=== PATIENT | male | born 1985 ===

== ENCOUNTER 2016-07-16 03:41 | Emergency (ER) | payer OTHER ==
[2016-07-16 03:47] VITALS: RESP 18
[2016-07-16] MEDS ORDERED: ONDANSETRON 4 MG/2 ML VIAL IVP STA ×3 (04:05→08:53)
[2016-07-16] MEDS ORDERED: HYDROmorphone 1 MG/ML 1 ML SYRINGE IVP STA ×2 (04:05→05:18)
[2016-07-16] MEDS ORDERED: SODIUM CHLORIDE 0.9% 1,000 ML IV STA ×2 (04:05→05:18)
[2016-07-16] MEDS ORDERED: SODIUM CHLORIDE 0.9% 2,000 ML IV STA (04:05)
--- NOTE | 2016-07-16 04:08 | ED ---
Abdominal Pain HPI - General Source: patient, family, RN notes reviewed, old records reviewed Mode of arrival: wheelchair Limitations: no limitations - History of Present Illness MD Complaint: abdominal pain <Eladio Bro - Last Filed: 07/16/16 06:54> <Adria Jacobs - Last Filed: 07/16/16 08:43> - General Chief Complaint: Abdominal Pain Stated Complaint: NVD, HX: diabetic Time Seen by Provider: 07/16/16 03:49 - History of Present Illness Initial Comments: This is a 31-year-old male with a history of appendectomy in the past as well as abdominal surgery who states she had the onset last night of nausea vomiting and diarrhea. She states this started as diarrhea he states he has sharp and crampy abdominal pain this about 8/10 severity. No blood reported uterine bowel movements or and emesis. He's also states she's had pain radiating around to the back to the right side and his family is concerned about gallbladder disease. No other complaints at this time no cough or phlegm production. He is currently nauseated. (Eladio Bro) - Related Data Home Medications Medication Instructions Recorded Confirmed Insulin Regular, Human [Humulin R] 12 units SQ BID 03/29/16 07/16/16 Loratadine [Loratadine] 10 mg PO DAILY 03/29/16 07/16/16 Omeprazole [PriLOSEC] 20 mg PO BID 03/29/16 07/16/16 Simvastatin [Simvastatin] 20 mg PO HS 03/29/16 07/16/16 Dicyclomine HCl [Bentyl] 20 mg PO QID 04/21/16 07/16/16 Insulin Glargine [Lantus] 34 unit SQ DAILY 07/16/16 07/16/16 Pregabalin [Lyrica] 150 mg PO BID 07/16/16 07/16/16 Previous Rx's Medication Instructions Recorded Ondansetron Odt [Zofran Odt] 4 mg PO Q8HR PRN #15 tab 05/21/16 Allergies Allergy/AdvReac Type Severity Reaction Status Date / Time etodolac [From Lodine] Allergy Rash/Hives Verified 05/21/16 22:31 ketorolac [From Toradol] Allergy Rash/Hives Verified 05/21/16 22:31 Review of Systems ROS Other: All systems not noted in ROS Statement are negative. <Eladio Bro - Last Filed: 07/16/16 06:54> ROS Other: All systems not noted in ROS Statement are negative. <Adria Jacobs - Last Filed: 07/16/16 08:43> ROS Statement: Those systems with pertinent positive or pertinent negative responses have been documented in the HPI. Past Medical History Past Medical History: Diabetes Mellitus, GERD/Reflux Additional Past Medical History / Comment(s): diverticultitis History of Any Multi-Drug Resistant Organisms: None Reported Past Surgical History: Appendectomy, Bowel Resection, Tonsillectomy Additional Past Surgical History / Comment(s): Bowel, Knee Past Psychological History: No Psychological Hx Reported Smoking Status: Never smoker Past Alcohol Use History: None Reported Past Drug Use History: None Reported <Eladio Bro - Last Filed: 07/16/16 06:54> General Exam Limitations: no limitations General appearance: alert, in no apparent distress Head exam: Present: atraumatic, normocephalic, normal inspection Eye exam: Present: normal appearance, PERRL, EOMI. Absent: scleral icterus, conjunctival injection, periorbital swelling ENT exam: Present: mucous membranes dry Neck exam: Present: normal inspection. Absent: tenderness, meningismus, lymphadenopathy Respiratory exam: Present: normal lung sounds bilaterally. Absent: respiratory distress, wheezes, rales, rhonchi, stridor Cardiovascular Exam: Present: normal rhythm, tachycardia, normal heart sounds. Absent: systolic murmur, diastolic murmur, rubs, gallop, clicks GI/Abdominal exam: Present: soft, tenderness (Tender epigastric region no definite guarding or rebound), normal bowel sounds. Absent: distended, guarding , rebound, rigid Rectal exam: Present: deferred Extremities exam: Present: normal inspection, full ROM, normal capillary refill. Absent: tenderness, pedal edema, joint swelling, calf tenderness Back exam: Present: normal inspection Neurological exam: Present: alert, oriented X3, CN II-XII intact Psychiatric exam: Present: normal affect, normal mood Skin exam: Present: warm, dry, intact, normal color. Absent: rash <Eladio Bro - Last Filed: 07/16/16 06:54> General appearance: alert, in no apparent distress Head exam: Present: atraumatic, normocephalic, normal inspection Eye exam: Present: normal appearance, PERRL, EOMI. Absent: scleral icterus, conjunctival injection, periorbital swelling ENT exam: Present: normal exam, mucous membranes moist Neck exam: Present: normal inspection. Absent: tenderness, meningismus, lymphadenopathy Respiratory exam: Present: normal lung sounds bilaterally. Absent: respiratory distress, wheezes, rales, rhonchi, stridor Cardiovascular Exam: Present: regular rate, normal rhythm, normal heart sounds. Absent: systolic murmur, diastolic murmur, rubs, gallop, clicks GI/Abdominal exam: Present: soft, normal bowel sounds. Absent: distended, tenderness, guarding, rebound, rigid Extremities exam: Present: normal inspection, full ROM, normal capillary refill. Absent: tenderness, pedal edema, joint swelling, calf tenderness Back exam: Present: normal inspection Neurological exam: Present: alert, oriented X3, CN II-XII intact Psychiatric exam: Present: normal affect, normal mood Skin exam: Present: warm, dry, intact, normal color. Absent: rash <Adria Jacobs - Last Filed: 07/16/16 08:43> - General Exam Comments Initial Comments: This is a well-developed well-nourished awake alert oriented 1 male (Eladio Bro) Course <Eladio Bro - Last Filed: 07/16/16 06:54> <Adria Jacobs - Last Filed: 07/16/16 08:43> Vital Signs 07/16/16 07/16/16 07/16/16 03:44 04:31 05:04 Temperature 97.7 F Pulse Rate 109 H 95 94 Respiratory 18 18 18 Rate Blood Pressure 123/63 111/65 105/61 O2 Sat by Pulse 100 98 98 Oximetry 07/16/16 07:17 Temperature Pulse Rate 91 Respiratory 18 Rate Blood Pressure 115/70 O2 Sat by Pulse 100 Oximetry - Reevaluation(s) Reevaluation #1: 07/16/16 05:19 Patient states she is not getting much improvement in his pain (Eladio Bro) Reevaluation #2: 07/16/16 06:31 Patient still having significant abdominal pain he states he's on again about 2 points better lab work is back. Patient will get a CAT scan the abdomen and pelvis. (Eladio Bro) Reevaluation #3: 07/16/16 06:54 The patient is endorsed to Dr. Jacobs (Eladio Bro) Reevaluation #4: 07/16/16 08:42 Patient's pain at this time seems to be sufficiently improved (Adria Jacobs) Medical Decision Making - Lab Data Result diagrams: 07/16/16 04:05 07/16/16 04:05 <Eladio Bro - Last Filed: 07/16/16 06:54> - Lab Data Result diagrams: 07/16/16 04:05 07/16/16 04:05 - Radiology Data Radiology results: report reviewed (CT abdomen and pelvis is negative for acute disease), image reviewed <Adria Jacobs - Last Filed: 07/16/16 08:43> - Medical Decision Making 28 male here for evaluation of abdominal pain. Patient without pain nausea vomiting diarrhea, at this time CT is negative Dopp is improved and patient can be discharged home (Adria Jacobs) - Lab Data Lab Results 07/16/16 07/16/16 07/16/16 Range/Units 04:05 04:05 04:05 WBC 13.3 H (3.8-10.6) k/uL RBC 5.36 (4.30-5.90) m/uL Hgb 16.4 (13.0-17.5) gm/dL Hct 47.7 (39.0-53.0) % MCV 89.0 (80.0-100.0) fL MCH 30.6 (25.0-35.0) pg MCHC 34.4 (31.0-37.0) g/dL RDW 12.8 (11.5-15.5) % Plt Count 256 (150-450) k/uL Neutrophils % 90 % Lymphocytes % 4 % Monocytes % 2 % Eosinophils % 3 % Basophils % 0 % Neutrophils # 11.9 H (1.3-7.7) k/uL Lymphocytes # 0.6 L (1.0-4.8) k/uL Monocytes # 0.3 (0-1.0) k/uL Eosinophils # 0.4 (0-0.7) k/uL Basophils # 0.0 (0-0.2) k/uL Sodium 142 (137-145) mmol/L Potassium 4.8 (3.5-5.1) mmol/L Chloride 107 (98-107) mmol/L Carbon Dioxide 21 L (22-30) mmol/L Anion Gap 14 mmol/L BUN 19 (9-20) mg/dL Creatinine 0.60 L (0.66-1.25) mg/dL Est GFR (MDRD) Af Amer >60 (>60 ml/min/1.73 sqM) Est GFR (MDRD) Non-Af >60 (>60 ml/min/1.73 sqM) Glucose 230 H (74-99) mg/dL Plasma Lactic Acid Ja (0.7-2.0) mmol/L Calcium 9.4 (8.4-10.2) mg/dL Total Bilirubin 1.0 (0.2-1.3) mg/dL AST 20 (17-59) U/L ALT 37 (21-72) U/L Alkaline Phosphatase 106 (38-126) U/L Total Creatine Kinase 50 L (55-170) U/L CK-MB (CK-2) 0.7 (0.0-2.4) ng/mL CK-MB (CK-2) Rel Index 1.4 Troponin I <0.012 (0.000-0.034) ng/mL Total Protein 7.9 (6.3-8.2) g/dL Albumin 4.7 (3.5-5.0) g/dL Amylase <30 L (30-110) U/L Lipase 66 (23-300) U/L Urine Color Urine Appearance (Clear) Urine pH (5.0-8.0) Ur Specific Declo (1.001-1.035) Urine Protein (Negative) Urine Glucose (UA) (Negative) Urine Ketones (Negative) Urine Blood (Negative) Urine Nitrate (Negative) Urine Bilirubin (Negative) Urine Urobilinogen (<2.0) mg/dL Ur Leukocyte Esterase (Negative) 07/16/16 07/16/16 Range/Units 04:05 04:05 WBC (3.8-10.6) k/uL RBC (4.30-5.90) m/uL Hgb (13.0-17.5) gm/dL Hct (39.0-53.0) % MCV (80.0-100.0) fL MCH (25.0-35.0) pg MCHC (31.0-37.0) g/dL RDW (11.5-15.5) % Plt Count (150-450) k/uL Neutrophils % % Lymphocytes % % Monocytes % % Eosinophils % % Basophils % % Neutrophils # (1.3-7.7) k/uL Lymphocytes # (1.0-4.8) k/uL Monocytes # (0-1.0) k/uL Eosinophils # (0-0.7) k/uL Basophils # (0-0.2) k/uL Sodium (137-145) mmol/L Potassium (3.5-5.1) mmol/L Chloride (98-107) mmol/L Carbon Dioxide (22-30) mmol/L Anion Gap mmol/L BUN (9-20) mg/dL Creatinine (0.66-1.25) mg/dL Est GFR (MDRD) Af Amer (>60 ml/min/1.73 sqM) Est GFR (MDRD) Non-Af (>60 ml/min/1.73 sqM) Glucose (74-99) mg/dL Plasma Lactic Acid Ja 1.7 (0.7-2.0) mmol/L Calcium (8.4-10.2) mg/dL Total Bilirubin (0.2-1.3) mg/dL AST (17-59) U/L ALT (21-72) U/L Alkaline Phosphatase (38-126) U/L Total Creatine Kinase (55-170) U/L CK-MB (CK-2) (0.0-2.4) ng/mL CK-MB (CK-2) Rel Index Troponin I (0.000-0.034) ng/mL Total Protein (6.3-8.2) g/dL Albumin (3.5-5.0) g/dL Amylase (30-110) U/L Lipase (23-300) U/L Urine Color Yellow Urine Appearance Clear (Clear) Urine pH 5.0 (5.0-8.0) Ur Specific Declo 1.024 (1.001-1.035) Urine Protein Negative (Negative) Urine Glucose (UA) 4+ H (Negative) Urine Ketones Negative (Negative) Urine Blood Negative (Negative) Urine Nitrate Negative (Negative) Urine Bilirubin Negative (Negative) Urine Urobilinogen <2.0 (<2.0) mg/dL Ur Leukocyte Esterase Negative (Negative) Disposition <Eladio Bro - Last Filed: 07/16/16 06:54> <Adria Jacobs - Last Filed: 07/16/16 08:43> Clinical Impression: Abdominal pain, Nausea & vomiting, Diarrhea Disposition: HOME SELF-CARE Instructions: Abdominal Pain (ED) Referrals: Sami Cuellar MD [Primary Care Provider] - 1-2 days
[2016-07-16 04:34] LABS: Basophils % (A) 0 %; CH 31.5; CHCM 35.6; Eosinophils # (A) 0.4 k/uL (0-0.7); Eosinophils % (A) 3 %; HCT 47.7 % (39.0-53.0); HDW 2.76; HGB 16.4 gm/dL (13.0-17.5); Luc # (Auto) 0.09; Luc % (Auto) 1; Lymphocytes # (A) 0.6 k/uL (1.0-4.8); Lymphocytes % (A) 4 %; MCH 30.6 pg (25.0-35.0); MCHC 34.4 g/dL (31.0-37.0); Mean Platelet Volume 6.9; Monocytes # (A) 0.3 k/uL (0-1.0); Monocytes % (A) 2 %; Neutrophils # (A) 11.9 k/uL (1.3-7.7); Neutrophils % (A) 90 %; RBC 5.36 m/uL (4.30-5.90); RDW 12.8 % (11.5-15.5); WBC 13.3 k/uL (3.8-10.6); WBC (Perox) 13.49
--- NOTE | 2016-07-16 04:41 | XR ---
EXAMINATION TYPE: XR chest 2V DATE OF EXAM: 07/16/2016 4:29 AM COMPARISON: NONE HISTORY: Abdominal pain TECHNIQUE: Frontal and lateral views of the chest are obtained. FINDINGS: Heart and mediastinum are normal. Lungs are clear. Diaphragm is normal. Bony thorax is int act. IMPRESSION: Normal chest
--- NOTE | 2016-07-16 04:42 | XR ---
EXAMINATION TYPE: XR KUB DATE OF EXAM: 07/16/2016 4:29 AM COMPARISON: 05/21/2016 HISTORY: Abdominal pain TECHNIQUE: Single view FINDINGS: There is no sign of intestinal obstruction or pneumoperitoneum. Fecal pattern is normal. Th ere are surgical clips over the stomach. Bony structures are intact. There is no sign of a mass. IMPRESSION: Nonacute abdomen. No change.
[2016-07-16 04:45] LABS: ALT 37 U/L (21-72); AST 20 U/L (17-59); Alkaline Phosphatase 106 U/L (38-126); Amylase <30 U/L (30-110); Anion Gap 14 mmol/L; Blood Urea Nitrogen 19 mg/dL (9-20); Calcium 9.4 mg/dL (8.4-10.2); Carbon Dioxide 21 mmol/L (22-30); Chloride 107 mmol/L (98-107); Glucose 230 mg/dL (74-99); Non-African American GFR(MDRD) >60 (>60 ml/min/1.73 sqM); Potassium 4.8 mmol/L (3.5-5.1); Sodium 142 mmol/L (137-145); Total Protein 7.9 g/dL (6.3-8.2)
[2016-07-16 04:50] LABS: Appearance,Urine Clear (Clear); Bilirubin,Urine Negative (Negative); Glucose,Urine (UA) 4+ (Negative); Ketones,Urine Negative (Negative); Leukocyte Esterase,Urine Negative (Negative); Nitrite,Urine Negative (Negative); Protein,Urine Negative (Negative); Specific Gravity,Urine 1.024 (1.001-1.035); UA Billing (MACRO vs. MICRO) CHEM; Urobilinogen,Urine <2.0 mg/dL (<2.0)
[2016-07-16 05:11] LABS: Creatine Kinase 50 U/L (55-170)
[2016-07-16] MEDS ORDERED: FAMOTIDINE 20 MG/2 ML VIAL IV STA (05:18)
[2016-07-16] MEDS ORDERED: DICYCLOMINE 10 MG/ML 2 ML AMP IM STA (05:18)
[2016-07-16 05:24] LABS: Creatine Kinase MB 0.7 ng/mL (0.0-2.4); Troponin I <0.012 ng/mL (0.000-0.034)
[2016-07-16] MEDS ORDERED: IOHEXOL 350 MG/ML 25 ML BOTTLE (ORAL USE) PO PRN (06:30)
[2016-07-16] MEDS ORDERED: RX INFO: IV CONTRAST WAS GIVEN 1 EACH MISC MISCELLANE PRN (06:30)
--- NOTE | 2016-07-16 08:33 | CT ---
EXAMINATION TYPE: CT abdomen pelvis w con DATE OF EXAM: 07/16/2016 8:27 AM COMPARISON: 03/29/2016 HISTORY: Nausea, vomitting, diarrhea CT DLP: 1102 mGycm CONTRAST: CT scan of the abdomen and pelvis is performed with Oral Contrast and with IV Contrast, patient injec frantz with 100 ml mL of Omnipaque 300. FINDINGS: LUNG BASES-: No visible nodule. No infiltrate. LIVER/GB: No calcified gallstones. No space occupying hepatic lesion. Biliary tree is of normal ca liber. PANCREAS: No inflammation. No distinct mass. SPLEEN: No splenic enlargement. No lesion seen. ADRENALS: No nodule. No thickening. KIDNEYS/BLADDER: No hydronephrosis. No nephrolithiasis. No disctinct renal mass. Urinary bladder g rossly unremarkable. BOWEL: There is been prior appendectomy. Extensive surgical clips are noted within the epigastric reg ion. Normal bowel caliber. No inflammation. GENITAL ORGANS: No gross abnormality. LYMPH NODES: No greater than 1cm abdominal or pelvic lymph nodes are appreciated. AORTA: No significant abnormality. OSSEOUS STRUCTURES: No significant abnormality is seen. OTHER: No significant additional abnormality is seen. IMPRESSION: 1. No acute intra-abdominal or intrapelvic process identified at this time.
[2016-07-16 09:03] VITALS: BP 114/64; PULSE 99; TEMP 98.5
== END 2016-07-16 09:20 | disposition home or self-care (01) ==
LOC: EC 03:41
DX: R11.2 Nausea with vomiting, unspecified (principal); R19.7 Diarrhea, unspecified; E11.9 Type 2 diabetes mellitus without complications; K21.9 Gastro-esophageal reflux disease without esophagitis; Z88.8 Allergy status to other drugs, medicaments and biological substances; Z79.4 Long term (current) use of insulin; Z79.899 Other long term (current) drug therapy
CPT/HCPCS: 36415; 80053; 82150; 82550; 82553; 83605; 83690; 84484; 85025; 81003; 71020; 74000; 74177; 99284; 96372; 96374; 96375 ×2; 96376 ×3; 96361 ×5; J0500; J2405; J1170; Q9967

== ENCOUNTER 2016-10-17 18:31 | Emergency (ER) | payer BC, OTHER ==
[2016-10-17 18:47] VITALS: RESP 18
[2016-10-17] MEDS ORDERED: ONDANSETRON 4 MG ODT STARTER PACK 2 TAB BTL PO STA (18:59)
[2016-10-17] MEDS ORDERED: HYDROcodone/APAP 5-325MG 1 EACH TAB PO STA (18:59)
--- NOTE | 2016-10-17 19:04 | ED ---
General Adult HPI - General Chief complaint: Abdominal Pain Stated complaint: Dx W HERNIA 2 DAYS AGO, IN ALOT OF PAIN Time Seen by Provider: 10/17/16 18:49 Source: patient, family, RN notes reviewed Mode of arrival: wheelchair Limitations: no limitations - History of Present Illness Initial comments: Patient 31-year-old male who presents emergency room today with a chief complaint of right-sided hernia. States he started having pain 3 days ago. 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 Denies any injury to it. He states started noticing was laying down at night. He states he went to his family doctor was diagnosed with a hernia on the right side in the inguinal area. States he does have an appointment with a surgeon next week. Patient states been using Tylenol at home for pain with little relief. He states currently off work due to this hernia. He does admit that he's had some loose bowels. Denies any signs of blood. Does admit this been feeling nauseated. Denies any other complaints. Admits previous abdominal surgery of appendectomy. Patient denies any recent fever, chills, shortness of breath, chest pain, back pain, vomiting, numbness or tingling, dysuria or hematuria, constipation or diarrhea, headaches or visual changes, or any other complaints. - Related Data Home Medications Medication Instructions Recorded Confirmed Insulin Regular, Human [Humulin R] 12 units SQ BID 03/29/16 07/16/16 Loratadine [Loratadine] 10 mg PO DAILY 03/29/16 07/16/16 Omeprazole [PriLOSEC] 20 mg PO BID 03/29/16 07/16/16 Simvastatin [Simvastatin] 20 mg PO HS 03/29/16 07/16/16 Dicyclomine HCl [Bentyl] 20 mg PO QID 04/21/16 07/16/16 Insulin Glargine [Lantus] 34 unit SQ DAILY 07/16/16 07/16/16 Pregabalin [Lyrica] 150 mg PO BID 07/16/16 07/16/16 Previous Rx's Medication Instructions Recorded Ondansetron Odt [Zofran Odt] 4 mg PO Q8HR PRN #15 tab 05/21/16 Hydrocodone/Acetaminophen [Cascilla 1 each PO Q6HR PRN #20 tab 10/17/16 5-325] Allergies Allergy/AdvReac Type Severity Reaction Status Date / Time etodolac [From Lodine] Allergy Rash/Hives Verified 10/17/16 18:47 ketorolac [From Toradol] Allergy Rash/Hives Verified 10/17/16 18:47 Review of Systems ROS Statement: Those systems with pertinent positive or pertinent negative responses have been documented in the HPI. ROS Other: All systems not noted in ROS Statement are negative. Past Medical History Past Medical History: Diabetes Mellitus, GERD/Reflux Additional Past Medical History / Comment(s): diverticultitis History of Any Multi-Drug Resistant Organisms: None Reported Past Surgical History: Appendectomy, Bowel Resection, Orthopedic Surgery, Tonsillectomy Additional Past Surgical History / Comment(s): Bowel, Knee Past Psychological History: No Psychological Hx Reported Smoking Status: Never smoker Past Alcohol Use History: None Reported Past Drug Use History: None Reported General Exam - General Exam Comments Initial Comments: General: The patient is awake and alert, in no distress, and does not appear acutely ill. Eye: Pupils are equal, round and reactive to light, extra-ocular movements are intact. No nystagmus. There is normal conjunctiva bilaterally. No signs of icterus. Ears, nose, mouth and throat: There are moist mucous membranes and no oral lesions. Neck: The neck is supple, there is no tenderness or JVD. Cardiovascular: There is a regular rate and rhythm. No murmur, rub or gallop is appreciated. Respiratory: Lungs are clear to auscultation, respirations are non-labored, breath sounds are equal. No wheezes, stridor, rales, or rhonchi. Gastrointestinal: Soft, non-distended, non-tender abdomen without masses or organomegaly noted. There is no rebound or guarding present. No CVA tenderness. Bowel sounds are unremarkable. Musculoskeletal: Normal ROM, no tenderness. Strength 5/5. Sensation intact. Pulses equal bilaterally 2+. Neurological: A&O x 3. CN II-XII intact, There are no obvious motor or sensory deficits. Coordination appears grossly intact. Speech is normal. Skin: Skin is warm and dry and no rashes or lesions are noted. Psychiatric: Cooperative, appropriate mood & affect, normal judgment. : Patient does have right-sided inguinal hernia that is reducible. He is tender over this area reproduces his pain. Limitations: no limitations Course Vital Signs 10/17/16 18:44 Temperature 98.1 F Pulse Rate 123 H Respiratory 18 Rate Blood Pressure 126/81 O2 Sat by Pulse 100 Oximetry Medical Decision Making - Medical Decision Making Patient advised to hold pressure to the area with certain movements or if he coughs or sneezes. Patient advised to lay down in supine position bring these up to take pressure off the abdomen with pain is increased at home. Advised that if pain is different or remains constant and he has no relief that he should return to emergency room for evaluation. He is advised follow-up with the surgeon with his scheduled appointment. He is advised to use pain medication. States cannot use ibuprofen 2 to a history of hiatal hernia. Patient will be given a short prescription of Cascilla for pain. Advised return for any other concerns. Disposition Clinical Impression: Right inguinal hernia Disposition: HOME SELF-CARE Condition: Good Instructions: Inguinal Hernia (ED) Additional Instructions: Please follow-up with surgeon over the next 2 days. Please use medication as prescribed and return here to the emergency room pain increases worsen or for any other concerns as discussed. Prescriptions: Hydrocodone/Acetaminophen [Cascilla 5-325] 1 each PO Q6HR PRN #20 tab PRN Reason: Pain Referrals: Sami Cuellar MD [Primary Care Provider] - 1-2 days Rohith Briceno MD [STAFF PHYSICIAN] - 1-2 days Time of Disposition: 19:03
[2016-10-17 19:06] VITALS: BP 120/78; PULSE 112
[2016-10-17 19:11] VITALS: TEMP 98.6
== END 2016-10-17 19:11 | disposition home or self-care (01) ==
LOC: EC 18:31
DX: K40.90 Unilateral inguinal hernia, without obstruction or gangrene, not specified as recurrent (principal); E11.9 Type 2 diabetes mellitus without complications; K21.9 Gastro-esophageal reflux disease without esophagitis; Z79.4 Long term (current) use of insulin; Z79.899 Other long term (current) drug therapy; Z88.6 Allergy status to analgesic agent; Z88.8 Allergy status to other drugs, medicaments and biological substances
CPT/HCPCS: 99283; S0119

== ENCOUNTER → 2016-10-25 | Outpatient (CLI) | payer BC ==
[2016-10-25 18:37] LABS: Blood Urea Nitrogen 13 mg/dL (9-20); Non-African American GFR(MDRD) >60 (>60 ml/min/1.73 sqM)
--- NOTE | 2016-10-25 20:39 | CT ---
EXAMINATION TYPE: CT abdomen pelvis w con DATE OF EXAM: 10/25/2016 7:41 PM COMPARISON: 07/16/2016 HISTORY: Right groin pain x [address] DLP: 508.80 mGycm Automated exposure control for dose reduction was used. TECHNIQUE: Helical acquisition of images was performed from the lung bases through the pelvis. CONTRAST: Performed with Oral Contrast and with IV Contrast, patient injected with 100 mL of Omnipaque 300. FINDINGS: Lung bases are clear. There is no pleural effusion. Heart size is normal. There are surgical clips at the gastroesophageal junction. Liver spleen pancreas appear normal. Gallbladder is contracted. Bile ducts are not dilated. There is no adrenal mass. Kidneys show satisfactory contrast opacification. There is no hydronephrosis. I see no intestinal wall thickening. There are no dilated loops. Bladder distends smoothly. There is no sig n of a pelvic mass. There is no evidence of a hernia. I see no bony destructive process. There is no sign of appendicitis. There are apparent surgical clips in the right lower quadrant at the cecum. There is posterior disc herniation at L4-5 and probably moderate spinal stenosis.. IMPRESSION: NO SIGN OF ACUTE ABDOMEN AND PELVIS. NO CHANGE COMPARED TO OLD EXAM. L4-5 MODERATE SPINAL STENOSIS. P REVIOUS SURGERY.
== END | disposition home or self-care (01) ==
LOC: RADCTMAIN 17:49
PROVIDERS: ATTEND Surgery
DX: R10.31 Right lower quadrant pain (principal)
CPT/HCPCS: 82565; 84520; 74177; 36415; Q9967

== ENCOUNTER 2016-11-16 19:07 | Emergency (ER) | payer BC ==
[2016-11-16 19:14] VITALS: TEMP 97.7
[2016-11-16] MEDS ORDERED: RX INFO: IV CONTRAST WAS GIVEN 1 EACH MISC MISCELLANE PRN (19:29)
[2016-11-16] MEDS ORDERED: SODIUM CHLORIDE 0.9% 1,000 ML IV STA ×2 (19:29→22:03)
[2016-11-16] MEDS ORDERED: ONDANSETRON 4 MG/2 ML VIAL IVP STA ×2 (19:29→23:06)
[2016-11-16] MEDS ORDERED: HYDROmorphone 1 MG/ML 1 ML SYRINGE IVP STA (19:29)
--- NOTE | 2016-11-16 19:33 | ED ---
Abdominal Pain HPI - General Chief Complaint: Abdominal Pain Stated Complaint: chills/vomiting Time Seen by Provider: 11/16/16 19:23 Source: patient, RN notes reviewed Mode of arrival: ambulatory Limitations: no limitations - History of Present Illness Initial Comments: 31-year-old male presents to the emergency department with a chief complaint of abdominal pain. Patient history of diverticulitis. He states he started abdominal pain and he has the nausea vomiting. Patient states he is concerned. Patient states he has had bowel resection for an abscess or diverticulitis as well as an appendectomy. Patient states that he is just feels very bad compared to his jaw pain so he was concerned. Patient denies any changes with 5 bladder habits. Patient states he has had the chills. Patient denies any recent fever, chills, shortness of breath, chest pain, back pain, numbness or tingling, dysuria or hematuria, constipation or diarrhea, headaches or visual changes, or any other current symptoms. - Related Data Home Medications Medication Instructions Recorded Confirmed Loratadine [Loratadine] 10 mg PO DAILY 03/29/16 11/16/16 Omeprazole [PriLOSEC] 20 mg PO BID 03/29/16 11/16/16 Simvastatin [Simvastatin] 20 mg PO HS 03/29/16 11/16/16 Dicyclomine HCl [Bentyl] 20 mg PO QID 04/21/16 11/16/16 Insulin Glargine [Lantus] 34 unit SQ QAM 07/16/16 11/16/16 Pregabalin [Lyrica] 150 mg PO BID 07/16/16 11/16/16 INSULIN LISPRO (humaLOG) [humaLOG 3 - 6 units SQ TID-W/MEALS PRN 11/15/16 (formulary)] PARoxetine HCL [Paxil] 10 mg PO QAM 11/15/16 11/16/16 Hydrocodone/Acetaminophen [[place] 1 tab PO Q6HR PRN 11/16/16 11/16/16 5-325] Allergies Allergy/AdvReac Type Severity Reaction Status Date / Time etodolac [From Lodine] Allergy Rash/Hives Verified 11/16/16 20:28 ketorolac [From Toradol] Allergy Rash/Hives Verified 11/16/16 20:28 lodine Allergy Rash/Hives Uncoded 11/16/16 19:15 Review of Systems ROS Statement: Those systems with pertinent positive or pertinent negative responses have been documented in the HPI. ROS Other: All systems not noted in ROS Statement are negative. Past Medical History Past Medical History: Diabetes Mellitus, GERD/Reflux Additional Past Medical History / Comment(s): having abdominal pain radiating to back,diverticultitis History of Any Multi-Drug Resistant Organisms: None Reported Past Surgical History: Appendectomy, Bowel Resection, Orthopedic Surgery, Tonsillectomy Additional Past Surgical History / Comment(s): Knee,hiatal hernia Past Anesthesia/Blood Transfusion Reactions: No Reported Reaction Additional Past Anesthesia/Blood Transfusion Reaction / Comment(s): no hx blood transfusion Past Psychological History: No Psychological Hx Reported Smoking Status: Never smoker Past Alcohol Use History: None Reported Past Drug Use History: None Reported - Past Family History Mother Family Medical History: No Reported History Father Family Medical History: Diabetes Mellitus Additional Family Medical History / Comment(s): heart problems General Exam - General Exam Comments Initial Comments: General: The patient is awake and alert, in no distress, and does not appear acutely ill. Eye: Pupils are equal, round and reactive to light, extra-ocular movements are intact; there is normal conjunctiva bilaterally. No signs of icterus. Ears, nose, mouth and throat: There are moist mucous membranes. Neck: The neck is supple, there is no tenderness. Cardiovascular: There is a regular rate and rhythm. No murmur, rub or gallop is appreciated. Respiratory: Lungs are clear to auscultation, respirations are non-labored, breath sounds are equal. No wheezes, stridor, rales, or rhonchi. Gastrointestinal: Soft, non-distended, non-tender abdomen without masses or organomegaly noted. There is no rebound or guarding present. No CVA tenderness. Bowel sounds are unremarkable. Back: There is no tenderness to palpation in the midline. There is no obvious deformity. No rashes noted. Musculoskeletal: Normal ROM, no tenderness, There is no pedal edema. There is no calf tenderness or swelling. Sensation intact. Pulses equal bilaterally 2+. Neurological: CN II-XII intact, There are no obvious motor or sensory deficits. Coordination appears grossly intact. Speech is normal. Skin: Skin is warm and dry and no rashes or lesions are noted. Psychiatric: Cooperative, appropriate mood & affect, normal judgment. Limitations: no limitations Course Vital Signs 11/16/16 19:12 Temperature 97.7 F Pulse Rate 109 H Respiratory 20 Rate Blood Pressure 116/80 O2 Sat by Pulse 98 Oximetry - Reevaluation(s) Reevaluation #1: 11/16/16 22:42 At this time patient appears to have an elevated lactic acid due to dehydration. This time we will hydrate the patient. Medical Decision Making - Medical Decision Making 31-year-old male presents emergency room chief complaint nausea vomiting and abdominal pain. At this time CAT scan and ultrasound are reviewed that do not show any acute findings. This is been a chronic problem for the patient is scheduled for colonoscopy to look for further causes of his symptoms. At this time lactic was elevated however this suspicious suspicion due to dehydration he was given 2 L of fluids. We did discuss close follow-up with his surgeon we did discuss return parameters and all his questions. He stated he understood and he is in agreement with plan. He will be discharged. - Lab Data Result diagrams: 11/16/16 20:03 11/16/16 20:03 Lab Results 11/16/16 11/16/16 11/16/16 Range/Units 20:03 20:03 20:03 WBC 7.4 (3.8-10.6) k/uL RBC 5.38 (4.30-5.90) m/uL Hgb 17.1 (13.0-17.5) gm/dL Hct 47.1 (39.0-53.0) % MCV 87.4 (80.0-100.0) fL MCH 31.8 (25.0-35.0) pg MCHC 36.3 (31.0-37.0) g/dL RDW 12.1 (11.5-15.5) % Plt Count 215 (150-450) k/uL Neutrophils % 81 % Lymphocytes % 12 % Monocytes % 3 % Eosinophils % 2 % Basophils % 1 % Neutrophils # 6.0 (1.3-7.7) k/uL Lymphocytes # 0.9 L (1.0-4.8) k/uL Monocytes # 0.2 (0-1.0) k/uL Eosinophils # 0.1 (0-0.7) k/uL Basophils # 0.0 (0-0.2) k/uL Hyperchromasia Slight Sodium 137 (137-145) mmol/L Potassium 4.1 (3.5-5.1) mmol/L Chloride 99 (98-107) mmol/L Carbon Dioxide 26 (22-30) mmol/L Anion Gap 12 mmol/L BUN 13 (9-20) mg/dL Creatinine 0.55 L (0.66-1.25) mg/dL Est GFR (MDRD) Af Amer >60 (>60 ml/min/1.73 sqM) Est GFR (MDRD) Non-Af >60 (>60 ml/min/1.73 sqM) Glucose 230 H (74-99) mg/dL Plasma Lactic Acid Ja 2.2 H* (0.7-2.0) mmol/L Calcium 9.9 (8.4-10.2) mg/dL Total Bilirubin 1.5 H (0.2-1.3) mg/dL AST 15 L (17-59) U/L ALT 23 (21-72) U/L Alkaline Phosphatase 114 (38-126) U/L Total Protein 8.2 (6.3-8.2) g/dL Albumin 5.1 H (3.5-5.0) g/dL Amylase 33 (30-110) U/L Lipase 29 (23-300) U/L Urine Color Urine Appearance (Clear) Urine pH (5.0-8.0) Urine Protein (Negative) Urine Glucose (UA) (Negative) Urine Ketones (Negative) Urine Blood (Negative) Urine Nitrite (Negative) Urine Bilirubin (Negative) Urine Urobilinogen (<2.0) mg/dL Ur Leukocyte Esterase (Negative) 11/16/16 Range/Units 21:56 WBC (3.8-10.6) k/uL RBC (4.30-5.90) m/uL Hgb (13.0-17.5) gm/dL Hct (39.0-53.0) % MCV (80.0-100.0) fL MCH (25.0-35.0) pg MCHC (31.0-37.0) g/dL RDW (11.5-15.5) % Plt Count (150-450) k/uL Neutrophils % % Lymphocytes % % Monocytes % % Eosinophils % % Basophils % % Neutrophils # (1.3-7.7) k/uL Lymphocytes # (1.0-4.8) k/uL Monocytes # (0-1.0) k/uL Eosinophils # (0-0.7) k/uL Basophils # (0-0.2) k/uL Hyperchromasia Sodium (137-145) mmol/L Potassium (3.5-5.1) mmol/L Chloride (98-107) mmol/L Carbon Dioxide (22-30) mmol/L Anion Gap mmol/L BUN (9-20) mg/dL Creatinine (0.66-1.25) mg/dL Est GFR (MDRD) Af Amer (>60 ml/min/1.73 sqM) Est GFR (MDRD) Non-Af (>60 ml/min/1.73 sqM) Glucose (74-99) mg/dL Plasma Lactic Acid Ja (0.7-2.0) mmol/L Calcium (8.4-10.2) mg/dL Total Bilirubin (0.2-1.3) mg/dL AST (17-59) U/L ALT (21-72) U/L Alkaline Phosphatase (38-126) U/L Total Protein (6.3-8.2) g/dL Albumin (3.5-5.0) g/dL Amylase (30-110) U/L Lipase (23-300) U/L Urine Color Yellow Urine Appearance Clear (Clear) Urine pH 6.5 (5.0-8.0) Urine Protein Trace H (Negative) Urine Glucose (UA) 4+ H (Negative) Urine Ketones 1+ H (Negative) Urine Blood Negative (Negative) Urine Nitrite Negative (Negative) Urine Bilirubin Negative (Negative) Urine Urobilinogen <2.0 (<2.0) mg/dL Ur Leukocyte Esterase Negative (Negative) - Radiology Data Radiology results: report reviewed, image reviewed Disposition Clinical Impression: Nausea & vomiting, Dehydration, Abdominal pain Disposition: HOME SELF-CARE Condition: Stable Instructions: Abdominal Pain (ED) Additional Instructions: Please use medication as discussed. Please follow up with family doctor if symptoms have not improved over the next two days. Please return to the emergency room if your symptoms increase or worsen or for any other concerns. Referrals: Sami Cuellar MD [Primary Care Provider] - 1-2 days Time of Disposition: 23:05
[2016-11-16 20:21] LABS: Basophils % (A) 1 %; CHCM 37.8; Eosinophils # (A) 0.1 k/uL (0-0.7); Eosinophils % (A) 2 %; HCT 47.1 % (39.0-53.0); HDW 2.73; HGB 17.1 gm/dL (13.0-17.5); Hyperchromasia Slight; Luc # (Auto) 0.09; Luc % (Auto) 1; Lymphocytes # (A) 0.9 k/uL (1.0-4.8); Lymphocytes % (A) 12 %; MCH 31.8 pg (25.0-35.0); MCHC 36.3 g/dL (31.0-37.0); MCV 87.4 fL (80.0-100.0); Monocytes # (A) 0.2 k/uL (0-1.0); Monocytes % (A) 3 %; Neutrophils % (A) 81 %; RBC 5.38 m/uL (4.30-5.90); RDW 12.1 % (11.5-15.5); WBC 7.4 k/uL (3.8-10.6); WBC (Perox) 6.98
[2016-11-16 20:37] LABS: ALT 23 U/L (21-72); AST 15 U/L (17-59); Alkaline Phosphatase 114 U/L (38-126); Amylase 33 U/L (30-110); Anion Gap 12 mmol/L; Blood Urea Nitrogen 13 mg/dL (9-20); Calcium 9.9 mg/dL (8.4-10.2); Carbon Dioxide 26 mmol/L (22-30); Chloride 99 mmol/L (98-107); Glucose 230 mg/dL (74-99); Non-African American GFR(MDRD) >60 (>60 ml/min/1.73 sqM); Potassium 4.1 mmol/L (3.5-5.1); Sodium 137 mmol/L (137-145); Total Bilirubin 1.5 mg/dL (0.2-1.3); Total Protein 8.2 g/dL (6.3-8.2)
--- NOTE | 2016-11-16 21:12 | CT ---
EXAMINATION TYPE: CT abdomen pelvis w con DATE OF EXAM: 11/16/2016 COMPARISON: 10/25/2016 INDICATION: Mid abdominal pain, nausea, vomiting and bloating. DLP: 419.00 mGycm, Automated exposure control for dose reduction was used. CONTRAST: 100 mL of Omnipaque 300. Study performed without Oral Contrast TECHNIQUE: Axial images were obtained from above the diaphragm to the pubic rami in the axial plane a t 5 mm thick sections. Reconstructed images are reviewed on the computer in the coronal plane. FINDINGS: Postsurgical clips are within the epigastric region. Limited CT sections are obtained the lung bases. The lung bases are clear. CT ABDOMEN: Liver: Normal Spleen: Normal Pancreas: Normal Adrenal glands: The adrenal glands are normal. Gallbladder: Normal Kidneys: No masses are evident. No hydronephrosis is present. No cysts are present. Delayed images were obtained through the kidneys, which remain unremarkable. Aorta: Normal Inferior vena cava: Normal. CT PELVIS: Loops of bowel within the abdomen and pelvis are normal. Lack oral contrast limits evaluation of bowel loops. Appendix: Not visualized Urinary bladder: Normal. Genitourinary structures: Some mild prostate hypertrophy may be present Osseous structures: No suspicious lytic or sclerotic lesions. Stenosis at L4-5 is stable IMPRESSIONS: 1. No acute changes. Findings appear stable from 10/25/2016
[2016-11-16] MEDS ORDERED: METOCLOPRAMIDE 5 MG/ML 2 ML VIAL IVP STA (21:41)
[2016-11-16 22:16] LABS: Appearance,Urine Clear (Clear); Bilirubin,Urine Negative (Negative); Glucose,Urine (UA) 4+ (Negative); Ketones,Urine 1+ (Negative); Leukocyte Esterase,Urine Negative (Negative); Nitrite,Urine Negative (Negative); PH, Urine 6.5 (5.0-8.0); Protein,Urine Trace (Negative); UA Billing (MACRO vs. MICRO) CHEM; Urobilinogen,Urine <2.0 mg/dL (<2.0)
--- NOTE | 2016-11-16 22:53 | US ---
EXAM: US Abdomen Limited, Right Upper Quadrant CLINICAL HISTORY: Reason: Pain TECHNIQUE: Real-time ultrasound of the right upper quadrant with image documentation. COMPARISON: CT 11/16/16. FINDINGS: Liver: Heterogeneous and echogenic with hypoechoic area near the gallbladder fossa, likely focal fatty sparing. Gallbladder: No gallstones. Positive sonographic Walters's sign. Common bile duct: Portions visualized remarkable. Pancreas: Not well visualized. Right kidney: No stones. No hydronephrosis. EXAM MEASUREMENTS: Liver Length: 17.1 cm Gallbladder Wall: 0.2 cm CBD: 0.5 cm Right Kidney: 12.0 x 4.3 x 5.5 cm IMPRESSION: 1. No gallstones or gallbladder wall thickening. Common bile duct is upper normal. Positive sonographic Walters's sign. 2. Fatty liver.
[2016-11-16] MEDS ORDERED: ONDANSETRON 4 MG ODT STARTER PACK 2 TAB BTL PO STA (23:06)
[2016-11-16 23:28] VITALS: BP 121/75; PULSE 98; RESP 18
[2016-11-17 00:22] LABS: Specific Gravity,Urine >1.050 (1.001-1.035)
== END 2016-11-16 23:27 | disposition home or self-care (01) ==
LOC: EC 19:07
DX: E86.0 Dehydration (principal); R11.2 Nausea with vomiting, unspecified; R10.9 Unspecified abdominal pain; R68.83 Chills (without fever); E11.9 Type 2 diabetes mellitus without complications; K21.9 Gastro-esophageal reflux disease without esophagitis; Z79.4 Long term (current) use of insulin; Z79.899 Other long term (current) drug therapy; Z88.6 Allergy status to analgesic agent; Z91.09 Other allergy status, other than to drugs and biological substances; Z90.49 Acquired absence of other specified parts of digestive tract; Z90.3 Acquired absence of stomach [part of]
CPT/HCPCS: 36415; 80053; 82150; 83605; 83690; 85025; 81003; 87040; 87086; 76705; 74177; 99284; 96374; 96375 ×2; 96376; 96361; J2765; J2405; J1170; Q9967; S0119

== ENCOUNTER → 2016-11-19 | Day surgery (SDC) | payer BC ==
[2016-11-15 14:40] VITALS: BMI 24.1
[~2016-11-19] MED LIST: INSULIN LISPRO (humaLOG) 300 UNIT/3 ML VIAL SQ ONE; LACTATED RINGERS 1,000 ML IV SCH; LIDOCAINE 1% 20 ML VIAL (10MG/ML) FOR IV START INTRADERMA PRN; LIDOCAINE 1% INJ 10MG/ML (20 ML MDV) ONE; PROPOFOL 10 MG/ML 20 ML VIAL IV ONE
[2016-11-19 08:50] LABS: Glucose,Whole Blood 339 mg/dL (75-99)
[2016-11-19 08:55] VITALS: RESP 16; TEMP 98
--- NOTE | 2016-11-19 09:00 | P.GSHP ---
History of Present Illness H&P Date: 11/19/16 Chief Complaint: Nausea, vomiting, diarrhea, GI bleed This a 31-year-old male who presents today for EGD colonoscopy. He's had issues with nausea, vomiting, diarrhea and GI bleed. Patient's had a previous history of diverticulitis with sigmoid colectomy. - Constitutional Constitutional: Reports as per HPI Past Medical History Past Medical History: Diabetes Mellitus, GERD/Reflux Additional Past Medical History / Comment(s): having abdominal pain radiating to back,diverticultitis History of Any Multi-Drug Resistant Organisms: None Reported Past Surgical History: Appendectomy, Bowel Resection, Orthopedic Surgery, Tonsillectomy Additional Past Surgical History / Comment(s): Knee,hiatal hernia Past Anesthesia/Blood Transfusion Reactions: No Reported Reaction Additional Past Anesthesia/Blood Transfusion Reaction / Comment(s): no hx blood transfusion Past Psychological History: No Psychological Hx Reported Smoking Status: Never smoker Past Alcohol Use History: None Reported Past Drug Use History: None Reported - Past Family History Mother Family Medical History: No Reported History Father Family Medical History: Diabetes Mellitus Additional Family Medical History / Comment(s): heart problems Medications and Allergies Home Medications Medication Instructions Recorded Confirmed Type Loratadine [Loratadine] 10 mg PO DAILY 03/29/16 11/19/16 History Omeprazole [PriLOSEC] 20 mg PO BID 03/29/16 11/16/16 History Simvastatin [Simvastatin] 20 mg PO HS 03/29/16 11/19/16 History Dicyclomine HCl [Bentyl] 20 mg PO QID 04/21/16 11/19/16 History Insulin Glargine [Lantus] 34 unit SQ QAM 07/16/16 11/19/16 History Pregabalin [Lyrica] 150 mg PO BID 07/16/16 11/19/16 History INSULIN LISPRO (humaLOG) [humaLOG 3 - 6 units SQ TID-W/MEALS PRN 11/15/16 History (formulary)] PARoxetine HCL [Paxil] 10 mg PO QAM 11/15/16 11/16/16 History Hydrocodone/Acetaminophen [[place] 1 tab PO Q6HR PRN 11/16/16 11/19/16 History 5-325] Allergies Allergy/AdvReac Type Severity Reaction Status Date / Time etodolac [From Lodine] Allergy Rash/Hives Verified 11/16/16 20:28 ketorolac [From Toradol] Allergy Rash/Hives Verified 11/16/16 20:28 lodine Allergy Rash/Hives Uncoded 11/16/16 19:15 Surgical - Exam Vital Signs Temp Pulse Resp BP Pulse Ox 98.0 F 116 H 16 133/92 97 11/19/16 08:53 11/19/16 08:53 11/19/16 08:53 11/19/16 08:53 11/19/16 08:53 - General well developed, no distress - Eyes PERRL - ENT normal pinna - Neck no masses - Respiratory normal expansion - Cardiovascular Rhythm: regular - Abdomen Abdomen: soft, non tender Results - Labs Abnormal Lab Results - Last 24 Hours (Table) 11/19/16 Range/Units 08:49 POC Glucose (mg/dL) 339 H (75-99) mg/dL Assessment and Plan Plan: GI bleed, nausea, vomiting diarrhea. We'll perform EGD and colonoscopy.
--- NOTE | 2016-11-19 09:22 | P.OP ---
Date of Procedure: 11/19/16 Preoperative Diagnosis: Nausea Vomiting Diarrhea GI bleed Postoperative Diagnosis: Antral gastritis Hepatic flexure polyp Diverticulosis Rectal biopsy pathology pending Procedure(s) Performed: EGD Colonoscopy Implants: Anesthesia: MAC Surgeon: Rohith Briceno Pathology: other (Antrum, hepatic flexure polyp, rectal biopsy) Condition: stable Disposition: PACU Indications for Procedure: Operative Findings: Description of Procedure: Patient's placed on the endoscopy table lateral position. He received IV sedation. The gastroscope some placed oropharynx passed into the esophagus into the stomach. Scope was then placed through the pylorus. The first and second portion of the duodenum appeared normal. Scope was then brought back the antrum and this was mildly inflamed. A biopsies performed. Scope was unretroflexed and remainder of the stomach appeared normal. There is no evidence of a hiatal hernia. The GE junction was at 40 cm the distal esophagus appeared normal. The proximal esophagus appeared normal. Scope was withdrawn for patient. Next digital rectal exam was performed which revealed no ebonized. The prostate was symmetric without nodules. The flexible colonoscope was then placed patient anus passed rotator entire colon. The ileocecal valve was visualized. The cecum and ascending colon was normal. At the hepatic flexure there was a blue tattoo on the mucosa and there is also a small polyp seen this removed the forcep. In the transverse and descending colon there was significant diverticular changes. The scope was then brought back into the rectum and a random biopsies performed. There is no evidence of any obvious inflammation. The scope was withdrawn from patient.
[2016-11-19 09:31] LABS: Glucose,Whole Blood 325 mg/dL (75-99)
[2016-11-19 09:53] VITALS: BP 105/72; PULSE 84
--- NOTE | 2016-11-19 12:10 | NM ---
EXAMINATION TYPE: NM hepatobiliary w EF DATE OF EXAM: 11/19/2016 COMPARISON: CT abdomen and pelvis and ultrasound from 3 days ago. HISTORY: Abdominal pain and nausea. TECHNIQUE: After the intravenous administration of 5.5 mCi Tc 99m Mebrofenin hepatobiliary scintigrap hy is performed. Immediate images post injection. FINDINGS: There is satisfactory initial accumulation of tracer by the liver. The gallbladder is visualized wit hin 20 minutes. The small bowel activity is noted within 20 minutes. At one hour 8 ounces of oral e nsure plus is given to mimic CCK and gallbladder ejection fraction is calculated at 81 %, not diminis hed from the normal range. Therefore there is no scintigraphic evidence of cystic or common bile dany t obstruction to suggest acute cholecystitis. IMPRESSION: Ejection fraction is 81%, some consider this abnormal or a hyperkinetic response.
== END ==
LOC: ORWHC2ENDO 08:25
PROVIDERS: ATTEND Surgery
DX: K29.50 Unspecified chronic gastritis without bleeding (principal); K57.30 Diverticulosis of large intestine without perforation or abscess without bleeding; K63.5 Polyp of colon; R11.2 Nausea with vomiting, unspecified; R10.9 Unspecified abdominal pain; Z87.19 Personal history of other diseases of the digestive system; Z90.49 Acquired absence of other specified parts of digestive tract; K21.9 Gastro-esophageal reflux disease without esophagitis; E11.9 Type 2 diabetes mellitus without complications; F39 Unspecified mood [affective] disorder; Z79.4 Long term (current) use of insulin; Z79.899 Other long term (current) drug therapy; Z88.8 Allergy status to other drugs, medicaments and biological substances; Z91.09 Other allergy status, other than to drugs and biological substances
CPT/HCPCS: 88305; 88342; 78226; 45380; 43239; A9537; J2001; J2704

== ENCOUNTER 2016-12-14 10:30 | Day surgery (SDC) | payer BC ==
[2016-12-11 14:12] VITALS: BMI 24.6
[~2016-12-14 10:30] MED LIST changes: +DEXAMETHASONE SOD PHOSPHATE 10 MG/ML 1 ML VIAL IV ONE; +HEPARIN SODIUM,PORCINE 5,000 UNIT/ML 1 ML VIAL SQ ONE; +HYDROmorphone 1 MG/ML 1 ML SYRINGE IVP PRN; -INSULIN LISPRO (humaLOG) 300 UNIT/3 ML VIAL SQ ONE; -LACTATED RINGERS 1,000 ML IV SCH; -LIDOCAINE 1% 20 ML VIAL (10MG/ML) FOR IV START INTRADERMA PRN; -LIDOCAINE 1% INJ 10MG/ML (20 ML MDV) ONE; +MIDAZOLAM 2 MG/2 ML VIAL IV PRN; +ONDANSETRON 4 MG/2 ML VIAL IVP ONE; -PROPOFOL 10 MG/ML 20 ML VIAL IV ONE; +SCOPOLAMINE 1.5MG/72HR PATCH TRANSDERM ONE; +ceFAZolin 2 GM in SODIUM CHLORIDE 0.9% 100 ML IVPB ONE
[2016-12-14] MEDS ORDERED: LIDOCAINE 1% 20 ML VIAL (10MG/ML) FOR IV START INTRADERMA ONE (11:55)
--- NOTE | 2016-12-14 12:01 | P.GSHP ---
History of Present Illness H&P Date: 12/14/16 Chief Complaint: Right upper quadrant pain 's is a 31-year-old male referred him Dr. Cuellar. Patient presents today for laparoscopic cholestatic. He's had complaints of right quadrant pain. His recent HIDA scan showed abnormal ejection fraction. Past Medical History Past Medical History: Diabetes Mellitus, GERD/Reflux, Hypertension Additional Past Medical History / Comment(s): having abdominal pain radiating to back, HX OF diverticultitis History of Any Multi-Drug Resistant Organisms: None Reported Past Surgical History: Appendectomy, Bowel Resection, Orthopedic Surgery, Tonsillectomy Additional Past Surgical History / Comment(s): ARTHROSCOPY Knee,hiatal hernia Past Anesthesia/Blood Transfusion Reactions: Postoperative Nausea & Vomiting ( PONV) Additional Past Anesthesia/Blood Transfusion Reaction / Comment(s): no hx blood transfusion Smoking Status: Never smoker - Past Family History Mother Family Medical History: No Reported History Father Family Medical History: Diabetes Mellitus Additional Family Medical History / Comment(s): heart problems Medications and Allergies Home Medications Medication Instructions Recorded Confirmed Type Loratadine [Loratadine] 10 mg PO DAILY 03/29/16 12/14/16 History Omeprazole [PriLOSEC] 20 mg PO BID 03/29/16 12/14/16 History Simvastatin [Simvastatin] 20 mg PO HS 03/29/16 12/14/16 History Dicyclomine HCl [Bentyl] 20 mg PO QID 04/21/16 12/14/16 History Insulin Glargine [Lantus] 34 unit SQ HS 07/16/16 12/14/16 History Pregabalin [Lyrica] 150 mg PO BID 07/16/16 12/14/16 History INSULIN LISPRO (humaLOG) [humaLOG 3 - 6 units SQ TID-W/MEALS PRN 11/15/16 History (formulary)] PARoxetine HCL [Paxil] 10 mg PO QAM 11/15/16 12/14/16 History Hydrocodone/Acetaminophen [[place] 1 tab PO Q6HR PRN 11/16/16 12/14/16 History 5-325] Lisinopril [Zestril] 10 mg PO HS 12/14/16 12/14/16 History Allergies Allergy/AdvReac Type Severity Reaction Status Date / Time etodolac [From Lodine] Allergy Rash/Hives Verified 12/11/16 14:07 ketorolac [From Toradol] Allergy Rash/Hives Verified 12/11/16 14:07 Surgical - Exam Vital Signs Temp Pulse Resp BP Pulse Ox 98.7 F 97 18 105/72 100 12/14/16 11:37 12/14/16 11:37 12/14/16 11:37 12/14/16 11:37 12/14/16 11:37 - General well developed, no distress - Eyes PERRL - ENT normal pinna - Neck no masses - Respiratory normal expansion - Cardiovascular Rhythm: regular - Abdomen Abdomen: soft, non tender Assessment and Plan Plan: Chronic cholecystitis. We'll perform laparoscopic cholecystectomy.
[2016-12-14 12:02] LABS: Glucose,Whole Blood 145 mg/dL (75-99)
[2016-12-14] MEDS: LACTATED RINGERS 1,000 ML IV SCH ×2 (12:02→16:04)
[2016-12-14] MEDS ORDERED: MIDAZOLAM 2 MG/2 ML VIAL ONE (12:06)
[2016-12-14] MEDS ORDERED: LIDOCAINE 1% INJ 10MG/ML (20 ML MDV) ONE (12:06)
[2016-12-14] MEDS ORDERED: PHENYLEPHRINE-0.9% NACL SYG 1 MG/10 ML SYRINGE ONE (12:06)
[2016-12-14] MEDS ORDERED: PROPOFOL 10 MG/ML 20 ML VIAL IV ONE (12:06)
[2016-12-14] MEDS ORDERED: NEOSTIGMINE 1 MG/ML 10 ML VIAL ONE (12:06)
[2016-12-14] MEDS ORDERED: SUCCINYLCHOLINE CHLORIDE 100 MG/5 ML SYR IV ONE (12:06)
[2016-12-14] MEDS ORDERED: ROCURONIUM BROMIDE 10 MG/ML 10 ML VIAL IV ONE (12:06)
[2016-12-14] MEDS ORDERED: fentaNYL (PF) 50 MCG/ML 2 ML AMP ONE (12:06)
[2016-12-14] MEDS ORDERED: GLYCOPYRROLATE 0.2 MG/ML 2 ML VIAL ONE (12:06)
[2016-12-14] MEDS ORDERED: LACTATED RINGERS 1,000 ML IV ONE (12:15)
[2016-12-14] MEDS ORDERED: BUPIVACAIN-EPI 0.5%-1:200,000 30 ML VIAL SQ ONE ×2 (12:25→12:45)
--- NOTE | 2016-12-14 13:10 | P.OP ---
Date of Procedure: 12/14/16 Preoperative Diagnosis: Cholecystitis Postoperative Diagnosis: Cholecystitis Procedure(s) Performed: Laparoscopic cholecystectomy Implants: Anesthesia: DENISE Surgeon: Rohith Briceno Estimated Blood Loss (ml): 5 Pathology: other (Gallbladder) Condition: stable Disposition: PACU Indications for Procedure: Operative Findings: Description of Procedure: The patient was placed on the operative table in supine position. She received general anesthesia. His abdomen was prepped and draped usual sterile fashion. Patient had extensive laparotomy incisions. Using a 5 mm blade less trocar under direct visualization. The peritoneal Cavity is entered in the left upper quadrant and then the abdomen was insufflated. The laparoscope size back. Cavity. There were adhesions in the left upper quadrant. Right lateral abdominal wall was visualized. And then a 5 mm trocar was placed in the right lateral position and then a 5 ohmmeter trocar is placed in the epigastric position and another 5 mm trochars placed the right mid abdomen position and then a 5 mm trocar is placed in the supraumbilical position. The patient's placed in the head up right side up position. The fundus and infundibulum of the gallbladder were grasped and traction was placed the lateral and cephalad position this opened the triangle of Karen. The cystic duct was then bluntly dissected. A 2-0 Ethibond sutures placed throughout the cystic duct and then it was ligated using a tie knot device. The Harmonic scissors used to divide the cystic duct. The cystic artery was divided using Harmonic scissors. And then the gallbladder was removed from liver bed using the Harmonic scissors. The gallbladder was extracted through the 5 mm epigastric trocar. The liver bed was inspected for hemostasis. There is no bleeding seen. The trochars withdrawn. The skin was closed interrupted 3-0 Monocryl suture. Dermabond was applied. She was sent to recovery in stable condition.
[2016-12-14] MEDS ORDERED: MEPERIDINE 50 MG/ML SYRINGE IVP ONE ×2 (13:15→13:31)
[2016-12-14 13:19] VITALS: RESP 16; TEMP 97.2
[2016-12-14 13:27] LABS: Glucose,Whole Blood 151 mg/dL (75-99)
[2016-12-14] MEDS ORDERED: ONDANSETRON 4 MG/2 ML VIAL IVP ONE (13:52)
[2016-12-14] MEDS ORDERED: PROMETHAZINE INJ 25 MG/ML 1 ML VIAL IVPB ONE (14:09)
[2016-12-14] MEDS ORDERED: SCOPOLAMINE 1.5MG/72HR PATCH TRANSDERM ONE (14:11)
[2016-12-14] MEDS ORDERED: HYDROmorphone 1 MG/ML 1 ML SYRINGE IVP ONE (14:21)
[2016-12-14] MEDS ORDERED: HYDROcodone/APAP 7.5-325MG 1 EACH TAB PO ONE (15:05)
[2016-12-14 15:28] LABS: Glucose,Whole Blood 165 mg/dL (75-99)
[2016-12-14 16:38] VITALS: BP 108/70; PULSE 101
== END 2016-12-14 17:15 | disposition home or self-care (01) ==
LOC: OR 10:30
PROVIDERS: ATTEND Surgery
DX: K81.1 Chronic cholecystitis (principal); K66.0 Peritoneal adhesions (postprocedural) (postinfection); E11.9 Type 2 diabetes mellitus without complications; K21.9 Gastro-esophageal reflux disease without esophagitis; I10 Essential (primary) hypertension; E78.5 Hyperlipidemia, unspecified; Z79.4 Long term (current) use of insulin; Z79.899 Other long term (current) drug therapy; Z88.6 Allergy status to analgesic agent
CPT/HCPCS: 88304; 47562; J2250; J1644; J1100; J2550; J2710; J2175; J0690; J2405; J2001; J3010; J1170; J2370; J0330; J2704

== ENCOUNTER 2017-01-24 08:28 | Emergency (ER) | payer BC ==
[2017-01-24] MEDS ORDERED: SODIUM CHLORIDE 0.9% 2,000 ML IV STA (08:54)
[2017-01-24 09:09] LABS: Basophils % (A) 1 %; CHCM 36.5; Eosinophils # (A) 0.1 k/uL (0-0.7); Eosinophils % (A) 2 %; HCT 43.6 % (39.0-53.0); HDW 2.64; HGB 15.7 gm/dL (13.0-17.5); Luc # (Auto) 0.08; Luc % (Auto) 1; Lymphocytes # (A) 0.8 k/uL (1.0-4.8); Lymphocytes % (A) 13 %; MCH 31.7 pg (25.0-35.0); MCHC 36.1 g/dL (31.0-37.0); Monocytes # (A) 0.3 k/uL (0-1.0); Monocytes % (A) 5 %; Neutrophils # (A) 4.4 k/uL (1.3-7.7); Neutrophils % (A) 78 %; RBC 4.95 m/uL (4.30-5.90); RDW 12.2 % (11.5-15.5); WBC 5.6 k/uL (3.8-10.6); WBC (Perox) 5.58
--- NOTE | 2017-01-24 09:11 | ED ---
General Adult HPI - General Chief complaint: Nausea/Vomiting/Diarrhea Stated complaint: Diabetic Issues Time Seen by Provider: 01/24/17 08:50 Source: patient, RN notes reviewed Mode of arrival: EMS Limitations: no limitations - History of Present Illness Initial comments: Patient is a 31-year-old male significant past medical history for diabetes, status post cholecystectomy times one month, who presents emergency room today by EMS, with a chief complaint of abdominal pain with nausea and vomiting. Patient does admit that he was sore yesterday in the abdomen is no left lower side. He states had increased pain today while was at work felt nauseated and had an episode of vomiting. Patient does admit that he's had some diarrhea as well. He denies any other complaints or symptoms at this time. Patient denies any recent fever, chills, shortness of breath, chest pain, back pain, numbness or tingling, dysuria or hematuria, constipation, headaches or visual changes, or any other complaints. - Related Data Home Medications Medication Instructions Recorded Confirmed Loratadine [Loratadine] 10 mg PO DAILY 03/29/16 01/24/17 Omeprazole [PriLOSEC] 20 mg PO BID 03/29/16 01/24/17 Simvastatin [Simvastatin] 20 mg PO HS 03/29/16 01/24/17 Dicyclomine HCl [Bentyl] 20 mg PO QID 04/21/16 01/24/17 Insulin Glargine [Lantus] 34 unit SQ HS 07/16/16 01/24/17 INSULIN LISPRO (humaLOG) [humaLOG 3 - 6 units SQ TID-W/MEALS 11/15/16 01/24/17 (formulary)] PARoxetine HCL [Paxil] 10 mg PO QAM 11/15/16 01/24/17 Hydrocodone/Acetaminophen [[place] 1 tab PO Q6HR PRN 11/16/16 01/24/17 5-325] Gabapentin [Neurontin] 300 mg PO TID 01/24/17 01/24/17 Lisinopril [Zestril] 2.5 mg PO HS 01/24/17 01/24/17 Previous Rx's Medication Instructions Recorded Ondansetron Odt [Zofran ODT] 4 mg PO Q8HR PRN #20 tab 01/24/17 Allergies Allergy/AdvReac Type Severity Reaction Status Date / Time etodolac [From Lodine] Allergy Rash/Hives Verified 01/24/17 09:03 ketorolac [From Toradol] Allergy Rash/Hives Verified 01/24/17 09:03 Review of Systems ROS Statement: Those systems with pertinent positive or pertinent negative responses have been documented in the HPI. ROS Other: All systems not noted in ROS Statement are negative. Past Medical History Past Medical History: Diabetes Mellitus, GERD/Reflux, Hypertension Additional Past Medical History / Comment(s): having abdominal pain radiating to back, HX OF diverticultitis History of Any Multi-Drug Resistant Organisms: None Reported Past Surgical History: Appendectomy, Bowel Resection, Cholecystectomy, Orthopedic Surgery, Tonsillectomy Additional Past Surgical History / Comment(s): ARTHROSCOPY Knee,hiatal hernia Past Anesthesia/Blood Transfusion Reactions: Postoperative Nausea & Vomiting ( PONV) Additional Past Anesthesia/Blood Transfusion Reaction / Comment(s): no hx blood transfusion Past Psychological History: No Psychological Hx Reported Smoking Status: Never smoker - Past Family History Mother Family Medical History: No Reported History Father Family Medical History: Diabetes Mellitus Additional Family Medical History / Comment(s): heart problems General Exam - General Exam Comments Initial Comments: General: The patient is awake and alert, in no distress, and does not appear acutely ill. Eye: Pupils are equal, round and reactive to light, extra-ocular movements are intact. No nystagmus. There is normal conjunctiva bilaterally. No signs of icterus. Ears, nose, mouth and throat: There are moist mucous membranes and no oral lesions. Neck: The neck is supple, there is no tenderness or JVD. Cardiovascular: Tachycardic. No murmur, rub or gallop is appreciated. Respiratory: Lungs are clear to auscultation, respirations are non-labored, breath sounds are equal. No wheezes, stridor, rales, or rhonchi. Gastrointestinal: Normal appearance and appear normal bowel sounds. Surgical incisions healing well. Patient does have mild tenderness left lower quadrant. No rebound tenderness. No guarding. No CVA tenderness. Musculoskeletal: Normal ROM, no tenderness. Strength 5/5. Sensation intact. Pulses equal bilaterally 2+. Neurological: A&O x 3. CN II-XII intact, There are no obvious motor or sensory deficits. Coordination appears grossly intact. Speech is normal. Skin: Skin is warm and dry and no rashes or lesions are noted. Psychiatric: Cooperative, appropriate mood & affect, normal judgment. Limitations: no limitations Course Vital Signs 01/24/17 01/24/17 01/24/17 08:30 09:43 10:38 Temperature 98.0 F 96.2 F L Pulse Rate 125 H 78 109 H Respiratory 18 20 18 Rate Blood Pressure 116/73 126/67 104/61 O2 Sat by Pulse 93 L 95 97 Oximetry 01/24/17 01/24/17 12:01 12:44 Temperature Pulse Rate 96 94 Respiratory 18 18 Rate Blood Pressure 120/77 104/65 O2 Sat by Pulse 98 97 Oximetry Medical Decision Making - Medical Decision Making Patient's CT of the abdomen and pelvis and does show slightly distended bladder with local mass effect on current study. Patient was able to void rate of [address] shows possible mild colitis the sigmoid and rectal colonic junction. Patient's labs been reviewed are unremarkable. Blood sugar improved. Patient will be discharged home at this time. Advised follow-up the family doctor tomorrow. Advised follow-up with general surgeon. Advised return if any symptoms increase worsen or for any other concerns. - Lab Data Result diagrams: 01/24/17 08:40 01/24/17 08:40 Lab Results 01/24/17 01/24/17 01/24/17 Range/Units 08:40 08:40 09:28 WBC 5.6 (3.8-10.6) k/uL RBC 4.95 (4.30-5.90) m/uL Hgb 15.7 (13.0-17.5) gm/dL Hct 43.6 (39.0-53.0) % MCV 88.0 (80.0-100.0) fL MCH 31.7 (25.0-35.0) pg MCHC 36.1 (31.0-37.0) g/dL RDW 12.2 (11.5-15.5) % Plt Count 195 (150-450) k/uL Neutrophils % 78 % Lymphocytes % 13 % Monocytes % 5 % Eosinophils % 2 % Basophils % 1 % Neutrophils # 4.4 (1.3-7.7) k/uL Lymphocytes # 0.8 L (1.0-4.8) k/uL Monocytes # 0.3 (0-1.0) k/uL Eosinophils # 0.1 (0-0.7) k/uL Basophils # 0.0 (0-0.2) k/uL Sodium 136 L (137-145) mmol/L Potassium 4.1 (3.5-5.1) mmol/L Chloride 100 (98-107) mmol/L Carbon Dioxide 22 (22-30) mmol/L Anion Gap 14 mmol/L BUN 13 (9-20) mg/dL Creatinine 0.70 (0.66-1.25) mg/dL Est GFR (MDRD) Af Amer >60 (>60 ml/min/1.73 sqM) Est GFR (MDRD) Non-Af >60 (>60 ml/min/1.73 sqM) Glucose 333 H (74-99) mg/dL POC Glucose (mg/dL) 289 H (75-99) mg/dL POC Glu Certified Professional Midwife ID Nicolas Palacio Calcium 9.2 (8.4-10.2) mg/dL Total Bilirubin 1.9 H (0.2-1.3) mg/dL AST 23 (17-59) U/L ALT 44 (21-72) U/L Alkaline Phosphatase 124 (38-126) U/L Total Protein 7.2 (6.3-8.2) g/dL Albumin 4.6 (3.5-5.0) g/dL Amylase <30 L (30-110) U/L Lipase 38 (23-300) U/L Urine Color Urine Appearance (Clear) Urine pH (5.0-8.0) Ur Specific [place] (1.001-1.035) Urine Protein (Negative) Urine Glucose (UA) (Negative) Urine Ketones (Negative) Urine Blood (Negative) Urine Nitrite (Negative) Urine Bilirubin (Negative) Urine Urobilinogen (<2.0) mg/dL Ur Leukocyte Esterase (Negative) Acetone, Qual Negative (Negative) 01/24/17 01/24/17 01/24/17 Range/Units 10:43 11:09 11:55 WBC (3.8-10.6) k/uL RBC (4.30-5.90) m/uL Hgb (13.0-17.5) gm/dL Hct (39.0-53.0) % MCV (80.0-100.0) fL MCH (25.0-35.0) pg MCHC (31.0-37.0) g/dL RDW (11.5-15.5) % Plt Count (150-450) k/uL Neutrophils % % Lymphocytes % % Monocytes % % Eosinophils % % Basophils % % Neutrophils # (1.3-7.7) k/uL Lymphocytes # (1.0-4.8) k/uL Monocytes # (0-1.0) k/uL Eosinophils # (0-0.7) k/uL Basophils # (0-0.2) k/uL Sodium (137-145) mmol/L Potassium (3.5-5.1) mmol/L Chloride (98-107) mmol/L Carbon Dioxide (22-30) mmol/L Anion Gap mmol/L BUN (9-20) mg/dL Creatinine (0.66-1.25) mg/dL Est GFR (MDRD) Af Amer (>60 ml/min/1.73 sqM) Est GFR (MDRD) Non-Af (>60 ml/min/1.73 sqM) Glucose (74-99) mg/dL POC Glucose (mg/dL) 291 H 225 H (75-99) mg/dL POC Glu Certified Professional Midwife ID Nicolas Palacio Russellglendy Eladio Calcium (8.4-10.2) mg/dL Total Bilirubin (0.2-1.3) mg/dL AST (17-59) U/L ALT (21-72) U/L Alkaline Phosphatase (38-126) U/L Total Protein (6.3-8.2) g/dL Albumin (3.5-5.0) g/dL Amylase (30-110) U/L Lipase (23-300) U/L Urine Color Yellow Urine Appearance Clear (Clear) Urine pH 6.0 (5.0-8.0) Ur Specific [place] 1.035 (1.001-1.035) Urine Protein Negative (Negative) Urine Glucose (UA) 4+ H (Negative) Urine Ketones 1+ H (Negative) Urine Blood Negative (Negative) Urine Nitrite Negative (Negative) Urine Bilirubin Negative (Negative) Urine Urobilinogen <2.0 (<2.0) mg/dL Ur Leukocyte Esterase Negative (Negative) Acetone, Qual (Negative) 01/24/17 Range/Units 13:11 WBC (3.8-10.6) k/uL RBC (4.30-5.90) m/uL Hgb (13.0-17.5) gm/dL Hct (39.0-53.0) % MCV (80.0-100.0) fL MCH (25.0-35.0) pg MCHC (31.0-37.0) g/dL RDW (11.5-15.5) % Plt Count (150-450) k/uL Neutrophils % % Lymphocytes % % Monocytes % % Eosinophils % % Basophils % % Neutrophils # (1.3-7.7) k/uL Lymphocytes # (1.0-4.8) k/uL Monocytes # (0-1.0) k/uL Eosinophils # (0-0.7) k/uL Basophils # (0-0.2) k/uL Sodium (137-145) mmol/L Potassium (3.5-5.1) mmol/L Chloride (98-107) mmol/L Carbon Dioxide (22-30) mmol/L Anion Gap mmol/L BUN (9-20) mg/dL Creatinine (0.66-1.25) mg/dL Est GFR (MDRD) Af Amer (>60 ml/min/1.73 sqM) Est GFR (MDRD) Non-Af (>60 ml/min/1.73 sqM) Glucose (74-99) mg/dL POC Glucose (mg/dL) 160 H (75-99) mg/dL POC Glu Certified Professional Midwife ID Daryl Kidd Calcium (8.4-10.2) mg/dL Total Bilirubin (0.2-1.3) mg/dL AST (17-59) U/L ALT (21-72) U/L Alkaline Phosphatase (38-126) U/L Total Protein (6.3-8.2) g/dL Albumin (3.5-5.0) g/dL Amylase (30-110) U/L Lipase (23-300) U/L Urine Color Urine Appearance (Clear) Urine pH (5.0-8.0) Ur Specific [place] (1.001-1.035) Urine Protein (Negative) Urine Glucose (UA) (Negative) Urine Ketones (Negative) Urine Blood (Negative) Urine Nitrite (Negative) Urine Bilirubin (Negative) Urine Urobilinogen (<2.0) mg/dL Ur Leukocyte Esterase (Negative) Acetone, Qual (Negative) Disposition Clinical Impression: Abdominal pain, Hyperglycemia Disposition: HOME SELF-CARE Condition: Good Instructions: Abdominal Pain (ED) Additional Instructions: Please follow-up with your surgeon as discussed. Please follow-up family doctor tomorrow. Please return to emergency room if symptoms increase or worsen or for any other concerns. Prescriptions: Ondansetron Odt [Zofran ODT] 4 mg PO Q8HR PRN #20 tab PRN Reason: Nausea Referrals: Sami Cuellar MD [Primary Care Provider] - 1-2 days Time of Disposition: 14:41
[2017-01-24 09:17] LABS: ALT 44 U/L (21-72); AST 23 U/L (17-59); Alkaline Phosphatase 124 U/L (38-126); Amylase <30 U/L (30-110); Anion Gap 14 mmol/L; Blood Urea Nitrogen 13 mg/dL (9-20); Calcium 9.2 mg/dL (8.4-10.2); Carbon Dioxide 22 mmol/L (22-30); Chloride 100 mmol/L (98-107); Glucose 333 mg/dL (74-99); Non-African American GFR(MDRD) >60 (>60 ml/min/1.73 sqM); Potassium 4.1 mmol/L (3.5-5.1); Sodium 136 mmol/L (137-145); Total Bilirubin 1.9 mg/dL (0.2-1.3); Total Protein 7.2 g/dL (6.3-8.2)
[2017-01-24 09:30] LABS: Glucose,Whole Blood 289 mg/dL (75-99)
[2017-01-24 10:46] LABS: Glucose,Whole Blood 291 mg/dL (75-99)
[2017-01-24] MEDS ORDERED: INSULIN LISPRO (humaLOG) 300 UNIT/3 ML VIAL SQ ONE (10:51)
[2017-01-24 11:39] LABS: Appearance,Urine Clear (Clear); Bilirubin,Urine Negative (Negative); Glucose,Urine (UA) 4+ (Negative); Ketones,Urine 1+ (Negative); Leukocyte Esterase,Urine Negative (Negative); Nitrite,Urine Negative (Negative); Protein,Urine Negative (Negative); Specific Gravity,Urine 1.035 (1.001-1.035); UA Billing (MACRO vs. MICRO) CHEM; Urobilinogen,Urine <2.0 mg/dL (<2.0)
[2017-01-24 12:10] LABS: Glucose,Whole Blood 225 mg/dL (75-99)
[2017-01-24] MEDS ORDERED: RX INFO: IV CONTRAST WAS GIVEN 1 EACH MISC MISCELLANE PRN (12:31)
[2017-01-24] MEDS ORDERED: HYDROmorphone 1 MG/ML 1 ML SYRINGE IVP STA (12:52)
[2017-01-24 13:13] LABS: Glucose,Whole Blood 160 mg/dL (75-99)
--- NOTE | 2017-01-24 13:25 | CT ---
EXAMINATION TYPE: CT abdomen pelvis w con DATE OF EXAM: 01/24/2017 COMPARISON: CT abdomen and pelvis November 16, 2016 HISTORY: cramping pain after recent cholecystectomy CT DLP: 1249 mGycm, Automated Exposure Control for Dose Reduction was Utilized. CONTRAST: CT scan of the abdomen and pelvis is performed with oral and with IV Contrast, patient injected with 100 mL of Omnipaque 300. FINDINGS: LUNG BASES: Minimal linear atelectasis posteriorly in the left lung base is present. LIVER/GB: Liver is diffusely low dense consistent with fatty infiltration. There is new 4 mm oval den sity at level of gallbladder fossa could reflect cholecystectomy clips though are smaller than typica l, cannot exclude calcified cystic duct calculi which is felt less likely since no calcified gallston es were present on prior CT study. Clinical correlation advised with surgical note. No extrahepatic b iliary dilatation is noted. PANCREAS: No significant abnormality is seen. SPLEEN: Multiple surgical clips at level of splenic hilum are redemonstrated. ADRENALS: No significant abnormality is seen. KIDNEYS: There is distended bladder extending into the upper pelvis with local mass effect. BOWEL: Evaluation bowel is suboptimal secondary to lack of enteric contrast. Surgical changes at diap hragmatic hiatus are redemonstrated likely from Shakir fundoplication surgery. There is no suspicious small or large bowel dilatation. Surgical clips from appendectomy at base of cecum are seen. There a re occasional colonic diverticula scattered throughout the colon. There is no CT evidence for acute d iverticulitis. Mild wall thickening at sigmoid rectal junction on coronal image 73 is noted, a coliti s at this level cannot be excluded. PROSTATE/SEMINAL VESICLES: No gross abnormality seen. LYMPH NODES: No greater than 1cm abdominal or pelvic lymph nodes are appreciated. OSSEOUS STRUCTURES: Transitional-type vertebra at lumbosacral junction is redemonstrated. OTHER: No significant additional abnormality is seen. IMPRESSION: 1. Slightly distended bladder with local mass effect on current study. 2. Possible mild colitis sigmoid rectal colonic junction, clinical correlation advised. 3. Attention to gallbladder fossa as noted above.
[2017-01-24 15:00] VITALS: BP 112/73; PULSE 97; RESP 17; TEMP 97.4
== END 2017-01-24 15:05 | disposition home or self-care (01) ==
LOC: EC 08:28
DX: R10.32 Left lower quadrant pain (principal); E11.65 Type 2 diabetes mellitus with hyperglycemia; K21.9 Gastro-esophageal reflux disease without esophagitis; I10 Essential (primary) hypertension; Z79.4 Long term (current) use of insulin; Z79.899 Other long term (current) drug therapy; Z88.6 Allergy status to analgesic agent; Z88.8 Allergy status to other drugs, medicaments and biological substances
CPT/HCPCS: 99284; 96374; 96361 ×3; 51798; 36415; 93005; 80053; 82150; 82009; 83690; 85025; 81003; 74177; J1170; Q9967

== ENCOUNTER 2017-04-02 11:25 | Emergency (ER) | payer BC ==
[2017-04-02] MEDS ORDERED: HYDROcodone/APAP 5-325MG 1 EACH TAB PO STA (11:45)
[2017-04-02 12:03] LABS: Appearance,Urine Clear (Clear); Bilirubin,Urine Negative (Negative); Glucose,Urine (UA) 4+ (Negative); Ketones,Urine Negative (Negative); Leukocyte Esterase,Urine Negative (Negative); Nitrite,Urine Negative (Negative); PH, Urine 5.5 (5.0-8.0); Protein,Urine Trace (Negative); Specific Gravity,Urine 1.039 (1.001-1.035); UA Billing (MACRO vs. MICRO) CHEM; Urobilinogen,Urine <2.0 mg/dL (<2.0)
--- NOTE | 2017-04-02 12:29 | US ---
EXAMINATION TYPE: US scrotum with doppler. Grayscale and color Doppler Duplex imaging performed of rick kim scrotum. DATE OF EXAM: 04/02/2017 COMPARISON: NONE CLINICAL HISTORY: Pain. right suprapubic/inguinal canal palpable, red skin changes noted EXAM MEASUREMENTS: TESTICLES: Right Testicle: 3.9 x 2.8 x 2.1 cm Left Testicle: 3.9 x 3.0 x 2.2 cm EPIDIDYMIS HEAD: Right Epididymis: 1.4 cm Left Epididymis: 0.8 cm Doppler performed to assess for testicular vascularity; good bilateral color flow and waveforms are s een. There is no evidence of testicular torsion. Presence of hydroceles: mild on the left Presence of varicoceles: no 1.1cm complex superficial lesion seen with vascularity, small abscess with central fluid pocket az suring 2.3 mm IMPRESSION: Thick-walled superficial abscess extending from the skin surface into the subcutaneous tissues with a focal fluid pocket measuring only 2.3 mm and the surrounding phlegmonous changes measuring 1.1 cm. O therwise unremarkable scrotal ultrasound.
[2017-04-02 12:40] LABS: Glucose,Whole Blood 180 mg/dL (75-99)
--- NOTE | 2017-04-02 12:51 | ED ---
Male Urogenital HPI - General Chief complaint: Urogenital Stated complaint: Pelvic Pain Time Seen by Provider: 04/02/17 11:33 Source: patient, RN notes reviewed Mode of arrival: wheelchair Limitations: no limitations - History of Present Illness Initial comments: 32-year-old male presents emergency Department chief complaint of suprapubic and scrotal pain. Patient states it started a few days ago he did notice a small lump to the area. Patient states he has not noticed any swelling to his scrotum denies any dysuria or hematuria. Patient had no fever no chills denies any nausea vomiting diarrhea constipation. - Related Data Home Medications Medication Instructions Recorded Confirmed Loratadine [Loratadine] 10 mg PO DAILY 03/29/16 04/02/17 Omeprazole [PriLOSEC] 20 mg PO QID 03/29/16 04/02/17 Simvastatin [Simvastatin] 20 mg PO HS 03/29/16 04/02/17 Insulin Glargine [Lantus] 34 unit SQ HS 07/16/16 04/02/17 INSULIN LISPRO (humaLOG) [humaLOG 3 - 6 units SQ TID-W/MEALS 11/15/16 04/02/17 (formulary)] Gabapentin [Neurontin] 300 mg PO TID 01/24/17 04/02/17 Lisinopril [Zestril] 2.5 mg PO HS 01/24/17 04/02/17 Cyclobenzaprine [Flexeril] 10 mg PO BID PRN 04/02/17 04/02/17 Dicyclomine [Bentyl] 10 mg PO QID 04/02/17 04/02/17 Diphenox-Atrop 2.5-0.025 mg 1 tab PO QID 04/02/17 04/02/17 [Lomotil] Previous Rx's Medication Instructions Recorded Hydrocodone/Acetaminophen [[place] 1 tab PO Q6HR PRN #15 tab 04/02/17 5-325] Sulfamethox-Tmp 800-160Mg [Bactrim 1 each PO Q12HR #20 tab 04/02/17 Ds] Allergies Allergy/AdvReac Type Severity Reaction Status Date / Time etodolac [From Lodine] Allergy Rash/Hives Verified 04/02/17 11:47 ketorolac [From Toradol] Allergy Rash/Hives Verified 04/02/17 11:47 Review of Systems ROS Statement: Those systems with pertinent positive or pertinent negative responses have been documented in the HPI. ROS Other: All systems not noted in ROS Statement are negative. Past Medical History Past Medical History: Diabetes Mellitus, GERD/Reflux, Hypertension Additional Past Medical History / Comment(s): having abdominal pain radiating to back, HX OF diverticultitis History of Any Multi-Drug Resistant Organisms: None Reported Past Surgical History: Appendectomy, Bowel Resection, Cholecystectomy, Orthopedic Surgery, Tonsillectomy Additional Past Surgical History / Comment(s): ARTHROSCOPY Knee,hiatal hernia Past Anesthesia/Blood Transfusion Reactions: Postoperative Nausea & Vomiting ( PONV) Additional Past Anesthesia/Blood Transfusion Reaction / Comment(s): no hx blood transfusion Past Psychological History: No Psychological Hx Reported Smoking Status: Never smoker - Past Family History Mother Family Medical History: No Reported History Father Family Medical History: Diabetes Mellitus Additional Family Medical History / Comment(s): heart problems General Exam Limitations: no limitations General appearance: alert, in no apparent distress Head exam: Present: atraumatic, normocephalic, normal inspection Respiratory exam: Present: normal lung sounds bilaterally. Absent: respiratory distress, wheezes, rales, rhonchi, stridor Cardiovascular Exam: Present: regular rate, normal rhythm, normal heart sounds. Absent: systolic murmur, diastolic murmur, rubs, gallop, clicks GI/Abdominal exam: Present: soft, normal bowel sounds. Absent: distended, tenderness, guarding, rebound, rigid exam: Absent: normal inspection (Suprapubic region there is a small 0.5 cm abscess), testicular tenderness, urethral discharge, scrotal swelling, vertical testicular lie Course Vital Signs 04/02/17 04/02/17 11:30 12:41 Temperature 98.0 F Pulse Rate 112 H 103 H Respiratory 20 20 Rate Blood Pressure 111/71 112/64 O2 Sat by Pulse 100 97 Oximetry Procedures - Incision & Drainage Consent Obtained: verbal consent Indication: Suprapubic abscess Site: abdomen Size (cm): 0 (0.5cm) Anesthetic Used: lidocaine 1%, without epi Amount (mLs): 5 I&D Cleaning Method: Betadine Scalpel Used: #11 Irrigation Performed?: Yes I&D Drainage Obtained: Pus, Blood Culture Obtained?: Yes Patient Tolerated Procedure: well, no complications Medical Decision Making - Medical Decision Making 32-year-old male present emergency department for scrotal pain, suprapubic abscess. Patient's abscess was opened there is a small amount of pus. Culture was obtained. Patient will be discharged on Bactrim and [place] for the pain warm compresses were discussed and parameters were discussed - Lab Data Lab Results 04/02/17 04/02/17 Range/Units 11:53 12:36 POC Glucose (mg/dL) 180 H (75-99) mg/dL POC Glu Carbonizer ID Anna Pierre Urine Color Yellow Urine Appearance Clear (Clear) Urine pH 5.5 (5.0-8.0) Ur Specific [place] 1.039 H (1.001-1.035) Urine Protein Trace H (Negative) Urine Glucose (UA) 4+ H (Negative) Urine Ketones Negative (Negative) Urine Blood Negative (Negative) Urine Nitrite Negative (Negative) Urine Bilirubin Negative (Negative) Urine Urobilinogen <2.0 (<2.0) mg/dL Ur Leukocyte Esterase Negative (Negative) Disposition Clinical Impression: Abscess Disposition: HOME SELF-CARE Condition: Stable Instructions: Abscess Incision and Drainage (ED) Additional Instructions: Please return to the Emergency Department if symptoms worsen or any other concerns. Prescriptions: Hydrocodone/Acetaminophen [[place] 5-325] 1 tab PO Q6HR PRN #15 tab PRN Reason: Pain Sulfamethox-Tmp 800-160Mg [Bactrim Ds] 1 each PO Q12HR #20 tab Referrals: Sami Cuellar MD [Primary Care Provider] - 1-2 days Time of Disposition: 12:50
[2017-04-02 13:28] VITALS: BP 116/67; PULSE 98; RESP 19; TEMP 97.8
== END 2017-04-02 13:30 | disposition home or self-care (01) ==
LOC: EC 11:25
DX: L02.211 Cutaneous abscess of abdominal wall (principal); E11.9 Type 2 diabetes mellitus without complications; K21.9 Gastro-esophageal reflux disease without esophagitis; I10 Essential (primary) hypertension; Z90.49 Acquired absence of other specified parts of digestive tract; Z79.4 Long term (current) use of insulin; Z79.899 Other long term (current) drug therapy
CPT/HCPCS: 10060; 36415; 76870; 81003; 87086; 93975; 99284

== ENCOUNTER → 2017-07-30 | Outpatient (CLI) | payer BC ==
--- NOTE | 2017-07-30 22:43 | MR ---
EXAMINATION TYPE: MR shoulder RT wo con DATE OF EXAM: 07/30/2017 COMPARISON: NONE HISTORY: 32-year-old male with pain in right shoulder TECHNIQUE: Multiplanar, multisequence imaging of the right shoulder is performed without contrast. FINDINGS: There is some intermediate signal involving the intracapsular portion of the long head biceps tendon suggesting tendinosis. The subscapularis tendon is intact. AC joint is intact. There is heterogeneous signal of the supraspinatus tendon with very shallow bursal sided tearing of t he anterior to mid fibers measuring 7 mm AP by 8 mm long. The infraspinatus tendon is intact. Mild thickening/effusion involving the subacromial/subdeltoid bursa. No atrophy of the rotator cuff musculature. Evaluation of the glenohumeral joint shows preserved articular cartilage without significant joint ef fusion. No discrete labral tear given nonarthrographic technique and no para labral cyst. No Hill-Sachs deformity or os acromiale. No suspicious bone marrow replacement. IMPRESSION: 1. Supraspinatus tendinosis with very shallow bursal sided tearing of the anterior to mid fibers barbara uring 7 x 8 mm. No high-grade partial or full-thickness rotator cuff tear. 2. Mild subacromial/subdeltoid bursitis. 3. Mild intracapsular long head biceps tendinosis.
== END | disposition home or self-care (01) ==
LOC: RADMRIMAIN 06:55
PROVIDERS: ATTEND Family Medicine
DX: M75.101 Unspecified rotator cuff tear or rupture of right shoulder, not specified as traumatic (principal); M75.51 Bursitis of right shoulder; M75.21 Bicipital tendinitis, right shoulder

== ENCOUNTER 2017-08-07 13:34 | Emergency (ER) | payer BC ==
[2017-08-07 13:45] VITALS: PULSE 90
[2017-08-07 13:53] LABS: Glucose,Whole Blood 342 mg/dL (75-99)
[2017-08-07] MEDS ORDERED: HYDROmorphone 0.5 MG/0.5 ML SYRINGE IVP STA ×2 (14:15→16:14)
[2017-08-07] MEDS ORDERED: ONDANSETRON 4 MG/2 ML VIAL IVP STA (14:15)
[2017-08-07] MEDS ORDERED: SODIUM CHLORIDE 0.9% 1,000 ML IV STA (14:15)
[2017-08-07] MEDS ORDERED: RX INFO: IV CONTRAST WAS GIVEN 1 EACH MISC MISCELLANE PRN (14:15)
--- NOTE | 2017-08-07 14:23 | ED ---
Abdominal Pain HPI - General Chief Complaint: Abdominal Pain Stated Complaint: ABDOMINAL PAIN Time Seen by Provider: 08/07/17 13:46 Source: patient, EMS, RN notes reviewed, old records reviewed Mode of arrival: EMS Limitations: no limitations - History of Present Illness Initial Comments: This patient is a 32-year-old male with a chief complaint of right-sided abdominal pain radiating towards his right groin as well as just diffuse dental abdominal pain for the past evening into today. He reports he went to work today and the pain got so severe that he came to emergency department for further evaluation. Patient reports he's been having some diarrhea as well as nausea and vomiting. He reports he occasionally noticed some blood in his stools. Patient has had multiple abdominal surgeries and history of diverticulitis. He's had his appendix and gallbladder removed as well as a bowel resection due to an abscess from diverticulitis. He reports that he's had no fever or chills as of this time. Patient states that he has had previous prostate infections well but denies any changes in urination. - Related Data Home Medications Medication Instructions Recorded Confirmed Loratadine [Loratadine] 10 mg PO DAILY 03/29/16 08/07/17 Omeprazole [PriLOSEC] 20 mg PO DAILY 03/29/16 08/07/17 Simvastatin [Simvastatin] 20 mg PO HS 03/29/16 08/07/17 Insulin Glargine [Lantus] 42 unit SQ HS 07/16/16 08/07/17 INSULIN LISPRO (humaLOG) [humaLOG] See Protocol SQ AC-TID 11/15/16 08/07/17 Lisinopril [Zestril] 2.5 mg PO HS 01/24/17 08/07/17 Cyclobenzaprine [Flexeril] 10 mg PO BID PRN 04/02/17 08/07/17 Diphenox-Atrop 2.5-0.025 mg 1 tab PO QID PRN 04/02/17 08/07/17 [Lomotil] Hydrocodone/Acetaminophen [[place] 1 tab PO BID PRN 07/22/17 08/07/17 7.5-325] Gabapentin [Neurontin] 400 mg PO TID 08/07/17 08/07/17 Levofloxacin [Levaquin] 500 mg PO DAILY 08/07/17 08/07/17 Previous Rx's Medication Instructions Recorded Dicyclomine [Bentyl] 10 mg PO TID #20 capsule 07/22/17 Ondansetron Odt [Zofran ODT] 4 mg PO Q8HR PRN #20 tab 07/22/17 Ciprofloxacin HCl [Cipro] 500 mg PO Q12HR 7 Days tab 08/07/17 Ondansetron Odt [Zofran Odt] 4 mg PO Q8HR PRN #12 tab 08/07/17 metroNIDAZOLE [Flagyl] 500 mg PO TID #21 tab 08/07/17 Allergies Allergy/AdvReac Type Severity Reaction Status Date / Time etodolac [From Lodine] Allergy Rash/Hives Verified 08/07/17 14:25 ketorolac [From Toradol] Allergy Rash/Hives Verified 08/07/17 14:25 Review of Systems ROS Statement: Those systems with pertinent positive or pertinent negative responses have been documented in the HPI. ROS Other: All systems not noted in ROS Statement are negative. Past Medical History Past Medical History: Diabetes Mellitus, GERD/Reflux, Hypertension Additional Past Medical History / Comment(s): having abdominal pain radiating to back, HX OF diverticultitis History of Any Multi-Drug Resistant Organisms: None Reported Past Surgical History: Appendectomy, Bowel Resection, Cholecystectomy, Orthopedic Surgery, Tonsillectomy Additional Past Surgical History / Comment(s): ARTHROSCOPY Knee,hiatal hernia Past Anesthesia/Blood Transfusion Reactions: Postoperative Nausea & Vomiting ( PONV) Additional Past Anesthesia/Blood Transfusion Reaction / Comment(s): no hx blood transfusion Past Psychological History: No Psychological Hx Reported Smoking Status: Never smoker Past Alcohol Use History: None Reported Past Drug Use History: None Reported - Past Family History Mother Family Medical History: No Reported History Father Family Medical History: Diabetes Mellitus Additional Family Medical History / Comment(s): heart problems General Exam - General Exam Comments Initial Comments: This patient is 32 male. He appears to be in moderate discomfort. Limitations: no limitations General appearance: alert, in no apparent distress Head exam: Present: atraumatic, normocephalic, normal inspection Eye exam: Present: normal appearance, PERRL, EOMI. Absent: scleral icterus, conjunctival injection, periorbital swelling ENT exam: Present: normal exam, mucous membranes moist Neck exam: Present: normal inspection. Absent: tenderness, meningismus, lymphadenopathy Respiratory exam: Present: normal lung sounds bilaterally. Absent: respiratory distress, wheezes, rales, rhonchi, stridor Cardiovascular Exam: Present: regular rate, normal rhythm, normal heart sounds. Absent: systolic murmur, diastolic murmur, rubs, gallop, clicks GI/Abdominal exam: Present: soft, tenderness (Right lower quadrant tenderness.) , normal bowel sounds. Absent: distended, guarding, rebound, rigid Extremities exam: Present: normal inspection, full ROM, normal capillary refill. Absent: tenderness, pedal edema, joint swelling, calf tenderness Back exam: Present: normal inspection Neurological exam: Present: alert, oriented X3, CN II-XII intact Psychiatric exam: Present: normal affect, normal mood Skin exam: Present: warm, dry, intact, normal color. Absent: rash Course Vital Signs 08/07/17 08/07/17 08/07/17 13:37 13:45 17:37 Temperature 98.1 F 97.9 F Pulse Rate 105 H 90 90 Respiratory 18 20 16 Rate Blood Pressure 136/91 114/77 O2 Sat by Pulse 99 100 98 Oximetry Medical Decision Making - Medical Decision Making This patient is 32-year-old male with history of diffuse abdominal pain mainly in the right lower quadrant presenting with diarrhea. He's had multiple episodes of diarrhea and also occasional bloody diarrhea. At this time patient was receiving IV fluids and pain medicine. Patient's laboratory was reviewed to show significantly low potassium of 2.6 and a low calcium of 5.3. He has no hypoglycemia symptoms no tetany. No numbness tingling around the mouth. We did repeat patient's BMP. It shows corrected potassium and calcium. Do believe the patient's initial sample was contaminated from saline. I did give patient oral potassium replacement and calcium replacement. White count was within normal limits. Occult is negative. At this time patient CT scans shows evidence of enteritis and colitis. She reports starting on Levaquin for diverticulitis by his primary care provider this time. He started this on Saturday. He is only had one day of antibiotics. I discussed that he needs to continue this. I will also add Flagyl to the patient's regimen. Discharged with nausea medicine. Discussed close follow-up with primary care provider. Discussed if they've any worsening signs or symptoms or fevers and is to return. Patient agrees to treatment plan will comply. Return parameters were discussed. - Lab Data Result diagrams: 08/07/17 13:50 08/07/17 16:30 Lab Results 08/07/17 08/07/17 08/07/17 Range/Units 13:38 13:50 13:50 WBC 5.7 (3.8-10.6) k/uL RBC 5.20 (4.30-5.90) m/uL Hgb 16.0 (13.0-17.5) gm/dL Hct 46.3 (39.0-53.0) % MCV 89.0 (80.0-100.0) fL MCH 30.8 (25.0-35.0) pg MCHC 34.6 (31.0-37.0) g/dL RDW 12.2 (11.5-15.5) % Plt Count 208 (150-450) k/uL Neutrophils % 70 % Lymphocytes % 22 % Monocytes % 4 % Eosinophils % 2 % Basophils % 1 % Neutrophils # 4.0 (1.3-7.7) k/uL Lymphocytes # 1.2 (1.0-4.8) k/uL Monocytes # 0.2 (0-1.0) k/uL Eosinophils # 0.1 (0-0.7) k/uL Basophils # 0.0 (0-0.2) k/uL PT (9.0-12.0) sec INR (<1.2) APTT (22.0-30.0) sec Sodium 139 (137-145) mmol/L Potassium 2.6 L* (3.5-5.1) mmol/L Chloride 114 H (98-107) mmol/L Carbon Dioxide 19 L (22-30) mmol/L Anion Gap 6 mmol/L BUN 7 L (9-20) mg/dL Creatinine 0.40 L (0.66-1.25) mg/dL Est GFR (MDRD) Af Amer >60 (>60 ml/min/1.73 sqM) Est GFR (MDRD) Non-Af >60 (>60 ml/min/1.73 sqM) Glucose 200 H (74-99) mg/dL POC Glucose (mg/dL) 342 H (75-99) mg/dL POC Glu Car Customizer ID [email or web address], Patsy Calcium 5.3 L* (8.4-10.2) mg/dL Magnesium (1.6-2.3) mg/dL Total Bilirubin 0.5 (0.2-1.3) mg/dL AST 13 L (17-59) U/L ALT 22 (21-72) U/L Alkaline Phosphatase 67 (38-126) U/L Total Protein 4.2 L (6.3-8.2) g/dL Albumin 2.2 L (3.5-5.0) g/dL Amylase <30 L (30-110) U/L Lipase 34 (23-300) U/L Urine Color Urine Appearance (Clear) Urine pH (5.0-8.0) Ur Specific [place] (1.001-1.035) Urine Protein (Negative) Urine Glucose (UA) (Negative) Urine Ketones (Negative) Urine Blood (Negative) Urine Nitrite (Negative) Urine Bilirubin (Negative) Urine Urobilinogen (<2.0) mg/dL Ur Leukocyte Esterase (Negative) Stool Occult Blood (Negative) 08/07/17 08/07/17 08/07/17 Range/Units 13:50 13:50 16:12 WBC (3.8-10.6) k/uL RBC (4.30-5.90) m/uL Hgb (13.0-17.5) gm/dL Hct (39.0-53.0) % MCV (80.0-100.0) fL MCH (25.0-35.0) pg MCHC (31.0-37.0) g/dL RDW (11.5-15.5) % Plt Count (150-450) k/uL Neutrophils % % Lymphocytes % % Monocytes % % Eosinophils % % Basophils % % Neutrophils # (1.3-7.7) k/uL Lymphocytes # (1.0-4.8) k/uL Monocytes # (0-1.0) k/uL Eosinophils # (0-0.7) k/uL Basophils # (0-0.2) k/uL PT 10.2 (9.0-12.0) sec INR 1.0 (<1.2) APTT 22.1 (22.0-30.0) sec Sodium (137-145) mmol/L Potassium (3.5-5.1) mmol/L Chloride (98-107) mmol/L Carbon Dioxide (22-30) mmol/L Anion Gap mmol/L BUN (9-20) mg/dL Creatinine (0.66-1.25) mg/dL Est GFR (MDRD) Af Amer (>60 ml/min/1.73 sqM) Est GFR (MDRD) Non-Af (>60 ml/min/1.73 sqM) Glucose (74-99) mg/dL POC Glucose (mg/dL) (75-99) mg/dL POC Glu Car Customizer ID Calcium (8.4-10.2) mg/dL Magnesium (1.6-2.3) mg/dL Total Bilirubin (0.2-1.3) mg/dL AST (17-59) U/L ALT (21-72) U/L Alkaline Phosphatase (38-126) U/L Total Protein (6.3-8.2) g/dL Albumin (3.5-5.0) g/dL Amylase (30-110) U/L Lipase (23-300) U/L Urine Color Light Yellow Urine Appearance Clear (Clear) Urine pH 6.5 (5.0-8.0) Ur Specific [place] 1.038 H (1.001-1.035) Urine Protein Negative (Negative) Urine Glucose (UA) 4+ H (Negative) Urine Ketones Negative (Negative) Urine Blood Negative (Negative) Urine Nitrite Negative (Negative) Urine Bilirubin Negative (Negative) Urine Urobilinogen <2.0 (<2.0) mg/dL Ur Leukocyte Esterase Negative (Negative) Stool Occult Blood Negative (Negative) 08/07/17 08/07/17 Range/Units 16:30 17:32 WBC (3.8-10.6) k/uL RBC (4.30-5.90) m/uL Hgb (13.0-17.5) gm/dL Hct (39.0-53.0) % MCV (80.0-100.0) fL MCH (25.0-35.0) pg MCHC (31.0-37.0) g/dL RDW (11.5-15.5) % Plt Count (150-450) k/uL Neutrophils % % Lymphocytes % % Monocytes % % Eosinophils % % Basophils % % Neutrophils # (1.3-7.7) k/uL Lymphocytes # (1.0-4.8) k/uL Monocytes # (0-1.0) k/uL Eosinophils # (0-0.7) k/uL Basophils # (0-0.2) k/uL PT (9.0-12.0) sec INR (<1.2) APTT (22.0-30.0) sec Sodium 136 L (137-145) mmol/L Potassium 4.7 (3.5-5.1) mmol/L Chloride 99 (98-107) mmol/L Carbon Dioxide 28 (22-30) mmol/L Anion Gap 9 mmol/L BUN 10 (9-20) mg/dL Creatinine 0.62 L (0.66-1.25) mg/dL Est GFR (MDRD) Af Amer >60 (>60 ml/min/1.73 sqM) Est GFR (MDRD) Non-Af >60 (>60 ml/min/1.73 sqM) Glucose 215 H (74-99) mg/dL POC Glucose (mg/dL) 194 H (75-99) mg/dL POC Glu Car Customizer ID Patsy Self Calcium 8.2 L (8.4-10.2) mg/dL Magnesium 1.8 (1.6-2.3) mg/dL Total Bilirubin (0.2-1.3) mg/dL AST (17-59) U/L ALT (21-72) U/L Alkaline Phosphatase (38-126) U/L Total Protein (6.3-8.2) g/dL Albumin (3.5-5.0) g/dL Amylase (30-110) U/L Lipase (23-300) U/L Urine Color Urine Appearance (Clear) Urine pH (5.0-8.0) Ur Specific [place] (1.001-1.035) Urine Protein (Negative) Urine Glucose (UA) (Negative) Urine Ketones (Negative) Urine Blood (Negative) Urine Nitrite (Negative) Urine Bilirubin (Negative) Urine Urobilinogen (<2.0) mg/dL Ur Leukocyte Esterase (Negative) Stool Occult Blood (Negative) 08/07/17 17:35 EKG is normal sinus rhythm, normal EKG noted. Ventricular rate 92 bpm ME interval 146 no seconds. QRS duration 86 no seconds. QT QTc is 360/445 ms no evidence of ST elevation or T-wave inversion. No evidence of atrial or ventricular arrhythmias. - Radiology Data Radiology results: report reviewed Cold[place] for enteritis and colitis. Hepatic steatosis. postop changes, cholecystectomy and appendectomy noted. Disposition Clinical Impression: Colitis, Nausea & vomiting, Dehydration Disposition: HOME SELF-CARE Condition: Good Instructions: Colitis (ED) Additional Instructions: Patient advised to follow-up with primary care provider. Return to emergency department if any alarming signs or symptoms occur. Take the antibiotic and nausea medicine as directed. Prescriptions: Ciprofloxacin HCl [Cipro] 500 mg PO Q12HR 7 Days tab metroNIDAZOLE [Flagyl] 500 mg PO TID #21 tab Ondansetron Odt [Zofran Odt] 4 mg PO Q8HR PRN #12 tab PRN Reason: Nausea Referrals: Sami Cuellar MD [Primary Care Provider] - 1-2 days Time of Disposition: 17:12
[2017-08-07 14:34] LABS: Appearance,Urine Clear (Clear); Bilirubin,Urine Negative (Negative); Blood,Urine Negative (Negative); Color,Urine Light Yellow; Glucose,Urine (UA) 4+ (Negative); Ketones,Urine Negative (Negative); Leukocyte Esterase,Urine Negative (Negative); Nitrite,Urine Negative (Negative); PH, Urine 6.5 (5.0-8.0); Protein,Urine Negative (Negative); Specific Gravity,Urine 1.038 (1.001-1.035); Urobilinogen,Urine <2.0 mg/dL (<2.0)
[2017-08-07 14:37] LABS: Basophils % (A) 1 %; Eosinophils # (A) 0.1 k/uL (0-0.7); Eosinophils % (A) 2 %; HCT 46.3 % (39.0-53.0); Lymphocytes # (A) 1.2 k/uL (1.0-4.8); Lymphocytes % (A) 22 %; MCH 30.8 pg (25.0-35.0); MCHC 34.6 g/dL (31.0-37.0); Mean Platelet Volume 6.9; Monocytes # (A) 0.2 k/uL (0-1.0); Monocytes % (A) 4 %; Neutrophils % (A) 70 %; Platelet Count 208 k/uL (150-450); RDW 12.2 % (11.5-15.5); WBC 5.7 k/uL (3.8-10.6)
[2017-08-07 14:42] LABS: Partial Thromboplastin Time 22.1 sec (22.0-30.0); Prothrombin Time 10.2 sec (9.0-12.0)
[2017-08-07 15:00] LABS: ALT 22 U/L (21-72); AST 13 U/L (17-59); Albumin 2.2 g/dL (3.5-5.0); Alkaline Phosphatase 67 U/L (38-126); Amylase <30 U/L (30-110); Anion Gap 6 mmol/L; Blood Urea Nitrogen 7 mg/dL (9-20); Carbon Dioxide 19 mmol/L (22-30); Chloride 114 mmol/L (98-107); Glucose 200 mg/dL (74-99); Lipase 34 U/L (23-300); Sodium 139 mmol/L (137-145); Total Bilirubin 0.5 mg/dL (0.2-1.3); Total Protein 4.2 g/dL (6.3-8.2)
[2017-08-07 15:09] LABS: Calcium 5.3 mg/dL (8.4-10.2); Potassium 2.6 mmol/L (3.5-5.1)
[2017-08-07] MEDS ORDERED: POTASSIUM CHLORIDE ER 20 MEQ TAB.ER PO STA (15:37)
--- NOTE | 2017-08-07 15:54 | CT ---
EXAMINATION TYPE: CT abdomen pelvis w con DATE OF EXAM: 08/07/2017 COMPARISON: Prior CT abdomen pelvis 01/24/2017 HISTORY: LOWER PELVIC PAIN AND VOMITING CT DLP: 923 mGycm Automated exposure control for dose reduction was used. TECHNIQUE: Helical acquisition of images from the lung bases through the pelvis have been completed. CONTRAST: Performed without Oral Contrast and with IV Contrast, patient injected with 100 mL of Omnipaque 300. FINDINGS: Postop changes are again noted at the gastroesophageal junction. There may be recurrent hia shin hernia present. Thickening is noted at this level possibly due to postop state. LUNG BASES: No significant abnormality is appreciated. AORTA: No significant abnormality is appreciated. LIVER/GB: Liver shows low attenuation. The liver shows no mass, gallbladder is absent. PANCREAS: No significant abnormality is seen. SPLEEN: Surgical clips are present in the splenic hilum, no evident splenic mass ADRENALS: No significant abnormality is seen. KIDNEYS: No significant abnormality is seen. REPRODUCTIVE ORGANS: No significant abnormality is seen BOWEL: Small bowel shows a luminal fluid, there are areas of wall thickening. Surgical clip in the r ight lower quadrant, the appendix is not seen. Rectosigmoid region shows some possible colonic wall t hickening. FREE AIR: No Free Air visible. ASCITES: None visible. PELVIC ADENOPATHY: None visualized. RETROPERITONEAL ADENOPATHY: No Retroperitoneal Adenopathy visible. URINARY BLADDER: No significant abnormality is seen. OSSEOUS STRUCTURES: No significant abnormality is seen. IMPRESSION: CORRELATE FOR ENTERITIS AND COLITIS. HEPATIC STEATOSIS. POSTOP CHANGES AND ADDITIONAL FINDINGS ABOVE.
[2017-08-07] MEDS ORDERED: SODIUM CHLORIDE 0.9% 1,000 ML IV SCH (16:15)
[2017-08-07] MEDS ORDERED: CALCIUM GLUCONATE 1,000 MG in SODIUM CHLORIDE 0.9% 100 ML IVPB ONE (16:28)
[2017-08-07 16:50] LABS: Anion Gap 9 mmol/L; Blood Urea Nitrogen 10 mg/dL (9-20); Calcium 8.2 mg/dL (8.4-10.2); Carbon Dioxide 28 mmol/L (22-30); Chloride 99 mmol/L (98-107); Glucose 215 mg/dL (74-99); Magnesium 1.8 mg/dL (1.6-2.3); Potassium 4.7 mmol/L (3.5-5.1); Sodium 136 mmol/L (137-145)
[2017-08-07] MEDS ORDERED: CALCIUM CARBONATE 500 MG CHEWABLE PO STA (17:21)
[2017-08-07 17:38] VITALS: BP 114/77; RESP 16; TEMP 97.9
[2017-08-07 18:05] LABS: Glucose,Whole Blood 194 mg/dL (75-99)
[2017-08-08 03:51] LABS: Hemoglobin A1C 10.6 % (4.0-6.0)
== END 2017-08-07 17:47 | disposition home or self-care (01) ==
LOC: EC 13:34
DX: K52.9 Noninfective gastroenteritis and colitis, unspecified (principal); E86.0 Dehydration; E87.6 Hypokalemia; E83.51 Hypocalcemia; E11.9 Type 2 diabetes mellitus without complications; K21.9 Gastro-esophageal reflux disease without esophagitis; I10 Essential (primary) hypertension; Z90.49 Acquired absence of other specified parts of digestive tract; Z79.4 Long term (current) use of insulin; Z79.899 Other long term (current) drug therapy; Z88.6 Allergy status to analgesic agent
CPT/HCPCS: 99285 ×2; 96374 ×2; 96375 ×2; 96376 ×2; 96361 ×3; 36415; 93005; 80053; 80048; 82150; 83690; 83735; 85025; 85610; 85730; 82272; 81003; 83036; 74177; J2405; Q9967; J1170

== ENCOUNTER 2017-08-30 11:34 | Emergency (ER) | payer BC ==
[2017-08-30] MEDS ORDERED: SODIUM CHLORIDE 0.9% 1,000 ML IV STA (11:59)
[2017-08-30] MEDS ORDERED: ONDANSETRON 4 MG/2 ML VIAL IVP STA (11:59)
[2017-08-30] MEDS ORDERED: RX INFO: IV CONTRAST WAS GIVEN 1 EACH MISC MISCELLANE PRN (12:11)
--- NOTE | 2017-08-30 12:11 | ED ---
General Adult HPI - General Chief complaint: Abdominal Pain Stated complaint: back and abdominal pain Time Seen by Provider: 08/30/17 11:50 Source: patient, RN notes reviewed Mode of arrival: wheelchair Limitations: no limitations - History of Present Illness Initial comments: Patient 32-year-old male significant past medical history for diverticulitis, bowel resection, presenting to the emergency room today with a chief complaint of left-sided abdominal pain that began this morning. States he woke up and was going to get ready and noticed that he was having some discomfort in the left side. States he went to work noticed that he was having some increased pain and discomfort. He also admits that he's felt some pain radiate into the left leg. He does admit a history of some chronic back problems and a herniated disc. Patient admits that he also noticed some pressure with urination. Patient denies any other complaints or symptoms currently. Patient admits to nausea vomiting admits to seeing blood in the stool small amount. Patient denies any recent fever, chills, shortness of breath, chest pain, numbness or tingling, dysuria or hematuria, constipation, headaches or visual changes, or any other complaints. - Related Data Home Medications Medication Instructions Recorded Confirmed Loratadine [Loratadine] 10 mg PO DAILY 03/29/16 08/30/17 Omeprazole [PriLOSEC] 20 mg PO DAILY 03/29/16 08/30/17 Simvastatin [Simvastatin] 20 mg PO HS 03/29/16 08/30/17 Insulin Glargine [Lantus] 42 unit SQ HS 07/16/16 08/30/17 INSULIN LISPRO (humaLOG) [humaLOG] See Protocol SQ AC-TID 11/15/16 08/30/17 Lisinopril [Zestril] 2.5 mg PO HS 01/24/17 08/30/17 Cyclobenzaprine [Flexeril] 10 mg PO BID PRN 04/02/17 08/30/17 Diphenox-Atrop 2.5-0.025 mg 1 tab PO QID PRN 04/02/17 08/30/17 [Lomotil] Hydrocodone/Acetaminophen [[place] 1 tab PO BID PRN 07/22/17 08/30/17 7.5-325] Gabapentin [Neurontin] 400 mg PO TID 08/07/17 08/30/17 Previous Rx's Medication Instructions Recorded Dicyclomine [Bentyl] 10 mg PO TID #20 capsule 07/22/17 Ondansetron Odt [Zofran Odt] 4 mg PO Q8HR PRN #12 tab 08/07/17 Ondansetron Odt [Zofran ODT] 4 mg PO Q8HR PRN #20 tab 08/30/17 Allergies Allergy/AdvReac Type Severity Reaction Status Date / Time etodolac [From Lodine] Allergy Rash/Hives Verified 08/30/17 11:46 ketorolac [From Toradol] Allergy Rash/Hives Verified 08/30/17 11:46 Review of Systems ROS Statement: Those systems with pertinent positive or pertinent negative responses have been documented in the HPI. ROS Other: All systems not noted in ROS Statement are negative. Past Medical History Past Medical History: Diabetes Mellitus, GERD/Reflux, Hypertension Additional Past Medical History / Comment(s): having abdominal pain radiating to back, HX OF diverticultitis History of Any Multi-Drug Resistant Organisms: None Reported Past Surgical History: Appendectomy, Bowel Resection, Cholecystectomy, Orthopedic Surgery, Tonsillectomy Additional Past Surgical History / Comment(s): ARTHROSCOPY Knee,hiatal hernia Past Anesthesia/Blood Transfusion Reactions: Postoperative Nausea & Vomiting ( PONV) Additional Past Anesthesia/Blood Transfusion Reaction / Comment(s): no hx blood transfusion Past Psychological History: No Psychological Hx Reported Smoking Status: Never smoker Past Alcohol Use History: None Reported Past Drug Use History: None Reported - Past Family History Mother Family Medical History: No Reported History Father Family Medical History: Diabetes Mellitus Additional Family Medical History / Comment(s): heart problems General Exam - General Exam Comments Initial Comments: General: The patient is awake and alert, in no distress, and does not appear acutely ill. Eye: Pupils are equal, round and reactive to light, extra-ocular movements are intact. No nystagmus. There is normal conjunctiva bilaterally. No signs of icterus. Ears, nose, mouth and throat: There are moist mucous membranes and no oral lesions. Neck: The neck is supple, there is no tenderness or JVD. Cardiovascular: There is a regular rate and rhythm. No murmur, rub or gallop is appreciated. Respiratory: Lungs are clear to auscultation, respirations are non-labored, breath sounds are equal. No wheezes, stridor, rales, or rhonchi. Gastrointestinal: SURGICAL incision to the right side of the abdomen in midline. Patient's abdomen soft on palpation. Does have tenderness to left lower quadrant. No rebound tenderness. No guarding. No CVA tenderness. Musculoskeletal: Normal ROM, no tenderness. Strength 5/5. Sensation intact. Pulses equal bilaterally 2+. Neurological: A&O x 3. CN II-XII intact, There are no obvious motor or sensory deficits. Coordination appears grossly intact. Speech is normal. Skin: Skin is warm and dry and no rashes or lesions are noted. Psychiatric: Cooperative, appropriate mood & affect, normal judgment. : Circumcised male no sign of trauma. No swelling. Negative Prehn sign. No tenderness on palpation to the testicles. Limitations: no limitations Course Vital Signs 08/30/17 08/30/17 11:38 13:47 Temperature 98.1 F Pulse Rate 94 76 Respiratory 20 18 Rate Blood Pressure 104/72 114/73 O2 Sat by Pulse 98 98 Oximetry Medical Decision Making - Medical Decision Making Case discussed in detail with attending physician Dr. Bro. Patient's labs been reviewed elevated blood glucose. Patient is diabetic. Patient currently sleeping at this time feeling better here in the emergency room. His CT is negative for any acute abnormality. Results were discussed with the patient. Is advised close follow-up family doctor in the next 1-2 days. Advised return here to the emergency room symptoms increase or worsen. - Lab Data Result diagrams: 08/30/17 12:35 08/30/17 12:35 Lab Results 08/30/17 08/30/17 08/30/17 Range/Units 12:35 12:35 12:35 WBC 4.1 (3.8-10.6) k/uL RBC 4.92 (4.30-5.90) m/uL Hgb 15.4 (13.0-17.5) gm/dL Hct 41.9 (39.0-53.0) % MCV 85.1 (80.0-100.0) fL MCH 31.3 (25.0-35.0) pg MCHC 36.7 (31.0-37.0) g/dL RDW 12.0 (11.5-15.5) % Plt Count 216 (150-450) k/uL Neutrophils % 67 % Lymphocytes % 24 % Monocytes % 5 % Eosinophils % 2 % Basophils % 1 % Neutrophils # 2.8 (1.3-7.7) k/uL Lymphocytes # 1.0 (1.0-4.8) k/uL Monocytes # 0.2 (0-1.0) k/uL Eosinophils # 0.1 (0-0.7) k/uL Basophils # 0.0 (0-0.2) k/uL Hyperchromasia Slight PT (9.0-12.0) sec INR (<1.2) APTT (22.0-30.0) sec Sodium 139 (137-145) mmol/L Potassium 4.1 (3.5-5.1) mmol/L Chloride 102 (98-107) mmol/L Carbon Dioxide 26 (22-30) mmol/L Anion Gap 11 mmol/L BUN 16 (9-20) mg/dL Creatinine 0.52 L (0.66-1.25) mg/dL Est GFR (CKD-EPI)AfAm >90 (>60 ml/min/1.73 sqM) Est GFR (CKD-EPI)NonAf >90 (>60 ml/min/1.73 sqM) Glucose 227 H (74-99) mg/dL Plasma Lactic Acid Ja 1.0 (0.7-2.0) mmol/L Calcium 9.3 (8.4-10.2) mg/dL Total Bilirubin 1.4 H (0.2-1.3) mg/dL AST 15 L (17-59) U/L ALT 34 (21-72) U/L Alkaline Phosphatase 101 (38-126) U/L Total Protein 7.2 (6.3-8.2) g/dL Albumin 4.4 (3.5-5.0) g/dL Amylase 32 (30-110) U/L Lipase 36 (23-300) U/L Urine Color Urine Appearance (Clear) Urine pH (5.0-8.0) Ur Specific [place] (1.001-1.035) Urine Protein (Negative) Urine Glucose (UA) (Negative) Urine Ketones (Negative) Urine Blood (Negative) Urine Nitrite (Negative) Urine Bilirubin (Negative) Urine Urobilinogen (<2.0) mg/dL Ur Leukocyte Esterase (Negative) 08/30/17 08/30/17 Range/Units 12:35 12:35 WBC (3.8-10.6) k/uL RBC (4.30-5.90) m/uL Hgb (13.0-17.5) gm/dL Hct (39.0-53.0) % MCV (80.0-100.0) fL MCH (25.0-35.0) pg MCHC (31.0-37.0) g/dL RDW (11.5-15.5) % Plt Count (150-450) k/uL Neutrophils % % Lymphocytes % % Monocytes % % Eosinophils % % Basophils % % Neutrophils # (1.3-7.7) k/uL Lymphocytes # (1.0-4.8) k/uL Monocytes # (0-1.0) k/uL Eosinophils # (0-0.7) k/uL Basophils # (0-0.2) k/uL Hyperchromasia PT 10.1 (9.0-12.0) sec INR 1.0 (<1.2) APTT 23.1 (22.0-30.0) sec Sodium (137-145) mmol/L Potassium (3.5-5.1) mmol/L Chloride (98-107) mmol/L Carbon Dioxide (22-30) mmol/L Anion Gap mmol/L BUN (9-20) mg/dL Creatinine (0.66-1.25) mg/dL Est GFR (CKD-EPI)AfAm (>60 ml/min/1.73 sqM) Est GFR (CKD-EPI)NonAf (>60 ml/min/1.73 sqM) Glucose (74-99) mg/dL Plasma Lactic Acid Ja (0.7-2.0) mmol/L Calcium (8.4-10.2) mg/dL Total Bilirubin (0.2-1.3) mg/dL AST (17-59) U/L ALT (21-72) U/L Alkaline Phosphatase (38-126) U/L Total Protein (6.3-8.2) g/dL Albumin (3.5-5.0) g/dL Amylase (30-110) U/L Lipase (23-300) U/L Urine Color Yellow Urine Appearance Clear (Clear) Urine pH 5.5 (5.0-8.0) Ur Specific [place] 1.041 H (1.001-1.035) Urine Protein Negative (Negative) Urine Glucose (UA) 4+ H (Negative) Urine Ketones 1+ H (Negative) Urine Blood Negative (Negative) Urine Nitrite Negative (Negative) Urine Bilirubin Negative (Negative) Urine Urobilinogen <2.0 (<2.0) mg/dL Ur Leukocyte Esterase Negative (Negative) Disposition Clinical Impression: Acute diarrhea Disposition: HOME SELF-CARE Condition: Good Instructions: Acute Diarrhea (ED) Additional Instructions: Please use medication as discussed. Please follow-up with family doctor in the next 2 days of symptoms have not improved. Please return to emergency room if the symptoms increase or worsen or for any other concerns. Prescriptions: Ondansetron Odt [Zofran ODT] 4 mg PO Q8HR PRN #20 tab PRN Reason: Nausea Referrals: Sami Cuellar MD [Primary Care Provider] - 1-2 days Time of Disposition: 14:13
[2017-08-30] MEDS ORDERED: MORPHINE SULFATE 4 MG/ML SYRINGE IV STA (12:12)
[2017-08-30 12:48] LABS: Appearance,Urine Clear (Clear); Bilirubin,Urine Negative (Negative); Blood,Urine Negative (Negative); Color,Urine Yellow; Glucose,Urine (UA) 4+ (Negative); Ketones,Urine 1+ (Negative); Leukocyte Esterase,Urine Negative (Negative); Nitrite,Urine Negative (Negative); PH, Urine 5.5 (5.0-8.0); Protein,Urine Negative (Negative); Specific Gravity,Urine 1.041 (1.001-1.035); Urobilinogen,Urine <2.0 mg/dL (<2.0)
[2017-08-30 12:50] LABS: Basophils % (A) 1 %; Eosinophils # (A) 0.1 k/uL (0-0.7); Eosinophils % (A) 2 %; HCT 41.9 % (39.0-53.0); HGB 15.4 gm/dL (13.0-17.5); Hyperchromasia Slight; Lymphocytes % (A) 24 %; MCH 31.3 pg (25.0-35.0); MCHC 36.7 g/dL (31.0-37.0); MCV 85.1 fL (80.0-100.0); Mean Platelet Volume 7.1; Monocytes # (A) 0.2 k/uL (0-1.0); Monocytes % (A) 5 %; Neutrophils # (A) 2.8 k/uL (1.3-7.7); Neutrophils % (A) 67 %; Platelet Count 216 k/uL (150-450); RBC 4.92 m/uL (4.30-5.90); WBC 4.1 k/uL (3.8-10.6)
[2017-08-30 12:56] LABS: Partial Thromboplastin Time 23.1 sec (22.0-30.0); Prothrombin Time 10.1 sec (9.0-12.0)
[2017-08-30 13:02] LABS: ALT 34 U/L (21-72); AST 15 U/L (17-59); Albumin 4.4 g/dL (3.5-5.0); Alkaline Phosphatase 101 U/L (38-126); Amylase 32 U/L (30-110); Anion Gap 11 mmol/L; Blood Urea Nitrogen 16 mg/dL (9-20); Calcium 9.3 mg/dL (8.4-10.2); Carbon Dioxide 26 mmol/L (22-30); Chloride 102 mmol/L (98-107); Glucose 227 mg/dL (74-99); Lipase 36 U/L (23-300); Potassium 4.1 mmol/L (3.5-5.1); Sodium 139 mmol/L (137-145); Total Bilirubin 1.4 mg/dL (0.2-1.3); Total Protein 7.2 g/dL (6.3-8.2)
--- NOTE | 2017-08-30 13:44 | CT ---
EXAMINATION TYPE: CT abdomen pelvis w con DATE OF EXAM: 08/30/2017 COMPARISON: 08/07/2017 and 03/29/2016. HISTORY: Left sided abdominal pain CT DLP: 845 mGycm Automated exposure control for dose reduction was used. TECHNIQUE: Helical acquisition of images was performed from the lung bases through the pelvis. CONTRAST: Performed without Oral Contrast and with IV Contrast, patient injected with 100 mL of Omnipaque 300. FINDINGS: LUNG BASES: No significant abnormality is appreciated. LIVER/GB: There is a focal area of hypoattenuation within the liver in segment IVb near the fissure f or the falciform ligament, retrospectively seen on the exam of 08/07/2017 in the exam of 03/29/2016, t herefore given its stability in location this most commonly represents benign focal fatty infiltratio n. PANCREAS: No significant abnormality is seen. SPLEEN: No significant abnormality is seen. Spleen is nonenlarged. ADRENALS: No focal nodule or thickening. KIDNEYS: Kidneys enhance symmetrically without hydronephrosis. FREE AIR: No free air is visualized. RETROPERITONEAL ADENOPATHY: No greater than 1 cm short axis lymph nodes within the abdomen or pelvis . REPRODUCTIVE ORGANS: No significant abnormality is seen URINARY BLADDER: No significant abnormality is seen. OSSEOUS STRUCTURES: Osseous structures are intact BOWEL: Postsurgical changes are seen at the gastroesophageal junction with numerous clips extending into the region of the splenic hilum. Surgical clip is also seen in the region of the appendix and th e appendix is not visualized, likely surgically absent. No evidence of large bowel or small bowel dil atation. Copious amount of gas is seen within numerous of the nondilated small bowel IMPRESSION: COPIOUS AMOUNTS OF GAS WITHIN NUMEROUS NONDILATED LOOPS OF SMALL BOWEL CATHETER WITHIN THE LEFT ABDOM EN THAT COULD. NO EVIDENCE OF BOWEL OBSTRUCTION OR SMALL BOWEL ISCHEMIA.
[2017-08-30 13:47] VITALS: RESP 18
--- NOTE | 2017-08-30 13:59 | XR ---
EXAMINATION TYPE: XR KUB DATE OF EXAM: 08/30/2017 1:50 PM CLINICAL HISTORY: Left-sided abdominal pain with history of appendectomy, bowel resection, and kyaw cystectomy TECHNIQUE: Single supine KUB image of the abdomen is obtained. COMPARISON: None. FINDINGS: Scattered gas is seen in non-distended small bowel loops. Numerous surgical clips are seen throughout the abdomen from the prior appendectomy, bowel resection, and cholecystectomy. Gas and fe phyllis material is seen in non-distended colon. There is no visceromegaly, pneumoperitoneum, or abnormal calcification appreciated. The lung bases are clear and the osseous structures are intact. IMPRESSION: Nonobstructive bowel gas pattern.
[2017-08-30 14:25] VITALS: BP 138/87; PULSE 87; TEMP 97.4
== END 2017-08-30 14:25 | disposition home or self-care (01) ==
LOC: EC 11:34
DX: R19.7 Diarrhea, unspecified (principal); R10.9 Unspecified abdominal pain; R11.2 Nausea with vomiting, unspecified; M54.9 Dorsalgia, unspecified; K92.1 Melena; M79.605 Pain in left leg; E11.65 Type 2 diabetes mellitus with hyperglycemia; I10 Essential (primary) hypertension; K21.9 Gastro-esophageal reflux disease without esophagitis; Z79.4 Long term (current) use of insulin; Z79.899 Other long term (current) drug therapy; Z88.6 Allergy status to analgesic agent; Z90.49 Acquired absence of other specified parts of digestive tract; Z83.3 Family history of diabetes mellitus
CPT/HCPCS: 36415; 80053; 82150; 83605; 83690; 85025; 85610; 85730; 81003; 74018; 74177; 99284; 96374; 96375; 96361; J2270; J2405; Q9967

== ENCOUNTER 2017-08-31 18:07 | Emergency (ER) | payer BC ==
[2017-08-31] MEDS ORDERED: DICYCLOMINE 10 MG/ML 2 ML AMP IM STA (18:32)
[2017-08-31] MEDS ORDERED: SODIUM CHLORIDE 0.9% 1,000 ML IV STA (18:32)
[2017-08-31] MEDS ORDERED: ONDANSETRON 4 MG/2 ML VIAL IVP STA (18:32)
--- NOTE | 2017-08-31 18:36 | ED ---
General Adult HPI - General Chief complaint: Abdominal Pain Stated complaint: NVD Time Seen by Provider: 08/31/17 18:21 Source: patient, RN notes reviewed Mode of arrival: ambulatory Limitations: no limitations - History of Present Illness Initial comments: 32-year-old male presents to the emergency department with a chief complaint of left-sided abdominal pain nausea vomiting and diarrhea. Patient was seen here yesterday for complaints. He was told if it did not get better to return. He states he's continued to have nausea vomiting and diarrhea he does make a history of diverticulitis in the past. He denies any fever or chills. He states that he just continues to have the vomiting so he thought that he should be seen. Patient states he is not currently having any other symptoms with this. Patient denies any new or different foods or any movement AT home. Patient denies any recent fever, chills, shortness of breath, chest pain, back pain, numbness or tingling, dysuria or hematuria, constipation, headaches or visual changes, or any other current symptoms. - Related Data Home Medications Medication Instructions Recorded Confirmed Loratadine [Loratadine] 10 mg PO DAILY 03/29/16 08/31/17 Omeprazole [PriLOSEC] 20 mg PO DAILY 03/29/16 08/31/17 Simvastatin [Simvastatin] 20 mg PO HS 03/29/16 08/31/17 Insulin Glargine [Lantus] 42 unit SQ HS 07/16/16 08/31/17 INSULIN LISPRO (humaLOG) [humaLOG] See Protocol SQ AC-TID 11/15/16 08/31/17 Lisinopril [Zestril] 2.5 mg PO HS 01/24/17 08/31/17 Cyclobenzaprine [Flexeril] 10 mg PO BID PRN 04/02/17 08/31/17 Diphenox-Atrop 2.5-0.025 mg 1 tab PO QID PRN 04/02/17 08/31/17 [Lomotil] Hydrocodone/Acetaminophen [Sanders 1 tab PO BID PRN 07/22/17 08/31/17 7.5-325] Gabapentin [Neurontin] 400 mg PO TID 08/07/17 08/31/17 Previous Rx's Medication Instructions Recorded Dicyclomine [Bentyl] 10 mg PO TID #20 capsule 07/22/17 Ondansetron Odt [Zofran ODT] 4 mg PO Q8HR PRN #20 tab 08/30/17 Dicyclomine [Bentyl] 10 mg PO TID #20 capsule 08/31/17 Ondansetron Odt [Zofran ODT] 4 mg PO Q8HR PRN #20 tab 08/31/17 Allergies Allergy/AdvReac Type Severity Reaction Status Date / Time etodolac [From Lodine] Allergy Rash/Hives Verified 08/31/17 18:27 ketorolac [From Toradol] Allergy Rash/Hives Verified 08/31/17 18:27 Review of Systems ROS Statement: Those systems with pertinent positive or pertinent negative responses have been documented in the HPI. ROS Other: All systems not noted in ROS Statement are negative. Past Medical History Past Medical History: Diabetes Mellitus, GERD/Reflux, Hypertension Additional Past Medical History / Comment(s): having abdominal pain radiating to back, HX OF diverticultitis History of Any Multi-Drug Resistant Organisms: None Reported Past Surgical History: Appendectomy, Bowel Resection, Cholecystectomy, Orthopedic Surgery, Tonsillectomy Additional Past Surgical History / Comment(s): ARTHROSCOPY Knee,hiatal hernia Past Anesthesia/Blood Transfusion Reactions: Postoperative Nausea & Vomiting ( PONV) Additional Past Anesthesia/Blood Transfusion Reaction / Comment(s): no hx blood transfusion Past Psychological History: No Psychological Hx Reported Smoking Status: Never smoker Past Alcohol Use History: None Reported Past Drug Use History: None Reported - Past Family History Mother Family Medical History: No Reported History Father Family Medical History: Diabetes Mellitus Additional Family Medical History / Comment(s): heart problems General Exam - General Exam Comments Initial Comments: General: The patient is awake and alert, in no distress, and does not appear acutely ill. Eye: Pupils are equal, round and reactive to light, extra-ocular movements are intact; there is normal conjunctiva bilaterally. No signs of icterus. Ears, nose, mouth and throat: There are moist mucous membranes. Neck: The neck is supple, there is no tenderness. Cardiovascular: There is a regular rate and rhythm. No murmur, rub or gallop is appreciated. Respiratory: Lungs are clear to auscultation, respirations are non-labored, breath sounds are equal. No wheezes, stridor, rales, or rhonchi. Gastrointestinal: Soft, non-distended, non-tender abdomen without masses or organomegaly noted. There is no rebound or guarding present. No CVA tenderness. Bowel sounds are unremarkable. Back: There is no tenderness to palpation in the midline. There is no obvious deformity. No rashes noted. Musculoskeletal: Normal ROM, no tenderness, There is no pedal edema. There is no calf tenderness or swelling. Sensation intact. Pulses equal bilaterally 2+. Neurological: CN II-XII intact, There are no obvious motor or sensory deficits. Coordination appears grossly intact. Speech is normal. Skin: Skin is warm and dry and no rashes or lesions are noted. Psychiatric: Cooperative, appropriate mood & affect, normal judgment. Limitations: no limitations Course Vital Signs 08/31/17 18:12 Temperature 98.9 F Pulse Rate 101 H Respiratory 18 Rate Blood Pressure 128/84 O2 Sat by Pulse 100 Oximetry Medical Decision Making - Medical Decision Making 32-year-old male presents to the emergency department with a chief complaint of nausea vomiting and diarrhea. Patient's previous visit yesterday was reviewed. This time lab work is been reviewed. Patient's previous CAT scan was reviewed. He has had no more nausea vomiting here. At this time we did discuss we'll start him on Zofran and Bentyl for home. We [facility] we discussed follow-up we discussed return parameters all questions. Patient stated he understood and he is agreement this plan. He does feel comfortable discharge. Patient will be discharged home. - Lab Data Result diagrams: 08/31/17 19:00 08/31/17 19:00 Lab Results 08/31/17 08/31/17 08/31/17 Range/Units 19:00 19:00 19:00 WBC 6.5 (3.8-10.6) k/uL RBC 5.13 (4.30-5.90) m/uL Hgb 15.6 (13.0-17.5) gm/dL Hct 44.5 (39.0-53.0) % MCV 86.7 (80.0-100.0) fL MCH 30.4 (25.0-35.0) pg MCHC 35.0 (31.0-37.0) g/dL RDW 12.1 (11.5-15.5) % Plt Count 211 (150-450) k/uL Neutrophils % 77 % Lymphocytes % 17 % Monocytes % 3 % Eosinophils % 1 % Basophils % 0 % Neutrophils # 5.0 (1.3-7.7) k/uL Lymphocytes # 1.1 (1.0-4.8) k/uL Monocytes # 0.2 (0-1.0) k/uL Eosinophils # 0.1 (0-0.7) k/uL Basophils # 0.0 (0-0.2) k/uL Sodium (137-145) mmol/L Potassium (3.5-5.1) mmol/L Chloride (98-107) mmol/L Carbon Dioxide (22-30) mmol/L Anion Gap mmol/L BUN (9-20) mg/dL Creatinine (0.66-1.25) mg/dL Est GFR (CKD-EPI)AfAm (>60 ml/min/1.73 sqM) Est GFR (CKD-EPI)NonAf (>60 ml/min/1.73 sqM) Glucose (74-99) mg/dL Calcium (8.4-10.2) mg/dL Total Bilirubin (0.2-1.3) mg/dL AST (17-59) U/L ALT (21-72) U/L Alkaline Phosphatase (38-126) U/L Total Protein (6.3-8.2) g/dL Albumin (3.5-5.0) g/dL Amylase 32 (30-110) U/L Lipase 52 (23-300) U/L Urine Color Light Yellow Urine Appearance Clear (Clear) Urine pH 7.0 (5.0-8.0) Ur Specific [place] 1.035 (1.001-1.035) Urine Protein Negative (Negative) Urine Glucose (UA) 4+ H (Negative) Urine Ketones 1+ H (Negative) Urine Blood Negative (Negative) Urine Nitrite Negative (Negative) Urine Bilirubin Negative (Negative) Urine Urobilinogen <2.0 (<2.0) mg/dL Ur Leukocyte Esterase Negative (Negative) Acetone, Qual Negative (Negative) 08/31/17 Range/Units 19:00 WBC (3.8-10.6) k/uL RBC (4.30-5.90) m/uL Hgb (13.0-17.5) gm/dL Hct (39.0-53.0) % MCV (80.0-100.0) fL MCH (25.0-35.0) pg MCHC (31.0-37.0) g/dL RDW (11.5-15.5) % Plt Count (150-450) k/uL Neutrophils % % Lymphocytes % % Monocytes % % Eosinophils % % Basophils % % Neutrophils # (1.3-7.7) k/uL Lymphocytes # (1.0-4.8) k/uL Monocytes # (0-1.0) k/uL Eosinophils # (0-0.7) k/uL Basophils # (0-0.2) k/uL Sodium 139 (137-145) mmol/L Potassium 4.3 (3.5-5.1) mmol/L Chloride 102 (98-107) mmol/L Carbon Dioxide 26 (22-30) mmol/L Anion Gap 11 mmol/L BUN 15 (9-20) mg/dL Creatinine 0.65 L (0.66-1.25) mg/dL Est GFR (CKD-EPI)AfAm >90 (>60 ml/min/1.73 sqM) Est GFR (CKD-EPI)NonAf >90 (>60 ml/min/1.73 sqM) Glucose 265 H (74-99) mg/dL Calcium 9.7 (8.4-10.2) mg/dL Total Bilirubin 0.9 (0.2-1.3) mg/dL AST 14 L (17-59) U/L ALT 29 (21-72) U/L Alkaline Phosphatase 112 (38-126) U/L Total Protein 7.2 (6.3-8.2) g/dL Albumin 4.4 (3.5-5.0) g/dL Amylase (30-110) U/L Lipase (23-300) U/L Urine Color Urine Appearance (Clear) Urine pH (5.0-8.0) Ur Specific [place] (1.001-1.035) Urine Protein (Negative) Urine Glucose (UA) (Negative) Urine Ketones (Negative) Urine Blood (Negative) Urine Nitrite (Negative) Urine Bilirubin (Negative) Urine Urobilinogen (<2.0) mg/dL Ur Leukocyte Esterase (Negative) Acetone, Qual (Negative) Disposition Clinical Impression: Nausea & vomiting, Diarrhea Disposition: HOME SELF-CARE Condition: Stable Instructions: Acute Nausea and Vomiting (ED) Additional Instructions: Please use medication as discussed. Please follow up with family doctor if symptoms have not improved over the next two days. Please return to the emergency room if your symptoms increase or worsen or for any other concerns. Prescriptions: Dicyclomine [Bentyl] 10 mg PO TID #20 capsule Ondansetron Odt [Zofran ODT] 4 mg PO Q8HR PRN #20 tab PRN Reason: Nausea Referrals: Sami Cuellar MD [Primary Care Provider] - 1-2 days Time of Disposition: 20:01
[2017-08-31 19:19] LABS: Basophils % (A) 0 %; Eosinophils # (A) 0.1 k/uL (0-0.7); Eosinophils % (A) 1 %; HCT 44.5 % (39.0-53.0); HGB 15.6 gm/dL (13.0-17.5); Lymphocytes # (A) 1.1 k/uL (1.0-4.8); Lymphocytes % (A) 17 %; MCH 30.4 pg (25.0-35.0); MCV 86.7 fL (80.0-100.0); Mean Platelet Volume 7.3; Monocytes # (A) 0.2 k/uL (0-1.0); Monocytes % (A) 3 %; Neutrophils % (A) 77 %; Platelet Count 211 k/uL (150-450); RBC 5.13 m/uL (4.30-5.90); RDW 12.1 % (11.5-15.5); WBC 6.5 k/uL (3.8-10.6)
[2017-08-31 19:25] LABS: Appearance,Urine Clear (Clear); Bilirubin,Urine Negative (Negative); Blood,Urine Negative (Negative); Color,Urine Light Yellow; Glucose,Urine (UA) 4+ (Negative); Ketones,Urine 1+ (Negative); Leukocyte Esterase,Urine Negative (Negative); Nitrite,Urine Negative (Negative); Protein,Urine Negative (Negative); Specific Gravity,Urine 1.035 (1.001-1.035); Urobilinogen,Urine <2.0 mg/dL (<2.0)
[2017-08-31 19:28] LABS: Amylase 32 U/L (30-110); Lipase 52 U/L (23-300)
[2017-08-31 19:47] LABS: ALT 29 U/L (21-72); AST 14 U/L (17-59); Albumin 4.4 g/dL (3.5-5.0); Alkaline Phosphatase 112 U/L (38-126); Anion Gap 11 mmol/L; Blood Urea Nitrogen 15 mg/dL (9-20); Calcium 9.7 mg/dL (8.4-10.2); Carbon Dioxide 26 mmol/L (22-30); Chloride 102 mmol/L (98-107); Glucose 265 mg/dL (74-99); Potassium 4.3 mmol/L (3.5-5.1); Sodium 139 mmol/L (137-145); Total Bilirubin 0.9 mg/dL (0.2-1.3); Total Protein 7.2 g/dL (6.3-8.2)
[2017-08-31 20:11] VITALS: BP 122/73; PULSE 79; RESP 20; TEMP 98.4
[2017-09-01 16:56] LABS: C. trachomatis,PCR Negative (Neg,Equiv); Chlamydia trachomatis Source Urine; N. gonorrhoeae,PCR Negative (Neg,Equiv); Neisseria Source Urine
== END 2017-08-31 20:11 | disposition home or self-care (01) ==
LOC: EC 18:07
DX: R11.2 Nausea with vomiting, unspecified (principal); R19.7 Diarrhea, unspecified; R10.9 Unspecified abdominal pain; E11.9 Type 2 diabetes mellitus without complications; K21.9 Gastro-esophageal reflux disease without esophagitis; I10 Essential (primary) hypertension; Z88.6 Allergy status to analgesic agent; Z79.4 Long term (current) use of insulin; Z79.899 Other long term (current) drug therapy; Z90.49 Acquired absence of other specified parts of digestive tract; Z87.19 Personal history of other diseases of the digestive system; Z98.890 Other specified postprocedural states; Z53.8 Procedure and treatment not carried out for other reasons
CPT/HCPCS: 96361 ×2; 96374 ×2; 99284 ×2; 36415; 80053; 82150; 82009; 83690; 85025; 81003; 87491; 87591; J2405

== ENCOUNTER → 2018-05-31 | Outpatient (CLI) | payer OTHER ==
--- NOTE | 2018-05-31 22:21 | MR ---
EXAMINATION TYPE: MR lumbar spine wo con DATE OF EXAM: 05/31/2018 COMPARISON: CT abdomen and pelvis August 30, 2017 HISTORY: Lumbar ago per order. Back pain since August 2017 causing pain into left lower extremity per patient. TECHNIQUE: Multiplanar, multisequence imaging of the lumbar spine is performed without IV contrast. FINDINGS: Corresponding CT shows transitional-type L6 vertebra. Sagittal images of the lumbar spine s how vertebral body heights and alignment to appear satisfactory. There is disc desiccation with mild disc space narrowing L5 L6 level. There is posterior disc herniation and annular tear at this level. The intervertebral discs otherwise demonstrate normal heights and hydration. The conus medullaris is normal in position and signal ending superior L1 level. The bone marrow signal intensity is within normal limits. Extensive spurring is seen. Axial images began at L1-L2 level axial image 28 which is felt within normal limits. Axial images at L2-L3, L3-L4, and L4-L5 levels all felt within normal limits. Axial images at the L5-L6 level shows central disc protrusion effacing anterior thecal sac on axial i mage 8 with posterior annular tear. Bilateral neural foramina show mild left and moderate right-sided inferior neural foraminal narrowing with some encroachment on the right L5 nerve felt present sagitt al image 11. Axial images at the L6- S1 level show mild facet degenerative changes bilaterally otherwise are felt within normal limits. IMPRESSION: Transitional-type L6 vertebra with disc herniation L5 -L6 level effacing the anterior the phyllis sac and causing right greater than left neural foraminal narrowing, encroachment on the exiting r ight L5 nerve is felt present.
== END ==
LOC: RADMRIMAIN 07:26
PROVIDERS: ATTEND Psychiatry & Neurology Neurology
DX: M99.73 Connective tissue and disc stenosis of intervertebral foramina of lumbar region (principal); M51.26 Other intervertebral disc displacement, lumbar region
CPT/HCPCS: 72148

== ENCOUNTER 2018-07-11 13:13 | Emergency (ER) | payer OTHER ==
[2018-07-11 13:35] VITALS: TEMP 98.4
[2018-07-11] MEDS ORDERED: MORPHINE SULFATE 4 MG/ML SYRINGE IV STA (13:56)
[2018-07-11] MEDS ORDERED: SODIUM CHLORIDE 0.9% 2,000 ML IV STA (13:56)
[2018-07-11 13:57] LABS: Glucose,Whole Blood 284 mg/dL (75-99)
[2018-07-11] MEDS ORDERED: ONDANSETRON 4 MG/2 ML VIAL IVP STA ×2 (14:15→17:19)
[2018-07-11] MEDS ORDERED: diphenhydrAMINE 50 MG/ML 1 ML VIAL IVP STA (14:32)
[2018-07-11] MEDS ORDERED: METOCLOPRAMIDE 5 MG/ML 2 ML VIAL IVP STA (14:32)
[2018-07-11 14:41] LABS: Basophils # (A) 0.1 k/uL (0-0.2); Basophils % (A) 1 %; Eosinophils # (A) 0.1 k/uL (0-0.7); Eosinophils % (A) 2 %; HCT 52.2 % (39.0-53.0); HGB 17.6 gm/dL (13.0-17.5); Lymphocytes # (A) 0.9 k/uL (1.0-4.8); Lymphocytes % (A) 14 %; MCH 30.4 pg (25.0-35.0); MCHC 33.8 g/dL (31.0-37.0); MCV 90.1 fL (80.0-100.0); Mean Platelet Volume 7.5; Monocytes # (A) 0.2 k/uL (0-1.0); Monocytes % (A) 4 %; Neutrophils % (A) 78 %; Platelet Count 255 k/uL (150-450); RBC 5.79 m/uL (4.30-5.90); RDW 12.9 % (11.5-15.5); WBC 6.4 k/uL (3.8-10.6)
[2018-07-11 14:52] LABS: ALT 46 U/L (21-72); AST 30 U/L (17-59); Albumin 5.2 g/dL (3.5-5.0); Alkaline Phosphatase 131 U/L (38-126); Amylase 34 U/L (30-110); Anion Gap 17 mmol/L; Blood Urea Nitrogen 10 mg/dL (9-20); Carbon Dioxide 19 mmol/L (22-30); Chloride 102 mmol/L (98-107); Glucose 310 mg/dL (74-99); Lipase 77 U/L (23-300); Potassium 4.5 mmol/L (3.5-5.1); Sodium 138 mmol/L (137-145); Total Bilirubin 1.2 mg/dL (0.2-1.3); Total Protein 8.7 g/dL (6.3-8.2)
--- NOTE | 2018-07-11 16:20 | CT ---
EXAMINATION TYPE: CT abdomen pelvis w con DATE OF EXAM: 07/11/2018 COMPARISON: 08/30/2017 INDICATION: Abdominal pain and vomiting DLP: 780.8 mGycm, Automated exposure control for dose reduction was used. CONTRAST: 100 mL of Isovue 300. Study performed without Oral Contrast TECHNIQUE: Axial images were obtained from above the diaphragm to the pubic rami in the axial plane a t 5 mm thick sections. Reconstructed images are reviewed on the computer in the coronal plane. FINDINGS: Limited CT sections are obtained the lung bases. The lung bases are clear. There is a small hiatal hernia. Surgical clips are in the epigastric. CT ABDOMEN: Liver: There is moderate fatty infiltration to the liver. No discrete masses or cysts are evident. Spleen: Normal Pancreas: Normal Adrenal glands: The adrenal glands are normal. Gallbladder: Surgically absent Kidneys: No masses are evident. No hydronephrosis is present. No cysts are present. Delayed images were obtained through the kidneys, which remain unremarkable. Aorta: Normal Inferior vena cava: Normal. CT PELVIS: Loops of bowel within the abdomen and pelvis are normal. Study is performed without oral contrast limiting bowel evaluation. Appendix: Not identified. Surgical clip is present. Correlate with the patient's surgical history. Urinary bladder: Distended. Genitourinary structures: Prostate is somewhat prominent. Osseous structures: No suspicious lytic or sclerotic lesions. IMPRESSIONS: 1. Moderate fatty infiltration liver. 2. Hiatal hernia.
[2018-07-11 16:33] LABS: Appearance,Urine Clear (Clear); Bacteria,Urine Rare /hpf; Bilirubin,Urine Negative (Negative); Blood,Urine Negative (Negative); Color,Urine Yellow; Glucose,Urine (UA) 4+ (Negative); Leukocyte Esterase,Urine Negative (Negative); Mucus,Urine Rare /hpf; Nitrite,Urine Negative (Negative); Protein,Urine 1+ (Negative); RBC,Urine 1 /hpf (0-5); Specific Gravity,Urine 1.038 (1.001-1.035); Squamous Epithelial Cell,Urine <1 /hpf (0-4); Urobilinogen,Urine <2.0 mg/dL (<2.0); WBC,Urine 1 /hpf (0-5)
[2018-07-11 16:37] LABS: Ketones,Urine 2+ (Negative)
[2018-07-11 16:48] LABS: Glucose,Whole Blood 187 mg/dL (75-99)
--- NOTE | 2018-07-11 17:15 | ED ---
General Adult HPI - General Chief complaint: Nausea/Vomiting/Diarrhea Stated complaint: vomiting Source: patient, RN notes reviewed Mode of arrival: wheelchair Limitations: no limitations - History of Present Illness Initial comments: 33-year-old male with a past medical history NIDDM, GERD, hypertension presents to the emergency department for nausea vomiting and diarrhea 3 days. Patient states his blood glucose has been high as well. Patient states she was unable to take his [place] today for pain. Patient is also experiencing abdominal pain around the umbilicus. Patient has no other complaints at this time including shortness of breath, chest pain, abdominal pain, nausea or vomiting, headache, or visual changes. - Related Data Home Medications Medication Instructions Recorded Confirmed Loratadine 10 mg PO DAILY 03/29/16 07/11/18 Omeprazole [PriLOSEC] 20 mg PO DAILY 03/29/16 07/11/18 Simvastatin 20 mg PO HS 03/29/16 07/11/18 Insulin Glargine [Lantus] 42 unit SQ HS 07/16/16 07/11/18 Lisinopril [Zestril] 2.5 mg PO HS 01/24/17 07/11/18 Cyclobenzaprine [Flexeril] 10 mg PO BID PRN 04/02/17 07/11/18 Aspirin EC [Ecotrin Low Dose] 81 mg PO DAILY 07/11/18 07/11/18 Gabapentin 600 mg PO TID 07/11/18 07/11/18 HYDROcodone/APAP 10-325MG [[place] 1 tab PO TID PRN 07/11/18 07/11/18 10-325] Insulin Aspart [NovoLOG 6 unit SQ AC-TID 07/11/18 07/11/18 (formulary)] metFORMIN HCL 1,000 mg PO BID 07/11/18 07/11/18 Previous Rx's Medication Instructions Recorded Ondansetron Odt [Zofran ODT] 4 mg PO Q8HR PRN #20 tab 08/31/17 Allergies Allergy/AdvReac Type Severity Reaction Status Date / Time etodolac [From Lodine] Allergy Rash/Hives Verified 07/11/18 14:17 ketorolac [From Toradol] Allergy Rash/Hives Verified 07/11/18 14:17 Review of Systems ROS Statement: Those systems with pertinent positive or pertinent negative responses have been documented in the HPI. ROS Other: All systems not noted in ROS Statement are negative. Past Medical History Past Medical History: Diabetes Mellitus, GERD/Reflux, Hypertension Additional Past Medical History / Comment(s): having abdominal pain radiating to back, HX OF diverticultitis History of Any Multi-Drug Resistant Organisms: None Reported Past Surgical History: Appendectomy, Bowel Resection, Cholecystectomy, Orthopedic Surgery, Tonsillectomy Additional Past Surgical History / Comment(s): ARTHROSCOPY Knee,hiatal hernia Past Anesthesia/Blood Transfusion Reactions: Postoperative Nausea & Vomiting ( PONV) Additional Past Anesthesia/Blood Transfusion Reaction / Comment(s): no hx blood transfusion Past Psychological History: No Psychological Hx Reported Smoking Status: Never smoker Past Alcohol Use History: None Reported Past Drug Use History: None Reported - Past Family History Mother Family Medical History: No Reported History Father Family Medical History: Diabetes Mellitus Additional Family Medical History / Comment(s): heart problems General Exam Limitations: no limitations General appearance: alert, in no apparent distress Head exam: Present: atraumatic, normocephalic, normal inspection Eye exam: Present: normal appearance, PERRL, EOMI. Absent: scleral icterus, conjunctival injection, periorbital swelling ENT exam: Present: normal exam, mucous membranes moist Neck exam: Present: normal inspection, full ROM. Absent: tenderness, meningismus, lymphadenopathy Respiratory exam: Present: normal lung sounds bilaterally. Absent: respiratory distress, wheezes, rales, rhonchi, stridor Cardiovascular Exam: Present: regular rate, normal rhythm, normal heart sounds. Absent: systolic murmur, diastolic murmur, rubs, gallop, clicks GI/Abdominal exam: Present: soft, tenderness (Generalized abdominal tenderness versus near the umbilicus, no guarding or rebound), normal bowel sounds. Absent : distended, guarding, rebound, rigid Neurological exam: Present: alert, oriented X3, CN II-XII intact Psychiatric exam: Present: normal affect, normal mood Course Vital Signs 07/11/18 07/11/18 07/11/18 13:33 14:12 14:20 Temperature 98.4 F Pulse Rate 142 H 117 H 115 H Respiratory 18 13 13 Rate Blood Pressure 136/90 O2 Sat by Pulse 100 100 100 Oximetry 07/11/18 14:30 Temperature Pulse Rate 105 H Respiratory 14 Rate Blood Pressure O2 Sat by Pulse 99 Oximetry Medical Decision Making - Medical Decision Making 33-year-old male presents to the emergency department for nausea vomiting and diarrhea 3 days. Patient also has umbilical abdominal pain. Patient does have history of IDDM and states that his blood glucose has been high. On exam patient has generalized abdominal tenderness worse near the umbilicus. Heart rate initially tachycardic at 142, patient given 2 L bolus did decreased heart rate to 105. CBC unremarkable. CMP does show a glucose of 310. This did decrease to 187 after fluids given. Ketones present in the urine as well with anion gap of 17. Likely dehydration. Acetone negative. CT abdomen and pelvis shows moderate fatty infiltration of the liver and a small hiatal hernia. At this time patient feels comfortable going home and is feeling better after pain management and antiemetics. However did discuss in depth with patient to return if he is unable to tolerate by mouth intake at home which she agrees to do. - Lab Data Result diagrams: 07/11/18 13:50 07/11/18 13:50 Lab Results 07/11/18 07/11/18 07/11/18 Range/Units 13:50 13:50 13:53 WBC 6.4 (3.8-10.6) k/uL RBC 5.79 (4.30-5.90) m/uL Hgb 17.6 H (13.0-17.5) gm/dL Hct 52.2 (39.0-53.0) % MCV 90.1 (80.0-100.0) fL MCH 30.4 (25.0-35.0) pg MCHC 33.8 (31.0-37.0) g/dL RDW 12.9 (11.5-15.5) % Plt Count 255 (150-450) k/uL Neutrophils % 78 % Lymphocytes % 14 % Monocytes % 4 % Eosinophils % 2 % Basophils % 1 % Neutrophils # 5.0 (1.3-7.7) k/uL Lymphocytes # 0.9 L (1.0-4.8) k/uL Monocytes # 0.2 (0-1.0) k/uL Eosinophils # 0.1 (0-0.7) k/uL Basophils # 0.1 (0-0.2) k/uL Sodium 138 (137-145) mmol/L Potassium 4.5 (3.5-5.1) mmol/L Chloride 102 (98-107) mmol/L Carbon Dioxide 19 L (22-30) mmol/L Anion Gap 17 mmol/L BUN 10 (9-20) mg/dL Creatinine 0.71 (0.66-1.25) mg/dL Est GFR (CKD-EPI)AfAm >90 (>60 ml/min/1.73 sqM) Est GFR (CKD-EPI)NonAf >90 (>60 ml/min/1.73 sqM) Glucose 310 H (74-99) mg/dL POC Glucose (mg/dL) 284 H (75-99) mg/dL POC Glu Obstetrical Nurse ID Isidro Mcadams Calcium 10.0 (8.4-10.2) mg/dL Total Bilirubin 1.2 (0.2-1.3) mg/dL AST 30 (17-59) U/L ALT 46 (21-72) U/L Alkaline Phosphatase 131 H (38-126) U/L Total Protein 8.7 H (6.3-8.2) g/dL Albumin 5.2 H (3.5-5.0) g/dL Amylase 34 (30-110) U/L Lipase 77 (23-300) U/L Urine Color Urine Appearance (Clear) Urine pH (5.0-8.0) Ur Specific Colon (1.001-1.035) Urine Protein (Negative) Urine Glucose (UA) (Negative) Urine Ketones (Negative) Urine Blood (Negative) Urine Nitrite (Negative) Urine Bilirubin (Negative) Urine Urobilinogen (<2.0) mg/dL Ur Leukocyte Esterase (Negative) Urine RBC (0-5) /hpf Urine WBC (0-5) /hpf Ur Squamous Epith Cells (0-4) /hpf Urine Bacteria (None) /hpf Urine Mucus (None) /hpf Acetone, Qual Negative (Negative) 07/11/18 07/11/18 Range/Units 16:00 16:44 WBC (3.8-10.6) k/uL RBC (4.30-5.90) m/uL Hgb (13.0-17.5) gm/dL Hct (39.0-53.0) % MCV (80.0-100.0) fL MCH (25.0-35.0) pg MCHC (31.0-37.0) g/dL RDW (11.5-15.5) % Plt Count (150-450) k/uL Neutrophils % % Lymphocytes % % Monocytes % % Eosinophils % % Basophils % % Neutrophils # (1.3-7.7) k/uL Lymphocytes # (1.0-4.8) k/uL Monocytes # (0-1.0) k/uL Eosinophils # (0-0.7) k/uL Basophils # (0-0.2) k/uL Sodium (137-145) mmol/L Potassium (3.5-5.1) mmol/L Chloride (98-107) mmol/L Carbon Dioxide (22-30) mmol/L Anion Gap mmol/L BUN (9-20) mg/dL Creatinine (0.66-1.25) mg/dL Est GFR (CKD-EPI)AfAm (>60 ml/min/1.73 sqM) Est GFR (CKD-EPI)NonAf (>60 ml/min/1.73 sqM) Glucose (74-99) mg/dL POC Glucose (mg/dL) 187 H (75-99) mg/dL POC Glu Obstetrical Nurse ID Laney Palacio Calcium (8.4-10.2) mg/dL Total Bilirubin (0.2-1.3) mg/dL AST (17-59) U/L ALT (21-72) U/L Alkaline Phosphatase (38-126) U/L Total Protein (6.3-8.2) g/dL Albumin (3.5-5.0) g/dL Amylase (30-110) U/L Lipase (23-300) U/L Urine Color Yellow Urine Appearance Clear (Clear) Urine pH 7.0 (5.0-8.0) Ur Specific Colon 1.038 H (1.001-1.035) Urine Protein 1+ H (Negative) Urine Glucose (UA) 4+ H (Negative) Urine Ketones 2+ H (Negative) Urine Blood Negative (Negative) Urine Nitrite Negative (Negative) Urine Bilirubin Negative (Negative) Urine Urobilinogen <2.0 (<2.0) mg/dL Ur Leukocyte Esterase Negative (Negative) Urine RBC 1 (0-5) /hpf Urine WBC 1 (0-5) /hpf Ur Squamous Epith Cells <1 (0-4) /hpf Urine Bacteria Rare H (None) /hpf Urine Mucus Rare H (None) /hpf Acetone, Qual (Negative) Disposition Clinical Impression: Nausea vomiting and diarrhea, Hyperglycemia Disposition: HOME SELF-CARE Condition: Good Instructions (If sedation given, give patient instructions): Acute Nausea and Vomiting (ED), Acute Diarrhea (ED) Additional Instructions: Please drink plenty of fluids. Please monitor glucose and follow up with primary care in 1-2 days. Return if you have any worsening symptoms. Is patient prescribed a controlled substance at d/c from ED?: No Referrals: Sami Cuellar MD [Primary Care Provider] - 1-2 days Time of Disposition: 17:14
[2018-07-11] MEDS ORDERED: HYDROmorphone 0.5 MG/0.5 ML SYRINGE IVP STA (17:19)
[2018-07-11 17:28] VITALS: PULSE 100; RESP 18
[2018-07-11 17:51] VITALS: BP 123/98
== END 2018-07-11 17:49 | disposition home or self-care (01) ==
LOC: EC 13:13
DX: R11.2 Nausea with vomiting, unspecified (principal); R19.7 Diarrhea, unspecified; E11.65 Type 2 diabetes mellitus with hyperglycemia; K21.9 Gastro-esophageal reflux disease without esophagitis; I10 Essential (primary) hypertension; Z87.19 Personal history of other diseases of the digestive system; Z79.4 Long term (current) use of insulin; Z79.82 Long term (current) use of aspirin; Z79.899 Other long term (current) drug therapy; Z88.6 Allergy status to analgesic agent; Z88.4 Allergy status to anesthetic agent; Z90.49 Acquired absence of other specified parts of digestive tract
CPT/HCPCS: 36415; 93005; 80053; 82150; 82009; 83690; 85025; 81001; 74177; 99284; 96374; 96375 ×4; 96376; 96361 ×2; J2270; J1200; J2765; J2405; J1170; Q9967

== ENCOUNTER → 2018-07-14 | Outpatient (CLI) | payer OTHER ==
--- NOTE | 2018-07-14 10:55 | US ---
EXAMINATION TYPE: US venous doppler duplex LE LT DATE OF EXAM: 07/14/2018 10:45 AM COMPARISON: NONE CLINICAL HISTORY: M79.662 PAIN IN LT LOWER LIMB. No swelling or redness, no hx of DVT, on aspirin. P atient states foot gets cold. SIDE PERFORMED: Left TECHNIQUE: The lower extremity deep venous system is examined utilizing real time linear array sonog nitza with graded compression, doppler sonography and color-flow sonography. VESSELS IMAGED: External Iliac Vein (EIV) Common Femoral Vein Deep Femoral Vein Greater Saphenous Vein * Femoral Vein Popliteal Vein Small Saphenous Vein * Proximal Calf Veins (* superficial vessels) Left Leg: Negative for DVT IMPRESSION: No evidence for DVT in
== END | disposition home or self-care (01) ==
LOC: RADUSWWP 10:19
PROVIDERS: ATTEND Family Medicine
DX: M79.662 Pain in left lower leg (principal)

== ENCOUNTER → 2018-07-22 | Outpatient (CLI) | payer OTHER ==
[2018-07-22 17:18] LABS: Basophils # (A) 0.1 k/uL (0-0.2); Basophils % (A) 1 %; Eosinophils # (A) 0.2 k/uL (0-0.7); Eosinophils % (A) 4 %; HCT 50.5 % (39.0-53.0); HGB 16.3 gm/dL (13.0-17.5); Lymphocytes # (A) 1.2 k/uL (1.0-4.8); Lymphocytes % (A) 23 %; MCH 29.8 pg (25.0-35.0); MCHC 32.3 g/dL (31.0-37.0); MCV 92.3 fL (80.0-100.0); Mean Platelet Volume 7.6; Monocytes # (A) 0.3 k/uL (0-1.0); Monocytes % (A) 5 %; Neutrophils # (A) 3.4 k/uL (1.3-7.7); Neutrophils % (A) 65 %; Platelet Count 231 k/uL (150-450); RBC 5.47 m/uL (4.30-5.90); RDW 12.8 % (11.5-15.5); WBC 5.2 k/uL (3.8-10.6)
[2018-07-23 01:04] LABS: Albumin 4.9 g/dL (3.80-4.90); Albumin/Globulin Ratio 2.04 (1.60-3.17); Anion Gap 19.1 mmol/L (4.00-12.00); Calcium 9.5 mg/dL (8.7-10.3); Carbon Dioxide 19.9 mmol/L (21.6-31.8); Globulin 2.4 g/dL (1.6-3.3); Potassium 4.2 mmol/L (3.5-5.5); Total Bilirubin 0.5 mg/dL (0.3-1.2); Total Protein 7.3 g/dL (6.2-8.2)
== END ==
LOC: LABWHC1 15:45
PROVIDERS: ATTEND Psychiatry & Neurology Psychiatry
DX: F32.9 Major depressive disorder, single episode, unspecified (principal)
CPT/HCPCS: 36415; 80053; 80164; 85025

== ENCOUNTER 2018-10-08 22:39 | Emergency (ER) | payer OTHER ==
[2018-10-08 22:51] VITALS: TEMP 98.6
--- NOTE | 2018-10-09 01:16 | CT ---
EXAM: CT Head Without Intravenous Contrast CLINICAL HISTORY: ITS.REASON CT Reason: Pain TECHNIQUE: Axial computed tomography images of the head/brain without intravenous contrast. CTDI is 45.2 mGy and DLP is 1008 mGy-cm. This CT exam was performed using one or more of the following dose reduction techniques: automated exposure control, adjustment of the mA and/or kV according to patient size, and/or use of iterative reconstruction technique. COMPARISON: None FINDINGS: Brain: No acute infarct or hemorrhage. No extra-axial fluid collection. No mass effect or midline shift. Ventricles and sulci: Normal. No ventriculomegaly or intraventricular hemorrhage. Skull: Normal. No bony lesion or fracture. Subcutaneous tissues: Normal. Sinuses: Normal. No air-fluid levels or mucosal thickening. Mastoid air cells: Normal. Orbits: Grossly unremarkable. IMPRESSION: No acute intracranial abnormality. EXAM: CT Cervical Spine Without Intravenous Contrast CLINICAL HISTORY: ITS.REASON CT Reason: Pain TECHNIQUE: Axial computed tomography images of the cervical spine without intravenous contrast. CTDI is 16.1 mGy and DLP is 508.4 mGy-cm. This CT exam was performed using one or more of the following dose reduction techniques: automated exposure control, adjustment of the mA and/or kV according to patient size, and/or use of iterative reconstruction technique. COMPARISON: None FINDINGS: Bones: Straightening of the normal cervical lordosis. Ossification of the nuchal ligament is likely related to remote trauma. No acute fracture or bony lesion. Disc spaces: No subluxation. No spinal canal stenosis or neuroforaminal stenosis. Soft tissues: Normal. Other: Small scattered lymph nodes are likely reactive. Dependent atelectasis in the visualized upper lungs. IMPRESSION: No acute traumatic abnormality.
[2018-10-09 01:59] VITALS: BP 123/77; PULSE 100; RESP 22
--- NOTE | 2018-10-09 02:03 | XR ---
EXAM: XR Lumbar Spine, 2 or 3 Views CLINICAL HISTORY: ITS.REASON XR Reason: Pain TECHNIQUE: Frontal and lateral views of the lumbar spine. COMPARISON: CT abdomen/pelvis on 07/11/2018 FINDINGS: Bones/joints: No acute fracture or subluxation. Soft tissues: Normal. Other: Surgical clips in the left upper quadrant and right lower quadrant. IMPRESSION: No acute abnormality identified.
--- NOTE | 2018-10-09 02:34 | ED ---
General Adult HPI - General Chief complaint: Fall Stated complaint: Fell in shower Time Seen by Provider: 10/09/18 00:07 Source: patient, RN notes reviewed, old records reviewed Mode of arrival: ambulatory Limitations: no limitations - History of Present Illness Initial comments: 33-year-old male patient past medical history of CVA presents to ED with fall in shower. Patient ports that he was sitting on the shower chair, however and so, slipped downward on his gluteal region. Patient does report that he hit the back of his head on the shower chair. Patient reports he landed on his lumbar region, has some pain in his lumbar region. Patient denies any loss of bowel or bladder control. Patient denies any saddle anesthesia. Patient denies any new onset lower extremity weakness. Patient denies any headache or changes in vision. Patient denies any other complaints. Systemic: Pt denies fatigue, myalgia, fever/chills, rash. Pt denies weakness, night sweats, weight loss. Neuro: Pt denies headache, visual disturbances, syncope or pre-syncope. HEENT: Pt denies ocular discharge or irritation, otalgia, rhinorrhea, pharyngitis or notable lymphadenopathy. Cardiopulmonary: Pt denies chest pain, SOB, heart palpitations, dyspnea on exertion. Abdominal/GI: Pt denies abdominal pain, n/v/d. : Pt denies dysuria, burning w/ urination, frequency/urgency. Denies new onset urinary or bowel incontinence. MSK: Pt denies myalgia, loss of strength or function in extremities. Neuro: Pt denies new onset weakness, paresthesias. - Related Data Home Medications Medication Instructions Recorded Confirmed Loratadine 10 mg PO DAILY 03/29/16 07/11/18 Omeprazole [PriLOSEC] 20 mg PO DAILY 03/29/16 07/11/18 Simvastatin 20 mg PO HS 03/29/16 07/11/18 Insulin Glargine [Lantus] 42 unit SQ 07/16/16 07/11/18 Lisinopril [Zestril] 2.5 mg PO HS 01/24/17 07/11/18 Cyclobenzaprine [Flexeril] 10 mg PO BID PRN 04/02/17 07/11/18 Aspirin EC [Ecotrin Low Dose] 81 mg PO DAILY 07/11/18 07/11/18 Gabapentin 600 mg PO TID 07/11/18 07/11/18 HYDROcodone/APAP 10-325MG [[place] 1 tab PO TID PRN 07/11/18 07/11/18 10-325] INSULIN ASPART (NovoLOG) [NovoLOG 6 unit SQ AC-TID 07/11/18 07/11/18 (formulary)] metFORMIN HCL 1,000 mg PO BID 07/11/18 07/11/18 Divalproex Sodium [Depakote] 500 mg PO 10/08/18 LORazepam [Ativan] 0.5 mg PO HS 10/08/18 10/08/18 traZODone HCL [Desyrel] 100 mg PO 10/08/18 Previous Rx's Medication Instructions Recorded Ondansetron Odt [Zofran ODT] 4 mg PO Q8HR PRN #20 tab 08/31/17 Allergies Allergy/AdvReac Type Severity Reaction Status Date / Time etodolac [From Lodine] Allergy Rash/Hives Verified 07/11/18 14:17 ketorolac [From Toradol] Allergy Rash/Hives Verified 07/11/18 14:17 Review of Systems ROS Statement: Those systems with pertinent positive or pertinent negative responses have been documented in the HPI. ROS Other: All systems not noted in ROS Statement are negative. Past Medical History Past Medical History: CVA/TIA, Diabetes Mellitus, GERD/Reflux, Hypertension Additional Past Medical History / Comment(s): having abdominal pain radiating to back, HX OF diverticultitis History of Any Multi-Drug Resistant Organisms: None Reported Past Surgical History: Appendectomy, Bowel Resection, Cholecystectomy, Orthopedic Surgery, Tonsillectomy Additional Past Surgical History / Comment(s): ARTHROSCOPY Knee,hiatal hernia Past Anesthesia/Blood Transfusion Reactions: Postoperative Nausea & Vomiting (PONV) Additional Past Anesthesia/Blood Transfusion Reaction / Comment(s): no hx blood transfusion Past Psychological History: No Psychological Hx Reported Smoking Status: Never smoker Past Alcohol Use History: None Reported Past Drug Use History: None Reported - Past Family History Mother Family Medical History: No Reported History Father Family Medical History: Diabetes Mellitus Additional Family Medical History / Comment(s): heart problems General Exam - General Exam Comments Initial Comments: Constitutional: NAD, AOX3, Pt has pleasant affect. HEENT: NC/AT, trachea midline, neck supple, no lymphadenopathy. Posterior pharynx non erythematous, without exudates. External ears appear normal, without discharge. Mucous membranes moist. Eyes PERRLA, EOM intact. There is no scleral icterus. No pallor noted. Cardiopulmonary: RRR, no murmurs, rubs or gallops, no JVD noted. Lungs CTAB in anterior and posterior mcneill. No peripheral edema. Abdominal exam: Abdomen soft and non-distended. Abdomen non-tender to palpation in all 4 quadrants. Bowel sounds active in LLQ. No hepatosplenomegaly. No ecchymosis Neuro: CN II-XII intact. No nuchal rigidity. MSK: Mild amount of cervical spinal tenderness. No thoracic of lumbar tenderness. No posterior calf tenderness bilaterally, homans sign negative bilaterally. Posterior tibialis and radial pulse +2 bilaterally. Sensation intact in upper and lower extremities. Full active ROM in upper and lower extremities, 5/5 stregnth. Limitations: no limitations Course Vital Signs 10/08/18 10/09/18 22:47 01:30 Temperature 98.6 F Pulse Rate 125 H 100 Respiratory 20 22 Rate Blood Pressure 121/78 123/77 O2 Sat by Pulse 98 98 Oximetry Medical Decision Making - Medical Decision Making 33-year-old male patient past medical history of CVA presents to ED with fall in shower. Patient ports that he was sitting on the shower chair, however and so, slipped downward on his gluteal region. Patient does report that he hit the back of his head on the shower chair. Patient reports he landed on his lumbar region, has some pain in his lumbar region. Patient denies any loss of bowel or bladder control. Patient denies any saddle anesthesia. Patient denies any new onset lower extremity weakness. Patient denies any headache or changes in vision. Patient denies any other complaints. Pt VSS, afebrile. Physical exam displayed normal neurologic exam, No thoracic of lumbar tenderness. No posterior calf tenderness bilaterally, homans sign negative bilaterally. Posterior tibialis and radial pulse +2 bilaterally. Sensation intact in upper and lower extremities. Full active ROM in upper and lower extremities, 5/5 stregnth. Plain film of the lumbar spine, noncontrast CT of brain and cervical spine done [facility]. Patient discharge, follow up with primary care provider in 1- 2 days. Patient returned to ER if condition worsens in any way. Case discussed with Dr. Turner. Disposition Clinical Impression: Fall Disposition: HOME SELF-CARE Condition: Stable Instructions (If sedation given, give patient instructions): Fall Prevention (ED) Additional Instructions: Patient to adhere to previously discussed treatment plan and will take medication(s) as directed. Patient to follow up with PCP in 1-2 days. Patient to return to ED if symptoms do not improve. Is patient prescribed a controlled substance at d/c from ED?: No Referrals: Sami Cuellar MD [Primary Care Provider] - 1-2 days
== END 2018-10-09 02:48 | disposition home or self-care (01) ==
LOC: EC 22:39
DX: M54.5 Low back pain (principal); E11.9 Type 2 diabetes mellitus without complications; K21.9 Gastro-esophageal reflux disease without esophagitis; I10 Essential (primary) hypertension; Z88.6 Allergy status to analgesic agent; Z79.4 Long term (current) use of insulin; Z79.82 Long term (current) use of aspirin; Z79.899 Other long term (current) drug therapy; Z86.73 Personal history of transient ischemic attack (TIA), and cerebral infarction without residual deficits; W18.2XXA Fall in (into) shower or empty bathtub, initial encounter; Y93.E1 Activity, personal bathing and showering; Y92.009 Unspecified place in unspecified non-institutional (private) residence as the place of occurrence of the external cause
CPT/HCPCS: 70450; 72100; 72125; 99284

== ENCOUNTER → 2018-10-15 | Outpatient (CLI) | payer OTHER ==
--- NOTE | 2018-10-21 14:46 | P.HOLTER ---
24-hour Holter monitor shows sinus mechanism heart racing from 81-141 beats a minute average 140 beats a minute no significant bradycardia or pauses occasional premature beats impression normal 24-hour Holter monitor recording
== END ==
LOC: RADECHMAIN 12:20
PROVIDERS: ATTEND Family Medicine
DX: R00.0 Tachycardia, unspecified (principal)
CPT/HCPCS: 93225; 93226

== ENCOUNTER → 2018-11-19 | Outpatient (CLI) | payer OTHER ==
--- NOTE | 2018-11-19 15:49 | CT ---
EXAMINATION TYPE: CT lumbar spine wo con DATE OF EXAM: 11/19/2018 3:40 PM COMPARISON: Lumbar spine x-ray October 09, 2018. MRI lumbar spine May 31, 2018 HISTORY: Spinal stenosis, lumbar region. Pt says he's having surgery, not sure of location, he believ es L4-L5. CT DLP: 811.30 mGycm Automated exposure control for dose reduction was used. Unenhanced CT of the lumbar spine was performed. Bone and soft tissue window settings are submitted as well as coronal and sagittal reconstructions. Transitional-type L6 vertebra is redemonstrated. Lumbar spine redemonstrated satisfactory alignment w ithout evidence of acute fracture or dislocation. Mild disc space narrowing L5 L6 level is stable. Ve rtebral body heights and disc space heights otherwise are maintained. Small posterior disc herniation L5-L6 level on axial image 71 effacing anterior thecal sac is redemon strated corresponding to MRI axial image 8. Mild facet arthropathy L6-S1 level is stable. Remainder a xial levels are felt within normal limits. Visualized liver is low dense consistent with fatty infilt ration. Surgical clips left splenic hilum are redemonstrated. Surgical suture or clips from appendect dilcia near cecum is present. IMPRESSION: As above.
== END | disposition home or self-care (01) ==
LOC: RADCTMAIN 15:20
PROVIDERS: ATTEND Neurological Surgery
DX: M99.73 Connective tissue and disc stenosis of intervertebral foramina of lumbar region (principal); M51.26 Other intervertebral disc displacement, lumbar region; M46.97 Unspecified inflammatory spondylopathy, lumbosacral region
CPT/HCPCS: 72131

== ENCOUNTER → 2019-01-26 | Outpatient (CLI) | payer OTHER ==
--- NOTE | 2019-01-26 11:42 | XR ---
EXAMINATION TYPE: XR lumbar spine 2 or 3V DATE OF EXAM: 01/26/2019 CLINICAL HISTORY: Lumbar pain. TECHNIQUE: Frontal, lateral, and oblique images of the lumbar spine are obtained. COMPARISON: CT lumbar spine dated 11/19/2018 FINDINGS: Interval postsurgical changes of posterior fusion at L4 and L5 with disc spacer at L4-5. Vertebral dalton dy heights and alignment are maintained. Remaining disc spaces are preserved. A few surgical clips ar e seen overlying the right lower quadrant of the abdomen. Pedicles are intact. Sacroiliac joints are intact. IMPRESSION: Postoperative posterior fusion at L4 and L5. No acute fracture or subluxation.
== END | disposition home or self-care (01) ==
LOC: RADXRMAIN 11:08
PROVIDERS: ATTEND Family Medicine
DX: Z98.1 Arthrodesis status (principal)
CPT/HCPCS: 72100

== ENCOUNTER 2019-02-22 15:48 | Inpatient (IN) | payer OTHER ==
[2019-02-22 16:11] LABS: Glucose,Whole Blood 168 mg/dL (75-99)
[2019-02-22] MEDS ORDERED: ONDANSETRON 4 MG/2 ML VIAL IVP STA ×2 (16:14→18:49)
[2019-02-22] MEDS ORDERED: PANTOPRAZOLE 40 MG/10 ML VIAL IVP STA (16:14)
[2019-02-22] MEDS ORDERED: HYDROmorphone 1 MG/ML 1 ML SYRINGE IVP STA ×3 (16:14→18:49)
[2019-02-22] MEDS ORDERED: SODIUM CHLORIDE 0.9% 1,000 ML IV STA (16:14)
[2019-02-22] MEDS ORDERED: SODIUM CHLORIDE 0.9% 2,000 ML IV STA (16:14)
--- NOTE | 2019-02-22 16:19 | ED ---
Nausea/Vomiting/Diarrhea HPI - General Chief complaint: Nausea/Vomiting/Diarrhea Stated complaint: SHAKING, ABDOMINAL PAIN Time Seen by Provider: 02/22/19 15:55 Source: patient, RN notes reviewed, old records reviewed Mode of arrival: wheelchair Limitations: no limitations - History of Present Illness Initial comments: Patient is a 33-year-old male who presents emergency department today with his mother. He complains of nausea and vomiting and severe chills and shaking onset 3 hours ago. He said multiple abdominal surgeries including appendectomy, cholecystectomy, bowel resection from bowel obstructions. Patient is a diabetic. He states that his blood sugar was 170. Patient reports that he did have a small bowel movement today and denies any changes in urination. He's had multiple episodes of vomiting bilious fluid. Patient reports that his previous surgeons Dr. Hurley. Denies any associated chest pain or shortness of breath. She reports that the abdominal pain starts in the mid to lower abdomen. - Related Data Home Medications Medication Instructions Recorded Confirmed Loratadine 10 mg PO DAILY 03/29/16 02/22/19 Omeprazole [PriLOSEC] 20 mg PO DAILY 03/29/16 02/22/19 Simvastatin 20 mg PO HS 03/29/16 02/22/19 Lisinopril [Zestril] 2.5 mg PO DAILY 01/24/17 02/22/19 Gabapentin 600 mg PO TID 07/11/18 02/22/19 HYDROcodone/APAP 10-325MG [[place] 1 tab PO TID PRN 07/11/18 02/22/19 10-325] Divalproex Sodium [Depakote] 1,000 mg PO DAILY 10/08/18 02/22/19 LORazepam [Ativan] 0.5 mg PO HS 10/08/18 02/22/19 traZODone HCL [Desyrel] 100 mg PO BID 10/08/18 02/22/19 Aspirin 81 mg PO DAILY 02/22/19 02/22/19 Atorvastatin [Lipitor] 10 mg PO DAILY 02/22/19 02/22/19 Canagliflozin [Invokana] 300 mg PO DAILY 02/22/19 02/22/19 Insulin Glargine,Hum.rec.anlog 35 unit SQ 02/22/19 02/22/19 [Basaglnitin [place] U-100] Insulin Lispro [Admelog Solostar] See Protocol SQ AC-TID 02/22/19 02/22/19 Ondansetron Odt [Zofran ODT] 8 mg PO Q8HR PRN 02/22/19 02/22/19 Pioglitazone [Actos] 15 mg PO DAILY 02/22/19 02/22/19 Venlafaxine HCl [Effexor XR] 225 mg PO HS 02/22/19 02/22/19 tiZANidine [Zanaflex] 4 mg PO Q8H 02/22/19 02/22/19 Allergies Allergy/AdvReac Type Severity Reaction Status Date / Time etodolac [From Lodine] Allergy Rash/Hives Verified 02/22/19 19:22 ketorolac [From Toradol] Allergy Rash/Hives Verified 02/22/19 19:22 Review of Systems ROS Statement: Those systems with pertinent positive or pertinent negative responses have been documented in the HPI. ROS Other: All systems not noted in ROS Statement are negative. Past Medical History Past Medical History: CVA/TIA, Diabetes Mellitus, GERD/Reflux, Hypertension Additional Past Medical History / Comment(s): having abdominal pain radiating to back, HX OF diverticultitis History of Any Multi-Drug Resistant Organisms: None Reported Past Surgical History: Appendectomy, Bowel Resection, Cholecystectomy, Orthopedic Surgery, Tonsillectomy Additional Past Surgical History / Comment(s): ARTHROSCOPY Knee,hiatal hernia Past Anesthesia/Blood Transfusion Reactions: Postoperative Nausea & Vomiting (PONV) Additional Past Anesthesia/Blood Transfusion Reaction / Comment(s): no hx blood transfusion Past Psychological History: No Psychological Hx Reported Smoking Status: Never smoker Past Alcohol Use History: None Reported Past Drug Use History: None Reported - Past Family History Mother Family Medical History: No Reported History Father Family Medical History: Diabetes Mellitus Additional Family Medical History / Comment(s): heart problems General Exam - General Exam Comments Initial Comments: 33-year-old male. Alert and oriented. is shaking. Patient is actively vomiting. Appears in moderate discomfort. Limitations: no limitations General appearance: alert, in no apparent distress Head exam: Present: atraumatic, normocephalic, normal inspection Eye exam: Present: normal appearance, PERRL, EOMI. Absent: scleral icterus, conjunctival injection, periorbital swelling ENT exam: Present: normal exam, mucous membranes moist Neck exam: Present: normal inspection. Absent: tenderness, meningismus, lymphadenopathy Respiratory exam: Present: normal lung sounds bilaterally. Absent: respiratory distress, wheezes, rales, rhonchi, stridor Cardiovascular Exam: Present: regular rate, normal rhythm, normal heart sounds. Absent: systolic murmur, diastolic murmur, rubs, gallop, clicks GI/Abdominal exam: Present: soft, tenderness (Diffuse abdominal tenderness.), diminished bowel sounds. Absent: distended, guarding, rebound, rigid, normal bowel sounds Extremities exam: Present: normal inspection, full ROM, normal capillary refill. Absent: tenderness, pedal edema, joint swelling, calf tenderness Back exam: Present: normal inspection Neurological exam: Present: alert, oriented X3, CN II-XII intact Psychiatric exam: Present: normal affect, normal mood Skin exam: Present: warm, dry, intact, normal color. Absent: rash Course Vital Signs 02/22/19 02/22/19 02/22/19 15:51 16:30 17:00 Temperature 97.8 F Pulse Rate 112 H 86 80 Respiratory 18 18 16 Rate Blood Pressure 150/102 128/88 132/77 O2 Sat by Pulse 97 100 100 Oximetry 02/22/19 02/22/19 02/22/19 17:30 18:00 18:30 Temperature Pulse Rate 85 86 Respiratory 16 16 81 H Rate Blood Pressure 153/102 136/77 114/65 O2 Sat by Pulse 100 100 100 Oximetry 02/22/19 19:00 Temperature Pulse Rate Respiratory 90 H Rate Blood Pressure 132/81 O2 Sat by Pulse 94 L Oximetry Medical Decision Making - Medical Decision Making This is a 33-year-old male process returns from today with diffuse abdominal pain nausea and vomiting. Symptoms started a few hours ago. Upon arrival Patient seemed to be tremulous, and quite discomfort. Patient received fluids and laboratory obtained. Elevated lactic acid of 9.6. He is a type I diabetic. His acetone is negative. He is given a small dose of insulin and started on D5. Patient was given 3 L of fluids after his elevated lactic acid of 9.6. Recheck was 2.9. CT abdomen and pelvis was negative for any acute process. Discussed possibility of viral gastroenteritis. Patient was given multiple d oses of pain medicine to relieve his symptoms. I discussed that we will admit the Patient for IV hydration and reevaluation. Patient is agreeable. Discussed case with Dr. Candelaria. - Lab Data Result diagrams: 02/22/19 16:10 02/22/19 16:10 Lab Results 02/22/19 02/22/19 02/22/19 Range/Units 16:10 16:10 16:10 WBC 8.0 (3.8-10.6) k/uL RBC 5.27 (4.30-5.90) m/uL Hgb 16.0 (13.0-17.5) gm/dL Hct 47.2 (39.0-53.0) % MCV 89.7 (80.0-100.0) fL MCH 30.3 (25.0-35.0) pg MCHC 33.8 (31.0-37.0) g/dL RDW 12.7 (11.5-15.5) % Plt Count 304 (150-450) k/uL Neutrophils % 75 % Lymphocytes % 18 % Monocytes % 4 % Eosinophils % 2 % Basophils % 1 % Neutrophils # 6.0 (1.3-7.7) k/uL Lymphocytes # 1.4 (1.0-4.8) k/uL Monocytes # 0.3 (0-1.0) k/uL Eosinophils # 0.1 (0-0.7) k/uL Basophils # 0.0 (0-0.2) k/uL PT (9.0-12.0) sec INR (<1.2) APTT (22.0-30.0) sec Sodium 141 (137-145) mmol/L Potassium 4.6 (3.5-5.1) mmol/L Chloride 100 (98-107) mmol/L Carbon Dioxide 19 L (22-30) mmol/L Anion Gap 22 mmol/L BUN 15 (9-20) mg/dL Creatinine 0.86 (0.66-1.25) mg/dL Est GFR (CKD-EPI)AfAm >90 (>60 ml/min/1.73 sqM) Est GFR (CKD-EPI)NonAf >90 (>60 ml/min/1.73 sqM) Glucose 176 H (74-99) mg/dL POC Glucose (mg/dL) 168 H (75-99) mg/dL POC Glu Electronic Health Records Specialist ID Raya, Radha Lactic Ac Sepsis Rflx Plasma Lactic Acid Ja (0.7-2.0) mmol/L Calcium 9.8 (8.4-10.2) mg/dL Total Bilirubin 0.8 (0.2-1.3) mg/dL AST 26 (17-59) U/L ALT 26 (21-72) U/L Alkaline Phosphatase 128 H (38-126) U/L Total Protein 9.1 H (6.3-8.2) g/dL Albumin 5.2 H (3.5-5.0) g/dL Amylase 33 (30-110) U/L Lipase 35 (23-300) U/L Urine Color Urine Appearance (Clear) Urine pH (5.0-8.0) Ur Specific [place] (1.001-1.035) Urine Protein (Negative) Urine Glucose (UA) (Negative) Urine Ketones (Negative) Urine Blood (Negative) Urine Nitrite (Negative) Urine Bilirubin (Negative) Urine Urobilinogen (<2.0) mg/dL Ur Leukocyte Esterase (Negative) Acetone, Qual (Negative) 02/22/19 02/22/19 02/22/19 Range/Units 16:10 16:10 16:10 WBC (3.8-10.6) k/uL RBC (4.30-5.90) m/uL Hgb (13.0-17.5) gm/dL Hct (39.0-53.0) % MCV (80.0-100.0) fL MCH (25.0-35.0) pg MCHC (31.0-37.0) g/dL RDW (11.5-15.5) % Plt Count (150-450) k/uL Neutrophils % % Lymphocytes % % Monocytes % % Eosinophils % % Basophils % % Neutrophils # (1.3-7.7) k/uL Lymphocytes # (1.0-4.8) k/uL Monocytes # (0-1.0) k/uL Eosinophils # (0-0.7) k/uL Basophils # (0-0.2) k/uL PT 10.0 (9.0-12.0) sec INR 0.9 (<1.2) APTT 21.0 L (22.0-30.0) sec Sodium (137-145) mmol/L Potassium (3.5-5.1) mmol/L Chloride (98-107) mmol/L Carbon Dioxide (22-30) mmol/L Anion Gap mmol/L BUN (9-20) mg/dL Creatinine (0.66-1.25) mg/dL Est GFR (CKD-EPI)AfAm (>60 ml/min/1.73 sqM) Est GFR (CKD-EPI)NonAf (>60 ml/min/1.73 sqM) Glucose (74-99) mg/dL POC Glucose (mg/dL) (75-99) mg/dL POC Glu Electronic Health Records Specialist ID Lactic Ac Sepsis Rflx Plasma Lactic Acid Ja 9.1 H* (0.7-2.0) mmol/L Calcium (8.4-10.2) mg/dL Total Bilirubin (0.2-1.3) mg/dL AST (17-59) U/L ALT (21-72) U/L Alkaline Phosphatase (38-126) U/L Total Protein (6.3-8.2) g/dL Albumin (3.5-5.0) g/dL Amylase (30-110) U/L Lipase (23-300) U/L Urine Color Urine Appearance (Clear) Urine pH (5.0-8.0) Ur Specific [place] (1.001-1.035) Urine Protein (Negative) Urine Glucose (UA) (Negative) Urine Ketones (Negative) Urine Blood (Negative) Urine Nitrite (Negative) Urine Bilirubin (Negative) Urine Urobilinogen (<2.0) mg/dL Ur Leukocyte Esterase (Negative) Acetone, Qual Negative (Negative) 02/22/19 02/22/19 02/22/19 Range/Units 16:55 17:46 18:56 WBC (3.8-10.6) k/uL RBC (4.30-5.90) m/uL Hgb (13.0-17.5) gm/dL Hct (39.0-53.0) % MCV (80.0-100.0) fL MCH (25.0-35.0) pg MCHC (31.0-37.0) g/dL RDW (11.5-15.5) % Plt Count (150-450) k/uL Neutrophils % % Lymphocytes % % Monocytes % % Eosinophils % % Basophils % % Neutrophils # (1.3-7.7) k/uL Lymphocytes # (1.0-4.8) k/uL Monocytes # (0-1.0) k/uL Eosinophils # (0-0.7) k/uL Basophils # (0-0.2) k/uL PT (9.0-12.0) sec INR (<1.2) APTT (22.0-30.0) sec Sodium (137-145) mmol/L Potassium (3.5-5.1) mmol/L Chloride (98-107) mmol/L Carbon Dioxide (22-30) mmol/L Anion Gap mmol/L BUN (9-20) mg/dL Creatinine (0.66-1.25) mg/dL Est GFR (CKD-EPI)AfAm (>60 ml/min/1.73 sqM) Est GFR (CKD-EPI)NonAf (>60 ml/min/1.73 sqM) Glucose (74-99) mg/dL POC Glucose (mg/dL) (75-99) mg/dL POC Glu Electronic Health Records Specialist ID Lactic Ac Sepsis Rflx Y Plasma Lactic Acid Ja 2.9 H* (0.7-2.0) mmol/L Calcium (8.4-10.2) mg/dL Total Bilirubin (0.2-1.3) mg/dL AST (17-59) U/L ALT (21-72) U/L Alkaline Phosphatase (38-126) U/L Total Protein (6.3-8.2) g/dL Albumin (3.5-5.0) g/dL Amylase (30-110) U/L Lipase (23-300) U/L Urine Color Light Yellow Urine Appearance Clear (Clear) Urine pH 7.0 (5.0-8.0) Ur Specific [place] 1.050 H (1.001-1.035) Urine Protein Negative (Negative) Urine Glucose (UA) 4+ H (Negative) Urine Ketones 2+ H (Negative) Urine Blood Negative (Negative) Urine Nitrite Negative (Negative) Urine Bilirubin Negative (Negative) Urine Urobilinogen <2.0 (<2.0) mg/dL Ur Leukocyte Esterase Negative (Negative) Acetone, Qual (Negative) - Radiology Data Radiology results: report reviewed CT shows fatty infiltration of the liver no sign of acute abdomen or pelvis. Postsurgical changes in the lower lumbar spine. No adverse changes compared old exam. Disposition Clinical Impression: Intractable nausea and vomiting, Abdominal pain, Lactic acidosis Disposition: ADMITTED IP TO THIS HOSP Condition: Stable Is patient prescribed a controlled substance at d/c from ED?: No Referrals: Sami Cuellar MD [Primary Care Provider] - 1-2 days Time of Disposition: 20:09
[2019-02-22 16:32] LABS: Basophils % (A) 1 %; Eosinophils # (A) 0.1 k/uL (0-0.7); Eosinophils % (A) 2 %; HCT 47.2 % (39.0-53.0); Lymphocytes # (A) 1.4 k/uL (1.0-4.8); Lymphocytes % (A) 18 %; MCH 30.3 pg (25.0-35.0); MCHC 33.8 g/dL (31.0-37.0); MCV 89.7 fL (80.0-100.0); Monocytes # (A) 0.3 k/uL (0-1.0); Monocytes % (A) 4 %; Neutrophils % (A) 75 %; Platelet Count 304 k/uL (150-450); RBC 5.27 m/uL (4.30-5.90); RDW 12.7 % (11.5-15.5)
[2019-02-22] MEDS: SODIUM CHLORIDE 0.9% 1,000 ML IV SCH (16:42)
[2019-02-22 16:48] LABS: ALT 26 U/L (21-72); AST 26 U/L (17-59); African American GFR (CKD) >90 (>60 ml/min/1.73 sqM); Albumin 5.2 g/dL (3.5-5.0); Alkaline Phosphatase 128 U/L (38-126); Amylase 33 U/L (30-110); Anion Gap 22 mmol/L; Blood Urea Nitrogen 15 mg/dL (9-20); Calcium 9.8 mg/dL (8.4-10.2); Carbon Dioxide 19 mmol/L (22-30); Chloride 100 mmol/L (98-107); Glucose 176 mg/dL (74-99); Non-African American GFR(CKD) >90 (>60 ml/min/1.73 sqM); Potassium 4.6 mmol/L (3.5-5.1); Sodium 141 mmol/L (137-145); Total Bilirubin 0.8 mg/dL (0.2-1.3); Total Protein 9.1 g/dL (6.3-8.2)
[2019-02-22] MEDS ORDERED: METOCLOPRAMIDE 5 MG/ML 2 ML VIAL IVP STA (16:56)
[2019-02-22 16:59] LABS: INR 0.9 (<1.2)
--- NOTE | 2019-02-22 17:28 | CT ---
EXAMINATION TYPE: CT abdomen pelvis w con DATE OF EXAM: 02/22/2019 COMPARISON: 07/11/2018 HISTORY: Abdominal pain and vomiting. CT DLP: 1327.3 mGycm Automated exposure control for dose reduction was used. TECHNIQUE: Helical acquisition of images was performed from the lung bases through the pelvis. CONTRAST: Performed without Oral Contrast and with IV Contrast, patient injected with 100ml mL of Isovue 300. FINDINGS: Lung bases are clear. There is no pleural effusion. There are surgical clips from gastric bariatric s urgery. There is small hiatal hernia. There is fatty infiltration of the liver. Liver shows no focal defect. Bile ducts are not dilated. There are clips from cholecystectomy. Spleen is intact. There is no evidence of pancreatic mass. There is no adrenal mass. Kidneys show satisfactory contrast opacification. There is no hydronephrosi s. Bladder distends smoothly. Ureters are not dilated. There is no inguinal hernia. There is no free fluid in the pelvis. There is no mesenteric edema. There is no ascites or free air. There is mild sub cutaneous edema over the lower lumbar spine. There is posterior fusion surgery at L4-5. I see no bony destructive process. Bony pelvis is intact. There is no evidence of a bowel obstruction. There is no intestinal wall thickening. There is clip probably from appendectomy. IMPRESSION: FATTY INFILTRATION OF THE LIVER. NO SIGN OF ACUTE ABDOMEN AND PELVIS. POSTSURGICAL CHANGES IN THE LOW ER LUMBAR SPINE. NO ADVERSE CHANGE COMPARED TO OLD EXAM.
[2019-02-22 17:55] LABS: Appearance,Urine Clear (Clear); Bilirubin,Urine Negative (Negative); Blood,Urine Negative (Negative); Color,Urine Light Yellow; Glucose,Urine (UA) 4+ (Negative); Leukocyte Esterase,Urine Negative (Negative); Nitrite,Urine Negative (Negative); Protein,Urine Negative (Negative); Urobilinogen,Urine <2.0 mg/dL (<2.0)
[2019-02-22 17:57] LABS: Ketones,Urine 2+ (Negative)
[2019-02-22] MEDS ORDERED: DEXTROSE 5%-0.45% NACL 1,000 ML IV ONE (18:49)
[2019-02-22] MEDS ORDERED: INSULIN REGULAR 100 UNIT/ML VIAL IV ONE (18:50)
[2019-02-22] MEDS ORDERED: ACETAMINOPHEN TAB 325 MG TAB PO PRN (20:10)
[2019-02-22] MEDS ORDERED: NALOXONE 0.4 MG/ML 1 ML VIAL IV PRN (20:10)
[2019-02-22] MEDS ORDERED: TEMAZEPAM 15 MG CAP PO PRN (20:56)
[2019-02-22] MEDS ORDERED: HYDROmorphone 0.5 MG/0.5 ML SYRINGE IVP PRN (20:56)
[2019-02-22] MEDS ORDERED: traZODone HCL 100 MG TAB PO SCH (21:00)
[2019-02-22] MEDS: ONDANSETRON 4 MG/2 ML VIAL IVP PRN (22:25)
[2019-02-22] MEDS: HYDROmorphone 1 MG/ML 1 ML SYRINGE IVP PRN (22:25)
[2019-02-22 22:38] LABS: Glucose,Whole Blood 133 mg/dL (75-99)
[2019-02-22 23:57] LABS: ALT 24 U/L (21-72); AST 19 U/L (17-59); African American GFR (CKD) >90 (>60 ml/min/1.73 sqM); Alkaline Phosphatase 89 U/L (38-126); Anion Gap 12 mmol/L; Blood Urea Nitrogen 13 mg/dL (9-20); Calcium 8.2 mg/dL (8.4-10.2); Carbon Dioxide 23 mmol/L (22-30); Chloride 103 mmol/L (98-107); Glucose 137 mg/dL (74-99); Non-African American GFR(CKD) >90 (>60 ml/min/1.73 sqM); Potassium 4.7 mmol/L (3.5-5.1); Sodium 138 mmol/L (137-145); Total Bilirubin 0.7 mg/dL (0.2-1.3)
[2019-02-23] MEDS: HYDROmorphone 1 MG/ML 1 ML SYRINGE IVP PRN ×7 (01:12→22:04)
[2019-02-23] MEDS: INSULIN DETEMIR (LEVEMIR) 100 UNIT/ML SYR SQ SCH ×2 (01:17→22:05)
[2019-02-23] MEDS: ATORVASTATIN 10 MG TAB PO SCH ×2 (01:17→20:51)
[2019-02-23] MEDS: HEPARIN SODIUM,PORCINE 5,000 UNIT/ML 1 ML VIAL SQ SCH ×3 (01:17→20:53)
[2019-02-23] MEDS: GABAPENTIN 300 MG CAP PO SCH ×4 (01:18→20:50)
[2019-02-23] MEDS: LORazepam 0.5 MG TAB PO SCH ×2 (01:18→20:52)
[2019-02-23] MEDS: tiZANidine 4 MG TAB PO SCH ×4 (01:18→20:50)
[2019-02-23] MEDS: VENLAFAXINE HCL ER 75 MG CAP PO SCH ×2 (01:18→20:52)
[2019-02-23] MEDS: PANTOPRAZOLE 40 MG/10 ML VIAL IVP SCH ×3 (01:19→20:53)
[2019-02-23] MEDS: METOCLOPRAMIDE 5 MG/ML 2 ML VIAL IVP PRN ×2 (03:09→09:17)
[2019-02-23] MEDS: ONDANSETRON 4 MG/2 ML VIAL IVP PRN (06:29)
[2019-02-23 07:20] LABS: Glucose,Whole Blood 101 mg/dL (75-99)
[2019-02-23] MEDS ORDERED: ATORVASTATIN 10 MG TAB PO SCH (09:00)
[2019-02-23] MEDS ORDERED: PANTOPRAZOLE 40 MG/10 ML VIAL IV SCH (09:00)
--- NOTE | 2019-02-23 10:26 | P.GSCN ---
History of Present Illness Consult date: 02/23/19 Reason for Consult: intractable nausea vomiting Requesting physician: Sami Cuellar History of present illness: CHIEF COMPLAINT: nausea and vomiting HISTORY OF PRESENT ILLNESS: 33 year old male who presented to the ER with a chief complaint of nausea and vomiting. Patient reports he started to feel unwell on Saturday. He began vomiting on Saturday and was unable to keep any fl uids down. He reports significant epigastric pain this morning. Currently rating 8/10. He reports continued nausea. No emesis this morning. He denies lower abdominal pain. He reports dysphagia and feels like "things are getting stuck in my throat". Patient underwent EGD in November 2016 revealing antral gastritis. colonoscopy also performed at that time revealing diverticulosis. He denies NSAID use. He takes [place] for chronic pain and sees a pain specialist. He does take aspirin 81mg daily. He denies hematemesis, hematochezia, or melena. PAST MEDICAL HISTORY: See list. PAST SURGICAL HISTORY: History of appendectomy History of cholecystectomy History of bowel resection secondary to diverticulitis performed at [facility] SOCIAL HISTORY: No illicit drug use. REVIEW OF SYSTEMS: CONSTITUTIONAL: reports feeling feverish. HEENT: Denies blurred vision, vision changes, or eye pain. Denies hemoptysis CARDIOVASCULAR: Denies chest pain or pressure. RESPIRATORY: No shortness of breath. GASTROINTESTINAL: Refer to HPI for pertinent findings HEMATOLOGIC: Denies bleeding disorders. GENITOURINARY: Denies any blood in urine. SKIN: Denies pruitis. Denies rash. PHYSICAL EXAM: VITAL SIGNS: Reviewed. GENERAL: Well-developed in no acute distress. HEENT: No sclera icterus. Extraocular movements grossly intact. Moist buccal mucosa. Head is atraumatic, normocephalic. ABDOMEN: Soft. Nondistended. Old midline surgical scar. Tenderness with palpation of epigastric region. NEUROLOGIC: Alert and oriented. Cranial nerves II through XII grossly intact. LABORATORY DATA: laboratory data upon admission reveals white count 8.0. Hemoglobin 16.0. Lactic acid 9.1. Improved to 2.9 with IV fluid hydration IMAGING: CT abdomen and pelvis: Fatty infiltration of liver. No signs of acute abdomen and pelvis. Postsurgical changes in the lower lumbar spine. No evidence of bowel obstruction. No intestinal wall thickening. No ascites or free air. No inguinal hernia. No free fluid in the pelvis. ASSESSMENT: 1. Nausea and vomiting 2. Epigastric pain with dysphagia 3. History of appendectomy 4. History of cholecystectomy 5. History of bowel resection secondary to diverticulitis performed for [place] PLAN: 1. NPO. Continue IV fluids 2. Continue antiemetics 3. Continue Protonix IV twice a day 4. Patient to undergo EGD today with Dr. Briceno Nurse practitioner note has been reviewed by physician. Signing provider agrees with the documented findings, assessment, and plan of care. Past Medical History Past Medical History: CVA/TIA, Diabetes Mellitus, GERD/Reflux, Hypertension Additional Past Medical History / Comment(s): having abdominal pain radiating to back, HX OF diverticultitis History of Any Multi-Drug Resistant Organisms: None Reported Past Surgical History: Appendectomy, Back Surgery, Bowel Resection, Cholecystectomy, Orthopedic Surgery, Tonsillectomy Additional Past Surgical History / Comment(s): ARTHROSCOPY Knee,hiatal hernia Past Anesthesia/Blood Transfusion Reactions: Postoperative Nausea & Vomiting (PONV) Additional Past Anesthesia/Blood Transfusion Reaction / Comm: no hx blood transfusion Past Psychological History: Depression Smoking Status: Never smoker Past Alcohol Use History: None Reported Past Drug Use History: None Reported - Past Family History Mother Family Medical History: No Reported History Father Family Medical History: Diabetes Mellitus Additional Family Medical History / Comment(s): heart problems Medications and Allergies Home Medications Medication Instructions Recorded Confirmed Type Loratadine 10 mg PO DAILY 03/29/16 02/22/19 History Omeprazole [PriLOSEC] 20 mg PO DAILY 03/29/16 02/22/19 History Lisinopril [Zestril] 2.5 mg PO DAILY 01/24/17 02/22/19 History Gabapentin 600 mg PO TID 07/11/18 02/22/19 History HYDROcodone/APAP 10-325MG [[place] 1 tab PO TID PRN 07/11/18 02/22/19 History 10-325] Divalproex Sodium [Depakote] 1,000 mg PO DAILY 10/08/18 02/22/19 History LORazepam [Ativan] 0.5 mg PO HS 10/08/18 02/22/19 History traZODone HCL [Desyrel] 100 mg PO HS 10/08/18 02/22/19 History Aspirin 81 mg PO DAILY 02/22/19 02/22/19 History Atorvastatin [Lipitor] 10 mg PO DAILY 02/22/19 02/22/19 History Canagliflozin [Invokana] 300 mg PO DAILY 02/22/19 02/22/19 History Insulin Glargine,Hum.rec.anlog 35 unit SQ HS 02/22/19 02/22/19 History [Basaglar Kwikpen U-100] Insulin Lispro [Admelog Solostar] See Protocol SQ AC-TID 02/22/19 02/22/19 History Ondansetron Odt [Zofran ODT] 8 mg PO Q8HR PRN 02/22/19 02/22/19 History Pioglitazone [Actos] 15 mg PO DAILY 02/22/19 02/22/19 History Venlafaxine HCl [Effexor XR] 225 mg PO DAILY 02/22/19 02/22/19 History tiZANidine [Zanaflex] 4 mg PO Q8H PRN 02/22/19 02/22/19 History Allergies Allergy/AdvReac Type Severity Reaction Status Date / Time etodolac [From Lodine] Allergy Rash/Hives Verified 02/22/19 19:22 ketorolac [From Toradol] Allergy Rash/Hives Verified 02/22/19 19:22 Surgical - Exam Vital Signs Temp Pulse Resp BP Pulse Ox 97.8 F 112 H 18 150/102 97 02/22/19 15:51 02/22/19 15:51 02/22/19 15:51 02/22/19 15:51 02/22/19 15:51 Results - Labs 02/22/19 16:10 02/22/19 23:04 Abnormal Lab Results - Last 24 Hours (Table) 02/22/19 02/22/19 02/22/19 Range/Units 16:10 16:10 16:10 APTT (22.0-30.0) sec Carbon Dioxide 19 L (22-30) mmol/L Glucose 176 H (74-99) mg/dL POC Glucose (mg/dL) 168 H (75-99) mg/dL Plasma Lactic Acid Ja 9.1 H* (0.7-2.0) mmol/L Calcium (8.4-10.2) mg/dL Alkaline Phosphatase 128 H (38-126) U/L Total Protein 9.1 H (6.3-8.2) g/dL Albumin 5.2 H (3.5-5.0) g/dL Ur Specific [place] (1.001-1.035) Urine Glucose (UA) (Negative) Urine Ketones (Negative) 02/22/19 02/22/19 02/22/19 Range/Units 16:10 17:46 18:56 APTT 21.0 L (22.0-30.0) sec Carbon Dioxide (22-30) mmol/L Glucose (74-99) mg/dL POC Glucose (mg/dL) (75-99) mg/dL Plasma Lactic Acid Ja 2.9 H* (0.7-2.0) mmol/L Calcium (8.4-10.2) mg/dL Alkaline Phosphatase (38-126) U/L Total Protein (6.3-8.2) g/dL Albumin (3.5-5.0) g/dL Ur Specific [place] 1.050 H (1.001-1.035) Urine Glucose (UA) 4+ H (Negative) Urine Ketones 2+ H (Negative) 02/22/19 02/22/19 02/23/19 Range/Units 22:26 23:04 07:17 APTT (22.0-30.0) sec Carbon Dioxide (22-30) mmol/L Glucose 137 H (74-99) mg/dL POC Glucose (mg/dL) 133 H 101 H (75-99) mg/dL Plasma Lactic Acid Ja (0.7-2.0) mmol/L Calcium 8.2 L (8.4-10.2) mg/dL Alkaline Phosphatase (38-126) U/L Total Protein (6.3-8.2) g/dL Albumin (3.5-5.0) g/dL Ur Specific [place] (1.001-1.035) Urine Glucose (UA) (Negative) Urine Ketones (Negative) Diabetes panel 02/22/19 02/22/19 Range/Units 16:10 23:04 Sodium 141 138 (137-145) mmol/L Potassium 4.6 4.7 (3.5-5.1) mmol/L Chloride 100 103 (98-107) mmol/L Carbon Dioxide 19 L 23 (22-30) mmol/L BUN 15 13 (9-20) mg/dL Creatinine 0.86 0.70 (0.66-1.25) mg/dL Glucose 176 H 137 H (74-99) mg/dL Calcium 9.8 8.2 L (8.4-10.2) mg/dL AST 26 19 (17-59) U/L ALT 26 24 (21-72) U/L Alkaline Phosphatase 128 H 89 (38-126) U/L Total Protein 9.1 H 7.0 (6.3-8.2) g/dL Albumin 5.2 H 4.0 (3.5-5.0) g/dL Calcium panel 02/22/19 02/22/19 Range/Units 16:10 23:04 Calcium 9.8 8.2 L (8.4-10.2) mg/dL Albumin 5.2 H 4.0 (3.5-5.0) g/dL Pituitary panel 02/22/19 02/22/19 Range/Units 16:10 23:04 Sodium 141 138 (137-145) mmol/L Potassium 4.6 4.7 (3.5-5.1) mmol/L Chloride 100 103 (98-107) mmol/L Carbon Dioxide 19 L 23 (22-30) mmol/L BUN 15 13 (9-20) mg/dL Creatinine 0.86 0.70 (0.66-1.25) mg/dL Glucose 176 H 137 H (74-99) mg/dL Calcium 9.8 8.2 L (8.4-10.2) mg/dL Adrenal panel 02/22/19 02/22/19 Range/Units 16:10 23:04 Sodium 141 138 (137-145) mmol/L Potassium 4.6 4.7 (3.5-5.1) mmol/L Chloride 100 103 (98-107) mmol/L Carbon Dioxide 19 L 23 (22-30) mmol/L BUN 15 13 (9-20) mg/dL Creatinine 0.86 0.70 (0.66-1.25) mg/dL Glucose 176 H 137 H (74-99) mg/dL Calcium 9.8 8.2 L (8.4-10.2) mg/dL Total Bilirubin 0.8 0.7 (0.2-1.3) mg/dL AST 26 19 (17-59) U/L ALT 26 24 (21-72) U/L Alkaline Phosphatase 128 H 89 (38-126) U/L Total Protein 9.1 H 7.0 (6.3-8.2) g/dL Albumin 5.2 H 4.0 (3.5-5.0) g/dL
[2019-02-23 10:45] LABS: Basophils % (A) 0 %; Eosinophils # (A) 0.1 k/uL (0-0.7); Eosinophils % (A) 1 %; HCT 39.9 % (39.0-53.0); HGB 13.4 gm/dL (13.0-17.5); Lymphocytes # (A) 1.2 k/uL (1.0-4.8); Lymphocytes % (A) 16 %; MCH 30.3 pg (25.0-35.0); MCHC 33.6 g/dL (31.0-37.0); MCV 90.3 fL (80.0-100.0); Mean Platelet Volume 7.5; Monocytes # (A) 0.4 k/uL (0-1.0); Monocytes % (A) 5 %; Neutrophils # (A) 5.8 k/uL (1.3-7.7); Neutrophils % (A) 77 %; Platelet Count 250 k/uL (150-450); RBC 4.42 m/uL (4.30-5.90); RDW 14.8 % (11.5-15.5); WBC 7.5 k/uL (3.8-10.6)
[2019-02-23] MEDS: Canagliflozin [Invokana] PO SCH (10:48)
[2019-02-23] MEDS: DIVALPROEX 500 MG TABLET.DR PO SCH (10:48)
[2019-02-23] MEDS: LISINOPRIL 2.5 MG TAB PO SCH (10:48)
[2019-02-23] MEDS: LORATADINE 10 MG TAB PO SCH (10:48)
[2019-02-23] MEDS: PIOGLITAZONE 15 MG TAB PO SCH (10:48)
[2019-02-23] MEDS ORDERED: IV FLUID CONTINUATION 300 ML IV ONE ×2 (12:00)
[2019-02-23] MEDS ORDERED: PROPOFOL 10 MG/ML 20 ML VIAL IV ONE (12:02)
--- NOTE | 2019-02-23 12:15 | P.OP ---
Date of Procedure: 02/23/19 Preoperative Diagnosis: Nausea Postoperative Diagnosis: Antral gastritis Procedure(s) Performed: EGD Anesthesia: MAC Surgeon: Rohith Briceno Pathology: other (Antrum) Condition: stable Disposition: PACU Description of Procedure: The patient's placed on the endoscopy table in the lateral position. He rec eived IV sedation. The gastroscope placed oropharynx passed in the esophagus into the stomach. Scope then placed through the pylorus. The first and second portion of duodenum appeared normal. Scope was then brought back the antrum this is mildly inflamed. A biopsies performed. Scope was unretroflexed and remainder the stomach appeared normal. The GE junction was at 40 cm. The patient a previous fundoplication wrap. It was unclear whether the wrap had been displaced. There was no significant hiatal hernia. The distal esophagus appeared normal. The proximal esophagus appeared normal. Scope was withdrawn for patient.
[2019-02-23 12:43] LABS: Glucose,Whole Blood 100 mg/dL (75-99)
[2019-02-23] MEDS: ONDANSETRON ODT 4 MG TAB PO PRN (15:38)
[2019-02-23 17:19] LABS: Glucose,Whole Blood 156 mg/dL (75-99)
[2019-02-23 20:17] LABS: Glucose,Whole Blood 129 mg/dL (75-99)
[2019-02-23] MEDS: traZODone HCL 100 MG TAB PO SCH (20:52)
--- NOTE | 2019-02-23 22:27 | P.HPIM ---
History of Present Illness H&P Date: 02/23/19 Chief Complaint: Intractable nausea and vomiting. This is a history and physical on a 33-year-old male with known histor and left-sided neuropathy. The patient has stated significant problems feeling in the left upper and lower extremity proper causes dysfunctional gait. He is undergoing medical disability proceedings at this time. His main complaint however is the fact that somewhat intractable nausea and vomiting for 3-4 days. Question: Of diabetic gastropathy. He is now been stabilizing from electrolyte standpoint He is concerned about possibly having uppern consulted. Review of Systems Constitutional: Denies chills, Denies fever Eyes: denies blurred vision, denies pain Ears, nose, mouth and throat: Denies headache, Denies sore throat Cardiovascular: Denies chest pain, Denies shortness of breath Gastrointestinal: Reports abdominal pain, Reports nausea, Reports vomiting Genitourinary: Reports as per HPI Musculoskeletal: Denies myalgias Past Medical History Past Medical History: CVA/TIA, Diabetes Mellitus, GERD/Reflux, Hypertension Additional Past Medical History / Comment(s): having abdominal pain radiating to back, HX OF diverticultitis History of Any Multi-Drug Resistant Organisms: None Reported Past Surgical History: Appendectomy, Back Surgery, Bowel Resection, Cholecystectomy, Orthopedic Surgery, Tonsillectomy Additional Past Surgical History / Comment(s): ARTHROSCOPY Knee,hiatal hernia Past Anesthesia/Blood Transfusion Reactions: Postoperative Nausea & Vomiting (PONV) Additional Past Anesthesia/Blood Transfusion Reaction / Comment(s): no hx blood transfusion Past Psychological History: Depression Smoking Status: Never smoker Past Alcohol Use History: None Reported Past Drug Use History: None Reported - Past Family History Mother Family Medical History: No Reported History Father Family Medical History: Diabetes Mellitus Additional Family Medical History / Comment(s): heart problems Medications and Allergies Home Medications Medication Instructions Recorded Confirmed Type Loratadine 10 mg PO DAILY 03/29/16 02/22/19 History Omeprazole [PriLOSEC] 20 mg PO DAILY 03/29/16 02/22/19 History Lisinopril [Zestril] 2.5 mg PO DAILY 01/24/17 02/22/19 History Gabapentin 600 mg PO TID 07/11/18 02/22/19 History HYDROcodone/APAP 10-325MG [[place] 1 tab PO TID PRN 07/11/18 02/22/19 History 10-325] Divalproex Sodium [Depakote] 1,000 mg PO DAILY 10/08/18 02/22/19 History LORazepam [Ativan] 0.5 mg PO HS 10/08/18 02/22/19 History traZODone HCL [Desyrel] 100 mg PO HS 10/08/18 02/22/19 History Aspirin 81 mg PO DAILY 02/22/19 02/22/19 History Atorvastatin [Lipitor] 10 mg PO DAILY 02/22/19 02/22/19 History Canagliflozin [Invokana] 300 mg PO DAILY 02/22/19 02/22/19 History Insulin Glargine,Hum.rec.anlog 35 unit SQ HS 02/22/19 02/22/19 History [Basaglar Kwikpen U-100] Insulin Lispro [Admelog Solostar] See Protocol SQ AC-TID 02/22/19 02/22/19 History Ondansetron Odt [Zofran ODT] 8 mg PO Q8HR PRN 02/22/19 02/22/19 History Pioglitazone [Actos] 15 mg PO DAILY 02/22/19 02/22/19 History Venlafaxine HCl [Effexor XR] 225 mg PO DAILY 02/22/19 02/22/19 History tiZANidine [Zanaflex] 4 mg PO Q8H PRN 02/22/19 02/22/19 History Allergies Allergy/AdvReac Type Severity Reaction Status Date / Time etodolac [From Lodine] Allergy Rash/Hives Verified 02/22/19 19:22 ketorolac [From Toradol] Allergy Rash/Hives Verified 02/22/19 19:22 Physical Exam Vitals: Vital Signs Temp Pulse Resp BP Pulse Ox 02/23/19 20:45 98.4 F 99 20 100/61 100 02/23/19 13:52 97.7 F 97 16 125/86 94 L 02/23/19 09:14 98.3 F 100 18 123/73 97 02/23/19 04:50 98.3 F 107 H 18 123/73 97 02/22/19 22:30 98.3 F 84 20 151/95 100 Intake and Output 02/23/19 02/23/19 02/23/19 06:59 14:59 22:59 Intake Total 0 200 100 Balance 0 200 100 Intake: IV 200 Oral 0 100 Other: # Voids 1 2 1 - Constitutional General appearance: average body habitus - EENT Eyes: EOMI - Neck Neck: no lymphadenopathy Thyroid: bilateral: normal size - Respiratory Respiratory: bilateral: CTA - Cardiovascular Rhythm: regular Heart sounds: normal: S1, S2 Abnormal Heart Sounds: no S3 Gallop - Gastrointestinal General gastrointestinal: soft, tenderness - Integumentary Integumentary: no cellulitis, no pale - Neurologic Neurologic: CNII-XII intact - Psychiatric Psychiatric: A&O x's 3, appropriate affect Results CBC & Chem 7: 02/23/19 07:58 02/22/19 23:04 Labs: Abnormal Lab Results - Last 24 Hours (Table) 02/22/19 02/22/19 02/23/19 Range/Units 22:26 23:04 07:17 Glucose 137 H (74-99) mg/dL POC Glucose (mg/dL) 133 H 101 H (75-99) mg/dL Calcium 8.2 L (8.4-10.2) mg/dL 02/23/19 02/23/19 02/23/19 Range/Units 12:41 17:14 20:14 Glucose (74-99) mg/dL POC Glucose (mg/dL) 100 H 156 H 129 H (75-99) mg/dL Calcium (8.4-10.2) mg/dL Thrombosis Risk Factor Assmnt - Choose All That Apply Any of the Below Risk Factors Present?: Yes Each Factor Represents 1 point: History of prior major surgery (<1month) Other Risk Factors: No Other congenital or acquired thrombophilia - If yes, enter type in comment: No Thrombosis Risk Factor Assessment Total Risk Factor Score: 1 Thrombosis Risk Factor Assessment Level: Low Risk Assessment and Plan (1) IDDM (insulin dependent diabetes mellitus) Current Visit: Yes Status: Acute Code(s): E11.9 - TYPE 2 DIABETES MELLITUS WITHOUT COMPLICATIONS; Z79.4 - SKILLED NURSING (CURRENT) USE OF INSULIN SNOMED Code(s): 47413624 (2) Intractable nausea and vomiting Current Visit: Yes Status: Acute Code(s): R11.2 - NAUSEA WITH VOMITING, UNSPECIFIED SNOMED Code(s): 910108925 Plan: Question element of diabetic gastropathy. Reconcile home medications as necessary. We'll go ahead and consult surgery. Element and history of pseudoseizures supposedly in the past. Check CBC and CMP in a.m. Sliding scale for blood sugar control. The patient is otherwise full code.
[2019-02-24] MEDS: ONDANSETRON ODT 4 MG TAB PO PRN (00:24)
[2019-02-24] MEDS: tiZANidine 4 MG TAB PO SCH ×3 (06:17→21:45)
[2019-02-24] MEDS: HYDROmorphone 1 MG/ML 1 ML SYRINGE IVP PRN ×2 (06:17→11:01)
[2019-02-24 07:13] LABS: Glucose,Whole Blood 74 mg/dL (75-99)
[2019-02-24] MEDS: GABAPENTIN 300 MG CAP PO SCH ×3 (07:57→21:31)
[2019-02-24] MEDS: LORATADINE 10 MG TAB PO SCH (07:57)
[2019-02-24] MEDS: LISINOPRIL 2.5 MG TAB PO SCH (07:57)
[2019-02-24] MEDS: PANTOPRAZOLE 40 MG/10 ML VIAL IVP SCH (07:58)
[2019-02-24] MEDS: DIVALPROEX 500 MG TABLET.DR PO SCH (07:58)
[2019-02-24] MEDS: HEPARIN SODIUM,PORCINE 5,000 UNIT/ML 1 ML VIAL SQ SCH ×2 (07:58→21:43)
[2019-02-24] MEDS: Canagliflozin [Invokana] PO SCH (08:00)
[2019-02-24] MEDS: PIOGLITAZONE 15 MG TAB PO SCH (08:01)
[2019-02-24 08:31] LABS: Basophils % (A) 0 %; Eosinophils # (A) 0.1 k/uL (0-0.7); Eosinophils % (A) 3 %; HCT 39.8 % (39.0-53.0); HGB 13.5 gm/dL (13.0-17.5); Lymphocytes % (A) 19 %; MCH 30.1 pg (25.0-35.0); MCHC 33.9 g/dL (31.0-37.0); MCV 88.9 fL (80.0-100.0); Mean Platelet Volume 6.7; Monocytes # (A) 0.5 k/uL (0-1.0); Monocytes % (A) 8 %; Neutrophils # (A) 3.7 k/uL (1.3-7.7); Neutrophils % (A) 68 %; Platelet Count 227 k/uL (150-450); RBC 4.48 m/uL (4.30-5.90); RDW 12.6 % (11.5-15.5); WBC 5.4 k/uL (3.8-10.6)
[2019-02-24] MEDS: METOCLOPRAMIDE 5 MG/ML 2 ML VIAL IVP PRN (11:00)
--- NOTE | 2019-02-24 12:07 | P.PN ---
Subjective Progress Note Date: 02/24/19 CHIEF COMPLAINT: nausea and vomiting HISTORY OF PRESENT ILLNESS: Patient examined at the bedside. S/P EGD revealing antral gastritis. He reports nausea this morning which is chronic for him. He is prescribed Zofran on an outpatient basis. He is tolerating liquid diet. He reports loose bowel movements this morning. PHYSICAL EXAM: VITAL SIGNS: Reviewed. GENERAL: Well-developed in no acute distress. HEENT: No sclera icterus. Extraocular movements grossly intact. Moist buccal mucosa. Head is atraumatic, normocephalic. ABDOMEN: Soft. Nondistended. Old midline surgical scar. Nontender. NEUROLOGIC: Alert and oriented. Cranial nerves II through XII grossly intact. ASSESSMENT: 1. Nausea and vomiting 2. Epigastric pain with dysphagia 3. History of appendectomy 4. History of cholecystectomy 5. History of bowel resection secondary to diverticulitis performed for [facility] PLAN: 1. Advance diet 2. Continue antiemetics 3. Discharge per medicine Nurse practitioner note has been reviewed by physician. Signing provider agrees with the documented findings, assessment, and plan of care. Objective - Vital Signs Vital signs: Vital Signs Temp 98.1 F 02/24/19 04:40 Pulse 102 H 02/24/19 04:40 Resp 18 02/24/19 08:00 BP 121/74 02/24/19 04:40 Pulse Ox 94 L 02/24/19 04:40 Intake & Output 02/23/19 02/24/19 02/24/19 18:59 06:59 18:59 Intake Total 200 200 Balance 200 200 Intake: IV 200 Oral 200 Other: # Voids 2 1 - Labs CBC & Chem 7: 02/24/19 07:54 02/22/19 23:04 Labs: Abnormal Lab Results - Last 24 Hours (Table) 02/23/19 02/23/19 02/23/19 Range/Units 12:41 17:14 20:14 POC Glucose (mg/dL) 100 H 156 H 129 H (75-99) mg/dL 02/24/19 Range/Units 07:11 POC Glucose (mg/dL) 74 L (75-99) mg/dL
[2019-02-24 12:39] LABS: Glucose,Whole Blood 110 mg/dL (75-99)
[2019-02-24] MEDS: HYDROcodone/APAP 10-325MG 1 EACH TAB PO PRN (15:54)
[2019-02-24 17:04] LABS: Glucose,Whole Blood 227 mg/dL (75-99)
[2019-02-24] MEDS: INSULIN ASPART (NovoLOG) 100 UNIT/ML VIAL SQ SCH ×2 (17:55→21:31)
[2019-02-24 20:57] LABS: Glucose,Whole Blood 200 mg/dL (75-99)
[2019-02-24] MEDS: INSULIN DETEMIR (LEVEMIR) 100 UNIT/ML SYR SQ SCH (21:32)
[2019-02-24] MEDS: traZODone HCL 100 MG TAB PO SCH (21:42)
[2019-02-24] MEDS: ATORVASTATIN 10 MG TAB PO SCH (21:42)
[2019-02-24] MEDS: PANTOPRAZOLE 40 MG TABLET PO SCH (21:43)
[2019-02-24] MEDS: LORazepam 0.5 MG TAB PO SCH (21:43)
[2019-02-24] MEDS: VENLAFAXINE HCL ER 75 MG CAP PO SCH (21:45)
--- NOTE | 2019-02-24 23:51 | P.PN ---
Subjective Progress Note Date: 02/24/19 Principal diagnosis: Improving nausea vomiting The patient is status post and feeling much better. Diarrhea is otherwise noted We will advance diet as tolerated. Appreciate surgical consud did not show signi Objective - Vital Signs Vital signs: Vital Signs Temp 97.8 F 02/24/19 20:32 Pulse 74 02/24/19 20:32 Resp 16 02/24/19 20:32 BP 103/66 02/24/19 20:32 Pulse Ox 96 02/24/19 20:32 Intake & Output 02/24/19 02/24/19 02/25/19 06:59 18:59 06:59 Intake Total 200 Balance 200 Intake: Oral 200 Other: # Voids 1 3 # Bowel Movements 6 - Constitutional General appearance: Present: average body habitus - EENT Eyes: Absent: abnormal pupil - Neck Neck: Absent: lymphadenopathy - Respiratory Respiratory: bilateral: CTA - Cardiovascular Rhythm: regular Heart sounds: normal: S1, S2 - Gastrointestinal General gastrointestinal: Present: soft. Absent: tenderness - Psychiatric Psychiatric: Present: A&O x's 3. Absent: appropriate affect - Labs CBC & Chem 7: 02/24/19 07:54 02/22/19 23:04 Labs: Abnormal Lab Results - Last 24 Hours (Table) 02/24/19 02/24/19 02/24/19 Range/Units 07:11 12:35 17:01 POC Glucose (mg/dL) 74 L 110 H 227 H (75-99) mg/dL 02/24/19 Range/Units 20:34 POC Glucose (mg/dL) 200 H (75-99) mg/dL Assessment and Plan (1) IDDM (insulin dependent diabetes mellitus) Current Visit: Yes Status: Acute Code(s): E11.9 - TYPE 2 DIABETES MELLITUS WITHOUT COMPLICATIONS; Z79.4 - HALFWAY (CURRENT) USE OF INSULIN SNOMED Code(s): 13549255 (2) Intractable nausea and vomiting Current Visit: Yes Status: Acute Code(s): R11.2 - NAUSEA WITH VOMITING, UNSPECIFIED SNOMED Code(s): 579289277 Plan: Gastritis is improving. Continue hydration elements. I would continue to anticipate discharge in next 24 hours if the current trajectory of recovery continues. Time with Patient: Greater than 30
[2019-02-25] MEDS: HYDROcodone/APAP 10-325MG 1 EACH TAB PO PRN ×2 (03:13→11:16)
[2019-02-25 07:17] LABS: Glucose,Whole Blood 156 mg/dL (75-99)
[2019-02-25 08:07] LABS: Basophils # (A) 0.1 k/uL (0-0.2); Basophils % (A) 1 %; Eosinophils # (A) 0.2 k/uL (0-0.7); Eosinophils % (A) 6 %; HCT 39.1 % (39.0-53.0); HGB 13.1 gm/dL (13.0-17.5); Lymphocytes # (A) 1.2 k/uL (1.0-4.8); Lymphocytes % (A) 30 %; MCH 30.3 pg (25.0-35.0); MCHC 33.4 g/dL (31.0-37.0); MCV 90.6 fL (80.0-100.0); Mean Platelet Volume 7.3; Monocytes # (A) 0.3 k/uL (0-1.0); Monocytes % (A) 8 %; Neutrophils # (A) 2.1 k/uL (1.3-7.7); Neutrophils % (A) 53 %; Platelet Count 217 k/uL (150-450); RBC 4.32 m/uL (4.30-5.90); RDW 12.7 % (11.5-15.5)
[2019-02-25] MEDS: HEPARIN SODIUM,PORCINE 5,000 UNIT/ML 1 ML VIAL SQ SCH (08:10)
[2019-02-25] MEDS: PANTOPRAZOLE 40 MG TABLET PO SCH (08:10)
[2019-02-25] MEDS: DIVALPROEX 500 MG TABLET.DR PO SCH (08:10)
[2019-02-25] MEDS: LORATADINE 10 MG TAB PO SCH (08:11)
[2019-02-25] MEDS: PIOGLITAZONE 15 MG TAB PO SCH (08:11)
[2019-02-25] MEDS: LISINOPRIL 2.5 MG TAB PO SCH (08:11)
[2019-02-25] MEDS: INSULIN ASPART (NovoLOG) 100 UNIT/ML VIAL SQ SCH ×2 (08:11→13:15)
[2019-02-25] MEDS: GABAPENTIN 300 MG CAP PO SCH (08:11)
[2019-02-25] MEDS: tiZANidine 4 MG TAB PO SCH ×2 (08:11→13:14)
[2019-02-25] MEDS: Canagliflozin [Invokana] PO SCH (08:12)
--- NOTE | 2019-02-25 08:48 | P.DS ---
Providers Date of admission: 02/22/19 18:39 Attending physician: Sami Cuellar Consults: 02/23/19 08:19 Consult Physician Routine Consulting Provider: Rohith Briceno Consult Reason/Comments: intractable nausea/vomiting/abdominal pain Do you want consulting provider notified?: Yes Primary care physician: Sami Cuellar - Discharge Diagnosis(es) (1) IDDM (insulin dependent diabetes mellitus) Current Visit: Yes Status: Acute (2) Intractable nausea and vomiting Current Visit: Yes Status: Acute Hospital Course: This discharge summary 33-year-old male with history of diabetes with history of cervical radiculopathy status post cervical repair. The patient came in with intractable nausea and vomiting and was found to have significant gastritis after upper GI. The patient was stabilized IV fluid and was tolerating diet. There is element of diarrhea and we will discharge once C. difficile is noted. He'll follow-up with me in 3-5 days. Patient Condition at Discharge: Stable Plan - Discharge Summary Discharge Rx Participant: No New Discharge Prescriptions: Continue Loratadine 10 mg PO DAILY Omeprazole [PriLOSEC] 20 mg PO DAILY Lisinopril [Zestril] 2.5 mg PO DAILY HYDROcodone/APAP 10-325MG [[place] 10-325] 1 tab PO TID PRN PRN Reason: Pain Gabapentin 600 mg PO TID LORazepam [Ativan] 0.5 mg PO HS traZODone HCL [Desyrel] 100 mg PO HS Divalproex Sodium [Depakote] 1,000 mg PO DAILY tiZANidine [Zanaflex] 4 mg PO Q8H PRN PRN Reason: tremors Canagliflozin [Invokana] 300 mg PO DAILY Atorvastatin [Lipitor] 10 mg PO DAILY Pioglitazone [Actos] 15 mg PO DAILY Insulin Glargine,Hum.rec.anlog [Basaglar Kwikpen U-100] 35 unit SQ HS Venlafaxine HCl [Effexor XR] 225 mg PO DAILY Aspirin 81 mg PO DAILY Insulin Lispro [Admelog Solostar] See Protocol SQ AC-TID Ondansetron Odt [Zofran ODT] 8 mg PO Q8HR PRN PRN Reason: Nausea Discharge Medication List Loratadine 10 mg PO DAILY 03/29/16 [History] Omeprazole [PriLOSEC] 20 mg PO DAILY 03/29/16 [History] Lisinopril [Zestril] 2.5 mg PO DAILY 01/24/17 [History] Gabapentin 600 mg PO TID 07/11/18 [History] HYDROcodone/APAP 10-325MG [[place] 10-325] 1 tab PO TID PRN 07/11/18 [History] Divalproex Sodium [Depakote] 1,000 mg PO DAILY 10/08/18 [History] LORazepam [Ativan] 0.5 mg PO HS 10/08/18 [History] traZODone HCL [Desyrel] 100 mg PO HS 10/08/18 [History] Aspirin 81 mg PO DAILY 02/22/19 [History] Atorvastatin [Lipitor] 10 mg PO DAILY 02/22/19 [History] Canagliflozin [Invokana] 300 mg PO DAILY 02/22/19 [History] Insulin Glargine,Hum.rec.anlog [Basaglar Kwikpen U-100] 35 unit SQ HS 02/22/19 [History] Insulin Lispro [Admelog Solostar] See Protocol SQ AC-TID 02/22/19 [History] Ondansetron Odt [Zofran ODT] 8 mg PO Q8HR PRN 02/22/19 [History] Pioglitazone [Actos] 15 mg PO DAILY 02/22/19 [History] Venlafaxine HCl [Effexor XR] 225 mg PO DAILY 02/22/19 [History] tiZANidine [Zanaflex] 4 mg PO Q8H PRN 02/22/19 [History] Follow up Appointment(s)/Referral(s): Sami Cuellar MD [Primary Care Provider] - 1-2 days Rohith Briceno MD [STAFF PHYSICIAN] - 1 Week
[2019-02-25] MEDS: ONDANSETRON 4 MG/2 ML VIAL IVP PRN (09:00)
--- NOTE | 2019-02-25 10:27 | P.PN ---
Subjective Progress Note Date: 02/25/19 CHIEF COMPLAINT: nausea and vomiting HISTORY OF PRESENT ILLNESS: Patient examined at the bedside. S/P EGD revealing antral gastritis. He reports nausea this morning which is chronic for him. He is prescribed Zofran on an outpatient basis. He is tolerating diet. Denies bowel movements this morning. PHYSICAL EXAM: VITAL SIGNS: Reviewed. GENERAL: Well-developed in no acute distress. HEENT: No sclera icterus. Extraocular movements grossly intact. Moist buccal mucosa. Head is atraumatic, normocephalic. ABDOMEN: Soft. Nondistended. Old midline surgical scar. Nontender. NEUROLOGIC: Alert and oriented. Cranial nerves II through XII grossly intact. ASSESSMENT: 1. Nausea and vomiting 2. Epigastric pain with dysphagia 3. History of appendectomy 4. History of cholecystectomy 5. History of bowel resection secondary to diverticulitis performed at [facility] PLAN: Continue current diet. Stable for discharge from surgical standpoint. We will sign off. Please reconsult if needed. Nurse practitioner note has been reviewed by physician. Signing provider agrees with the documented findings, assessment, and plan of care. Objective - Vital Signs Vital signs: Vital Signs Temp 97.2 F L 02/25/19 05:46 Pulse 72 02/25/19 05:46 Resp 17 02/25/19 08:00 BP 95/62 02/25/19 05:46 Pulse Ox 92 L 02/25/19 05:46 Intake & Output 02/24/19 02/25/19 02/25/19 18:59 06:59 18:59 Output Total 1400 Balance -1400 Weight 92 kg Output: Urine 1400 Other: Voiding Method Toilet # Voids 3 1 # Bowel Movements 6 - Labs CBC & Chem 7: 02/25/19 07:49 02/22/19 23:04 Labs: Abnormal Lab Results - Last 24 Hours (Table) 02/24/19 02/24/19 02/24/19 Range/Units 12:35 17:01 20:34 POC Glucose (mg/dL) 110 H 227 H 200 H (75-99) mg/dL 02/25/19 Range/Units 07:15 POC Glucose (mg/dL) 156 H (75-99) mg/dL
[2019-02-25 12:07] LABS: Glucose,Whole Blood 176 mg/dL (75-99)
[2019-02-25 14:27] VITALS: BP 125/82; PULSE 76; RESP 16; TEMP 97.6
[2019-02-25 18:33] LABS: Hemoglobin A1C 7.7 % (4.0-6.0)
== END 2019-02-25 15:10 | disposition home or self-care (01) | DRG 392 ==
LOC: EC 15:48 → 4MS4W 18:39 → OBSVTOIN 02-25 08:51
PROVIDERS: ADMIT Family Medicine; ATTEND Family Medicine
PROC: 0DB78ZX Excision of Stomach, Pylorus, Via Natural or Artificial Opening Endoscopic, Diagnostic (ICD-10-PCS; principal; 2019-02-23 10:55)
DX: K29.70 Gastritis, unspecified, without bleeding (principal); E87.2 Acidosis; K21.9 Gastro-esophageal reflux disease without esophagitis; I10 Essential (primary) hypertension; G89.29 Other chronic pain; G62.9 Polyneuropathy, unspecified; F32.9 Major depressive disorder, single episode, unspecified; E10.9 Type 1 diabetes mellitus without complications; Z79.4 Long term (current) use of insulin; Z79.82 Long term (current) use of aspirin; Z79.899 Other long term (current) drug therapy; Z83.3 Family history of diabetes mellitus; Z86.73 Personal history of transient ischemic attack (TIA), and cerebral infarction without residual deficits; Z90.49 Acquired absence of other specified parts of digestive tract; Z88.8 Allergy status to other drugs, medicaments and biological substances
CPT/HCPCS: 36415; 43239; 74177; 80053; 81003; 82009; 82150; 83036; 83605; 83690; 85025; 85610; 85730; 88305; 96361; 96374; 96375; 96376; 99285

== ENCOUNTER 2019-03-15 18:45 | Observation (INO) | payer OTHER ==
[2019-03-15] MEDS ORDERED: MORPHINE SULFATE 4 MG/ML SYRINGE IVP STA (19:54)
[2019-03-15] MEDS ORDERED: SODIUM CHLORIDE 0.9% 500 ML 500 ML IV STA (19:54)
[2019-03-15] MEDS ORDERED: SODIUM CHLORIDE 0.9% 1,000 ML IV STA ×2 (19:54)
[2019-03-15] MEDS ORDERED: diphenhydrAMINE 50 MG/ML 1 ML VIAL IVP STA (19:54)
[2019-03-15] MEDS ORDERED: DIAZEPAM 5 MG/ML 2 ML INJ IVP STA (19:54)
[2019-03-15] MEDS ORDERED: ONDANSETRON 4 MG/2 ML VIAL IVP STA (19:54)
[2019-03-15] MEDS ORDERED: PANTOPRAZOLE 40 MG/10 ML VIAL IVP STA (19:54)
--- NOTE | 2019-03-15 19:58 | ED ---
Nausea/Vomiting/Diarrhea HPI - General Chief complaint: Nausea/Vomiting/Diarrhea Stated complaint: Vomiting Time Seen by Provider: 03/15/19 19:25 Source: patient, RN notes reviewed, old records reviewed Mode of arrival: wheelchair Limitations: no limitations - History of Present Illness Initial comments: This is a 34-year-old male the ER. Patient does say for evaluation intractable nausea vomiting. 3 days of intractable nausea vomiting with pain abdominal pain shakes chills. Patient states he does not get fever significant medical history including multiple abdominal surgeries with Dr. Call, gallbladder, appendix. Called resection. Patient has history of high blood pressure diabetes, patient is history of diverticulitis MD complaint: nausea, vomiting, abdominal pain -: days(s) Description of Vomiting: food contents, watery Associated Abdominal Pain: Yes Radiation: none Severity: mild Severity scale (1-10): 3 Improves with: none Worsens with: none Associated Symptoms: myalgias, loss of appetite, nausea/vomiting, weakness - Related Data Home Medications Medication Instructions Recorded Confirmed Loratadine 10 mg PO DAILY 03/29/16 03/15/19 Omeprazole [PriLOSEC] 20 mg PO DAILY 03/29/16 03/15/19 Lisinopril [Zestril] 2.5 mg PO DAILY 01/24/17 03/15/19 Gabapentin 600 mg PO TID 07/11/18 03/15/19 HYDROcodone/APAP 10-325MG [[place] 1 tab PO TID PRN 07/11/18 03/15/19 10-325] Divalproex Sodium [Depakote] 1,000 mg PO DAILY 10/08/18 03/15/19 LORazepam [Ativan] 0.5 mg PO HS 10/08/18 03/15/19 traZODone HCL [Desyrel] 100 mg PO HS 10/08/18 03/15/19 Aspirin 81 mg PO DAILY 02/22/19 03/15/19 Atorvastatin [Lipitor] 10 mg PO DAILY 02/22/19 03/15/19 Insulin Glargine,Hum.rec.anlog 35 unit SQ HS 02/22/19 03/15/19 [Basaglar Kwikpen U-100] Ondansetron Odt [Zofran ODT] 8 mg PO Q8HR PRN 02/22/19 03/15/19 Pioglitazone [Actos] 15 mg PO DAILY 02/22/19 03/15/19 Venlafaxine HCl [Effexor XR] 375 mg PO HS 02/22/19 03/15/19 tiZANidine [Zanaflex] 4 mg PO Q8H PRN 02/22/19 03/15/19 INSULIN LISPRO (humaLOG) [humaLOG] See Protocol SQ AC-TID 03/15/19 03/15/19 Allergies Allergy/AdvReac Type Severity Reaction Status Date / Time etodolac [From Lodine] Allergy Rash/Hives Verified 03/15/19 19:25 ketorolac [From Toradol] Allergy Rash/Hives Verified 03/15/19 19:25 Mushroom Allergy Unknown Verified 03/15/19 19:25 Review of Systems ROS Statement: Those systems with pertinent positive or pertinent negative responses have been documented in the HPI. ROS Other: All systems not noted in ROS Statement are negative. Past Medical History Past Medical History: CVA/TIA, Diabetes Mellitus, GERD/Reflux, Hypertension Additional Past Medical History / Comment(s): having abdominal pain radiating to back, HX OF diverticultitis History of Any Multi-Drug Resistant Organisms: None Reported Past Surgical History: Appendectomy, Back Surgery, Bowel Resection, Cholecystectomy, Orthopedic Surgery, Tonsillectomy Additional Past Surgical History / Comment(s): ARTHROSCOPY Knee,hiatal hernia Past Anesthesia/Blood Transfusion Reactions: Postoperative Nausea & Vomiting (PONV) Additional Past Anesthesia/Blood Transfusion Reaction / Comment(s): no hx blood transfusion Past Psychological History: Depression Smoking Status: Never smoker Past Alcohol Use History: None Reported Past Drug Use History: None Reported - Past Family History Mother Family Medical History: No Reported History Father Family Medical History: Diabetes Mellitus Additional Family Medical History / Comment(s): heart problems General Exam Limitations: no limitations General appearance: anxious, in distress Head exam: Present: atraumatic, normocephalic, normal inspection Eye exam: Present: normal appearance, EOMI. Absent: scleral icterus, conjunct ival injection, periorbital swelling ENT exam: Present: normal exam, mucous membranes dry Neck exam: Present: normal inspection. Absent: tenderness, meningismus, lymphadenopathy Respiratory exam: Present: normal lung sounds bilaterally. Absent: respiratory distress, wheezes, rales, rhonchi, stridor Cardiovascular Exam: Present: normal rhythm, tachycardia, normal heart sounds. Absent: systolic murmur, diastolic murmur, rubs, gallop, clicks GI/Abdominal exam: Present: soft, normal bowel sounds. Absent: distended, tenderness, guarding, rebound, rigid Extremities exam: Present: normal inspection, full ROM, normal capillary refill. Absent: tenderness, pedal edema, joint swelling, calf tenderness Back exam: Present: normal inspection Neurological exam: Present: alert, oriented X3, CN II-XII intact Psychiatric exam: Present: normal affect, normal mood Skin exam: Present: warm, dry, intact, normal color. Absent: rash Course Vital Signs 03/15/19 03/15/19 03/15/19 19:02 20:21 21:26 Temperature 98.7 F Pulse Rate 111 H 95 91 Respiratory 18 18 18 Rate Blood Pressure 130/81 142/98 128/91 O2 Sat by Pulse 100 98 96 Oximetry - Reevaluation(s) Reevaluation #1: 03/15/19 23:38 Medical records reviewed - Consultations Consultation #1: Spoke with Dr. Hyde regarding admission he is agreeable, patient states that he no longer follows with Dr. Cuellar in that he is following up with Dr. bond on an outpatient basis Medical Decision Making - Medical Decision Making 34 male the ER for evaluation of intractable nausea vomiting. Patient be admitted for hydration and surgical consultation - Lab Data Result diagrams: 03/15/19 19:55 03/15/19 19:55 Lab Results 03/15/19 03/15/19 03/15/19 Range/Units 19:55 19:55 19:55 WBC 6.7 (3.8-10.6) k/uL RBC 5.15 (4.30-5.90) m/uL Hgb 15.6 (13.0-17.5) gm/dL Hct 44.6 (39.0-53.0) % MCV 86.6 (80.0-100.0) fL MCH 30.3 (25.0-35.0) pg MCHC 34.9 (31.0-37.0) g/dL RDW 12.6 (11.5-15.5) % Plt Count 284 (150-450) k/uL Neutrophils % 69 % Lymphocytes % 20 % Monocytes % 6 % Eosinophils % 2 % Basophils % 1 % Neutrophils # 4.7 (1.3-7.7) k/uL Lymphocytes # 1.3 (1.0-4.8) k/uL Monocytes # 0.4 (0-1.0) k/uL Eosinophils # 0.2 (0-0.7) k/uL Basophils # 0.1 (0-0.2) k/uL Sodium 141 (137-145) mmol/L Potassium 4.5 (3.5-5.1) mmol/L Chloride 102 (98-107) mmol/L Carbon Dioxide 22 (22-30) mmol/L Anion Gap 17 mmol/L BUN 19 (9-20) mg/dL Creatinine 0.91 (0.66-1.25) mg/dL Est GFR (CKD-EPI)AfAm >90 (>60 ml/min/1.73 sqM) Est GFR (CKD-EPI)NonAf >90 (>60 ml/min/1.73 sqM) Glucose 215 H (74-99) mg/dL Lactic Ac Sepsis Rflx Plasma Lactic Acid Ja 2.8 H* (0.7-2.0) mmol/L Calcium 10.1 (8.4-10.2) mg/dL Phosphorus 4.2 (2.5-4.5) mg/dL Magnesium 2.0 (1.6-2.3) mg/dL Total Bilirubin 0.7 (0.2-1.3) mg/dL AST 26 (17-59) U/L ALT 55 (21-72) U/L Alkaline Phosphatase 126 (38-126) U/L Troponin I (0.000-0.034) ng/mL Total Protein 8.9 H (6.3-8.2) g/dL Albumin 5.1 H (3.5-5.0) g/dL Lipase 94 (23-300) U/L Urine Color Urine Appearance (Clear) Urine pH (5.0-8.0) Ur Specific Apollo (1.001-1.035) Urine Protein (Negative) Urine Glucose (UA) (Negative) Urine Ketones (Negative) Urine Blood (Negative) Urine Nitrite (Negative) Urine Bilirubin (Negative) Urine Urobilinogen (<2.0) mg/dL Ur Leukocyte Esterase (Negative) 03/15/19 03/15/19 03/15/19 Range/Units 19:55 19:55 20:32 WBC (3.8-10.6) k/uL RBC (4.30-5.90) m/uL Hgb (13.0-17.5) gm/dL Hct (39.0-53.0) % MCV (80.0-100.0) fL MCH (25.0-35.0) pg MCHC (31.0-37.0) g/dL RDW (11.5-15.5) % Plt Count (150-450) k/uL Neutrophils % % Lymphocytes % % Monocytes % % Eosinophils % % Basophils % % Neutrophils # (1.3-7.7) k/uL Lymphocytes # (1.0-4.8) k/uL Monocytes # (0-1.0) k/uL Eosinophils # (0-0.7) k/uL Basophils # (0-0.2) k/uL Sodium (137-145) mmol/L Potassium (3.5-5.1) mmol/L Chloride (98-107) mmol/L Carbon Dioxide (22-30) mmol/L Anion Gap mmol/L BUN (9-20) mg/dL Creatinine (0.66-1.25) mg/dL Est GFR (CKD-EPI)AfAm (>60 ml/min/1.73 sqM) Est GFR (CKD-EPI)NonAf (>60 ml/min/1.73 sqM) Glucose (74-99) mg/dL Lactic Ac Sepsis Rflx Y Plasma Lactic Acid Ja (0.7-2.0) mmol/L Calcium (8.4-10.2) mg/dL Phosphorus (2.5-4.5) mg/dL Magnesium (1.6-2.3) mg/dL Total Bilirubin (0.2-1.3) mg/dL AST (17-59) U/L ALT (21-72) U/L Alkaline Phosphatase (38-126) U/L Troponin I <0.012 (0.000-0.034) ng/mL Total Protein (6.3-8.2) g/dL Albumin (3.5-5.0) g/dL Lipase (23-300) U/L Urine Color Yellow Urine Appearance Clear (Clear) Urine pH 5.5 (5.0-8.0) Ur Specific Apollo 1.040 H (1.001-1.035) Urine Protein Trace H (Negative) Urine Glucose (UA) 4+ H (Negative) Urine Ketones Negative (Negative) Urine Blood Negative (Negative) Urine Nitrite Negative (Negative) Urine Bilirubin Negative (Negative) Urine Urobilinogen <2.0 (<2.0) mg/dL Ur Leukocyte Esterase Negative (Negative) - EKG Data -: EKG Interpreted by Me (EKG shows sinus rhythm rate of 97, MT 136, QRS 80, QTC 431) - Radiology Data Radiology results: report reviewed (X-ray abdominal series chest negative for acute disease), image reviewed Disposition Clinical Impression: Dehydration, Abdominal pain, Lactic acidosis, Intractable nausea and vomiting Disposition: ADMITTED IP TO THIS [facility] Condition: Fair Is patient prescribed a controlled substance at d/c from ED?: No Referrals: Tremaine Casey Jr, [Primary Care Provider] - 1-2 days
[2019-03-15 20:22] LABS: Appearance,Urine Clear (Clear); Basophils # (A) 0.1 k/uL (0-0.2); Basophils % (A) 1 %; Bilirubin,Urine Negative (Negative); Blood,Urine Negative (Negative); Color,Urine Yellow; Eosinophils # (A) 0.2 k/uL (0-0.7); Eosinophils % (A) 2 %; Glucose,Urine (UA) 4+ (Negative); HCT 44.6 % (39.0-53.0); HGB 15.6 gm/dL (13.0-17.5); Ketones,Urine Negative (Negative); Leukocyte Esterase,Urine Negative (Negative); Lymphocytes # (A) 1.3 k/uL (1.0-4.8); Lymphocytes % (A) 20 %; MCH 30.3 pg (25.0-35.0); MCHC 34.9 g/dL (31.0-37.0); MCV 86.6 fL (80.0-100.0); Monocytes # (A) 0.4 k/uL (0-1.0); Monocytes % (A) 6 %; Neutrophils # (A) 4.7 k/uL (1.3-7.7); Neutrophils % (A) 69 %; Nitrite,Urine Negative (Negative); PH, Urine 5.5 (5.0-8.0); Platelet Count 284 k/uL (150-450); Protein,Urine Trace (Negative); RBC 5.15 m/uL (4.30-5.90); RDW 12.6 % (11.5-15.5); Urobilinogen,Urine <2.0 mg/dL (<2.0); WBC 6.7 k/uL (3.8-10.6)
[2019-03-15 20:28] LABS: ALT 55 U/L (21-72); AST 26 U/L (17-59); African American GFR (CKD) >90 (>60 ml/min/1.73 sqM); Albumin 5.1 g/dL (3.5-5.0); Alkaline Phosphatase 126 U/L (38-126); Anion Gap 17 mmol/L; Blood Urea Nitrogen 19 mg/dL (9-20); Calcium 10.1 mg/dL (8.4-10.2); Carbon Dioxide 22 mmol/L (22-30); Chloride 102 mmol/L (98-107); Glucose 215 mg/dL (74-99); Phosphorus 4.2 mg/dL (2.5-4.5); Potassium 4.5 mmol/L (3.5-5.1); Sodium 141 mmol/L (137-145); Total Bilirubin 0.7 mg/dL (0.2-1.3); Total Protein 8.9 g/dL (6.3-8.2)
--- NOTE | 2019-03-15 20:54 | XR ---
EXAMINATION TYPE: XR abdomen acute w cxr DATE OF EXAM: 03/15/2019 COMPARISON: 08/30/2017 HISTORY: Pain TECHNIQUE: Chest x-ray with supine and upright abdomen FINDINGS: There is no heart failure nor confluent pneumonic infiltrate. Costophrenic angles are clear. There is lumbar spine posterior fusion surgery. There are clips in the left upper quadrant. There is no sign of intestinal obstruction or pneumoperitoneum. Fecal pattern is fairly normal. There is no sign of a mass. IMPRESSION: No active cardiopulmonary disease. Nonacute abdomen. No adverse change compared to old exam.
[2019-03-15] MEDS ORDERED: SODIUM CHLORIDE 0.9% 1,000 ML IV ONE (23:36)
[2019-03-15] MEDS: ONDANSETRON 4 MG/2 ML VIAL IVP PRN (23:54)
[2019-03-15] MEDS: MORPHINE SULFATE 4 MG/ML SYRINGE IVP PRN (23:58)
[2019-03-16] MEDS: DIAZEPAM 5 MG/ML 2 ML INJ IVP PRN ×2 (01:33→06:58)
[2019-03-16] MEDS: MORPHINE SULFATE 4 MG/ML SYRINGE IVP PRN (04:07)
[2019-03-16 06:57] LABS: Glucose,Whole Blood 124 mg/dL (75-99)
[2019-03-16 07:36] VITALS: RESP 16
[2019-03-16] MEDS ORDERED: tiZANidine 4 MG TAB PO PRN (08:49)
[2019-03-16] MEDS ORDERED: PIOGLITAZONE 15 MG TAB PO SCH (09:00)
[2019-03-16] MEDS ORDERED: PANTOPRAZOLE 40 MG/10 ML VIAL IVP SCH (09:00)
[2019-03-16] MEDS: HYDROcodone/APAP 10-325MG 1 EACH TAB PO PRN ×2 (09:05→16:48)
[2019-03-16] MEDS: DIVALPROEX 500 MG TABLET.DR PO SCH (09:06)
[2019-03-16] MEDS: ONDANSETRON 4 MG/2 ML VIAL IVP PRN (10:18)
--- NOTE | 2019-03-16 11:12 | P.GSCN ---
History of Present Illness Consult date: 03/16/19 Reason for Consult: known Requesting physician: Adria Jacobs History of present illness: CHIEF COMPLAINT: nausea and vomiting HISTORY OF PRESENT ILLNESS: 34 year old male known to surgical services from recent hospital admission. Patient was recently hospitalized for nausea, vomiting, epigastric pain. He underwent EGD on 02-23-[address] performed at that time was negative. Patient presents back to the hospital with similar symptoms. He reports 2-3 day history of nausea and vomiting. Able to tolerate small amounts of liquids at home. This morning he denies vomiting. Reports mild nausea, which is chronic for him. He reports unknown etiology of chronic nausea. He has been prescribed Zofran outpatient by his PCP, Dr. Cuellar. Patient reports he stopped seeing Dr. Cuellar after his last hospitalization because they have some "trust issues" and has switched his PCP to Dr. Casey. Patient denies any alcohol use or illicit drug use. PAST MEDICAL HISTORY: See list. PAST SURGICAL HISTORY: See list. SOCIAL HISTORY: No illicit drug use. REVIEW OF SYSTEMS: CONSTITUTIONAL: Denies fever or chills. HEENT: Denies blurred vision, vision changes, or eye pain. Denies hemoptysis CARDIOVASCULAR: Denies chest pain or pressure. RESPIRATORY: No shortness of breath. GASTROINTESTINAL: Refer to HPI for pertinent findings HEMATOLOGIC: Denies bleeding disorders. GENITOURINARY: Denies any blood in urine. SKIN: Denies pruitis. Denies rash. PHYSICAL EXAM: VITAL SIGNS: Reviewed. GENERAL: Well-developed in no acute distress. HEENT: No sclera icterus. Extraocular movements grossly intact. Moist buccal mucosa. Head is atraumatic, normocephalic. ABDOMEN: Soft. Nondistended. Mild tenderness near epigastric region. Positive bowel sounds. No peritoneal signs. NEUROLOGIC: Alert and oriented. Cranial nerves II through XII grossly intact. LABORATORY DATA: CBC within normal limits. Lactic acid 2.8 on admission. Repeat 2.0. IMAGING: KUB XR: negative for acute process ASSESSMENT: 1. Nausea and vomiting x 2-3 days 2. Recent hospitalization for nausea/vomiting 3. Recent EGD revealing mild gastritis 4. Chronic nausea per patient, etiology unclear PLAN: Etiology of patients symptoms is not completely known. It is possibly secondary to gastroenteritis, likely viral. Possible gastroparesis. However, the patient does not require surgical intervention and can be managed medically. Patients symptoms have improved at the time of examination. Will begin clear liquid diet. If patient tolerates, may advance diet. He may be discharged home from a surgical standpoint if he is feeling well this afternoon and tolerating diet Nurse practitioner note has been reviewed by physician. Signing provider agrees with the documented findings, assessment, and plan of care. Past Medical History Past Medical History: CVA/TIA, Diabetes Mellitus, GERD/Reflux, Hypertension Additional Past Medical History / Comment(s): having abdominal pain radiating to back, HX OF diverticultitis History of Any Multi-Drug Resistant Organisms: None Reported Past Surgical History: Appendectomy, Back Surgery, Bowel Resection, Cholecystectomy, Orthopedic Surgery, Tonsillectomy Additional Past Surgical History / Comment(s): ARTHROSCOPY Knee,hiatal hernia Past Anesthesia/Blood Transfusion Reactions: Postoperative Nausea & Vomiting (PONV) Additional Past Anesthesia/Blood Transfusion Reaction / Comm: no hx blood transfusion Past Psychological History: Depression Smoking Status: Never smoker Past Alcohol Use History: None Reported Past Drug Use History: None Reported - Past Family History Mother Family Medical History: No Reported History Father Family Medical History: Diabetes Mellitus Additional Family Medical History / Comment(s): heart problems Medications and Allergies Home Medications Medication Instructions Recorded Confirmed Type Loratadine 10 mg PO DAILY 03/29/16 03/15/19 History Omeprazole [PriLOSEC] 20 mg PO DAILY 03/29/16 03/15/19 History Lisinopril [Zestril] 2.5 mg PO DAILY 01/24/17 03/15/19 History Gabapentin 600 mg PO TID 07/11/18 03/15/19 History HYDROcodone/APAP 10-325MG [[place] 1 tab PO TID PRN 07/11/18 03/15/19 History 10-325] Divalproex Sodium [Depakote] 1,000 mg PO DAILY 10/08/18 03/15/19 History LORazepam [Ativan] 0.5 mg PO HS 10/08/18 03/15/19 History traZODone HCL [Desyrel] 100 mg PO HS 10/08/18 03/15/19 History Aspirin 81 mg PO DAILY 02/22/19 03/15/19 History Atorvastatin [Lipitor] 10 mg PO DAILY 02/22/19 03/15/19 History Insulin Glargine,Hum.rec.anlog 35 unit SQ HS 02/22/19 03/15/19 History [Colleenaglnitin Benitezpen U-100] Ondansetron Odt [Zofran ODT] 8 mg PO Q8HR PRN 02/22/19 03/15/19 History Pioglitazone [Actos] 15 mg PO DAILY 02/22/19 03/15/19 History Venlafaxine HCl [Effexor XR] 375 mg PO HS 02/22/19 03/15/19 History tiZANidine [Zanaflex] 4 mg PO Q8H PRN 02/22/19 03/15/19 History INSULIN LISPRO (humaLOG) [humaLOG] See Protocol SQ AC-TID 03/15/19 03/15/19 History Allergies Allergy/AdvReac Type Severity Reaction Status Date / Time etodolac [From Lodine] Allergy Rash/Hives Verified 03/15/19 19:25 ketorolac [From Toradol] Allergy Rash/Hives Verified 03/15/19 19:25 Mushroom Allergy Unknown Verified 03/15/19 19:25 Surgical - Exam Vital Signs Temp Pulse Resp BP Pulse Ox 98.7 F 111 H 18 130/81 100 03/15/19 19:02 03/15/19 19:02 03/15/19 19:02 03/15/19 19:02 03/15/19 19:02 Results - Labs 03/15/19 19:55 03/15/19 19:55 Abnormal Lab Results - Last 24 Hours (Table) 03/15/19 03/15/19 03/15/19 Range/Units 19:55 19:55 19:55 Glucose 215 H (74-99) mg/dL POC Glucose (mg/dL) (75-99) mg/dL Plasma Lactic Acid Ja 2.8 H* (0.7-2.0) mmol/L Total Protein 8.9 H (6.3-8.2) g/dL Albumin 5.1 H (3.5-5.0) g/dL Ur Specific [place] 1.040 H (1.001-1.035) Urine Protein Trace H (Negative) Urine Glucose (UA) 4+ H (Negative) 03/16/19 Range/Units 06:46 Glucose (74-99) mg/dL POC Glucose (mg/dL) 124 H (75-99) mg/dL Plasma Lactic Acid Ja (0.7-2.0) mmol/L Total Protein (6.3-8.2) g/dL Albumin (3.5-5.0) g/dL Ur Specific [place] (1.001-1.035) Urine Protein (Negative) Urine Glucose (UA) (Negative) Diabetes panel 03/15/19 Range/Units 19:55 Sodium 141 (137-145) mmol/L Potassium 4.5 (3.5-5.1) mmol/L Chloride 102 (98-107) mmol/L Carbon Dioxide 22 (22-30) mmol/L BUN 19 (9-20) mg/dL Creatinine 0.91 (0.66-1.25) mg/dL Glucose 215 H (74-99) mg/dL Calcium 10.1 (8.4-10.2) mg/dL AST 26 (17-59) U/L ALT 55 (21-72) U/L Alkaline Phosphatase 126 (38-126) U/L Total Protein 8.9 H (6.3-8.2) g/dL Albumin 5.1 H (3.5-5.0) g/dL Calcium panel 03/15/19 Range/Units 19:55 Calcium 10.1 (8.4-10.2) mg/dL Phosphorus 4.2 (2.5-4.5) mg/dL Albumin 5.1 H (3.5-5.0) g/dL Pituitary panel 03/15/19 Range/Units 19:55 Sodium 141 (137-145) mmol/L Potassium 4.5 (3.5-5.1) mmol/L Chloride 102 (98-107) mmol/L Carbon Dioxide 22 (22-30) mmol/L BUN 19 (9-20) mg/dL Creatinine 0.91 (0.66-1.25) mg/dL Glucose 215 H (74-99) mg/dL Calcium 10.1 (8.4-10.2) mg/dL Adrenal panel 03/15/19 Range/Units 19:55 Sodium 141 (137-145) mmol/L Potassium 4.5 (3.5-5.1) mmol/L Chloride 102 (98-107) mmol/L Carbon Dioxide 22 (22-30) mmol/L BUN 19 (9-20) mg/dL Creatinine 0.91 (0.66-1.25) mg/dL Glucose 215 H (74-99) mg/dL Calcium 10.1 (8.4-10.2) mg/dL Total Bilirubin 0.7 (0.2-1.3) mg/dL AST 26 (17-59) U/L ALT 55 (21-72) U/L Alkaline Phosphatase 126 (38-126) U/L Total Protein 8.9 H (6.3-8.2) g/dL Albumin 5.1 H (3.5-5.0) g/dL
[2019-03-16 11:59] LABS: Glucose,Whole Blood 148 mg/dL (75-99)
[2019-03-16] MEDS ORDERED: RX INFO: IV CONTRAST WAS GIVEN 1 EACH MISC MISCELLANE PRN (12:40)
--- NOTE | 2019-03-16 13:11 | P.HPIM ---
History of Present Illness H&P Date: 03/16/19 The patient is a 34 yo M with a PMH of type 1 diabetes mellitus, HTN, CVA w/ L sided residual weakness (2018), gastroparesis, seizure disorder w/ ?pseudoseizures, presented to the ED due to intractable nausea and vomiting ongoing for the past 3-4 days. Of note, the patient had a recent hospitalizat ion on 02/23/2019 for similar complaints, at which time he underwent an upper endoscopy which revealed gastritis. The patient now notes that for the past few days, he has had what feels like to him is a migraine, with a throbbing headache, with associated photophobia and phonophobia, with the nausea and vomiting. He also endorsed shaking chills during that time period along with some blurred vision from the L eye. He denied fever, cough, diarrhea, chest pain, or SOB. He states that during his previous hospitalization, he had all of the above symptoms except for the shaking chills, which is new for him. He underwent an extensive evaluation in the ED w/ EKG showing normal sinus rhythm at 97 bpm, and UA which was unremarkable. Laboratory evaluation revealed a lactate of 2.8 which improved to 2.0, WBC count 6.7, hemoglobin 15.6, platelets 284, sodium 141, potassium 4.5, BUN 19, and creatinine 0.91. He was initially admitted under Dr Casey, who informed the administration that he has not seen the patient yet in the clinic, and thereby asked for him to be re-assigned. Review of Systems Pertinent positives and negatives as discussed in HPI, a complete review of systems was performed and all other systems are negative. Past Medical History Past Medical History: CVA/TIA, Diabetes Mellitus, GERD/Reflux, Hypertension Additional Past Medical History / Comment(s): having abdominal pain radiating to back, HX OF diverticultitis History of Any Multi-Drug Resistant Organisms: None Reported Past Surgical History: Appendectomy, Back Surgery, Bowel Resection, Cholecystectomy, Orthopedic Surgery, Tonsillectomy Additional Past Surgical History / Comment(s): ARTHROSCOPY Knee,hiatal hernia Past Anesthesia/Blood Transfusion Reactions: Postoperative Nausea & Vomiting (PONV) Additional Past Anesthesia/Blood Transfusion Reaction / Comment(s): no hx blood transfusion Past Psychological History: Depression Smoking Status: Never smoker Past Alcohol Use History: None Reported Past Drug Use History: None Reported - Past Family History Mother Family Medical History: No Reported History Father Family Medical History: Diabetes Mellitus Additional Family Medical History / Comment(s): heart problems Medications and Allergies Home Medications Medication Instructions Recorded Confirmed Type Loratadine 10 mg PO DAILY 03/29/16 03/15/19 History Omeprazole [PriLOSEC] 20 mg PO DAILY 03/29/16 03/15/19 History Lisinopril [Zestril] 2.5 mg PO DAILY 01/24/17 03/15/19 History Gabapentin 600 mg PO TID 07/11/18 03/15/19 History HYDROcodone/APAP 10-325MG [[place] 1 tab PO TID PRN 07/11/18 03/15/19 History 10-325] Divalproex Sodium [Depakote] 1,000 mg PO DAILY 10/08/18 03/15/19 History LORazepam [Ativan] 0.5 mg PO HS 10/08/18 03/15/19 History traZODone HCL [Desyrel] 100 mg PO HS 10/08/18 03/15/19 History Aspirin 81 mg PO DAILY 02/22/19 03/15/19 History Atorvastatin [Lipitor] 10 mg PO DAILY 02/22/19 03/15/19 History Insulin Glargine,Hum.rec.anlog 35 unit SQ HS 02/22/19 03/15/19 History [Basaglar Kwikpen U-100] Ondansetron Odt [Zofran ODT] 8 mg PO Q8HR PRN 02/22/19 03/15/19 History Pioglitazone [Actos] 15 mg PO DAILY 02/22/19 03/15/19 History Venlafaxine HCl [Effexor XR] 375 mg PO HS 02/22/19 03/15/19 History tiZANidine [Zanaflex] 4 mg PO Q8H PRN 02/22/19 03/15/19 History INSULIN LISPRO (humaLOG) [humaLOG] See Protocol SQ AC-TID 03/15/19 03/15/19 History Allergies Allergy/AdvReac Type Severity Reaction Status Date / Time etodolac [From Lodine] Allergy Rash/Hives Verified 03/15/19 19:25 ketorolac [From Toradol] Allergy Rash/Hives Verified 03/15/19 19:25 Mushroom Allergy Unknown Verified 03/15/19 19:25 Physical Exam Vitals: Vital Signs Temp Pulse Pulse Resp BP BP Pulse Ox 03/16/19 08:05 76 16 03/16/19 06:50 97.6 F 76 16 120/77 97 03/16/19 01:10 98.1 F 81 17 121/74 100 03/15/19 23:50 98.4 F 88 18 148/69 100 03/15/19 21:26 91 18 128/91 96 03/15/19 20:21 95 18 142/98 98 03/15/19 19:02 98.7 F 111 H 18 130/81 100 Intake and Output 03/15/19 03/16/19 03/16/19 22:59 06:59 14:59 Intake Total 500 0 Balance 500 0 Intake: Intake, IV Titration 500 Amount Sodium Chloride 0.9% 1, 500 000 ml @ 100 mls/hr IV . Q10H ONE Rx#:[id number] Oral 0 Other: Weight 89.811 kg General: non toxic, somewhat uncomfortable appearing M, appears at stated age, obese Derm: no unusual rashes/lesions no unusual ecchymoses, warm, dry Head: atraumatic, normocephalic, symmetric Eyes: EOMI, no lid lag, anicteric sclera, pupils equal round reactive to light ENT: Nose and ears atraumatic, no thrush, no pharyngeal erythema Neck: No nuchal rigidity, kernig's and brudzinski's negative, no thyromegaly, no cervical lymphadenopathy, trachea midline, supple Mouth: no lip lesion, mucus membranes moist Cardiovascular: S1S2 reg, no murmur, positive posterior tibial pulse bilateral, no edema, capillary refill less than 2 seconds Lungs: CTA bilateral, no rhonchi, no rales , no accessory muscle use Abdominal: soft, nontender to palpation, no guarding, no appreciable organomegaly, normal bowel sounds Ext: no gross muscle atrophy, muscle strength 5 out of 5 on R side, 4/5 of LUE and LLE, no contractures Neuro: CN II-XI grossly intact, light touch intact all 4 extremities Psych: Alert, oriented, appropriate affect Results CBC & Chem 7: 03/15/19 19:55 03/15/19 19:55 Labs: Abnormal Lab Results - Last 24 Hours (Table) 03/15/19 03/15/19 03/15/19 Range/Units 19:55 19:55 19:55 Glucose 215 H (74-99) mg/dL POC Glucose (mg/dL) (75-99) mg/dL Plasma Lactic Acid Ja 2.8 H* (0.7-2.0) mmol/L Total Protein 8.9 H (6.3-8.2) g/dL Albumin 5.1 H (3.5-5.0) g/dL Ur Specific [place] 1.040 H (1.001-1.035) Urine Protein Trace H (Negative) Urine Glucose (UA) 4+ H (Negative) 03/16/19 03/16/19 Range/Units 06:46 11:57 Glucose (74-99) mg/dL POC Glucose (mg/dL) 124 H 148 H (75-99) mg/dL Plasma Lactic Acid Ja (0.7-2.0) mmol/L Total Protein (6.3-8.2) g/dL Albumin (3.5-5.0) g/dL Ur Specific [place] (1.001-1.035) Urine Protein (Negative) Urine Glucose (UA) (Negative) Thrombosis Risk Factor Assmnt - Choose All That Apply Any of the Below Risk Factors Present?: No Other Risk Factors: No Other congenital or acquired thrombophilia - If yes, enter type in comment: Yes Each Risk Factor Represents 5 Points: Stroke (< 1 month) Thrombosis Risk Factor Assessment Total Risk Factor Score: 5 Thrombosis Risk Factor Assessment Level: High Risk Assessment and Plan Plan: Intractable nausea, vomiting -Possibly secondary to gastroparesis vs vital illness -Zofran prn for now -Surgery recommendations appreciated -C/w IVFs Intractable headache w/ photophobia and shaking chills -Likely migraine -Obtain CT head Type 1 DM -C/w Insulin Levemir 35 U qhs and sliding scale (home doses) HTN -Hold antihypertensives in setting of borderline bp Seizure disorder -C/w home med: Depakote DVT prophylaxis -Heparin The patient is admitted with an anticipated less than 2 midnight stay for evaluation of nausea, vomiting CODE STATUS: Full Code Discussed with: Patient Anticipated discharge date: 03/17/[address]: Home A total of 40 minutes was spent on the care of this complex patient more than 50% of the time was spent in counseling and care coordination.
[2019-03-16] MEDS: INSULIN ASPART (NovoLOG) 100 UNIT/ML VIAL SQ SCH ×3 (13:20→20:21)
--- NOTE | 2019-03-16 15:18 | CT ---
EXAMINATION TYPE: CT brain wo/w con DATE OF EXAM: 03/16/2019 COMPARISON: 10/09/2018 HISTORY: left side weakness CT DLP: 2158.4 mGycm Automated Exposure Control for Dose Reduction was Utilized. TECHNIQUE: CT scan of the head is performed with IV contrast.,CT scan of the head is performed withou t and with without and with IV Contrast, patient injected with 100 mL of Isovue 300. COMPARISON: None. FINDINGS: Noncontrast images show no acute intracranial hemorrhage or midline shift. The ventricles and sulci are within normal limits in size. Stable appearing calcification the right basal ganglia. Postcontrast images show no suspicious enhancing intraparenchymal mass. The globes are intact and the visualized sinuses are clear. IMPRESSION: Negative contrast enhanced head CT exam.
[2019-03-16] MEDS: GABAPENTIN 300 MG CAP PO SCH ×2 (15:42→20:21)
[2019-03-16] MEDS: HEPARIN SODIUM,PORCINE 5,000 UNIT/ML 1 ML VIAL SQ SCH ×2 (15:43→23:04)
[2019-03-16 16:40] LABS: Glucose,Whole Blood 162 mg/dL (75-99)
[2019-03-16 20:13] LABS: Glucose,Whole Blood 143 mg/dL (75-99)
[2019-03-16] MEDS ORDERED: INSULIN DETEMIR (LEVEMIR) 100 UNIT/ML SYR SQ SCH (21:00)
[2019-03-16] MEDS ORDERED: traZODone HCL 100 MG TAB PO SCH (21:00)
[2019-03-16] MEDS ORDERED: VENLAFAXINE HCL ER 75 MG CAP PO SCH (21:00)
[2019-03-16] MEDS ORDERED: VENLAFAXINE HCL ER 150 MG CAP PO SCH (21:00)
[2019-03-17] MEDS: HYDROcodone/APAP 10-325MG 1 EACH TAB PO PRN ×2 (02:57→11:54)
[2019-03-17 07:12] LABS: Glucose,Whole Blood 99 mg/dL (75-99)
[2019-03-17] MEDS: INSULIN ASPART (NovoLOG) 100 UNIT/ML VIAL SQ SCH ×2 (07:25→11:53)
[2019-03-17] MEDS ORDERED: PANTOPRAZOLE 40 MG TABLET PO SCH (07:30)
[2019-03-17] MEDS: ONDANSETRON 4 MG/2 ML VIAL IVP PRN (08:46)
[2019-03-17] MEDS: HEPARIN SODIUM,PORCINE 5,000 UNIT/ML 1 ML VIAL SQ SCH (08:46)
[2019-03-17] MEDS: DIVALPROEX 500 MG TABLET.DR PO SCH (08:47)
[2019-03-17] MEDS: GABAPENTIN 300 MG CAP PO SCH (08:47)
[2019-03-17] MEDS ORDERED: ATORVASTATIN 10 MG TAB PO SCH (09:00)
[2019-03-17] MEDS ORDERED: ASPIRIN 81 MG PO SCH (09:00)
[2019-03-17 11:48] LABS: Glucose,Whole Blood 130 mg/dL (75-99)
--- NOTE | 2019-03-17 13:13 | P.PN ---
Subjective Progress Note Date: 03/17/19 CHIEF COMPLAINT: nausea and vomiting HISTORY OF PRESENT ILLNESS: Patient examined at the bedside. Denies abdominal pain. Denies nausea or vomiting. Tolerating clear liquid diet. PHYSICAL EXAM: VITAL SIGNS: Reviewed. GENERAL: Well-developed in no acute distress. HEENT: No sclera icterus. Extraocular movements grossly intact. Moist buccal mucosa. Head is atraumatic, normocephalic. ABDOMEN: Soft. Nondistended. Nontender. Positive bowel sounds. No peritoneal signs. NEUROLOGIC: Alert and oriented. Cranial nerves II through XII grossly intact. ASSESSMENT: 1. Nausea and vomiting x 2-3 days 2. Recent hospitalization for nausea/vomiting 3. Recent EGD revealing mild gastritis 4. Chronic nausea per patient, etiology unclear PLAN: Etiology of patients symptoms is not completely known. It is possibly secondary to gastroenteritis, likely viral. Possible gastroparesis. However, the patient does not require surgical intervention and can be managed medically. Patients symptoms have improved at the time of examination. Advance diet as tolerated. Stable for surgical from a surgical standpoint. Discharge per medicine. Nurse practitioner note has been reviewed by physician. Signing provider agrees with the documented findings, assessment, and plan of care. Objective - Vital Signs Vital signs: Vital Signs Temp 97.5 F L 03/17/19 07:25 Pulse 72 03/17/19 07:25 Resp 16 03/17/19 07:25 BP 112/67 03/17/19 07:25 Pulse Ox 95 03/17/19 07:25 Intake & Output 03/16/19 03/17/19 03/17/19 18:59 06:59 18:59 Intake Total 400 1040 300 Output Total 400 650 650 Balance 0 390 -350 Intake: Oral 400 1040 300 Output: Urine 400 650 650 Other: # Voids 1 1 1 # Bowel Movements 1 - Labs CBC & Chem 7: 03/15/19 19:55 03/15/19 19:55 Labs: Abnormal Lab Results - Last 24 Hours (Table) 03/16/19 03/16/19 03/17/19 Range/Units 16:39 20:12 11:46 POC Glucose (mg/dL) 162 H 143 H 130 H (75-99) mg/dL
[2019-03-17 15:07] VITALS: BP 123/80; PULSE 89; TEMP 97.9
--- NOTE | 2019-03-17 15:15 | P.DS ---
Providers Date of admission: 03/15/19 23:38 Expected date of discharge: 03/17/19 Attending physician: Zhane Whitney MD Consults: 03/15/19 23:36 Consult Physician Routine Consulting Provider: Rohith Briceno Consult Reason/Comments: known Do you want consulting provider notified?: Yes Primary care physician: [facility] Hospital Course: The patient is a 34 yo M with a PMH of type 1 diabetes mellitus, HTN, CVA w/ L sided residual weakness (2018), gastroparesis, seizure disorder w/ ?pseudoseizures, presented to the ED due to intractable nausea and vomiting ongoing for the previous 3-4 days. Of note, the patient had a recent hospitalization on 02/23/2019 for similar complaints, at which time he underwent an upper endoscopy which revealed gastritis. The patient noted that for the previous few days, he had what felt like to him was a migraine, with a throbbing headache, with associated photophobia and phonophobia, with the nausea and vomiting. He also endorsed shaking chills during that time period along with some blurred vision from the L eye. He denied fever, cough, diarrhea, chest pain, or SOB. He underwent an extensive evaluation in the ED w/ EKG showing normal sinus rhythm at 97 bpm, and UA which was unremarkable. Laboratory evaluation revealed a lactate of 2.8 which improved to 2.0, WBC count 6.7, hemoglobin 15.6, platelets 284, sodium 141, potassium 4.5, BUN 19, and creatinine 0.91. He was initially admitted under Dr Casey, who informed the administration that he has not seen the patient yet in the clinic, and thereby asked for him to be re-assigned. Surgery evaluated the patient and noted that his symptoms are possibly due to gastroenteritis vs gastroparesis. The patient underwent a CT brain with contrast which revealed no abnormalities. The patient's diet was gradually advanced to full liquids which was tolerated well. The patient's symptoms gradually improved. He was seen and examined at the bedside on the day of discharge. He reported only mild nausea with no further episodes of vomiting. He further endorsed significant improvement in his headache. He denied fever, chills, chest pain, SOB, weakness, or numbness. The patient was advised to f/u with his PMD along with his Neurologist following discharge for possible migraine. Physical Examination General: Non-toxic, in no acute distress, appears stated age, obese HEENT: NC/AT, anicteric sclerae, moist conjunctiva, no lid-lag, PERRLA Cardiovascular: S1/S2 wnl, no murmurs, rubs, or gallops Lungs: Clear to auscultation, normal respiratory effort, no accessory muscle use Abdominal: Soft, non-tender, non-distended, no guarding, rebound, or rigidity Skin: Warm, dry Extremities: No edema or contractures Psychiatric: Alert and oriented to person, place and time, appropriate affect Neuro: CN II-XII grossly intact, Strength 5/5 on RUE and RLE, 4/5 on LLE and LUE, Speech intact, Sensation to light touch grossly intact throughout Discharge diagnosis: Headache w/ nausea and vomiting, possibly complex migraine; Type 1 DM; HTN; Seizure disorder; Hx of CVA A total of 40 minutes of time were spent preparing this complex discharge summary. Patient Condition at Discharge: Fair Plan - Discharge Summary Discharge Rx Participant: Yes New Discharge Prescriptions: Continue Loratadine 10 mg PO DAILY Omeprazole [PriLOSEC] 20 mg PO DAILY Lisinopril [Zestril] 2.5 mg PO DAILY HYDROcodone/APAP 10-325MG [[place] 10-325] 1 tab PO TID PRN PRN Reason: Pain Gabapentin 600 mg PO TID LORazepam [Ativan] 0.5 mg PO HS traZODone HCL [Desyrel] 100 mg PO HS Divalproex Sodium [Depakote] 1,000 mg PO DAILY tiZANidine [Zanaflex] 4 mg PO Q8H PRN PRN Reason: tremors Atorvastatin [Lipitor] 10 mg PO DAILY Pioglitazone [Actos] 15 mg PO DAILY Insulin Glargine,Hum.rec.anlog [Basaglar Kwikpen U-100] 35 unit SQ HS Venlafaxine HCl [Effexor XR] 375 mg PO HS Aspirin 81 mg PO DAILY Ondansetron Odt [Zofran ODT] 8 mg PO Q8HR PRN PRN Reason: Nausea INSULIN LISPRO (humaLOG) [humaLOG] See Protocol SQ AC-TID Discharge Medication List Loratadine 10 mg PO DAILY 03/29/16 [History] Omeprazole [PriLOSEC] 20 mg PO DAILY 03/29/16 [History] Lisinopril [Zestril] 2.5 mg PO DAILY 01/24/17 [History] Gabapentin 600 mg PO TID 07/11/18 [History] HYDROcodone/APAP 10-325MG [[place] 10-325] 1 tab PO TID PRN 07/11/18 [History] Divalproex Sodium [Depakote] 1,000 mg PO DAILY 10/08/18 [History] LORazepam [Ativan] 0.5 mg PO HS 10/08/18 [History] traZODone HCL [Desyrel] 100 mg PO HS 10/08/18 [History] Aspirin 81 mg PO DAILY 02/22/19 [History] Atorvastatin [Lipitor] 10 mg PO DAILY 02/22/19 [History] Insulin Glargine,Hum.rec.anlog [Basaglar Kwikpen U-100] 35 unit SQ HS 02/22/19 [History] Ondansetron Odt [Zofran ODT] 8 mg PO Q8HR PRN 02/22/19 [History] Pioglitazone [Actos] 15 mg PO DAILY 02/22/19 [History] Venlafaxine HCl [Effexor XR] 375 mg PO HS 02/22/19 [History] tiZANidine [Zanaflex] 4 mg PO Q8H PRN 02/22/19 [History] INSULIN LISPRO (humaLOG) [humaLOG] See Protocol SQ AC-TID 03/15/19 [History] Follow up Appointment(s)/Referral(s): Tremaine Casey Jr, DO [Primary Care Provider] - 1-2 days Javon Alvarado MD [STAFF PHYSICIAN] - 1 Week Discharge Disposition: HOME SELF-CARE
[2019-03-17 15:25] LABS: N. gonorrhoeae,PCR Negative (Neg,Equiv); Neisseria Source Urine
[2019-03-17 15:55] LABS: C. trachomatis,PCR Negative (Neg,Equiv); Chlamydia trachomatis Source Urine
[2019-03-17 16:46] LABS: Glucose,Whole Blood 144 mg/dL (75-99)
== END 2019-03-17 17:11 | disposition home or self-care (01) ==
LOC: EC 18:45 → 4SSUR 23:38
PROVIDERS: ADMIT Internal Medicine; ATTEND Internal Medicine
DX: R51 Headache (principal); R11.2 Nausea with vomiting, unspecified; E86.0 Dehydration; R63.0 Anorexia; G40.909 Epilepsy, unspecified, not intractable, without status epilepticus; I10 Essential (primary) hypertension; K31.84 Gastroparesis; E10.43 Type 1 diabetes mellitus with diabetic autonomic (poly)neuropathy; I69.354 Hemiplegia and hemiparesis following cerebral infarction affecting left non-dominant side; H53.149 Visual discomfort, unspecified; R68.83 Chills (without fever); H53.8 Other visual disturbances; E66.9 Obesity, unspecified; Z68.32 Body mass index [BMI] 32.0-32.9, adult; K29.70 Gastritis, unspecified, without bleeding; K21.9 Gastro-esophageal reflux disease without esophagitis; F32.9 Major depressive disorder, single episode, unspecified; Z90.49 Acquired absence of other specified parts of digestive tract; Z87.19 Personal history of other diseases of the digestive system; Z79.899 Other long term (current) drug therapy; Z79.4 Long term (current) use of insulin; Z79.82 Long term (current) use of aspirin; Z79.891 Long term (current) use of opiate analgesic; Z88.8 Allergy status to other drugs, medicaments and biological substances; Z88.5 Allergy status to narcotic agent; Z91.018 Allergy to other foods; Z83.3 Family history of diabetes mellitus; Z82.49 Family history of ischemic heart disease and other diseases of the circulatory system
CPT/HCPCS: 96376 ×3; 96372 ×2; 96361; 96374; 96375; 99285; 36415; 93005; 80053; 83605 ×2; 83690; 83735; 84100; 84484; 85025; 81003; 87491; 87591; 74022; 70470; G0378 ×3; J2270 ×2; J1200; J1644 ×2; J3360 ×2; J2405 ×3; C9113 ×2; Q9967

== ENCOUNTER → 2019-04-07 | Outpatient (CLI) | payer OTHER ==
--- NOTE | 2019-04-07 21:36 | XR ---
EXAMINATION TYPE: XR lumbar spine 2 or 3V DATE OF EXAM: 04/07/2019 CLINICAL HISTORY: Lumbago. TECHNIQUE: Frontal and lateral images of the lumbar spine are obtained. COMPARISON: Lumbar spine x-ray January 26, 2019 FINDINGS: There are 5 lumbar type vertebral bodies redemonstrated. Persistent posterior interpedicul ar rods and screws with artificial disc material at L4-L5 level. Alignment stable and straightened on lateral image. Surgical clips at epigastric region are partially imaged. Vertebral body heights and disc space heights above and below surgical levels remain satisfactory. IMPRESSION: As above. No significant change from prior.
--- NOTE | 2019-04-07 21:49 | MR ---
EXAMINATION TYPE: MR cervical spine wo con DATE OF EXAM: 04/07/2019 COMPARISON: None HISTORY: 34-year-old male with neck pain extending into the right arm and hand TECHNIQUE: Multiplanar, multisequence images of the cervical spine were acquired. FINDINGS: No craniocervical junction abnormality, predental space widening, or prevertebral soft tissue swellin g. Preserved alignment of the cervical spine. No suspicious bone marrow replacement. Mild degenerative disc disease with variable mild disc desiccation and mild posterior disc bulging fr om C3 through C7 levels. Mild uncovertebral joint arthropathy and C5-C6 and scattered mild facet dege nerative changes well. At C2-C3, no canal or foraminal stenosis. At C3-C4, there is a minimal posterior disc bulge with abutment of the ventral cord. Mild facet arthr opathy. No significant canal or foraminal stenosis. At C4-C5, mild posterior disc bulge with mild facet degenerative change without significant canal or foraminal stenosis. At C5-C6, minimal posterior disc bulge with mild facet and uncovertebral joint arthropathy. No signif icant canal or foraminal stenosis. At C6-C7, no significant canal or foraminal stenosis. At C7-T1, no significant canal or foraminal stenosis. Patchy artifact projects over the cervical spinal cord limiting evaluation. No discrete T2-weighted c ord signal abnormality when correlating with the axial series. No prevertebral or paravertebral soft tissue abnormality seen. IMPRESSION: 1. Mild degenerative disc disease characterized by variable mild disc desiccation and minimal posteri or disc bulges. 2. Additional scattered mild facet and uncovertebral joint arthropathy. 3. No significant spinal canal or neuroforaminal stenosis.
== END | disposition home or self-care (01) ==
LOC: RADMRIMAIN 13:42
PROVIDERS: ATTEND Neurological Surgery
DX: M50.11 Cervical disc disorder with radiculopathy, high cervical region (principal); M46.92 Unspecified inflammatory spondylopathy, cervical region; M12.88 Other specific arthropathies, not elsewhere classified, other specified site; Z96.89 Presence of other specified functional implants; Z98.1 Arthrodesis status
CPT/HCPCS: 72100; 72141

== ENCOUNTER → 2019-04-07 | Outpatient (CLI) | payer OTHER | END | disposition home or self-care (01) | LOC: LABWHC1 15:04 | PROVIDERS: ATTEND Nurse Practitioner Psychiatric/Mental Health | DX: F32.1 Major depressive disorder, single episode, moderate (principal) | CPT/HCPCS: 36415; 80164; 82306 ==

== ENCOUNTER 2019-04-09 12:17 | Inpatient (IN) | payer OTHER ==
[2019-04-09] MEDS ORDERED: SODIUM CHLORIDE 0.9% 1,000 ML IV STA (12:45)
[2019-04-09] MEDS ORDERED: HYDROmorphone 0.5 MG/0.5 ML SYRINGE IVP STA ×2 (12:45→16:59)
[2019-04-09] MEDS ORDERED: ONDANSETRON 4 MG/2 ML VIAL IVP STA (12:45)
--- NOTE | 2019-04-09 12:55 | ED ---
General Adult HPI - General Chief complaint: Nausea/Vomiting/Diarrhea Stated complaint: Vomiting, abd pain Source: patient, RN notes reviewed, old records reviewed Mode of arrival: ambulatory Limitations: no limitations - History of Present Illness Initial comments: This is a 34-year-old male presents emergency Department with an extensive past medical history. Patient has had diabetes high blood pressure. Patient also had back surgery as well as cholecystectomy and appendectomy and bowel resection. Patient also had a stroke and has some residual left-sided weakness. Patient comes in today because he started vomiting yesterday and he is unable to keep anything down or take any of his medication. Patient is complaining of some back pain because he hasn't been able take his pain medication. Patient denies any chest pain or difficulty breathing or shortness of breath. Patient denies any diarrhea. Patient states he does have some epigastric abdominal pain but he considers it to be mild. Patient denies any recent injury or trauma. Patient denies any fever chills per patient denies any cough. Patient denies any lightheadedness or dizziness. Patient states his bowel movements have been normal - Related Data Home Medications Medication Instructions Recorded Confirmed Loratadine 10 mg PO DAILY 03/29/16 04/09/19 Omeprazole [PriLOSEC] 20 mg PO DAILY 03/29/16 04/09/19 Lisinopril [Zestril] 2.5 mg PO DAILY 01/24/17 04/09/19 Gabapentin 600 mg PO TID 07/11/18 04/09/19 HYDROcodone/APAP 10-325MG [[place] 1 tab PO QID PRN 07/11/18 04/09/19 10-325] Aspirin 81 mg PO DAILY 02/22/19 04/09/19 Atorvastatin [Lipitor] 10 mg PO DAILY 02/22/19 04/09/19 Insulin Glargine,Hum.rec.anlog 35 unit SQ HS 02/22/19 04/09/19 [Basaglar Kwikpen U-100] Venlafaxine HCl [Effexor XR] 375 mg PO QAM 02/22/19 04/09/19 tiZANidine [Zanaflex] 4 mg PO BID PRN 02/22/19 04/09/19 INSULIN LISPRO (humaLOG) [humaLOG] See Protocol SQ AC-TID 03/15/19 04/09/19 Divalproex ER [Depakote ER] 1,000 mg PO DAILY 04/09/19 04/09/19 Melatonin 5 mg PO HS 04/09/19 04/09/19 Pioglitazone [Actos] 30 mg PO DAILY 04/09/19 04/09/19 Propranolol HCl 10 mg PO DAILY 04/09/19 04/09/19 Topiramate 50 mg PO DAILY 04/09/19 04/09/19 Allergies Allergy/AdvReac Type Severity Reaction Status Date / Time etodolac [From Lodine] Allergy Rash/Hives Verified 04/09/19 12:50 ketorolac [From Toradol] Allergy Rash/Hives Verified 04/09/19 12:50 Mushroom Allergy Unknown Verified 04/09/19 12:50 Review of Systems ROS Statement: Those systems with pertinent positive or pertinent negative responses have been documented in the HPI. ROS Other: All systems not noted in ROS Statement are negative. Past Medical History Past Medical History: CVA/TIA, Diabetes Mellitus, GERD/Reflux, Hypertension Additional Past Medical History / Comment(s): having abdominal pain radiating to back, HX OF diverticultitis History of Any Multi-Drug Resistant Organisms: None Reported Past Surgical History: Appendectomy, Back Surgery, Bowel Resection, C holecystectomy, Orthopedic Surgery, Tonsillectomy Additional Past Surgical History / Comment(s): ARTHROSCOPY Knee,hiatal hernia Past Anesthesia/Blood Transfusion Reactions: Postoperative Nausea & Vomiting (PONV) Additional Past Anesthesia/Blood Transfusion Reaction / Comment(s): no hx blood transfusion Past Psychological History: Depression Smoking Status: Never smoker Past Alcohol Use History: None Reported Past Drug Use History: None Reported - Past Family History Mother Family Medical History: No Reported History Father Family Medical History: Diabetes Mellitus Additional Family Medical History / Comment(s): heart problems General Exam - General Exam Comments Initial Comments: GENERAL: Patient is well-developed and well-nourished. Patient is nontoxic and well- hydrated and is in mild distress. ENT: Neck is soft and supple. No significant lymphadenopathy is noted. Oropharynx is clear. Moist mucous membranes. Neck has full range of motion without eliciting any pain. EYES: The sclera were anicteric and conjunctiva were pink and moist. Extraocular movements were intact and pupils were equal round and reactive to light. Eyelids were unremarkable. PULMONARY: Unlabored respirations. Good breath sounds bilaterally. No audible rales rhonchi or wheezing was noted. CARDIOVASCULAR: There is a regular rate and rhythm without any murmurs gallops or rubs. ABDOMEN: Patient has mild epigastric abdominal pain SKIN: Skin is clear with no lesions or rashes and otherwise unremarkable. NEUROLOGIC: Patient is alert and oriented x3. Cranial nerves II through XII are grossly intact. She has left leg weakness when compared to the right which she states is chronic. MUSCULOSKELETAL: She has no swelling to the extremities or calf tenderness. LYMPHATICS: No significant lymphadenopathy is noted PSYCHIATRIC: Normal psychiatric evaluation. Limitations: no limitations Course Vital Signs 04/09/19 04/09/19 04/09/19 12:28 14:03 15:37 Temperature 98.1 F 98.2 F Pulse Rate 115 H 104 H Respiratory 20 18 Rate Blood Pressure 149/80 143/89 O2 Sat by Pulse 99 97 Oximetry 04/09/19 15:55 Temperature Pulse Rate 107 H Respiratory 18 Rate Blood Pressure 128/83 O2 Sat by Pulse 96 Oximetry Medical Decision Making - Medical Decision Making EKG shows normal sinus rhythm at 100 bpm HI interval 142 QRS is 82 QT interval 360 QTC is 464. Patient's EKG shows no evidence for ST segment elevation or depression. - Lab Data Result diagrams: 04/09/19 13:00 04/09/19 13:00 Lab Results 04/09/19 04/09/19 04/09/19 Range/Units 13:00 13:00 14:45 WBC 7.4 (3.8-10.6) k/uL RBC 4.93 (4.30-5.90) m/uL Hgb 14.8 (13.0-17.5) gm/dL Hct 43.4 (39.0-53.0) % MCV 88.0 (80.0-100.0) fL MCH 30.0 (25.0-35.0) pg MCHC 34.0 (31.0-37.0) g/dL RDW 12.3 (11.5-15.5) % Plt Count 251 (150-450) k/uL Neutrophils % 83 % Lymphocytes % 10 % Monocytes % 5 % Eosinophils % 1 % Basophils % 0 % Neutrophils # 6.1 (1.3-7.7) k/uL Lymphocytes # 0.8 L (1.0-4.8) k/uL Monocytes # 0.4 (0-1.0) k/uL Eosinophils # 0.0 (0-0.7) k/uL Basophils # 0.0 (0-0.2) k/uL Sodium 138 (137-145) mmol/L Potassium 4.4 (3.5-5.1) mmol/L Chloride 103 (98-107) mmol/L Carbon Dioxide 19 L (22-30) mmol/L Anion Gap 16 mmol/L BUN 17 (9-20) mg/dL Creatinine 0.77 (0.66-1.25) mg/dL Est GFR (CKD-EPI)AfAm >90 (>60 ml/min/1.73 sqM) Est GFR (CKD-EPI)NonAf >90 (>60 ml/min/1.73 sqM) Glucose 256 H (74-99) mg/dL Calcium 9.7 (8.4-10.2) mg/dL Total Bilirubin 1.0 (0.2-1.3) mg/dL AST 34 (17-59) U/L ALT 72 (21-72) U/L Alkaline Phosphatase 128 H (38-126) U/L Total Protein 8.3 H (6.3-8.2) g/dL Albumin 4.8 (3.5-5.0) g/dL Amylase <30 L (30-110) U/L Lipase 19 L (23-300) U/L Urine Color Yellow Urine Appearance Clear (Clear) Urine pH 6.5 (5.0-8.0) Ur Specific [place] 1.030 (1.001-1.035) Urine Protein Negative (Negative) Urine Glucose (UA) 4+ H (Negative) Urine Ketones 2+ H (Negative) Urine Blood Negative (Negative) Urine Nitrite Negative (Negative) Urine Bilirubin Negative (Negative) Urine Urobilinogen <2.0 (<2.0) mg/dL Ur Leukocyte Esterase Negative (Negative) Acetone, Qual Negative (Negative) Disposition Clinical Impression: Intractable nausea and vomiting Disposition: ADMITTED IP TO THIS [facility] Referrals: Tremaine Casey Jr, [Primary Care Provider] - 1-2 days Time of Disposition: 16:46
[2019-04-09] MEDS ORDERED: SODIUM CHLORIDE 0.9% 500 ML 500 ML IV ONE ×2 (12:56→15:44)
[2019-04-09] MEDS ORDERED: SODIUM CHLORIDE 0.9% 1,000 ML IV ONE ×2 (12:56→16:48)
[2019-04-09 13:15] LABS: Basophils % (A) 0 %; Eosinophils % (A) 1 %; HCT 43.4 % (39.0-53.0); HGB 14.8 gm/dL (13.0-17.5); Lymphocytes # (A) 0.8 k/uL (1.0-4.8); Lymphocytes % (A) 10 %; Mean Platelet Volume 6.1; Monocytes # (A) 0.4 k/uL (0-1.0); Monocytes % (A) 5 %; Neutrophils # (A) 6.1 k/uL (1.3-7.7); Neutrophils % (A) 83 %; Platelet Count 251 k/uL (150-450); RBC 4.93 m/uL (4.30-5.90); RDW 12.3 % (11.5-15.5); WBC 7.4 k/uL (3.8-10.6)
[2019-04-09 13:22] LABS: ALT 72 U/L (21-72); AST 34 U/L (17-59); African American GFR (CKD) >90 (>60 ml/min/1.73 sqM); Albumin 4.8 g/dL (3.5-5.0); Alkaline Phosphatase 128 U/L (38-126); Amylase <30 U/L (30-110); Anion Gap 16 mmol/L; Blood Urea Nitrogen 17 mg/dL (9-20); Calcium 9.7 mg/dL (8.4-10.2); Carbon Dioxide 19 mmol/L (22-30); Chloride 103 mmol/L (98-107); Glucose 256 mg/dL (74-99); Potassium 4.4 mmol/L (3.5-5.1); Sodium 138 mmol/L (137-145); Total Protein 8.3 g/dL (6.3-8.2)
--- NOTE | 2019-04-09 14:00 | XR ---
EXAMINATION TYPE: XR KUB DATE OF EXAM: 04/09/2019 COMPARISON: 08/30/2017 INDICATION: Abdominal pain nausea vomiting diarrhea TECHNIQUE: Single view abdomen supine view FINDINGS: Small amount of bowel gas in the right lower quadrant. No suspicious mass effect is evident. Psoas margins are normal. No organomegaly is present. Pedicle screws are present L4-L5. Surgical clips in the left upper quadrant of the abdomen IMPRESSION: 1. Unremarkable Abdomen
[2019-04-09 15:20] LABS: Appearance,Urine Clear (Clear); Bilirubin,Urine Negative (Negative); Blood,Urine Negative (Negative); Color,Urine Yellow; Glucose,Urine (UA) 4+ (Negative); Leukocyte Esterase,Urine Negative (Negative); Nitrite,Urine Negative (Negative); PH, Urine 6.5 (5.0-8.0); Protein,Urine Negative (Negative); Urobilinogen,Urine <2.0 mg/dL (<2.0)
[2019-04-09 15:33] LABS: Ketones,Urine 2+ (Negative)
[2019-04-09] MEDS ORDERED: METOCLOPRAMIDE 5 MG/ML 2 ML VIAL IVP STA (15:41)
[2019-04-09] MEDS ORDERED: diphenhydrAMINE 50 MG/ML 1 ML VIAL IVP STA (16:21)
[2019-04-09] MEDS ORDERED: PROMETHAZINE INJ 25 MG/ML 1 ML VIAL IM STA (16:21)
[2019-04-09] MEDS ORDERED: ACETAMINOPHEN TAB 325 MG TAB PO PRN (16:54)
[2019-04-09 17:52] LABS: Glucose,Whole Blood 179 mg/dL (75-99)
[2019-04-09 18:04] VITALS: BMI 32.9
[2019-04-09] MEDS: INSULIN ASPART (NovoLOG) 100 UNIT/ML VIAL SQ SCH ×2 (18:10→21:51)
[2019-04-09 20:21] LABS: Glucose,Whole Blood 169 mg/dL (75-99)
[2019-04-09] MEDS: MELATONIN 5 MG TABLET PO SCH (21:50)
[2019-04-09] MEDS: ONDANSETRON 4 MG/2 ML VIAL IVP PRN (21:59)
[2019-04-09] MEDS: GABAPENTIN 300 MG CAP PO SCH (22:05)
[2019-04-09] MEDS: tiZANidine 4 MG TAB PO PRN (22:05)
[2019-04-09] MEDS: DICYCLOMINE 10 MG CAP PO SCH (22:05)
[2019-04-10 07:07] LABS: Glucose,Whole Blood 159 mg/dL (75-99)
[2019-04-10] MEDS: VENLAFAXINE HCL ER 75 MG CAP PO SCH (09:28)
[2019-04-10] MEDS: LISINOPRIL 2.5 MG TAB PO SCH (09:28)
[2019-04-10] MEDS: PROPRANOLOL 10 MG TAB PO SCH (09:28)
[2019-04-10] MEDS: DIVALPROEX ER 500 MG TAB.ER.24H PO SCH (09:28)
[2019-04-10] MEDS: ASPIRIN 81 MG PO SCH (09:28)
[2019-04-10] MEDS: ATORVASTATIN 10 MG TAB PO SCH (09:29)
[2019-04-10] MEDS: LORATADINE 10 MG TAB PO SCH (09:29)
[2019-04-10] MEDS: GABAPENTIN 300 MG CAP PO SCH ×3 (09:29→22:07)
[2019-04-10] MEDS: PANTOPRAZOLE 40 MG TABLET PO SCH (09:29)
[2019-04-10] MEDS: INSULIN ASPART (NovoLOG) 100 UNIT/ML VIAL SQ SCH ×4 (09:29→22:09)
[2019-04-10] MEDS: ONDANSETRON 4 MG/2 ML VIAL IVP PRN ×3 (09:30→22:07)
[2019-04-10] MEDS: DICYCLOMINE 10 MG CAP PO SCH ×4 (09:30→22:07)
[2019-04-10] MEDS: tiZANidine 4 MG TAB PO PRN (10:19)
[2019-04-10] MEDS ORDERED: ACETAMINOPHEN IV (For NPO) 1,000 MG in EMPTY BAG 1 BAG IVPB SCH (10:20)
[2019-04-10] MEDS ORDERED: ACETAMINOPHEN IV (For NPO) 1,000 MG in EMPTY BAG 1 BAG IVPB PRN (10:28)
[2019-04-10 11:18] LABS: HCT 40.6 % (39.0-53.0); HGB 13.7 gm/dL (13.0-17.5); MCH 30.5 pg (25.0-35.0); MCHC 33.9 g/dL (31.0-37.0); Mean Platelet Volume 6.2; Platelet Count 246 k/uL (150-450); RBC 4.51 m/uL (4.30-5.90); RDW 12.2 % (11.5-15.5); WBC 6.3 k/uL (3.8-10.6)
[2019-04-10 11:30] LABS: African American GFR (CKD) >90 (>60 ml/min/1.73 sqM); Anion Gap 13 mmol/L; Blood Urea Nitrogen 14 mg/dL (9-20); Calcium 9.1 mg/dL (8.4-10.2); Carbon Dioxide 26 mmol/L (22-30); Chloride 102 mmol/L (98-107); Glucose 184 mg/dL (74-99); Potassium 3.4 mmol/L (3.5-5.1); Sodium 141 mmol/L (137-145)
[2019-04-10] MEDS ORDERED: Potassium Replacement Protocol 1 EACH MISC MISCELLANE PRN (11:50)
[2019-04-10 11:52] LABS: Glucose,Whole Blood 179 mg/dL (75-99)
[2019-04-10] MEDS: POTASSIUM CHLORIDE ER 20 MEQ TAB.ER PO SCH (12:11)
[2019-04-10] MEDS: HYDROcodone/APAP 10-325MG 1 EACH TAB PO PRN ×2 (14:10→23:05)
--- NOTE | 2019-04-10 16:03 | P.HPIM ---
History of Present Illness H&P Date: 04/10/19 Chief Complaint: Abdominal pain, nausea vomiting diarrhea This is a 34-year-old gentleman with medical history of diverticulitis, bowel resection, cholecystectomy, CVA with residual left-sided weakness, gastroesophageal reflux disease, diabetes, depression, hypertension and multiple other medical issues. Recently hospitalized with similar presentation. EGD on 02/23/2019 reported mild antral gastritis. Patient reports chronic nausea, etiology unknown. Denies any alcohol or illicit drug use. CBC unremarkable, alk phosphatase 128, amylase, lipase low, blood sugar 256 on admission. Acetone negative, UA reported 4+ glucose and 2+ ketones. Afebrile. Received IV fluid hydration, Zofran. Denies chest pain, palpitations or shortness of breath. Denies lightheadedness, dizziness or focal deficits. Review of Systems ROS Statement: Those systems with pertinent positive or pertinent negative responses have been documented in the HPI. ROS Other: All systems not noted in ROS Statement are negative. Past Medical History Past Medical History: CVA/TIA, Diabetes Mellitus, GERD/Reflux, Hypertension Additional Past Medical History / Comment(s): having abdominal pain radiating to back, HX OF diverticultitis History of Any Multi-Drug Resistant Organisms: None Reported Past Surgical History: Appendectomy, Back Surgery, Bowel Resection, Cholecystectomy, Orthopedic Surgery, Tonsillectomy Additional Past Surgical History / Comment(s): ARTHROSCOPY Knee x 3,hiatal hernia Past Anesthesia/Blood Transfusion Reactions: Postoperative Nausea & Vomiting (PONV) Additional Past Anesthesia/Blood Transfusion Reaction / Comment(s): no hx blood transfusion Past Psychological History: Depression Smoking Status: Never smoker Past Alcohol Use History: None Reported Past Drug Use History: None Reported - Past Family History Mother Family Medical History: No Reported History Father Family Medical History: Diabetes Mellitus Additional Family Medical History / Comment(s): heart problems Medications and Allergies Home Medications Medication Instructions Recorded Confirmed Type Loratadine 10 mg PO DAILY 03/29/16 04/09/19 History Omeprazole [PriLOSEC] 20 mg PO DAILY 03/29/16 04/09/19 History Lisinopril [Zestril] 2.5 mg PO DAILY 01/24/17 04/09/19 History Gabapentin 600 mg PO TID 07/11/18 04/09/19 History HYDROcodone/APAP 10-325MG [[place] 1 tab PO QID PRN 07/11/18 04/09/19 History 10-325] Aspirin 81 mg PO DAILY 02/22/19 04/09/19 History Atorvastatin [Lipitor] 10 mg PO DAILY 02/22/19 04/09/19 History Insulin Glargine,Hum.rec.anlog 35 unit SQ HS 02/22/19 04/09/19 History [Basaglar Kwikpen U-100] Venlafaxine HCl [Effexor XR] 375 mg PO QAM 02/22/19 04/09/19 History tiZANidine [Zanaflex] 4 mg PO BID PRN 02/22/19 04/09/19 History INSULIN LISPRO (humaLOG) [humaLOG] See Protocol SQ AC-TID 03/15/19 04/09/19 History Divalproex ER [Depakote ER] 1,000 mg PO DAILY 04/09/19 04/09/19 History Melatonin 5 mg PO HS 04/09/19 04/09/19 History Pioglitazone [Actos] 30 mg PO DAILY 04/09/19 04/09/19 History Propranolol HCl 10 mg PO DAILY 04/09/19 04/09/19 History Topiramate 50 mg PO DAILY 04/09/19 04/09/19 History Allergies Allergy/AdvReac Type Severity Reaction Status Date / Time etodolac [From Lodine] Allergy Rash/Hives Verified 04/09/19 12:50 ketorolac [From Toradol] Allergy Rash/Hives Verified 04/09/19 12:50 Mushroom Allergy Unknown Verified 04/09/19 12:50 canagliflozin [From Invokana] AdvReac Vomiting Verified 04/09/19 18:45 Physical Exam Vitals: Vital Signs Temp Pulse Pulse Pulse Resp BP BP 04/10/19 05:24 99.4 F 86 16 119/69 04/09/19 21:00 98.2 F 114 H 18 124/81 04/09/19 18:14 16 04/09/19 18:07 97.9 F 106 H 16 132/74 04/09/19 15:55 107 H 18 128/83 04/09/19 15:37 98.2 F 04/09/19 14:03 104 H 18 143/89 04/09/19 12:28 98.1 F 115 H 20 149/80 Pulse Ox 10/25/19 05:24 95 04/09/19 21:00 97 04/09/19 18:14 04/09/19 18:07 98 04/09/19 15:55 96 04/09/19 15:37 04/09/19 14:03 97 04/09/19 12:28 99 Intake and Output 04/09/19 04/10/19 04/10/19 22:59 06:59 14:59 Intake Total 200 120 Output Total 300 Balance 200 -300 120 Intake: Oral 200 120 Output: Urine 300 Other: # Voids 1 # Bowel Movements 1 PHYSICAL EXAM: VITAL SIGNS: As above GENERAL: Sitting up in bed, no acute distress HEENT: Conjunctivae normal. eyes normal. Oral mucosa moist NECK: No JVD. No thyroid enlargement. No LNs CARDIOVASCULAR: S1, S2 regular.. No murmur RESPIRATION: Breath sounds diminished in the bases. No rhonchi or crackles. No bronchial breathing. ABDOMEN: Soft, nondistended, mild mid epigastric tenderness. No guarding. no masses palpable. No ascites, No hepatosplenomegaly.Bowel sounds heard. LEGS: No edema. no swelling PSYCHIATRY: Alert and oriented X3, mood and affect normal. NERVOUS SYSTEM: Cranial N 2-12 grossly normal. Moves all 4 limbs. Diffuse weakness No focal deficits. Strength and sensation grossly intact.. Skin: no lesions, no rash Joints: No active swelling. No inflammation. Lymphatic system. No LN neck axilla. Results CBC & Chem 7: 04/10/19 10:59 04/10/19 10:59 Labs: Abnormal Lab Results - Last 24 Hours (Table) 04/09/19 04/09/19 04/09/19 Range/Units 13:00 13:00 14:45 Lymphocytes # 0.8 L (1.0-4.8) k/uL Carbon Dioxide 19 L (22-30) mmol/L Glucose 256 H (74-99) mg/dL POC Glucose (mg/dL) (75-99) mg/dL Alkaline Phosphatase 128 H (38-126) U/L Total Protein 8.3 H (6.3-8.2) g/dL Amylase <30 L (30-110) U/L Lipase 19 L (23-300) U/L Urine Glucose (UA) 4+ H (Negative) Urine Ketones 2+ H (Negative) 04/09/19 04/09/19 04/10/19 Range/Units 17:49 20:15 07:03 Lymphocytes # (1.0-4.8) k/uL Carbon Dioxide (22-30) mmol/L Glucose (74-99) mg/dL POC Glucose (mg/dL) 179 H 169 H 159 H (75-99) mg/dL Alkaline Phosphatase (38-126) U/L Total Protein (6.3-8.2) g/dL Amylase (30-110) U/L Lipase (23-300) U/L Urine Glucose (UA) (Negative) Urine Ketones (Negative) Thrombosis Risk Factor Assmnt - Choose All That Apply Any of the Below Risk Factors Present?: No Assessment and Plan Assessment: Abdominal pain with intractable nausea vomiting and diarrhea, possible diabetic gastroparesis, gastroenteritis -Diabetes mellitus, uncontrolled, hyperglycemia -Chronic nausea -Recent EGD reportedly mild antral gastritis -Gastroesophageal reflux disease -CVA/TIA with residual left-sided weakness -Chronic back pain with Pain Contract -Hypertension -Postop nausea vomiting -Depression -History of pseudoseizures Plan: Continue on current medication regime ,monitoring and symptomatic treat ment.PPI, Clear liquid diet, NovoLog sliding scale at this time, anti-emetics. Close monitoring of Accu-Cheks. Home meds have been reviewed and resumed accordingly. IV Tylenol prn pain until tolerating diet. Barium swallow with small bowel follow-through ordered. Reglan added to med regime. GI consulted. The impression and plan of care has been dictated as directed. : I performed a history and examination of this patient, discussed the same with the dictator. I agree with the dictator's note ,documented as a scribe. Any additional findings or plans will be noted.
[2019-04-10 16:50] LABS: Glucose,Whole Blood 207 mg/dL (75-99)
[2019-04-10] MEDS: METOCLOPRAMIDE 10 MG TAB PO SCH (17:24)
[2019-04-10 19:04] LABS: Hemoglobin A1C 7.8 % (4.0-6.0)
[2019-04-10 20:48] LABS: Glucose,Whole Blood 167 mg/dL (75-99)
[2019-04-10] MEDS ORDERED: INSULIN DETEMIR (LEVEMIR) 100 UNIT/ML SYR SQ SCH (21:00)
[2019-04-10 21:33] VITALS: TEMP 97.9
[2019-04-10] MEDS: MELATONIN 5 MG TABLET PO SCH (22:00)
[2019-04-11 06:59] LABS: Glucose,Whole Blood 105 mg/dL (75-99)
[2019-04-11] MEDS: INSULIN ASPART (NovoLOG) 100 UNIT/ML VIAL SQ SCH ×3 (07:04→16:59)
[2019-04-11 08:32] LABS: Basophils % (A) 1 %; Eosinophils # (A) 0.2 k/uL (0-0.7); Eosinophils % (A) 4 %; HCT 41.9 % (39.0-53.0); HGB 14.3 gm/dL (13.0-17.5); Lymphocytes # (A) 1.2 k/uL (1.0-4.8); Lymphocytes % (A) 21 %; MCHC 34.2 g/dL (31.0-37.0); MCV 87.8 fL (80.0-100.0); Monocytes # (A) 0.4 k/uL (0-1.0); Monocytes % (A) 8 %; Neutrophils # (A) 3.5 k/uL (1.3-7.7); Neutrophils % (A) 63 %; Platelet Count 239 k/uL (150-450); RBC 4.77 m/uL (4.30-5.90); RDW 12.2 % (11.5-15.5); WBC 5.5 k/uL (3.8-10.6)
[2019-04-11 08:45] LABS: African American GFR (CKD) >90 (>60 ml/min/1.73 sqM); Anion Gap 9 mmol/L; Blood Urea Nitrogen 12 mg/dL (9-20); Calcium 9.1 mg/dL (8.4-10.2); Carbon Dioxide 28 mmol/L (22-30); Chloride 102 mmol/L (98-107); Glucose 111 mg/dL (74-99); Potassium 4.1 mmol/L (3.5-5.1); Sodium 139 mmol/L (137-145)
--- NOTE | 2019-04-11 09:03 | FL ---
EXAMINATION TYPE: FL small bowel follow through , DATE OF EXAM ORDERED: 04/11/2019 HISTORY: nausea and vomiting. COMPARISON: Previous KUB dated 04/09/2019. FINDINGS: There has been a previous interpedicular fusion at L4-5 there has been previous epigastric surgery. Skin Former film demonstrates a nonobstructive abdominal gas pattern. The patient swallowed barium of these. There was prompt egress of barium from the stomach into the sm all bowel. Small bowel caliber is normal. Small bowel fold pattern is normal. There is a normal termi nal ileum. There is a normal transit time. IMPRESSION: NORMAL SMALL BOWEL FOLLOW-THROUGH.
[2019-04-11] MEDS: METOCLOPRAMIDE 10 MG TAB PO SCH ×3 (09:15→16:59)
[2019-04-11] MEDS: GABAPENTIN 300 MG CAP PO SCH ×2 (09:15→16:08)
[2019-04-11] MEDS: ASPIRIN 81 MG PO SCH (09:15)
[2019-04-11] MEDS: DIVALPROEX ER 500 MG TAB.ER.24H PO SCH (09:15)
[2019-04-11] MEDS: LORATADINE 10 MG TAB PO SCH (09:16)
[2019-04-11] MEDS: DICYCLOMINE 10 MG CAP PO SCH ×3 (09:16→16:59)
[2019-04-11] MEDS: PANTOPRAZOLE 40 MG TABLET PO SCH (09:16)
[2019-04-11] MEDS: VENLAFAXINE HCL ER 75 MG CAP PO SCH (09:16)
[2019-04-11] MEDS: ATORVASTATIN 10 MG TAB PO SCH (09:16)
[2019-04-11] MEDS: tiZANidine 4 MG TAB PO PRN (09:18)
[2019-04-11] MEDS: HYDROcodone/APAP 10-325MG 1 EACH TAB PO PRN ×2 (09:26→16:10)
[2019-04-11] MEDS: ONDANSETRON 4 MG/2 ML VIAL IVP PRN (09:26)
[2019-04-11] MEDS: PROPRANOLOL 10 MG TAB PO SCH (09:36)
[2019-04-11] MEDS: LISINOPRIL 2.5 MG TAB PO SCH (09:36)
[2019-04-11 11:44] LABS: Glucose,Whole Blood 118 mg/dL (75-99)
--- NOTE | 2019-04-11 12:51 | P.DS ---
Providers Date of admission: 04/09/19 16:48 Expected date of discharge: 04/11/19 Attending physician: Russ Pope Consults: 04/10/19 14:29 Consult Physician Routine Consulting Provider: Joshua Dominguez Consult Reason/Comments: intractable nausea and vomiting Do you want consulting provider notified?: Yes Primary care physician: Tremaine Casey - Basim Diagnosis(es) (1) Hemiplegia Current Visit: Yes Status: Acute (2) CVA (cerebrovascular accident) Current Visit: Yes Status: Acute (3) Essential (primary) hypertension Current Visit: Yes Status: Acute (4) GERD (gastroesophageal reflux disease) Current Visit: Yes Status: Acute (5) Degenerative disc disease, lumbar Current Visit: Yes Status: Acute (6) History of pseudoseizure Current Visit: Yes Status: Acute (7) Intractable nausea and vomiting Current Visit: Yes Status: Acute (8) Abdominal pain Current Visit: No Status: Acute (9) Dehydration Current Visit: No Status: Acute (10) IDDM (insulin dependent diabetes mellitus) Current Visit: No Status: Acute Hospital Course: This is a 34-year-old gentleman with medical history of diverticulitis, bowel resection, cholecystectomy, CVA with residual left-sided weakness, gastroesophageal reflux disease, diabetes, depression, hypertension and multiple other medical issues. Recently hospitalized with similar presentation. EGD on 02/23/2019 reported mild antral gastritis. Patient reports chronic nausea, etiology unknown. Denies any alcohol or illicit drug use. CBC unremarkable, alk phosphatase 128, amylase, lipase low, blood sugar 256 on admission. Acetone negative, UA reported 4+ glucose and 2+ ketones. Afebrile. Received IV fluid hydration, Zofran. Denies chest pain, palpitations or shortness of breath. Denies lightheadedness, dizziness or focal deficits. 04/11/2019: Patient is doing better with his current medications with the addition of Reglan and Bentyl. He reports nausea and vomiting have resolved. His abdominal pains much improved. Denies any other complaints today. PHYSICAL EXAM: GENERAL: Sitting up in bed, no acute distress NECK: No JVD. No thyroid enlargement. No LNs CARDIOVASCULAR: S1, S2 regular.. No murmur RESPIRATION: Breath sounds diminished in the bases. No rhonchi or crackles. No bronchial breathing. ABDOMEN: Soft, nondistended, mild mid epigastric tenderness. No guarding. no masses palpable. No ascites, No hepatosplenomegaly.Bowel sounds heard PSYCHIATRY: Alert and oriented X3, mood and affect normal. Patient Condition at Discharge: Fair Plan - Discharge Summary New Discharge Prescriptions: Continue Loratadine 10 mg PO DAILY Omeprazole [PriLOSEC] 20 mg PO DAILY Lisinopril [Zestril] 2.5 mg PO DAILY HYDROcodone/APAP 10-325MG [[place] 10-325] 1 tab PO QID PRN PRN Reason: Pain Gabapentin 600 mg PO TID tiZANidine [Zanaflex] 4 mg PO BID PRN PRN Reason: Muscle Pain Atorvastatin [Lipitor] 10 mg PO DAILY Insulin Glargine,Hum.rec.anlog [Basaglar Kwikpen U-100] 35 unit SQ HS Venlafaxine HCl [Effexor XR] 375 mg PO QAM Aspirin 81 mg PO DAILY INSULIN LISPRO (humaLOG) [humaLOG] See Protocol SQ AC-TID Divalproex ER [Depakote ER] 1,000 mg PO DAILY Topiramate 50 mg PO DAILY Propranolol HCl 10 mg PO DAILY Pioglitazone [Actos] 30 mg PO DAILY Melatonin 5 mg PO HS Discharge Medication List Loratadine 10 mg PO DAILY 03/29/16 [History] Omeprazole [PriLOSEC] 20 mg PO DAILY 03/29/16 [History] Lisinopril [Zestril] 2.5 mg PO DAILY 01/24/17 [History] Gabapentin 600 mg PO TID 07/11/18 [History] HYDROcodone/APAP 10-325MG [[place] 10-325] 1 tab PO QID PRN 07/11/18 [History] Aspirin 81 mg PO DAILY 02/22/19 [History] Atorvastatin [Lipitor] 10 mg PO DAILY 02/22/19 [History] Insulin Glargine,Hum.rec.anlog [Basaglar Kwikpen U-100] 35 unit SQ HS 02/22/19 [History] Venlafaxine HCl [Effexor XR] 375 mg PO QAM 02/22/19 [History] tiZANidine [Zanaflex] 4 mg PO BID PRN 02/22/19 [History] INSULIN LISPRO (humaLOG) [humaLOG] See Protocol SQ AC-TID 03/15/19 [History] Divalproex ER [Depakote ER] 1,000 mg PO DAILY 04/09/19 [History] Melatonin 5 mg PO HS 04/09/19 [History] Pioglitazone [Actos] 30 mg PO DAILY 04/09/19 [History] Propranolol HCl 10 mg PO DAILY 04/09/19 [History] Topiramate 50 mg PO DAILY 04/09/19 [History] Follow up Appointment(s)/Referral(s): Tremaine Casey Jr, DO [Primary Care Provider] - 1 Week Joshua Dominguez MD [STAFF PHYSICIAN] - 1 Week Discharge Disposition: HOME SELF-CARE
[2019-04-11 14:15] VITALS: BP 116/77; PULSE 95; RESP 18
[2019-04-11 16:41] LABS: Glucose,Whole Blood 261 mg/dL (75-99)
--- NOTE | 2019-04-11 18:51 | CONS ---
CONSULTATION DATE OF SERVICE: 04/11/2019 REASON FOR CONSULTATION: Nausea, vomiting, diarrhea. HISTORY OF PRESENT ILLNESS: The patient is a 34-year-old pleasant white male who was admitted to the hospital complaining of acute onset of nausea, vomiting, epigastric pain for the last 2 days duration. He threw up at least 20 times. Continued to have some diarrhea at the same time and came to the emergency room and subsequently hospitalized. He had several episodes 3 weeks ago. He underwent an upper endoscopy by Dr. Dominguez February 23, 2019 and was noted to have mild gastritis. The patient has been maintained on Prilosec 20 mg twice daily and was doing well. Since being in the hospital he has been receiving Protonix 40 mg q.12 hours and his symptoms are gradually improving. He is asking for advancing his diet today. He reports no episodes of nausea and vomiting since morning. PAST MEDICAL HISTORY: Diabetes mellitus, hypertension, GERD, and history of TIA in the past. PAST SURGICAL HISTORY: Back surgery, appendectomy, cholecystectomy, tonsillectomy, hiatal hernia repair. MEDICATIONS: At home include [place], gabapentin, Zestril, Prilosec, loratadine, Lipitor, Effexor, Zanaflex, Humalog, Depakote, melatonin, Actos, propranolol and ( ). ALLERGIES: ETODOLAC. SOCIAL HISTORY: No smoking. No alcohol use. FAMILY HISTORY: Unremarkable. REVIEW OF SYSTEMS: CARDIOPULMONARY: He denies any chest pain, no shortness of breath. GENITOURINARY: No dysuria or hematuria. MUSCULOSKELETAL: Unremarkable. SKIN: Unremarkable. ENDOCRINE: Unremarkable. PSYCHIATRIC: Unremarkable. NEUROLOGY: Unremarkable. ENT/VISION: Unremarkable. CONSTITUTIONAL: No recent weight loss. No fever, chills, night sweats. PHYSICAL EXAMINATION: He appears comfortable. No apparent distress. Vital signs are stable. Blood pressure is 132/78, pulse rate 84, and temperature 97.6. HEENT examination unremarkable. Conjunctivae pink. Sclerae anicteric. Oral cavity, no lesions. NECK: No JVD or lymph node enlargement. CHEST: Clear to auscultation. HEART: Regular rate and rhythm. ABDOMEN: Soft. Bowel sounds are positive. No organomegaly. EXTREMITIES: No pedal edema. SKIN: No rashes. NEUROLOGIC: Alert and oriented x3. No focal deficits. LABS: Done at the time of admission to the hospital: WBC was 5.5, hemoglobin 14.3, platelets are normal. Basic metabolic panel is within normal limits. IMPRESSION: 1. Acute onset of nausea, vomiting, and diarrhea of 2 days' duration, probably related to viral gastroenteritis which is gradually improving. 2. History of gastroesophageal reflux disease with worsening heartburn and chest pain and epigastric pain. Presently on IV Protonix 40 mg q.12 hours and doing much better. 3. Longstanding history of diabetes mellitus, under good control. 4. History of cerebrovascular accident/transient ischemic attack in the past. RECOMMENDATIONS: 1. Advance diet as tolerated. 2. He was advised to increase the Prilosec to 20 mg twice daily after he goes home to control GERD symptoms better. 3. He was briefly educated about diet modification and anti-reflux measures. 4. He can be discharged home today with outpatient followup in 2-3 weeks. Thank you for this consultation. MMODL / ANETAN: [id number] /
== END 2019-04-11 18:46 | disposition home or self-care (01) | DRG 392 ==
LOC: EC 12:17 → 4MS4W 16:48 → OBSVTOIN 04-11 12:29
PROVIDERS: ADMIT Family Medicine; ATTEND Family Medicine
DX: A08.4 Viral intestinal infection, unspecified (principal); I69.354 Hemiplegia and hemiparesis following cerebral infarction affecting left non-dominant side; E11.65 Type 2 diabetes mellitus with hyperglycemia; E86.0 Dehydration; F32.9 Major depressive disorder, single episode, unspecified; G89.29 Other chronic pain; I10 Essential (primary) hypertension; K21.9 Gastro-esophageal reflux disease without esophagitis; K29.70 Gastritis, unspecified, without bleeding; M51.36 Other intervertebral disc degeneration, lumbar region; M54.9 Dorsalgia, unspecified; Z87.19 Personal history of other diseases of the digestive system; Z79.4 Long term (current) use of insulin; Z79.82 Long term (current) use of aspirin; Z79.899 Other long term (current) drug therapy; Z90.49 Acquired absence of other specified parts of digestive tract; Z88.8 Allergy status to other drugs, medicaments and biological substances; Z83.3 Family history of diabetes mellitus
CPT/HCPCS: 36415; 74018; 74250; 80048; 80053; 81003; 82009; 82150; 83036; 83690; 85025; 85027; 87324; 93005; 96361; 96372; 96374; 96375; 96376; 99285

== ENCOUNTER → 2019-05-01 | Outpatient (CLI) | payer OTHER ==
--- NOTE | 2019-05-01 16:00 | US ---
EXAMINATION TYPE: US venous doppler duplex LE LT DATE OF EXAM: 05/01/2019 3:40 PM COMPARISON: NONE CLINICAL HISTORY: Left Lower Ext, R22.42 Swelling. Edema and pain left leg SIDE PERFORMED: left TECHNIQUE: The lower extremity deep venous system is examined utilizing real time linear array sonog nitza with graded compression, doppler sonography and color-flow sonography. VESSELS IMAGED: External Iliac Vein (EIV) Common Femoral Vein Deep Femoral Vein Greater Saphenous Vein * Femoral Vein Popliteal Vein Small Saphenous Vein * Proximal Calf Veins (* superficial vessels) Grayscale, color doppler, spectral doppler imaging performed of the deep veins of the left lower extr emity. There is normal flow, compressibility, vascular waveforms. Left Leg: No evidence of DVT IMPRESSION: No sonographic evidence of deep venous thrombosis within the left lower extremity.
[2019-05-01 16:48] LABS: Potassium 4.4 mmol/L (3.5-5.1)
== END | disposition home or self-care (01) ==
LOC: RADUSWWP 15:17
PROVIDERS: ATTEND Family Medicine
DX: R22.42 Localized swelling, mass and lump, left lower limb (principal); Z91.041 Radiographic dye allergy status; Z88.6 Allergy status to analgesic agent
CPT/HCPCS: 80051

== ENCOUNTER → 2019-05-08 | Outpatient (CLI) | payer OTHER ==
--- NOTE | 2019-05-09 03:30 | MR ---
EXAMINATION TYPE: MR shoulder RT wo con DATE OF EXAM: 05/08/2019 COMPARISON: 07/30/2017 HISTORY: Pain in right shoulder TECHNIQUE: Multiplanar, multisequence imaging of the right shoulder is performed without contrast. FINDINGS: Subscapularis tendon is intact. Biceps tendon is intact. The glenoid betzy appear intact. There is th ickening and increased signal in the supraspinatus tendon at the greater tuberosity of the humerus. T here is some spurring at the AC joint. There is no significant subacromial impingement. I see no foca l bone destruction. The glenohumeral joint is anatomic. IMPRESSION: There is thickening and increased signal in the supraspinatus tendon. No retraction. There is almost full-thickness tear of the supraspinatus tendon. No significant change compared to old exam. Slight i ncreased sub deltoid fluid consistent with bursitis. Unchanged.
== END | disposition home or self-care (01) ==
LOC: RADMRIMAIN 20:42
PROVIDERS: ATTEND Orthopaedic Surgery Sports Medicine
DX: M75.121 Complete rotator cuff tear or rupture of right shoulder, not specified as traumatic (principal); M67.813 Other specified disorders of tendon, right shoulder

== ENCOUNTER 2019-05-17 12:42 | Inpatient (IN) | payer OTHER ==
[2019-05-17] MEDS ORDERED: SODIUM CHLORIDE 0.9% 2,000 ML IV STA (13:08)
[2019-05-17] MEDS ORDERED: METOCLOPRAMIDE 5 MG/ML 2 ML VIAL IVP STA (13:09)
[2019-05-17] MEDS ORDERED: diphenhydrAMINE 50 MG/ML 1 ML VIAL IVP STA (13:09)
[2019-05-17] MEDS ORDERED: HYDROmorphone 1 MG/ML 1 ML SYRINGE IVP STA (13:09)
--- NOTE | 2019-05-17 13:19 | ED ---
Abdominal Pain HPI - General Chief Complaint: Abdominal Pain Stated Complaint: abdominal pain, vomiting Time Seen by Provider: 05/17/19 12:58 Source: patient, RN notes reviewed Mode of arrival: wheelchair Limitations: physical limitation - History of Present Illness Initial Comments: 34-year-old male presents emergency from chief complaint of nausea vomiting abdominal pain. Patient's had recurrent episodes and recent hospitalization for similar issues. Patient had EGD in which they believe that he has gastroparesis related to his diabetes. Patient's blood sugar is 160 this morning. Patient has a glucose monitoring system. Patient states he has epigastric pain which has been his symptoms that he presents with with persistent vomiting. He states it started last night. Patient denies any fevers or chills. Patient offers no other complaints. - Related Data Home Medications Medication Instructions Recorded Confirmed Loratadine 10 mg PO DAILY 03/29/16 04/09/19 Omeprazole [PriLOSEC] 20 mg PO DAILY 03/29/16 04/09/19 Lisinopril [Zestril] 2.5 mg PO DAILY 01/24/17 04/09/19 Gabapentin 600 mg PO TID 07/11/18 04/09/19 HYDROcodone/APAP 10-325MG [[place] 1 tab PO QID PRN 07/11/18 04/09/19 10-325] Aspirin 81 mg PO DAILY 02/22/19 04/09/19 Atorvastatin [Lipitor] 10 mg PO DAILY 02/22/19 04/09/19 Insulin Glargine,Hum.rec.anlog 35 unit SQ HS 02/22/19 04/09/19 [Lucy Mcallister U-100] Venlafaxine HCl [Effexor XR] 375 mg PO QAM 02/22/19 04/09/19 tiZANidine [Zanaflex] 4 mg PO BID PRN 02/22/19 04/09/19 INSULIN LISPRO (humaLOG) [humaLOG] See Protocol SQ AC-TID 03/15/19 04/09/19 Divalproex ER [Depakote ER] 1,000 mg PO DAILY 04/09/19 04/09/19 Melatonin 5 mg PO HS 04/09/19 04/09/19 Pioglitazone [Actos] 30 mg PO DAILY 04/09/19 04/09/19 Propranolol HCl 10 mg PO DAILY 04/09/19 04/09/19 Topiramate 50 mg PO DAILY 04/09/19 04/09/19 Allergies Allergy/AdvReac Type Severity Reaction Status Date / Time etodolac [From Lodine] Allergy Rash/Hives Verified 05/17/19 12:54 ketorolac [From Toradol] Allergy Rash/Hives Verified 05/17/19 12:54 Mushroom Allergy Unknown Verified 05/17/19 12:54 canagliflozin [From Invokana] AdvReac Vomiting Verified 05/17/19 12:54 Review of Systems ROS Statement: Those systems with pertinent positive or pertinent negative responses have been documented in the HPI. ROS Other: All systems not noted in ROS Statement are negative. Past Medical History Past Medical History: CVA/TIA, Diabetes Mellitus, GERD/Reflux, Hypertension Additional Past Medical History / Comment(s): having abdominal pain radiating to back, HX OF diverticultitis History of Any Multi-Drug Resistant Organisms: None Reported Past Surgical History: Appendectomy, Back Surgery, Bowel Resection, Cholecystectomy, Orthopedic Surgery, Tonsillectomy Additional Past Surgical History / Comment(s): ARTHROSCOPY Knee x 3,hiatal hernia Past Anesthesia/Blood Transfusion Reactions: Postoperative Nausea & Vomiting ( PONV) Additional Past Anesthesia/Blood Transfusion Reaction / Comment(s): no hx blood transfusion Past Psychological History: Depression Smoking Status: Never smoker Past Alcohol Use History: None Reported Past Drug Use History: None Reported - Past Family History Mother Family Medical History: No Reported History Father Family Medical History: Diabetes Mellitus Additional Family Medical History / Comment(s): heart problems General Exam Limitations: no limitations General appearance: alert, in no apparent distress Head exam: Present: atraumatic, normocephalic, normal inspection Eye exam: Present: normal appearance, PERRL, EOMI. Absent: scleral icterus, conjunctival injection, periorbital swelling ENT exam: Present: normal exam, mucous membranes moist Neck exam: Present: normal inspection, full ROM. Absent: tenderness, meningismus, lymphadenopathy Respiratory exam: Present: normal lung sounds bilaterally. Absent: respiratory distress, wheezes, rales, rhonchi, stridor Cardiovascular Exam: Present: normal rhythm, tachycardia, normal heart sounds. Absent: systolic murmur, diastolic murmur, rubs, gallop, clicks GI/Abdominal exam: Present: soft, tenderness (Epigastric), normal bowel sounds. Absent: distended, guarding, rebound, rigid Back exam: Absent: CVA tenderness (R), CVA tenderness (L) Neurological exam: Present: alert Skin exam: Present: warm, dry, intact, normal color. Absent: rash Course Vital Signs 05/17/19 12:51 Temperature 98.3 F Pulse Rate 118 H Respiratory 20 Rate Blood Pressure 118/83 O2 Sat by Pulse 99 Oximetry Medical Decision Making - Medical Decision Making Patient had persistent vomiting, is found to be severely dehydrated with elevated lactic acid related to fluid loss, diabetes. Patient is acetone negative though he is mildly metabolic acidosis. Patient given a fluid bolus, given IV insulin. Patient be admitted for intractable nausea vomiting, gastroparesis, hyperglycemia with metabolic acidosis. - Lab Data Result diagrams: 05/17/19 13:37 05/17/19 13:37 Lab Results 05/17/19 05/17/19 05/17/19 Range/Units 13:37 13:37 13:37 WBC 10.8 H (3.8-10.6) k/uL RBC 5.39 (4.30-5.90) m/uL Hgb 16.5 (13.0-17.5) gm/dL Hct 48.2 (39.0-53.0) % MCV 89.6 (80.0-100.0) fL MCH 30.6 (25.0-35.0) pg MCHC 34.1 (31.0-37.0) g/dL RDW 12.7 (11.5-15.5) % Plt Count 304 (150-450) k/uL Neutrophils % 88 % Lymphocytes % 7 % Monocytes % 4 % Eosinophils % 0 % Basophils % 0 % Neutrophils # 9.4 H (1.3-7.7) k/uL Lymphocytes # 0.8 L (1.0-4.8) k/uL Monocytes # 0.4 (0-1.0) k/uL Eosinophils # 0.0 (0-0.7) k/uL Basophils # 0.0 (0-0.2) k/uL Sodium 136 L (137-145) mmol/L Potassium 4.4 (3.5-5.1) mmol/L Chloride 96 L (98-107) mmol/L Carbon Dioxide 20 L (22-30) mmol/L Anion Gap 20 mmol/L BUN 24 H (9-20) mg/dL Creatinine 1.08 (0.66-1.25) mg/dL Est GFR (CKD-EPI)AfAm >90 (>60 ml/min/1.73 sqM) Est GFR (CKD-EPI)NonAf 88 (>60 ml/min/1.73 sqM) Glucose 329 H (74-99) mg/dL Plasma Lactic Acid Ja (0.7-2.0) mmol/L Calcium 10.0 (8.4-10.2) mg/dL Total Bilirubin 1.0 (0.2-1.3) mg/dL AST 27 (17-59) U/L ALT 36 (21-72) U/L Alkaline Phosphatase 126 (38-126) U/L Total Protein 9.4 H (6.3-8.2) g/dL Albumin 5.4 H (3.5-5.0) g/dL Amylase 45 (30-110) U/L Lipase 39 (23-300) U/L Urine Color Yellow Urine Appearance Clear (Clear) Urine pH 5.5 (5.0-8.0) Ur Specific [place] 1.037 H (1.001-1.035) Urine Protein Trace H (Negative) Urine Glucose (UA) 4+ H (Negative) Urine Ketones 1+ H (Negative) Urine Blood Negative (Negative) Urine Nitrite Negative (Negative) Urine Bilirubin Negative (Negative) Urine Urobilinogen <2.0 (<2.0) mg/dL Ur Leukocyte Esterase Negative (Negative) Acetone, Qual Negative (Negative) 05/17/19 Range/Units 13:37 WBC (3.8-10.6) k/uL RBC (4.30-5.90) m/uL Hgb (13.0-17.5) gm/dL Hct (39.0-53.0) % MCV (80.0-100.0) fL MCH (25.0-35.0) pg MCHC (31.0-37.0) g/dL RDW (11.5-15.5) % Plt Count (150-450) k/uL Neutrophils % % Lymphocytes % % Monocytes % % Eosinophils % % Basophils % % Neutrophils # (1.3-7.7) k/uL Lymphocytes # (1.0-4.8) k/uL Monocytes # (0-1.0) k/uL Eosinophils # (0-0.7) k/uL Basophils # (0-0.2) k/uL Sodium (137-145) mmol/L Potassium (3.5-5.1) mmol/L Chloride (98-107) mmol/L Carbon Dioxide (22-30) mmol/L Anion Gap mmol/L BUN (9-20) mg/dL Creatinine (0.66-1.25) mg/dL Est GFR (CKD-EPI)AfAm (>60 ml/min/1.73 sqM) Est GFR (CKD-EPI)NonAf (>60 ml/min/1.73 sqM) Glucose (74-99) mg/dL Plasma Lactic Acid Ja 5.8 H* (0.7-2.0) mmol/L Calcium (8.4-10.2) mg/dL Total Bilirubin (0.2-1.3) mg/dL AST (17-59) U/L ALT (21-72) U/L Alkaline Phosphatase (38-126) U/L Total Protein (6.3-8.2) g/dL Albumin (3.5-5.0) g/dL Amylase (30-110) U/L Lipase (23-300) U/L Urine Color Urine Appearance (Clear) Urine pH (5.0-8.0) Ur Specific [place] (1.001-1.035) Urine Protein (Negative) Urine Glucose (UA) (Negative) Urine Ketones (Negative) Urine Blood (Negative) Urine Nitrite (Negative) Urine Bilirubin (Negative) Urine Urobilinogen (<2.0) mg/dL Ur Leukocyte Esterase (Negative) Acetone, Qual (Negative) Critical Care Time Critical Care Time: Yes Total Critical Care Time: 35 Critical Care Time: Total 35 minutes of critical care time were used initially evaluated patient, reviewed past medical history review by her medical records and ordering labs. Initial fluid bolus of 2 L given, antiemetics including Reglan, Benadryl, Phenergan. He's had persistent nausea vomiting. Patient's lactic acid is el evated at 5.8 with metabolic acidosis this most likely related to dehydration mild DKA. Patient will be admitted for fluid hydration, antiemetics, pain control, insulin. He is discussed with admitting physician. Disposition Clinical Impression: Intractable nausea and vomiting, Abdominal pain, Lactic acidosis, Dehydration, IDDM (insulin dependent diabetes mellitus), Gastroparesis Disposition: ADMITTED IP TO THIS [facility] Condition: Serious Referrals: Tremaine Casey Jr, DO [Primary Care Provider] - 1-2 days
[2019-05-17 13:48] LABS: Basophils % (A) 0 %; Eosinophils % (A) 0 %; HCT 48.2 % (39.0-53.0); HGB 16.5 gm/dL (13.0-17.5); Lymphocytes # (A) 0.8 k/uL (1.0-4.8); Lymphocytes % (A) 7 %; MCH 30.6 pg (25.0-35.0); MCHC 34.1 g/dL (31.0-37.0); MCV 89.6 fL (80.0-100.0); Monocytes # (A) 0.4 k/uL (0-1.0); Monocytes % (A) 4 %; Neutrophils # (A) 9.4 k/uL (1.3-7.7); Neutrophils % (A) 88 %; Platelet Count 304 k/uL (150-450); RBC 5.39 m/uL (4.30-5.90); RDW 12.7 % (11.5-15.5); WBC 10.8 k/uL (3.8-10.6)
[2019-05-17] MEDS ORDERED: PROMETHAZINE INJ 25 MG in SODIUM CHLORIDE 0.9% 50 ML IVPB STA (13:52)
[2019-05-17 13:58] LABS: ALT 36 U/L (21-72); AST 27 U/L (17-59); African American GFR (CKD) >90 (>60 ml/min/1.73 sqM); Albumin 5.4 g/dL (3.5-5.0); Alkaline Phosphatase 126 U/L (38-126); Amylase 45 U/L (30-110); Anion Gap 20 mmol/L; Blood Urea Nitrogen 24 mg/dL (9-20); Carbon Dioxide 20 mmol/L (22-30); Chloride 96 mmol/L (98-107); Glucose 329 mg/dL (74-99); Non-African American GFR(CKD) 88 (>60 ml/min/1.73 sqM); Potassium 4.4 mmol/L (3.5-5.1); Sodium 136 mmol/L (137-145); Total Protein 9.4 g/dL (6.3-8.2)
[2019-05-17 14:05] LABS: Appearance,Urine Clear (Clear); Bilirubin,Urine Negative (Negative); Blood,Urine Negative (Negative); Color,Urine Yellow; Glucose,Urine (UA) 4+ (Negative); Ketones,Urine 1+ (Negative); Leukocyte Esterase,Urine Negative (Negative); Nitrite,Urine Negative (Negative); PH, Urine 5.5 (5.0-8.0); Protein,Urine Trace (Negative); Specific Gravity,Urine 1.037 (1.001-1.035); Urobilinogen,Urine <2.0 mg/dL (<2.0)
--- NOTE | 2019-05-17 14:22 | XR ---
EXAMINATION TYPE: XR KUB DATE OF EXAM: 05/17/2019 COMPARISON: 04/09/2019 HISTORY: Pain and vomiting TECHNIQUE: 2 views supine FINDINGS: There is no sign of intestinal obstruction or pneumoperitoneum. Fecal pattern is normal. Th ere are numerous surgical clips over the left upper quadrant. There is posterior fusion surgery in th e lower lumbar spine. There is barium filled diverticulum in the proximal sigmoid colon. IMPRESSION: Previous surgery. Nonacute abdomen. No adverse change compared to last exam.
[2019-05-17] MEDS ORDERED: INSULIN REGULAR 100 UNIT/ML VIAL IV ONE (14:28)
[2019-05-17] MEDS ORDERED: NALOXONE 0.4 MG/ML 1 ML VIAL IV PRN (14:35)
[2019-05-17] MEDS ORDERED: ONDANSETRON 4 MG/2 ML VIAL IVP PRN ×2 (14:35→19:21)
[2019-05-17] MEDS: SODIUM CHLORIDE 0.9% 1,000 ML IV SCH (14:50)
[2019-05-17] MEDS: HYDROmorphone 1 MG/ML 1 ML SYRINGE IVP PRN ×3 (15:35→22:56)
[2019-05-17 16:03] VITALS: RESP 17
[2019-05-17 16:47] LABS: Glucose,Whole Blood 245 mg/dL (75-99)
[2019-05-17] MEDS: METOCLOPRAMIDE 5 MG/ML 2 ML VIAL IVP SCH ×2 (17:04→23:03)
[2019-05-17] MEDS: INSULIN ASPART (NovoLOG) 100 UNIT/ML VIAL SQ SCH ×2 (17:13→20:11)
[2019-05-17] MEDS ORDERED: tiZANidine 4 MG TAB PO PRN (18:22)
[2019-05-17 20:03] LABS: Glucose,Whole Blood 255 mg/dL (75-99)
[2019-05-17] MEDS: ONDANSETRON 8 MG in SODIUM CHLORIDE 0.9% 50 ML IVPB PRN (20:38)
[2019-05-17] MEDS ORDERED: MELATONIN 5 MG TABLET PO SCH (21:00)
[2019-05-17] MEDS: GABAPENTIN 300 MG CAP PO SCH (21:14)
[2019-05-18] MEDS: ONDANSETRON 8 MG in SODIUM CHLORIDE 0.9% 50 ML IVPB PRN (02:48)
[2019-05-18] MEDS: HYDROmorphone 1 MG/ML 1 ML SYRINGE IVP PRN ×2 (02:52→05:48)
[2019-05-18] MEDS: SODIUM CHLORIDE 0.9% 1,000 ML IV SCH ×2 (04:10→11:56)
[2019-05-18] MEDS: METOCLOPRAMIDE 5 MG/ML 2 ML VIAL IVP SCH ×2 (05:48→11:56)
[2019-05-18 06:55] LABS: Glucose,Whole Blood 180 mg/dL (75-99)
[2019-05-18] MEDS: INSULIN ASPART (NovoLOG) 100 UNIT/ML VIAL SQ SCH ×2 (07:11→11:57)
[2019-05-18 08:35] VITALS: BP 127/82; PULSE 89; TEMP 98.2
[2019-05-18] MEDS: HYDROmorphone 0.5 MG/0.5 ML SYRINGE IVP PRN ×2 (08:58→12:04)
[2019-05-18] MEDS: GABAPENTIN 300 MG CAP PO SCH (08:58)
[2019-05-18] MEDS ORDERED: POTASSIUM CHLORIDE ER 10 MEQ TAB.ER.PRT PO SCH (09:00)
[2019-05-18] MEDS ORDERED: TOPIRAMATE 100 MG TAB PO SCH (09:00)
[2019-05-18] MEDS ORDERED: HYDROCHLOROTHIAZIDE 25 MG TAB PO SCH (09:00)
[2019-05-18] MEDS ORDERED: ASPIRIN 81 MG PO SCH (09:00)
[2019-05-18] MEDS ORDERED: LORATADINE 10 MG TAB PO SCH (09:00)
[2019-05-18] MEDS ORDERED: DIVALPROEX ER 500 MG TAB.ER.24H PO SCH ×2 (09:00→21:00)
[2019-05-18] MEDS ORDERED: PANTOPRAZOLE 40 MG TABLET PO SCH (09:00)
[2019-05-18] MEDS ORDERED: VENLAFAXINE HCL ER 150 MG CAP PO SCH (09:00)
[2019-05-18] MEDS ORDERED: PIOGLITAZONE 30 MG TAB PO SCH (09:00)
[2019-05-18] MEDS ORDERED: LISINOPRIL 2.5 MG TAB PO SCH (09:00)
[2019-05-18] MEDS ORDERED: ATORVASTATIN 10 MG TAB PO SCH (09:00)
[2019-05-18 11:22] LABS: Glucose,Whole Blood 177 mg/dL (75-99)
--- NOTE | 2019-05-18 14:11 | P.HPIM ---
History of Present Illness H&P Date: 05/18/19 Chief Complaint: Abdominal pain This is a 34-year-old gentleman with medical history of diverticulitis, bowel resection, cholecystectomy, CVA ,gastroesophageal reflux disease, diabetes, depression, hypertension, EGD on 02/23/2019 reported mild antral gastritis,chronic nausea and multiple other medical issues. Patient presented to the ER with nausea vomiting, diarrhea, right upper quadrant abdominal pain, with no fevers or chills 1 day.Afebrile,WBC 10.8.,elevated lactic acid 5.8, down to 1.8, acetone negative. sodium 136, BUN 24, creatinine 1.08.urine negative with 1+ ketones, 4+ glucose, trace protein, specific gravity 1.037.glucose on admission 329,now better controlled-currently in the 170s.KUB reported nonacute abdomen .Received IV fluid hydration, Zofran,Reglan, Benadryl, Phenergan,Dilaudid. Denies chest pain, palpitations or shortness of breath. Denies lightheadedness, dizziness or focal deficits. Review of Systems ROS Statement: Those systems with pertinent positive or pertinent negative responses have been documented in the HPI. ROS Other: All systems not noted in ROS Statement are negative. Past Medical History Past Medical History: CVA/TIA, Diabetes Mellitus, GERD/Reflux, Hypertension Additional Past Medical History / Comment(s): having abdominal pain radiating to back, HX OF diverticultitis History of Any Multi-Drug Resistant Organisms: None Reported Past Surgical History: Appendectomy, Back Surgery, Bowel Resection, Cholecystectomy, Orthopedic Surgery, Tonsillectomy Additional Past Surgical History / Comment(s): ARTHROSCOPY Knee x 3,hiatal hernia Past Anesthesia/Blood Transfusion Reactions: Postoperative Nausea & Vomiting (PONV) Additional Past Anesthesia/Blood Transfusion Reaction / Comment(s): no hx blood transfusion Past Psychological History: Depression Smoking Status: Never smoker Past Alcohol Use History: None Reported Past Drug Use History: None Reported - Past Family History Mother Family Medical History: No Reported History Father Family Medical History: Diabetes Mellitus Additional Family Medical History / Comment(s): heart problems Medications and Allergies Home Medications Medication Instructions Recorded Confirmed Type Loratadine 10 mg PO DAILY 03/29/16 05/17/19 History Omeprazole [PriLOSEC] 40 mg PO DAILY 03/29/16 05/17/19 History Lisinopril [Zestril] 2.5 mg PO DAILY 01/24/17 05/17/19 History Gabapentin 600 mg PO TID 07/11/18 05/17/19 History HYDROcodone/APAP 10-325MG [[place] 1 tab PO QID PRN 07/11/18 05/17/19 History 10-325] Aspirin 81 mg PO DAILY 02/22/19 05/17/19 History Atorvastatin [Lipitor] 10 mg PO DAILY 02/22/19 05/17/19 History Insulin Glargine,Hum.rec.anlog 35 unit SQ HS 02/22/19 05/17/19 History [Basaglar Kwikpen U-100] Venlafaxine HCl [Effexor XR] 150 mg PO QAM 02/22/19 05/17/19 History tiZANidine [Zanaflex] 4 mg PO BID PRN 02/22/19 05/17/19 History INSULIN LISPRO (humaLOG) [humaLOG] See Protocol SQ AC-TID 03/15/19 05/17/19 History Divalproex ER [Depakote ER] 1,000 mg PO DAILY 04/09/19 05/17/19 History Melatonin 5 mg PO HS 04/09/19 05/17/19 History Pioglitazone [Actos] 30 mg PO DAILY 04/09/19 05/17/19 History Metoclopramide [Reglan] 15 mg PO DAILY PRN 05/17/19 05/17/19 History Ondansetron HCl [Zofran] 8 mg PO DAILY PRN 05/17/19 05/17/19 History Potassium Chloride ER [K-Dur 10] 10 meq PO DAILY 05/17/19 05/17/19 History Topiramate [Topamax] 100 mg PO DAILY 05/17/19 05/17/19 History Allergies Allergy/AdvReac Type Severity Reaction Status Date / Time etodolac [From Lodine] Allergy Rash/Hives Verified 05/17/19 15:26 ketorolac [From Toradol] Allergy Rash/Hives Verified 05/17/19 15:26 Mushroom Allergy Unknown Verified 05/17/19 15:26 canagliflozin [From Invokana] AdvReac Vomiting Verified 05/17/19 15:26 Physical Exam Vitals: Vital Signs Temp Pulse Pulse Pulse Resp BP BP 12/02/19 08:00 17 05/18/19 07:00 98.2 F 89 17 127/82 05/18/19 01:50 98.4 F 96 97/56 05/17/19 19:05 98.9 F 110 H 111/70 05/17/19 15:45 97.9 F 107 H 17 131/84 05/17/19 15:38 98.5 F 05/17/19 15:02 116 H 20 129/89 Pulse Ox 05/18/19 08:00 05/18/19 07:00 96 05/18/19 01:50 97 05/17/19 19:05 97 05/17/19 15:45 98 05/17/19 15:38 05/17/19 15:02 98 Intake and Output 05/17/19 05/18/19 05/18/19 22:59 06:59 14:59 Intake Total 250 1150 Output Total 700 550 Balance -450 600 Intake: Intake, IV Titration 250 1050 Amount Ondansetron 8 mg In 50 50 Sodium Chloride 0.9% 50 ml @ 216 mls/hr IVPB Q6HR PRN Rx#:[id number] Sodium Chloride 0.9% 1, 200 1000 000 ml @ 100 mls/hr IV . Q10H KENNY Rx#:[id number] Oral 100 Output: Urine 700 550 Other: Voiding Method Urinal # Voids 1 1 Weight 89.811 kg VITAL SIGNS: As above GENERAL: Sitting up in bed, no acute distress HEENT: Conjunctivae normal. eyes normal. Oral mucosa moist NECK: No JVD. No thyroid enlargement. No LNs CARDIOVASCULAR: S1, S2 regular.. No murmur RESPIRATION: Breath sounds diminished in the bases. No rhonchi or crackles. No bronchial breathing. ABDOMEN: Soft, nondistended, mild diffusetenderness. No guarding. no masses palpable. No ascites, No hepatosplenomegaly.Bowel sounds heard. LEGS: No edema. no swelling PSYCHIATRY: Alert and oriented X3, mood and affect normal. NERVOUS SYSTEM: Cranial N 2-12 grossly normal. Moves all 4 limbs. Diffuse weakness No focal deficits. Strength and sensation grossly intact.. Skin: no lesions, no rash Joints: No active swelling. No inflammation. Lymphatic system. No LN neck axilla. Results CBC & Chem 7: 05/17/19 13:37 05/17/19 13:37 Labs: Abnormal Lab Results - Last 24 Hours (Table) 05/17/19 05/17/19 05/17/19 Range/Units 13:37 13:37 13:37 WBC 10.8 H (3.8-10.6) k/uL Neutrophils # 9.4 H (1.3-7.7) k/uL Lymphocytes # 0.8 L (1.0-4.8) k/uL Sodium 136 L (137-145) mmol/L Chloride 96 L (98-107) mmol/L Carbon Dioxide 20 L (22-30) mmol/L BUN 24 H (9-20) mg/dL Glucose 329 H (74-99) mg/dL POC Glucose (mg/dL) (75-99) mg/dL Plasma Lactic Acid Ja (0.7-2.0) mmol/L Total Protein 9.4 H (6.3-8.2) g/dL Albumin 5.4 H (3.5-5.0) g/dL Ur Specific [place] 1.037 H (1.001-1.035) Urine Protein Trace H (Negative) Urine Glucose (UA) 4+ H (Negative) Urine Ketones 1+ H (Negative) 05/17/19 05/17/19 05/17/19 Range/Units 13:37 16:45 20:02 WBC (3.8-10.6) k/uL Neutrophils # (1.3-7.7) k/uL Lymphocytes # (1.0-4.8) k/uL Sodium (137-145) mmol/L Chloride (98-107) mmol/L Carbon Dioxide (22-30) mmol/L BUN (9-20) mg/dL Glucose (74-99) mg/dL POC Glucose (mg/dL) 245 H 255 H (75-99) mg/dL Plasma Lactic Acid Ja 5.8 H* (0.7-2.0) mmol/L Total Protein (6.3-8.2) g/dL Albumin (3.5-5.0) g/dL Ur Specific [place] (1.001-1.035) Urine Protein (Negative) Urine Glucose (UA) (Negative) Urine Ketones (Negative) 12/02/19 12/02/19 Range/Units 06:53 11:19 WBC (3.8-10.6) k/uL Neutrophils # (1.3-7.7) k/uL Lymphocytes # (1.0-4.8) k/uL Sodium (137-145) mmol/L Chloride (98-107) mmol/L Carbon Dioxide (22-30) mmol/L BUN (9-20) mg/dL Glucose (74-99) mg/dL POC Glucose (mg/dL) 180 H 177 H (75-99) mg/dL Plasma Lactic Acid Ja (0.7-2.0) mmol/L Total Protein (6.3-8.2) g/dL Albumin (3.5-5.0) g/dL Ur Specific [place] (1.001-1.035) Urine Protein (Negative) Urine Glucose (UA) (Negative) Urine Ketones (Negative) Thrombosis Risk Factor Assmnt - Choose All That Apply Any of the Below Risk Factors Present?: Yes Each Factor Represents 1 point: Oral contraceptives or hormone replacement therapy Other Risk Factors: Yes Each Risk Factor Represents 3 Points: Family history of DVT/PE Other congenital or acquired thrombophilia - If yes, enter type in comment: No Thrombosis Risk Factor Assessment Total Risk Factor Score: 4 Thrombosis Risk Factor Assessment Level: Moderate Risk Assessment and Plan Assessment: Right upper quadrant abdominal pain with nausea vomiting and diarrhea, possible gastritis,diabetic gastroparesis, gastroenteritis.right upper quadrant pain subsided in a patient with cholecystectomy 1-2 years ago.Rule out choledocholithiasis, OP MRCP. -lactic acidosis -Dehydration -Diabetes mellitus, uncontrolled, hyperglycemia,A1c pending -Chronic nausea -Recent EGD reportedly mild antral gastritis -Gastroesophageal reflux disease -CVA/TIA with residual left-sided weakness -Chronic back pain with Pain Contract -Hypertension -Postop nausea vomiting -Depression -History of pseudoseizures Plan: Continue on current medication regime ,monitoring and symptomatic treatment. tolerating diet, no further vomiting or diarrhea. right upper quadrant abdominal pain subsided. Significant clinical improvement. Dilaudid, Zofran discontinued.Patient is being discharged home in stable condition with guarded prognosis. Scheduled follow-up with Dr. Casey tomorrow. Patient had cholecystectomy 1-2 years ago, on admission complained of right upper quadrant pain, possibly choledocholithiasis, will need MRCP arranged outpatient. The impression and plan of care has been dictated as directed. : I performed a history and examination of this patient, discussed the same with the dictator. I agree with the dictator's note ,documented as a scribe. Any additional findings or plans will be noted.
[2019-05-18 14:55] LABS: Hemoglobin A1C 7.5 % (4.0-6.0)
== END 2019-05-18 15:40 | disposition home or self-care (01) | DRG 74 ==
LOC: EC 12:42 → 4SSUR 15:07
PROVIDERS: ADMIT Family Medicine; ATTEND Family Medicine
DX: E11.43 Type 2 diabetes mellitus with diabetic autonomic (poly)neuropathy (principal); E87.2 Acidosis; I69.954 Hemiplegia and hemiparesis following unspecified cerebrovascular disease affecting left non-dominant side; E11.65 Type 2 diabetes mellitus with hyperglycemia; K31.84 Gastroparesis; F44.5 Conversion disorder with seizures or convulsions; E86.0 Dehydration; I10 Essential (primary) hypertension; F32.9 Major depressive disorder, single episode, unspecified; K29.50 Unspecified chronic gastritis without bleeding; K21.9 Gastro-esophageal reflux disease without esophagitis; R40.2142 Coma scale, eyes open, spontaneous, at arrival to emergency department; R40.2362 Coma scale, best motor response, obeys commands, at arrival to emergency department; R40.2252 Coma scale, best verbal response, oriented, at arrival to emergency department; G89.29 Other chronic pain; M54.9 Dorsalgia, unspecified; Z79.4 Long term (current) use of insulin; Z79.82 Long term (current) use of aspirin; Z79.899 Other long term (current) drug therapy; Z88.6 Allergy status to analgesic agent; Z90.49 Acquired absence of other specified parts of digestive tract; Z98.890 Other specified postprocedural states; Z88.8 Allergy status to other drugs, medicaments and biological substances; Z91.018 Allergy to other foods; Z83.3 Family history of diabetes mellitus
CPT/HCPCS: 36415; 74018; 80053; 81003; 82009; 82150; 83036; 83605; 83690; 85025; 96361; 96374; 96375; 96376; 99285

== ENCOUNTER → 2019-07-03 | Outpatient (CLI) | payer OTHER ==
--- NOTE | 2019-07-03 16:06 | XR ---
EXAMINATION TYPE: XR lumbar spine 2 or 3V DATE OF EXAM: 07/03/2019 COMPARISON: 04/07/2019 HISTORY: History of lumbar fusion TECHNIQUE: Three-view lumbar spine FINDINGS: Pedicle screws and rods are present within the lowest 2 lumbar vertebral levels. The lowest level may be a transitional sacral level. The upper lumbar spine pedicles are intact. Disc heights a re otherwise preserved. Some narrowing of the lowest postsurgical level is present. Findings are stab le over the interval. IMPRESSION: 1. No significant interval change from prior examination. Postsurgical changes in the lower lumbar l evel
== END | disposition home or self-care (01) ==
LOC: RADXRMAIN 15:35
PROVIDERS: ATTEND Neurological Surgery
DX: Z09 Encounter for follow-up examination after completed treatment for conditions other than malignant neoplasm (principal); Z98.1 Arthrodesis status
CPT/HCPCS: 72100

== ENCOUNTER → 2019-08-14 | Outpatient (CLI) | payer OTHER ==
[2019-08-14 16:44] LABS: Appearance,Urine Clear (Clear); Bilirubin,Urine Negative (Negative); Blood,Urine Negative (Negative); Color,Urine Yellow; Glucose,Urine (UA) 4+ (Negative); Ketones,Urine Negative (Negative); Leukocyte Esterase,Urine Negative (Negative); Nitrite,Urine Negative (Negative); Protein,Urine Trace (Negative); Specific Gravity,Urine 1.017 (1.001-1.035); Urobilinogen,Urine <2.0 mg/dL (<2.0)
[2019-08-14 16:45] LABS: Basophils % (A) 1 %; Eosinophils # (A) 0.2 k/uL (0-0.7); Eosinophils % (A) 3 %; HCT 43.5 % (39.0-53.0); HGB 14.6 gm/dL (13.0-17.5); Lymphocytes # (A) 1.2 k/uL (1.0-4.8); Lymphocytes % (A) 23 %; MCH 31.4 pg (25.0-35.0); MCHC 33.6 g/dL (31.0-37.0); MCV 93.4 fL (80.0-100.0); Mean Platelet Volume 7.4; Monocytes # (A) 0.2 k/uL (0-1.0); Monocytes % (A) 4 %; Neutrophils # (A) 3.4 k/uL (1.3-7.7); Neutrophils % (A) 67 %; Platelet Count 302 k/uL (150-450); RBC 4.66 m/uL (4.30-5.90); RDW 12.8 % (11.5-15.5); WBC 5.1 k/uL (3.8-10.6)
[2019-08-14 23:50] LABS: African American GFR (CKD) 99.6 (60.0-200.0); Albumin 4.5 g/dL (3.80-4.90); Albumin/Globulin Ratio 1.88 (1.60-3.17); Anion Gap 11.2 mmol/L (4.00-12.00); BUN/Creat Ratio 12.73 Ratio (12.00-20.00); Calcium 9.3 mg/dL (8.7-10.3); Carbon Dioxide 21.8 mmol/L (21.6-31.8); Globulin 2.4 g/dL (1.6-3.3); Non-African American GFR(CKD) 85.9 (60.0-200.0); Potassium 4.5 mmol/L (3.5-5.5); Total Bilirubin 0.4 mg/dL (0.2-1.2); Total Protein 6.9 g/dL (6.2-8.2)
[2019-08-15 04:26] LABS: Hemoglobin A1C 5.9 % (4.0-6.0)
== END | disposition home or self-care (01) ==
LOC: LABWHC1 16:05
PROVIDERS: ATTEND Family Medicine
DX: Z01.810 Encounter for preprocedural cardiovascular examination (principal); Z01.812 Encounter for preprocedural laboratory examination
CPT/HCPCS: 36415; 80053; 81003; 83036; 85025; 87086; 93005

== ENCOUNTER → 2020-01-01 | Outpatient (CLI) | payer OTHER ==
--- NOTE | 2020-01-01 15:37 | CT ---
EXAMINATION TYPE: CT lumbar spine wo con DATE OF EXAM: 01/01/2020 COMPARISON: 11/19/2018 HISTORY: Low back pain with leg weakness CT DLP: [address] of the lumbar spine was performed. Bone and soft tissue window settings are submitted as well as coronal and sagittal reconstructions. L1-L2: Normal disc space height. No disc herniation protrusion or central stenosis. No facet joint arthropathy. No evidence for foraminal encroachment. L2-L3: Normal disc space height. No disc herniation protrusion or central stenosis. No facet joint arthropathy. No evidence for foraminal encroachment. L3-L4: Mild disc desiccation noted. Posterior disc bulge. Spinal canal is congenitally diminutive in size with borderline stenosis noted at this level. No evidence for disc herniation. L4-L5: Postoperative changes of the lumbar fusion and decompressive laminectomy. Pedicular screws are in place. Alignment is anatomic. No evidence for recurrent or residual disease. L5-S1: Normal disc space height. No disc herniation protrusion or central stenosis. No facet joint arthropathy. No evidence for foraminal encroachment. No paraspinal masses are identified. Lumbar segments are free if fracture. IMPRESSION: 1. Appropriate postoperative alignment and appearance at the L4-5 level status post fusion. 2. Borderline central stenosis at L3-4.
== END | disposition home or self-care (01) ==
LOC: RADCTMAIN 15:00
PROVIDERS: ATTEND Neurological Surgery
DX: Z09 Encounter for follow-up examination after completed treatment for conditions other than malignant neoplasm (principal); M48.061 Spinal stenosis, lumbar region without neurogenic claudication; Z98.1 Arthrodesis status
CPT/HCPCS: 72131

== ENCOUNTER → 2020-02-12 | Outpatient (CLI) | payer OTHER ==
--- NOTE | 2020-02-14 17:26 | MR ---
EXAMINATION TYPE: MR cspine/tspine/lspine wo con DATE OF EXAM: 02/12/2020 COMPARISON: None HISTORY: Spine pain, leg weakness CONTRAST: Performed utilizing 0 mL intravenous gadolinium contrast. TECHNIQUE: Multiplanar multiecho imaging on a 3.0 Lorna magnet is performed through the cervical spin e. FINDINGS: The craniovertebral junction is normal. Vertebral body alignment has a kyphosis centered a t C4-5. C7-T1: No focal disc herniation or significant disc bulge is evident. No spinal canal stenosis or n eural foraminal stenosis is present. C6-7: No focal disc herniation or significant disc bulge is evident. No spinal canal stenosis or veronica ral foraminal stenosis is present. C5-6: No focal disc herniation or significant disc bulge is evident. No spinal canal stenosis or veronica ral foraminal stenosis is present. C4-5: A be some mild left lateral disc bulge into the foramen causing mild to moderate foraminal sten osis. Tiny central protrusion is present with anterior thecal sac contact which comes in close approx imation with the spinal cord. No AP spinal canal stenosis present. No cord deformity is evident.. C3-4: No focal disc herniation or significant disc bulge is evident. No spinal canal stenosis or veronica ral foraminal stenosis is present. C2-3: No focal disc herniation or significant disc bulge is evident. No spinal canal stenosis or veronica ral foraminal stenosis is present. IMPRESSIONS: 1. Mild disc bulging C4-5 with anterior thecal sac contact. No spinal canal stenosis present. 2. Disc bulging into left lateral foramen contributing to moderate foraminal stenosis. Correlate with the radicular symptoms. EXAMINATION TYPE: MR cspine/tspine/lspine wo con DATE OF EXAM: 02/12/2020 COMPARISON: HISTORY: Spine pain, leg weakness CONTRAST: Performed utilizing 0 mL intravenous Gadavist gadolinium contrast. TECHNIQUE: Multiplanar, multiecho imaging on a 3.0 Lorna magnet is performed through the thoracic spi ne. Spinal cord maintains normal signal through its visualized course. Vertebral body alignment is normal. Vertebral body heights are preserved. Disc heights are preserved. Disc hydration levels are preserved. No syrinx is evident. No spinal canal stenosis is evident. IMPRESSIONS: 1. Normal MRI thoracic spine EXAMINATION TYPE: MR cspine/tspine/lspine wo con DATE OF EXAM: 02/12/2020 COMPARISON: CT lumbar spine 01/01/2020 HISTORY: Spine pain, leg weakness CONTRAST: 0 mL intravenous Gadavist. TECHNIQUE: Multiplanar, multisequence images of the lumbar spine were acquired. FINDINGS: L5-S1: No significant disc bulge or disc herniation. No spinal canal stenosis. No foraminal stenosi s. L4-L5: No significant disc bulge or disc herniation. No spinal canal stenosis. No foraminal stenosi s. Disc desiccation is present. L3-L4: Based disc bulge has moderate anterior thecal sac flattening. No AP spinal canal stenosis is p resent. Neural foramen are patent. Facet hypertrophy and ligamentum flavum laxity has minimal posteri or lateral thecal sac compression. L2-L3: No significant disc bulge or disc herniation. No spinal canal stenosis. No foraminal stenosi s. L1-L2: No significant disc bulge or disc herniation. No spinal canal stenosis. No foraminal stenosi s. T12-L1: No significant disc bulge or disc herniation. No spinal canal stenosis. No foraminal stenos is. Disc desiccation is present L4-5. Pedicle screws are present L4-L5. This causes limitation at this le sudhir. IMPRESSION: 1. Broad-based disc bulge with moderate anterior thecal sac flattening L3-4. No spinal canal stenosis is present.
== END | disposition home or self-care (01) ==
LOC: RADMRIMAIN 16:02
PROVIDERS: ATTEND Neurological Surgery
DX: M50.221 Other cervical disc displacement at C4-C5 level (principal); M51.26 Other intervertebral disc displacement, lumbar region; M54.16 Radiculopathy, lumbar region
CPT/HCPCS: 72141; 72146; 72148

== ENCOUNTER → 2020-03-17 | Outpatient (CLI) | payer MEDICARE, OTHER ==
[2020-03-18 04:01] LABS: Hemoglobin A1C 6.6 % (4.0-6.0)
[2020-03-18 05:54] LABS: African American GFR (CKD) 110.9 (60.0-200.0); Calcium 9.6 mg/dL (8.7-10.3); Chol/HDL Ratio 4.66; LDL Cholesterol,Calculated 139.2 mg/dL (0.0-131.0); Non-African American GFR(CKD) 95.7 (60.0-200.0); Potassium 4.5 mmol/L (3.5-5.5); VLDL Calculation 21.8 mg/dL (5.00-40.00)
== END | disposition home or self-care (01) ==
LOC: LABWHC1 15:31
PROVIDERS: ATTEND Internal Medicine
DX: E10.65 Type 1 diabetes mellitus with hyperglycemia (principal)
CPT/HCPCS: 36415; 80048; 80061; 83036

== ENCOUNTER → 2020-06-13 | Outpatient (CLI) | payer MEDICARE, OTHER ==
--- NOTE | 2020-06-13 16:06 | CT ---
EXAMINATION TYPE: CT abdomen pelvis wo con DATE OF EXAM: 06/13/2020 COMPARISON: 02/22/2019 HISTORY: 35-year-old male K57.30, Abdominal pain CT DLP: 1034 mGycm. Automated exposure control for dose reduction was used. TECHNIQUE: Contiguous axial scanning of the abdomen and pelvis without IV contrast. Coronal and sagit shin reconstructions performed. FINDINGS: Heart normal size without pericardial effusion. Lung bases clear without pleural effusion. Multiple surgical clips at the GE junction and left upper quadrant. Suspect prior hiatal hernia repai r. However, there is nodular soft tissue prominence at the level of the distal esophagus measuring 2. 9 cm, similar compared to 02/22/2019. A slipped wrap is not excluded. Liver borderline in size at 17.6 cm with low-attenuation. Gallbladder surgically absent. Adrenal glands, kidneys, spleen, and pancreas show no gross antibody by noncontrast CT. No dilated small bowel, free fluid, or free air. No mesenteric or retroperitoneal lymphadenopathy. Surgical clips in the right lower quadrant is unchanged. Scattered mild stool. Scattered diverticular change, greatest in the left side of the colon. Mild circumferential wall thickening of the mid forrest sverse colon, suspected to be on the basis of underdistention. No pericolonic inflammatory change. Mild circumferential bladder wall thickening. Prostate gland measures 4.4 cm wide. No abnormal fluid collection in the pelvis or pelvic lymphadenopathy. Bones: Mild degenerative change at the hips. L4-L5 posterior and interbody lumbar fusion. IMPRESSION: 1. Multiple surgical clips at the GE junction. Correlate as to the type of surgery, possible Jennifer fundoplication. There is similar nodular soft tissue prominence at the level of the distal esophagus as compared to 02/22/2019. Findings may represent a slipped wrap. Correlate with patient's symptoms. 2. Hepatic steatosis and colonic diverticulosis, greatest on the left side of the colon. 3. Loss of intervertebral bladder wall thickening could reflect chronic bladder wall hypertrophy or cystitis. Clinically correlate.
== END | disposition home or self-care (01) ==
LOC: RADCTMAIN 11:59
PROVIDERS: ATTEND Family Medicine
DX: K57.30 Diverticulosis of large intestine without perforation or abscess without bleeding (principal); K76.0 Fatty (change of) liver, not elsewhere classified; R93.41 Abnormal radiologic findings on diagnostic imaging of renal pelvis, ureter, or bladder; M79.89 Other specified soft tissue disorders
CPT/HCPCS: 74176

== ENCOUNTER → 2020-06-23 | Outpatient (CLI) | payer MEDICARE, OTHER ==
--- NOTE | 2020-06-23 16:33 | US ---
EXAMINATION TYPE: US scrotum with doppler. Grayscale and color Doppler Duplex imaging performed of t he scrotum. DATE OF EXAM: 06/23/2020 COMPARISON: NONE CLINICAL HISTORY: N50.812 Left testicular pain. Left testicular pain EXAM MEASUREMENTS: TESTICLES: Right Testicle: 3.8 x 2.0 x 2.8 cm Left Testicle: 3.5 x 2.4 x 2.9 cm EPIDIDYMIS HEAD: Right Epididymis: 0.9 x 0.9 x 1.2 cm Left Epididymis: 0.7 x 0.8 x 1.3 cm Doppler performed to assess for testicular vascularity; good bilateral color flow and waveforms are s een. There is no evidence of testicular torsion. Presence of hydroceles: right 3.7cm, left 3.2cm Presence of varicoceles: no IMPRESSION: 1. Normal scrotal ultrasound
== END | disposition home or self-care (01) ==
LOC: RADUSWWP 15:28
PROVIDERS: ATTEND Nurse Practitioner Family
DX: N50.812 Left testicular pain (principal); Z88.6 Allergy status to analgesic agent; Z91.048 Other nonmedicinal substance allergy status
CPT/HCPCS: 76870; 93975

== ENCOUNTER 2020-08-18 07:01 | Day surgery (SDC) | payer MEDICARE, OTHER ==
[2020-08-15 10:36] VITALS: BMI 34.7
--- NOTE | 2020-08-18 05:35 | P.GSHP ---
History of Present Illness H&P Date: 08/18/20 CHIEF COMPLAINT: GERD and colon screen HISTORY OF PRESENT ILLNESS: The patient is a 35-year-old male who presents with gastroesophageal reflux disease and need for colon screen. Upper and lower endoscopy were offered for further evaluation and management. PAST MEDICAL HISTORY: Please see list. PAST SURGICAL HISTORY: Please see list. MEDICATIONS: Please see list. ALLERGIES: Please see list. SOCIAL HISTORY: No illicit drug use FAMILY HISTORY: No reports of Crohn disease or ulcerative colitis. REVIEW OF ORGAN SYSTEMS: CONSTITUTIONAL: No reports of fevers or chills. GI: Denies any blood in stools or constipation. PHYSICAL EXAM: VITAL SIGNS: Stable GENERAL: Well-developed pleasant in no acute distress. HEENT: No scleral icterus. Extraocular movements grossly intact. Moist buccal mucosa. NECK: Supple without lymphadenopathy. CHEST: Unlabored respirations. Equal bilateral excursions. CARDIOVASCULAR: Regular rate and rhythm. Distal 2+ pulses. ABDOMEN: Soft, nondistended. MUSCULOSKELETAL: No clubbing, cyanosis, or edema. ASSESSMENT: 1. Gastroesophageal reflux disease 2. Colon screen. PLAN: 1. Recommend proceeding with an upper and lower endoscopy Past Medical History Past Medical History: CVA/TIA, Diabetes Mellitus, GERD/Reflux, Hyperlipidemia, Hypertension Additional Past Medical History / Comment(s): CVA 08/2017, left sided weakness, tremors left leg and hand, having abdominal pain radiating to back, HX OF diverticultitis, hx of migraines History of Any Multi-Drug Resistant Organisms: None Reported Past Surgical History: Appendectomy, Back Surgery, Bowel Resection, Cholecystectomy, Orthopedic Surgery, Tonsillectomy Additional Past Surgical History / Comment(s): rt shoulder sx, ARTHROSCOPY Knee x 3, hiatal hernia Past Anesthesia/Blood Transfusion Reactions: Postoperative Nausea & Vomiting (PONV) Additional Past Anesthesia/Blood Transfusion Reaction / Comment(s): no hx blood transfusion Smoking Status: Never smoker - Past Family History Mother Family Medical History: No Reported History Father Family Medical History: Diabetes Mellitus Additional Family Medical History / Comment(s): heart problems Medications and Allergies Home Medications Medication Instructions Recorded Confirmed Type Loratadine 10 mg PO DAILY 03/29/16 08/15/20 History Omeprazole [PriLOSEC] 40 mg PO DAILY 03/29/16 08/15/20 History lisinopriL [Zestril] 2.5 mg PO QAM 01/24/17 08/15/20 History Gabapentin 600 mg PO TID 07/11/18 08/15/20 History HYDROcodone/APAP 10-325MG [[place] 1 tab PO QID PRN 07/11/18 08/15/20 History 10-325] Aspirin 81 mg PO DAILY 02/22/19 08/15/20 History Insulin Glargine,Hum.rec.anlog 35 unit SQ HS 02/22/19 08/15/20 History [Basaglar Kwikpen U-100] tiZANidine [Zanaflex] 4 mg PO BID 02/22/19 08/15/20 History INSULIN LISPRO (humaLOG) [humaLOG] See Protocol SQ AC-TID 03/15/19 08/15/20 History Divalproex ER [Depakote ER] 1,000 mg PO DAILY 04/09/19 08/15/20 History Pioglitazone [Actos] 30 mg PO DAILY 04/09/19 08/15/20 History Topiramate [Topamax] 100 mg PO DAILY 05/17/19 08/15/20 History ondansetron HCL [Zofran] 8 mg PO DAILY PRN 05/17/19 08/15/20 History Atorvastatin [Lipitor] 20 mg PO DAILY 08/15/20 08/15/20 History INSULIN LISPRO (humaLOG) [humaLOG] 13 units SQ AC-TID 08/15/20 08/15/20 History Allergies Allergy/AdvReac Type Severity Reaction Status Date / Time etodolac [From Lodine] Allergy Rash/Hives Verified 08/15/20 10:28 ketorolac [From Toradol] Allergy Rash/Hives Verified 08/15/20 10:28 Mushroom Allergy Unknown Verified 08/15/20 10:28 canagliflozin [From Invokana] AdvReac Vomiting Verified 08/15/20 10:28
[~2020-08-18 07:01] MED LIST changes: -DEXAMETHASONE SOD PHOSPHATE 10 MG/ML 1 ML VIAL IV ONE; +DEXAMETHASONE SOD PHOSPHATE 4 MG/ML 1 ML VIAL IV ONE; -HEPARIN SODIUM,PORCINE 5,000 UNIT/ML 1 ML VIAL SQ ONE; -HYDROmorphone 1 MG/ML 1 ML SYRINGE IVP PRN; +LACTATED RINGERS 1,000 ML IV SCH; +LIDOCAINE 1% (10MG/ML) FOR IV START INTRADERMA PRN; -MIDAZOLAM 2 MG/2 ML VIAL IV PRN; -ONDANSETRON 4 MG/2 ML VIAL IVP ONE; +ONDANSETRON 4 MG/2 ML VIAL IVP PRN; -SCOPOLAMINE 1.5MG/72HR PATCH TRANSDERM ONE; -ceFAZolin 2 GM in SODIUM CHLORIDE 0.9% 100 ML IVPB ONE
[2020-08-18 07:31] VITALS: TEMP 98.5
[2020-08-18] MEDS ORDERED: PROPOFOL 10 MG/ML 20 ML VIAL IV ONE (07:38)
[2020-08-18] MEDS ORDERED: LIDOCAINE 1% INJ 10MG/ML (20 ML MDV) ONE (07:38)
[2020-08-18] MEDS ORDERED: MIDAZOLAM 2 MG/2 ML VIAL ONE (07:38)
[2020-08-18] MEDS ORDERED: fentaNYL (PF) 50 MCG/ML 2 ML AMP ONE (07:38)
[2020-08-18] MEDS ORDERED: ONDANSETRON 4 MG/2 ML VIAL ONE (07:38)
[2020-08-18 08:20] VITALS: BP 91/57; PULSE 80; RESP 17
--- NOTE | 2020-08-18 08:26 | P.PCN ---
Date of Procedure: 08/18/20 Description of Procedure: PREOPERATIVE DIAGNOSIS: Gastroesophageal reflux disease. History of Jennifer fundoplasty Dysphagia POSTOPERATIVE DIAGNOSIS: Gastroesophageal reflux disease. History of Jennifer fundoplasty with slippage Dysphagia Acute and chronic gastritis of recent bleeding OPERATION: Esophagogastroduodenoscopy with biopsies along antrum. SURGEON: Brandie Mccoy MD ANESTHESIA: MAC. INDICATIONS: The patient is a 35-year-old male who presents with a history of reflux disease. Benefits and risks of the procedure were described. Informed consent was obtained. DESCRIPTION: The patient was brought into the endoscopy suite and laid in the left lateral decubitus position. An Olympus gastroscope was passed along the posterior oropharynx down to the distal esophagus where the squamocolumnar junction was encountered at 37 cm from the incisors. The stomach was entered and no bile reflux was found. Additional findings are listed below. Biopsies with cold forceps were obtained of the antrum. The first through third portion of the duodenum was examined and unremarkable. Retroflexion of the scope confirmed Hill grade 1 lower esophageal valve. The squamocolumnar junction demonstrated LA grade B erosive esophagitis. The stomach was desufflated. The patient tolerated the procedure well. FINDINGS: Squamocolumnar junction 37 cm from the incisors. Diaphragmatic hiatus at 40 cm. Hiatal hernia, 3 cm Jennifer fundoplasty with slippage Hill grade 3 lower esophageal valve. LA grade B erosive esophagitis. No active duodenitis. Acute on chronic gastritis with recent bleed RECOMMENDATIONS: Upper endoscopy as needed. Recommend repair and antireflux operation
--- NOTE | 2020-08-18 08:40 | P.PCN ---
Date of Procedure: 08/18/20 Description of Procedure: PREOPERATIVE DIAGNOSIS: Diverticulosis Change in bowel habits POSTOPERATIVE DIAGNOSIS: Diverticulosis Change in bowel habits Colon polyp, splenic flexure OPERATION: Colonoscopy to the ileocecal valve and appendiceal orifice, cecum Colonoscopy with hot snare polypectomy SURGEON: Brandie Mcocy MD. ANESTHESIA: MAC. INDICATIONS: The patient is an 35-year-old male who presents with change in bowel habits including past history of diverticulitis. Benefits and risks were described and informed consent was obtained. DESCRIPTION OF PROCEDURE: The patient had undergone Suprep. The patient had been brought into the operating room and laid in the left lateral decubitus position. After adequate intravenous sedation, the rectum was examined with 2% lidocaine jelly. The prostate was unremarkable. No external hemorrhoids were encountered. Excoriation along the anoderm was identified with hypopigmentation. The rectal tone was loose. No lesions were palpated in the rectal vault. An Olympus colonoscope was advanced until the cecum, ileocecal valve and appendiceal or ifice were clearly viewed. The prep was fair. Diffuse scattered sigmoid diverticulosis was encountered. Colonic polyps were found and removed. No evidence of focal colitis was found. Retroflexion of the scope demonstrated grade 2 internal hemorrhoids without active bleeding or inflammation. The colon was desufflated. The patient had tolerated the procedure well. Withdrawal time was over 6 minutes. FINDINGS: Aronchick preparation quality scale 3 (1-5) Internal hemorrhoids, grade 2 No external hemorrhoids, grade 4. No arteriovenous malformations. Sigmoid diverticulosis scattered Removal of 1 polyp: - Snare polypectomy at splenic flexure, 5 mm tubulovillous adenoma polyp. No focal colitis. RECOMMENDATIONS: Repeat colonoscopy 5 years, 2025 Plan - Discharge Summary Discharge Rx Participant: No New Discharge Prescriptions: New Sucralfate [Carafate] 1 gm PO BID #60 tab Continue Loratadine 10 mg PO DAILY Omeprazole [PriLOSEC] 40 mg PO DAILY lisinopriL [Zestril] 2.5 mg PO QAM HYDROcodone/APAP 10-325MG [[place] 10-325] 1 tab PO QID PRN PRN Reason: Pain Gabapentin 600 mg PO TID tiZANidine [Zanaflex] 4 mg PO BID Insulin Glargine,Hum.rec.anlog [Basaglar Kwikpen U-100] 35 unit SQ HS Aspirin 81 mg PO DAILY INSULIN LISPRO (humaLOG) [humaLOG] See Protocol SQ AC-TID Divalproex ER [Depakote ER] 1,000 mg PO DAILY Pioglitazone [Actos] 30 mg PO DAILY ondansetron HCL [Zofran] 8 mg PO DAILY PRN PRN Reason: Nausea Topiramate [Topamax] 100 mg PO DAILY INSULIN LISPRO (humaLOG) [humaLOG] 13 units SQ AC-TID Atorvastatin [Lipitor] 20 mg PO DAILY Discharge Medication List Loratadine 10 mg PO DAILY 03/29/16 [History] Omeprazole [PriLOSEC] 40 mg PO DAILY 03/29/16 [History] lisinopriL [Zestril] 2.5 mg PO QAM 01/24/17 [History] Gabapentin 600 mg PO TID 07/11/18 [History] HYDROcodone/APAP 10-325MG [[place] 10-325] 1 tab PO QID PRN 07/11/18 [History] Aspirin 81 mg PO DAILY 02/22/19 [History] Insulin Glargine,Hum.rec.anlog [Basaglar Kwikpen U-100] 35 unit SQ HS 02/22/19 [History] tiZANidine [Zanaflex] 4 mg PO BID 02/22/19 [History] INSULIN LISPRO (humaLOG) [humaLOG] See Protocol SQ AC-TID 03/15/19 [History] Divalproex ER [Depakote ER] 1,000 mg PO DAILY 04/09/19 [History] Pioglitazone [Actos] 30 mg PO DAILY 04/09/19 [History] Topiramate [Topamax] 100 mg PO DAILY 05/17/19 [History] ondansetron HCL [Zofran] 8 mg PO DAILY PRN 05/17/19 [History] Atorvastatin [Lipitor] 20 mg PO DAILY 08/15/20 [History] INSULIN LISPRO (humaLOG) [humaLOG] 13 units SQ AC-TID 08/15/20 [History] Sucralfate [Carafate] 1 gm PO BID #60 tab 08/18/20 [Rx] Follow up Appointment(s)/Referral(s): Brandie Mccoy MD [STAFF PHYSICIAN] - 08/30/20 Patient Instructions/Handouts: Hiatal Hernia (DC), Gastritis (DC), Diverticulosis (ED), Diet for Stomach Ulcers and Gastritis (ED), Colorectal Po lyps (DC), Diverticulosis Diet (GEN) Activity/Diet/Wound Care/Special Instructions: Repeat colonoscopy 5 years, 2025 Discharge Disposition: HOME SELF-CARE
== END 2020-08-18 09:07 | disposition home or self-care (01) ==
LOC: ORWHC2ENDO 07:01
PROVIDERS: ATTEND Surgery Plastic and Reconstructive Surgery
DX: K63.5 Polyp of colon (principal); K57.30 Diverticulosis of large intestine without perforation or abscess without bleeding; K29.50 Unspecified chronic gastritis without bleeding; K22.10 Ulcer of esophagus without bleeding; K44.9 Diaphragmatic hernia without obstruction or gangrene; K21.9 Gastro-esophageal reflux disease without esophagitis; K64.1 Second degree hemorrhoids; E11.9 Type 2 diabetes mellitus without complications; J45.909 Unspecified asthma, uncomplicated; E78.5 Hyperlipidemia, unspecified; I10 Essential (primary) hypertension; I69.354 Hemiplegia and hemiparesis following cerebral infarction affecting left non-dominant side; G43.909 Migraine, unspecified, not intractable, without status migrainosus; Z90.49 Acquired absence of other specified parts of digestive tract; Z98.890 Other specified postprocedural states; Z90.89 Acquired absence of other organs; Z83.3 Family history of diabetes mellitus; Z82.49 Family history of ischemic heart disease and other diseases of the circulatory system; Z79.82 Long term (current) use of aspirin; Z79.4 Long term (current) use of insulin; Z79.899 Other long term (current) drug therapy; Z88.6 Allergy status to analgesic agent; Z88.8 Allergy status to other drugs, medicaments and biological substances; Z91.018 Allergy to other foods
CPT/HCPCS: 88305; 45385; 43239; J2250; J2405; J2001; J3010; J2704

== ENCOUNTER → 2020-09-02 | Outpatient (CLI) | payer MEDICARE, OTHER ==
--- NOTE | 2020-09-02 19:28 | MR ---
EXAMINATION TYPE: MR cervical spine wo con DATE OF EXAM: 09/02/2020 COMPARISON: 04/07/2019 HISTORY: Neck pain, headaches, BUE tingling, hx trauma/stroke CONTRAST: Performed utilizing 0 mL intravenous Gadavist gadolinium contrast. TECHNIQUE: Multiplanar multiecho imaging on a 3.0 Lorna magnet is performed through the cervical spin e. FINDINGS: The craniovertebral junction is normal. Vertebral body alignment is normal. Disc heights appear preserved. There is some disc desiccation C2-3 through C5-6. C7-T1: No focal disc herniation or significant disc bulge is evident. No spinal canal stenosis or n eural foraminal stenosis is present. C6-7: No focal disc herniation or significant disc bulge is evident. No spinal canal stenosis or veronica ral foraminal stenosis is present. C5-6: Minimal disc bulge is present. A central protrusion may be present. No cord contact or cord def ormity is evident. No AP spinal canal stenosis is present. Neural foramen are patent.. C4-5: There is a central to left paracentral protrusion with cord contact. No cord deformity is evide nt. There may be some minimal subligamentous disc extension beyond the endplates compatible with a sm all disc herniation. This appears to have developed over the interval. No AP spinal canal stenosis is present. Neural foramen are patent. C3-4: Mild disc bulge has mild anterior thecal sac compression. This comes in close approximation of the spinal cord. No spinal canal stenosis or neural foraminal stenosis is present. This is similar to prior study. C2-3: No focal disc herniation or significant disc bulge is evident. No spinal canal stenosis or veronica ral foraminal stenosis is present. IMPRESSIONS: 1. There appears to be interval development of a subligamentous disc herniation in the central to lef t paracentral region of C4-5. This has cord contact without cord deformity. 2. Mild disc bulging C3-4, C5-6 about spinal canal stenosis.
== END ==
LOC: RADMRIMAIN 15:42
PROVIDERS: ATTEND Neurological Surgery
DX: M48.02 Spinal stenosis, cervical region (principal); M50.921 Unspecified cervical disc disorder at C4-C5 level; Z86.73 Personal history of transient ischemic attack (TIA), and cerebral infarction without residual deficits
CPT/HCPCS: 72141

== ENCOUNTER → 2020-10-07 | Outpatient (CLI) | payer MEDICARE, OTHER ==
[2020-10-08 00:34] LABS: Hemoglobin A1C 5.9 % (4.0-6.0)
[2020-10-08 10:32] LABS: Albumin 4.9 g/dL (3.80-4.90); Albumin/Globulin Ratio 1.88 (1.60-3.17); Anion Gap 14.5 mmol/L (4.00-12.00); BUN/Creat Ratio 18.89 Ratio (12.00-20.00); Calcium 9.3 mg/dL (8.7-10.3); Carbon Dioxide 20.5 mmol/L (21.6-31.8); Chol/HDL Ratio 3.63; Globulin 2.6 g/dL (1.6-3.3); LDL Cholesterol,Calculated 98.8 mg/dL (0.0-131.0); Non-African American GFR(CKD) 108.7 (60.0-200.0); Potassium 4.2 mmol/L (3.5-5.5); Total Bilirubin 0.8 mg/dL (0.2-1.2); Total Protein 7.5 g/dL (6.2-8.2); VLDL Calculation 14.2 mg/dL (5.00-40.00)
== END | disposition home or self-care (01) ==
LOC: LABWHC1 15:27
PROVIDERS: ATTEND Family Medicine
DX: R10.13 Epigastric pain (principal)
CPT/HCPCS: 36415; 80053; 80061; 83036

== ENCOUNTER → 2020-11-07 | Outpatient (CLI) | payer MEDICARE, OTHER ==
[2020-11-07 14:18] LABS: HCT 40.7 % (39.0-53.0); HGB 14.4 gm/dL (13.0-17.5); MCH 31.8 pg (25.0-35.0); MCHC 35.3 g/dL (31.0-37.0); MCV 90.1 fL (80.0-100.0); Mean Platelet Volume 7.4; Platelet Count 219 k/uL (150-450); RBC 4.52 m/uL (4.30-5.90); RDW 13.7 % (11.5-15.5); WBC 6.8 k/uL (3.8-10.6)
[2020-11-07 14:28] LABS: African American GFR (CKD) >90 (>60 ml/min/1.73 sqM); Blood Urea Nitrogen 19 mg/dL (9-20); Non-African American GFR(CKD) >90 (>60 ml/min/1.73 sqM); Potassium 4.3 mmol/L (3.5-5.1)
== END | disposition home or self-care (01) ==
LOC: LABPAT 13:15
PROVIDERS: ATTEND Surgery Plastic and Reconstructive Surgery
DX: Z01.812 Encounter for preprocedural laboratory examination (principal); E11.9 Type 2 diabetes mellitus without complications; I10 Essential (primary) hypertension; Z79.4 Long term (current) use of insulin
CPT/HCPCS: 36415; 82565; 84132; 84520; 85027; 86850; 86900; 86901

== ENCOUNTER 2020-11-10 11:02 | Observation (INO) | payer MEDICARE, OTHER ==
--- NOTE | 2020-11-10 10:28 | P.GSHP ---
History of Present Illness H&P Date: 11/10/20 CHIEF COMPLAINT: Paraesophageal hiatal hernia with gastroesophageal reflux disease. HISTORY OF PRESENT ILLNESS: The patient is a 35-year-old male who presents with paraesophageal hiatal hernia. He has completed an esophageal manometry including upper endoscopy workup. Now he presents for surgical intervention. PAST MEDICAL HISTORY: Please see list. PAST SURGICAL HISTORY: Please see list. MEDICATIONS: Please see list. ALLERGIES: Please see list. SOCIAL HISTORY: No illicit drug use FAMILY HISTORY: No reports of Crohn disease or ulcerative colitis. REVIEW OF ORGAN SYSTEMS: CONSTITUTIONAL: No reports of fevers or chills. GI: Denies any blood in stools or constipation. PHYSICAL EXAM: VITAL SIGNS: Stable GENERAL: Well-developed pleasant and in no acute distress. HEENT: No scleral icterus. Extraocular movements grossly intact. Moist buccal mucosa. NECK: Supple without lymphadenopathy. CHEST: Unlabored respirations. Equal bilateral excursions. CARDIOVASCULAR: Regular rate and rhythm. Distal 2+ pulses. ABDOMEN: Soft, nondistended. No peritoneal signs. MUSCULOSKELETAL: No clubbing, cyanosis, or edema. SKIN: Well-perfused. Good skin turgor. MANOMETRY: Shows no evidence of achalasia or scleroderma. ASSESSMENT: 1. Diaphragmatic paraesophageal hiatal hernia with severe gastroesophageal reflux disease. PLAN: 1. Recommend proceeding with a robotic paraesophageal hiatal hernia with possible mesh. 2. Benefits and risks of surgical intervention was discussed including possibility of open technique. 3. Inpatient hospitalization recommended of 2 nights 4. DVT prophylaxis. 5. Antibiotic prophylaxis. Past Medical History Past Medical History: CVA/TIA, Diabetes Mellitus, GERD/Reflux, Hyperlipidemia, Hypertension Additional Past Medical History / Comment(s): ABD PAIN. 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 HX OF diverticultitis. Hx of migraines History of Any Multi-Drug Resistant Organisms: None Reported Past Surgical History: Appendectomy, Back Surgery, Bowel Resection, Cholecystectomy, Orthopedic Surgery, Tonsillectomy Additional Past Surgical History / Comment(s): rt shoulder sx, ARTHROSCOPY Knee x 3, hiatal hernia Past Anesthesia/Blood Transfusion Reactions: Postoperative Nausea & Vomiting (PONV) Additional Past Anesthesia/Blood Transfusion Reaction / Comment(s): no hx blood transfusion Past Psychological History: Anxiety, Depression Smoking Status: Never smoker Past Alcohol Use History: None Reported Past Drug Use History: None Reported - Past Family History Mother Family Medical History: No Reported History Father Family Medical History: Diabetes Mellitus Additional Family Medical History / Comment(s): heart problems Medications and Allergies Home Medications Medication Instructions Recorded Confirmed Type Loratadine 10 mg PO QAM 03/29/16 11/04/20 History Omeprazole [PriLOSEC] 40 mg PO QAM 03/29/16 11/04/20 History lisinopriL [Zestril] 2.5 mg PO QAM 01/24/17 11/04/20 History HYDROcodone/APAP 10-325MG [[place] 1 tab PO QID PRN 07/11/18 11/04/20 History 10-325] Aspirin 81 mg PO DAILY 02/22/19 11/04/20 History Insulin Glargine,Hum.rec.anlog 35 unit SQ HS 02/22/19 11/04/20 History [Basaglar Kwikpen U-100] tiZANidine [Zanaflex] 4 mg PO BID 02/22/19 11/04/20 History INSULIN LISPRO (humaLOG) [humaLOG] See Protocol SQ AC-TID 03/15/19 11/04/20 History Pioglitazone [Actos] 30 mg PO QAM 04/09/19 11/04/20 History Topiramate [Topamax] 100 mg PO QAM 05/17/19 11/04/20 History ondansetron HCL [Zofran] 8 mg PO DAILY PRN 05/17/19 11/04/20 History Atorvastatin [Lipitor] 20 mg PO HS 08/15/20 11/04/20 History INSULIN LISPRO (humaLOG) [humaLOG] 10 units SQ AC-TID 08/15/20 11/04/20 History Sucralfate [Carafate] 1 gm PO BID #60 tab 08/18/20 11/04/20 Rx Gabapentin [Neurontin] 300 mg PO TID 11/04/20 11/04/20 History Allergies Allergy/AdvReac Type Severity Reaction Status Date / Time etodolac [From Lodine] Allergy Rash/Hives Verified 08/18/20 07:26 ketorolac [From Toradol] Allergy Rash/Hives Verified 08/18/20 07:26 Mushroom Allergy Unknown Verified 08/18/20 07:26 tramadol Allergy Rash/Hives Verified 11/04/20 10:57 [facility]agliflozin [facility] AdvReac Vomiting Verified 08/18/20 07:26
[~2020-11-10 11:02] MED LIST changes: +ACETAMINOPHEN TAB 500 MG TAB PO PRN; +CHLORHEXIDINE GLUCONATE 15 ML CUP MUCOUS MEM PRN; +HEPARIN SODIUM,PORCINE/PF 5,000 UNIT/0.5 ML SYRINGE SQ PRN; +HYDROmorphone 0.5 MG/0.5 ML SYRINGE IVP PRN; -LIDOCAINE 1% (10MG/ML) FOR IV START INTRADERMA PRN; +MIDAZOLAM 2 MG/2 ML VIAL IV PRN; +ONDANSETRON 4 MG/2 ML VIAL IVP ONE; -ONDANSETRON 4 MG/2 ML VIAL IVP PRN; +PANTOPRAZOLE 40 MG/10 ML VIAL IVP PRN; +TAMSULOSIN 0.4 MG CAP.ER.24H PO PRN
[2020-11-10 11:48] LABS: Glucose,Whole Blood 113 mg/dL (75-99)
[2020-11-10] MEDS ORDERED: PROPOFOL 10 MG/ML 20 ML VIAL IV ONE (13:52)
[2020-11-10] MEDS ORDERED: ROCURONIUM 10 MG/ML (5 ML VIAL) IV ONE (13:52)
[2020-11-10] MEDS ORDERED: SUCCINYLCHOLINE CHLORIDE 100 MG/5 ML SYR IV ONE (13:52)
[2020-11-10] MEDS ORDERED: HYDROmorphone (PF) 1 MG/ML ONE (13:52)
[2020-11-10] MEDS ORDERED: LIDOCAINE 1% INJ 10MG/ML (20 ML MDV) ONE (13:52)
[2020-11-10] MEDS ORDERED: MIDAZOLAM 2 MG/2 ML VIAL ONE (13:52)
[2020-11-10] MEDS ORDERED: NEOSTIGMINE 1 MG/ML 10 ML VIAL ONE (13:52)
[2020-11-10] MEDS ORDERED: GLYCOPYRROLATE 0.2 MG/ML 2 ML VIAL ONE (13:52)
[2020-11-10] MEDS ORDERED: PHENYLEPHRINE-0.9% NACL SYG 1,000 MCG/10 ML SYRINGE ONE (13:52)
[2020-11-10] MEDS ORDERED: fentaNYL (PF) 50 MCG/ML 2 ML AMP ONE (13:52)
[2020-11-10] MEDS ORDERED: BUPIVACAIN-EPI 0.5%-1:200,000 30 ML VIAL SQ ONE (14:31)
[2020-11-10] MEDS ORDERED: LACTATED RINGERS 1,000 ML IV ONE (15:17)
[2020-11-10 17:21] LABS: Glucose,Whole Blood 137 mg/dL (75-99)
[2020-11-10] MEDS ORDERED: diphenhydrAMINE 50 MG/ML 1 ML VIAL IVP PRN (17:37)
[2020-11-10] MEDS ORDERED: NALOXONE 0.4 MG/ML 1 ML VIAL IV PRN (17:37)
[2020-11-10] MEDS ORDERED: HYDROcodone/APAP 10-325MG 1 EACH TAB PO PRN (17:43)
--- NOTE | 2020-11-10 17:54 | P.OP ---
Date of Procedure: 11/10/20 Description of Procedure: SURGEON: JEFF COPELAND MD PREOPERATIVE DIAGNOSES: 1. Paraesophageal hiatal hernia, midline, recurrent 2. Gastroesophageal reflux disease. 3. History of previous Jennifer fundoplasty 4. Epigastric abdominal pain 5. Intractable nausea 6. History of stroke with left hemiparesis with wheelchair assistance 7. Diabetic neuropathy 8. Diabetes type 2, insulin-dependent 9. Hypertensive heart disease 10. Chronic pain syndrome 11. Obesity due to excess calories, BMI 32.7 12. History of multiple abdominal surgeries 13. Seizure disorder 14. Migraines POSTOPERATIVE DIAGNOSES: 1. Paraesophageal hiatal hernia, midline, recurrent incarcerations last obstruction 2. Gastroesophageal reflux disease. 3. History of previous Jennifer fundoplasty 4. Epigastric abdominal pain 5. Intractable nausea 6. History of stroke with left hemiparesis with wheelchair assistance 7. Diabetic neuropathy 8. Diabetes type 2, insulin-dependent 9. Hypertensive heart disease 10. Chronic pain syndrome 11. Obesity due to excess calories, BMI 32.7 12. History of multiple abdominal surgeries 13. Seizure disorder 14. Migraines 15. Peritoneal adhesions OPERATION: 1. Robotic-assisted da Malia Xi laparoscopic takedown of Jennifer fundoplasty 2. Robotic-assisted da Malia Xi laparoscopic extensive lysis of adhesions over 1.5 hours for perigastric adhesions 3. Robotic-assisted da Malai Xi laparoscopic reduction and repair of recurrent incarcerated paraesophageal hiatal hernia, 6 x 4 cm, with [place] Biopatch A 8 x 8 cm. 4. Intraoperative esophagogastroduodenoscopy Implants: [place] Biopatch A 8 x 8 cm Anesthesia: GETA, local Estimated Blood Loss (ml): 10 Pathology: none sent Condition: stable Disposition: floor Operative Findings: 1. Recurrent incarcerated paraesophageal hiatal hernia, 6 x 4 cm 2. Severe peritoneal adhesions perigastric with incarcerated hiatal hernia with obstruction with previous Jennifer fundoplasty requiring over 1.5 hour 3. Slipped Jennifer fundoplasty into the chest identified 4. Large intrathoracic hernia sac causing incarceration of stomach 5. Division and take down of fundoplasty using vessel sealer 6. More than 30% of stomach incarcerated into chest reduced into abdominal cavity 7. Hill grade 1 lower esophageal sphincter confirmed upon upper endoscopy 8. Incarcerated incisional hernia lower midline. INDICATIONS: The patient is a 35-year-old male who presents with epigastric pain, recurrent gastroesophageal reflux disease, intractable nausea following a prior Jennifer fundoplasty 24 years ago at the age of 11. The patient comes in with epigastric abdominal pain including gastroesophageal reflux and a symptomatic diaphragmatic hiatal hernia. Preoperative workup including upper endoscopy demonstrated recurrent hiatal hernia and slipped Jennifer fundoplasty. Given the severity of symptoms, surgical intervention was offered. Benefits and risks including bleeding, infection, recurrence, dysphagia, injury to the esophagus, and stomach injury to the lung, need for further surgery was described at length. Informed consent was obtained. DESCRIPTION: The patient was brought into the operating room and placed in supine position. Preoperatively the patient had received heparin subcutaneously for DVT prophylaxis. After general induction, the abdomen was prepped and draped in standard sterile fashion. [place]an draping was placed along the abdomen. A timeout protocol was confirmed with the surgical team, for which the patient's name, procedure to be performed including DVT prophylaxis with bilateral SCDs, and preoperative antibiotics were also confirmed. Robotic da Malia Xi system was prepped and primed. At 12 cm from the xiphoid to just below the umbilicus, proposed port sites were marked with indelible marker along the left axillary line, left mid-clavicular line with each ports were marked 10 cm from each other. A 5 mm 0 degrees laparoscopic trocar entry was performed along the left upper quadrant. The abdomen was insufflated to 15 mmHg pressure she tolerated well. Diagnostic laparoscopy demonstrated no injury to bowel, viscera, or mesentery. No injury had occurred to the small bowel or viscera. Along the hiatus, moderate perigastric adhesions were found from the previous fundoplasty. Severe adhesions involving the epigastrium and midline was identified prohibiting placement trochars along the right side of his abdomen. Trochars were modified along the left side of the abdomen only. Additionally incarcerated hernia of the incision of the lower midline was identified and undisturbed. Next, one 8 mm robotic port was placed along the epigastric abdomen. An 8-mm port was were placed along the left lateral abdominal wall. The camera 8-mm port was maintained along the left upper quadrant. A 12 mm port was placed along the left upper abdominal wall after exchanging the 5 mm port. Please note that the ports were placed at least 20 cm away from the target anatomy. Care was taken to check that each robotic arm were safely away from collision with the bed or the patient. At the epigastrium, a medium sized Becki liver retractor was placed under direct visualization with the [employer] placed under the right shoulder of the patient. The additional third robotic arm was used. The patient was repositioned in reverse Trendelenburg position at 21-degrees after lowering the bed. The robot was docked above the left side of the patient. Using a grasper for arm 3, a grasper for arm 1, including vessel sealer for arm 4, the robotic system was docked and primed as described. Instruments were interchanged by the nursing assistant. I had sat at the console. The phrenoesophageal ligament had moderate scarring where the distal esophagus was mobilized circumferentially. Care was taken to avoid any injury to the stomach and esophagus. The hiatal hernia sac was incarcerated into the mediastinum and divided to allow complete mobilization and freeing of the distal esophagus into the abdominal cavity. Care was taken to avoid any gastrotomy to the incarcerated upper pole of the stomach including takedown of the Jennifer fundoplasty. Extensive lysis of adhesions went more than 1.5 hours for extended dissection of the adherent stomach high into the mediastinum. The hernia sac was divided to release mobility of the esophagus. Previous [place]-Christophe sutures were identified and divided. Dissection went to the mid esophagus. The measured defect was consistent with 6 cm axial length and 4 cm in width. Intra-abdominal length of over 3 cm was obtained. Once the hiatus and crura was dissected, nonabsorbable 2-0 VLOC suture was placed as a running suture to re-approximate the diaphragmatic hiatus posteriorly. To buttress the repair, a [place] Biopatch A was prepared along the back table and cut to reinforce the repair as an underlay. The mesh was placed along the crural repair posteriorly then cut in half and tagged using horizontal mattress sutures using 2-0 VLOC. I went to the head of the bed to perform intraoperative esophagogastroduodenoscopy. An Olympus gastroscope was passed through posterior oropharynx, where the GE junction was found distal to the diaphragmatic hiatus. The stomach was entered. Chronic gastritis was found with mild duodenitis. Retroflexion of the scope confirmed Hill grade 1 lower esophageal sphincter. The stomach had been desufflated. This concluded the endoscopic portion of the case. The robot was undocked from the patient. I re-scrubbed into the case. All instruments and pneumoperitoneum were evacuated from the abdominal cavity. Incisions were reapproximated using 4-0 Monocryl in an interrupted subcuticular fashion. All incisions were cleaned using dilute hydrogen peroxide. Liquid glue was applied to the skin. Local anesthetic was infiltrated in all wounds for postop analgesia. Multiple intra-abdominal films were obtained. At the end of the procedure, needle, sponge, and instrument count was verified correct by the cardiovascular surgical tech. The patient had tolerated the procedure well and was taken to the postanesthesia unit in stable condition. Intraoperative films were reviewed with the patient's family who were pleased with the level of care. Console time 101 minutes
[2020-11-10] MEDS ORDERED: ONDANSETRON 4 MG/2 ML VIAL IVP ONE (18:04)
[2020-11-10] MEDS: ALBUTEROL NEBULIZED 2.5 MG/3 ML INHALATION SCH (20:13)
[2020-11-10] MEDS: METOCLOPRAMIDE 5 MG/ML 2 ML VIAL IVP SCH (20:14)
[2020-11-10] MEDS: ONDANSETRON 4 MG/2 ML VIAL IVP SCH (20:14)
[2020-11-10] MEDS: SIMETHICONE 40 MG/0.6 ML DROPS 2,000 MG/30 ML BOTTLE PO SCH (20:15)
[2020-11-10] MEDS: HYOSCYAMINE ORAL DROPS 1.875 MG/15 ML BOTTLE PO SCH (20:15)
[2020-11-10] MEDS: ACETAMINOPHEN IV (For NPO) 1,000 MG in EMPTY BAG 1 BAG IVPB SCH (20:16)
[2020-11-10] MEDS ORDERED: INSULIN DETEMIR (LEVEMIR) 100 UNIT/ML SYR SQ SCH (21:00)
[2020-11-10] MEDS: HYDROmorphone 1 MG/ML 1 ML SYRINGE IVP PRN (21:18)
[2020-11-11 00:02] LABS: Glucose,Whole Blood 143 mg/dL (75-99)
[2020-11-11] MEDS: INSULIN ASPART (NovoLOG) 100 UNIT/ML VIAL SQ SCH ×5 (00:11→11:52)
[2020-11-11] MEDS: 0.9% NACL WITH KCL 20 MEQ/L 1,000 ML IV SCH ×2 (00:32→04:54)
[2020-11-11] MEDS: GABAPENTIN 300 MG CAP PO SCH ×2 (00:34→08:25)
[2020-11-11] MEDS: METOCLOPRAMIDE 5 MG/ML 2 ML VIAL IVP SCH ×3 (00:38→12:27)
[2020-11-11] MEDS: ONDANSETRON 4 MG/2 ML VIAL IVP SCH ×3 (00:38→12:27)
[2020-11-11] MEDS: HYOSCYAMINE ORAL DROPS 1.875 MG/15 ML BOTTLE PO SCH ×3 (00:40→12:29)
[2020-11-11] MEDS: SIMETHICONE 40 MG/0.6 ML DROPS 2,000 MG/30 ML BOTTLE PO SCH ×3 (00:41→12:28)
[2020-11-11] MEDS: ACETAMINOPHEN IV (For NPO) 1,000 MG in EMPTY BAG 1 BAG IVPB SCH ×3 (01:29→12:27)
[2020-11-11] MEDS: HYDROmorphone 1 MG/ML 1 ML SYRINGE IVP PRN ×2 (01:29→06:37)
[2020-11-11 06:44] LABS: Glucose,Whole Blood 107 mg/dL (75-99)
[2020-11-11 07:32] VITALS: BP 91/53; PULSE 94; RESP 16; TEMP 98.2
[2020-11-11] MEDS: ALBUTEROL NEBULIZED 2.5 MG/3 ML INHALATION SCH ×2 (07:58→11:43)
[2020-11-11] MEDS ORDERED: 0.9% NACL WITH KCL 20 MEQ/L 1,000 ML IV SCH (08:00)
[2020-11-11] MEDS ORDERED: PANTOPRAZOLE 40 MG/10 ML VIAL IV SCH (09:00)
[2020-11-11] MEDS ORDERED: LORATADINE 10 MG TAB PO SCH (09:00)
[2020-11-11] MEDS ORDERED: ENOXAPARIN 30 MG/0.3 ML SYRINGE SQ SCH (09:00)
[2020-11-11 09:57] LABS: Basophils # (A) 0.02 X 10*3/uL (0.00-0.10); Basophils % (A) 0.3 %; Eosinophils # (A) 0 X 10*3/uL (0.04-0.35); Eosinophils % (A) 0 %; HCT 34.8 % (39.6-50.0); HGB 11.4 g/dL (13.0-17.0); Lymphocytes # (A) 1.37 X 10*3/uL (0.90-5.00); Lymphocytes % (A) 22.7 %; MCH 30.8 pg (27.0-32.0); MCHC 32.8 g/dL (32.0-37.0); MCV 94.1 fL (80.0-97.0); Monocytes # (A) 0.45 X 10*3/uL (0.20-1.00); Monocytes % (A) 7.5 %; Neutrophils # (A) 4.19 X 10*3/uL (1.80-7.70); Neutrophils % (A) 69.3 %; Platelet Count 208 X 10*3/uL (140-440); RDW 13.8 % (11.5-14.5); WBC 6.04 X 10*3/uL (4.50-10.00)
[2020-11-11 11:32] LABS: African American GFR (CKD) 110.9 (60.0-200.0); Anion Gap 9.6 mmol/L (4.00-12.00); Calcium 8.4 mg/dL (8.7-10.3); Carbon Dioxide 22.4 mmol/L (21.6-31.8); Magnesium 1.9 mg/dL (1.5-2.4); Non-African American GFR(CKD) 95.7 (60.0-200.0); Phosphorus 3.4 mg/dL (2.4-5.1); Potassium 4.2 mmol/L (3.5-5.5)
[2020-11-11 11:46] LABS: Glucose,Whole Blood 116 mg/dL (75-99)
--- NOTE | 2020-11-11 12:24 | P.DS ---
Providers Date of admission: 11/11/20 12:04 Expected date of discharge: 11/11/20 Attending physician: Brandie Mccoy Primary care physician: Tremaine Casey - Discharge Diagnosis(es) (1) Diabetes type 2, controlled Current Visit: Yes Status: Acute (2) Diabetic neuropathy associated with type 2 diabetes mellitus Current Visit: Yes Status: Acute (3) Gastroesophageal reflux disease with esophagitis Current Visit: Yes Status: Acute (4) Paraesophageal hernia with obstruction but no gangrene Current Visit: Yes Status: Acute (5) Peritoneal adhesions Current Visit: Yes Status: Acute Hospital Course: POSTOPERATIVE DIAGNOSES: 1. Paraesophageal hiatal hernia, midline, recurrent incarcerations last obstruction 2. Gastroesophageal reflux disease. 3. History of previous Jennifer fundoplasty 4. Epigastric abdominal pain 5. Intractable nausea 6. History of stroke with left hemiparesis with wheelchair assistance 7. Diabetic neuropathy 8. Diabetes type 2, insulin-dependent 9. Hypertensive heart disease 10. Chronic pain syndrome 11. Obesity due to excess calories, BMI 32.7 12. History of multiple abdominal surgeries 13. Seizure disorder 14. Migraines 15. Peritoneal adhesions COURSE: The patient is a 35-year-old male status post takedown and this fundoplasty, lysis of adhesions, repair of recurrent hiatal hernia. No reports of dysphagia. He is tolerating liquids. His passed his esophagram. Blood sugars are excellent less than 150. ROS: No reports of nausea and vomiting. No bowel movements. No fevers or chills. No new chest pain. No productive sputum PHYSICAL EXAM: VITAL SIGNS: Reviewed CONSTITUTIONAL: Well developed and in no acute distress. EYES: Conjuctivae without sclera icterus. Extraocular movements grossly intact. HEAD, EARS, NOSE, THROAT: Moist buccal mucosa. Head is atraumatic, normocephalic. Hears conversational speech. No nasal drainage. NECK: Supple. No thyroidomegaly. RESPIRATORY: Non-labored respirations and equal bilateral excursions. CARDIOVASCULAR: Palpable 2+ radial pulses. ABDOMEN: Incisions clean dry and intact. No peritonitis. MUSCULOSKELETAL: No gross deformity of the lower extremities noted. No clubbing. No cyanosis. SKIN: Good skin turgor. Well perfused. NEUROLOGIC: Cranial nerves II through XII grossly intact. No focal or lateralizing signs. PSYCH: Appropriate affect. Alert and oriented to person, place and time. CLINICAL LABS: White blood cell count normal ASSESSMENT: 1. Recurrent diaphragmatic hiatal hernia with incarceration, paraesophageal PLAN: 1. He is clinically doing well and stable for discharge. 2. Dietary surveillance and counseling reviewed Pertinent Studies: Esophagram negative for leak or obstruction Procedures: OPERATION: 1. Robotic-assisted da Malia Xi laparoscopic takedown of Jennifer fundoplasty 2. Robotic-assisted da Malia Xi laparoscopic extensive lysis of adhesions over 1.5 hours for perigastric adhesions 3. Robotic-assisted da Malia Xi laparoscopic reduction and repair of recurrent incarcerated paraesophageal hiatal hernia, 6 x 4 cm, with [place] Biopatch A 8 x 8 cm. 4. Intraoperative esophagogastroduodenoscopy Implants: [place] Biopatch A 8 x 8 cm Anesthesia: GETA, local Estimated Blood Loss (ml): 10 Pathology: none sent Condition: stable Disposition: floor Operative Findings: 1. Recurrent incarcerated paraesophageal hiatal hernia, 6 x 4 cm 2. Severe peritoneal adhesions perigastric with incarcerated hiatal hernia with obstruction with previous Jennifer fundoplasty requiring over 1.5 hour 3. Slipped Jennifer fundoplasty into the chest identified 4. Large intrathoracic hernia sac causing incarceration of stomach 5. Division and take down of fundoplasty using vessel sealer 6. More than 30% of stomach incarcerated into chest reduced into abdominal cavity 7. Hill grade 1 lower esophageal sphincter confirmed upon upper endoscopy 8. Incarcerated incisional hernia lower midline. Patient Condition at Discharge: Good Plan - Discharge Summary Discharge Rx Participant: No New Discharge Prescriptions: New Simethicone 40 mg/0.6 ml Drops [Mylicon Drops] 40 mg PO PCHS PRN #30 ml PRN Reason: Gas bisacodyL [Dulcolax] 5 mg PO DAILY PRN #10 tablet.dr PRN Reason: Constipation Continue Loratadine 10 mg PO QAM lisinopriL [Zestril] 2.5 mg PO QAM HYDROcodone/APAP 10-325MG [[place] 10-325] 1 tab PO QID PRN PRN Reason: Pain tiZANidine [Zanaflex] 4 mg PO BID Insulin Glargine,Hum.rec.anlog [Colleenaglnitin Benitezpen U-100] 35 unit SQ HS Aspirin 81 mg PO DAILY INSULIN LISPRO (humaLOG) [humaLOG] See Protocol SQ AC-TID Pioglitazone [Actos] 30 mg PO QAM Topiramate [Topamax] 100 mg PO QAM INSULIN LISPRO (humaLOG) [humaLOG] 10 units SQ AC-TID Atorvastatin [Lipitor] 20 mg PO HS Gabapentin [Neurontin] 300 mg PO TID Discontinued Omeprazole [PriLOSEC] 40 mg PO QAM ondansetron HCL [Zofran] 8 mg PO DAILY PRN PRN Reason: Nausea Sucralfate [Carafate] 1 gm PO BID #60 tab Discharge Medication List Loratadine 10 mg PO QAM 03/29/16 [History] lisinopriL [Zestril] 2.5 mg PO QAM 01/24/17 [History] HYDROcodone/APAP 10-325MG [[place] 10-325] 1 tab PO QID PRN 07/11/18 [History] Aspirin 81 mg PO DAILY 02/22/19 [History] Insulin Glargine,Hum.rec.anlog [Basaglar Kwikpen U-100] 35 unit SQ HS 02/22/19 [History] tiZANidine [Zanaflex] 4 mg PO BID 02/22/19 [History] INSULIN LISPRO (humaLOG) [humaLOG] See Protocol SQ AC-TID 03/15/19 [History] Pioglitazone [Actos] 30 mg PO QAM 04/09/19 [History] Topiramate [Topamax] 100 mg PO QAM 05/17/19 [History] Atorvastatin [Lipitor] 20 mg PO HS 08/15/20 [History] INSULIN LISPRO (humaLOG) [humaLOG] 10 units SQ AC-TID 08/15/20 [History] Gabapentin [Neurontin] 300 mg PO TID 11/04/20 [History] Simethicone 40 mg/0.6 ml Drops [Mylicon Drops] 40 mg PO PCHS PRN #30 ml 11/11/20 [Rx] bisacodyL [Dulcolax] 5 mg PO DAILY PRN #10 tablet. 11/11/20 [Rx] Follow up Appointment(s)/Referral(s): Brandie Mccoy MD [STAFF PHYSICIAN] - 11/15/20 Patient Instructions/Handouts: Laparoscopic Hiatal Hernia Repair (DC) Activity/Diet/Wound Care/Special Instructions: Liquid diet only for 2 weeks until November 24 No lifting over 4 pounds in 4 weeks, December 11October shower No soaking in bath tubs for 2 weeks, November 24 Please notify your surgeon if you develop nausea and vomiting including new onset of abdominal pain. Please ambulate at all times. Use Simethicone, Gas-X, Tylenol scheduled for the next 24-48 hours for best pain relief. Use ice along incisions for the today to prevent swelling. Please open, cut, crush pills larger than the size of a tic tack No carbonated beverages. No straws. Do not remove scopolamine patch for 3 days, if present Avoiding Gas Avoid drinking through a straw. Do not chew gum or tobacco. These actions cause you to swallow air, which produces excess gas in your stomach. Chew with your mouth closed. Avoid any foods that cause stomach gas and distention. These foods include corn, dried beans, peas, lentils, onions, broccoli, cauliflower and any food from the cabbage family. Avoid carbonated drinks, alcohol, citrus and tomato products. Carbonated drinks (sodas) are not allowed for the first six to eight weeks after surgery. After this time you can try them again in small amounts Clear Liquid Diet The first diet after surgery is the clear liquid diet. It includes the following liquids: Apple juice Cranberry juice Grape juice Chicken broth Beef broth Flavored gelatin (Jell-O) Decaf tea and coffee Caffeinated beverages are permitted based on tolerance Popsicles [place] ice Full Liquid Diet The full liquid diet contains anything on the clear liquid diet, plus: Milk, soy, rice and almond (no chocolate) Cream of wheat, cream of rice, grits Strained creamed soups (no tomato or broccoli) Vanilla and strawberry-flavored ice cream Sherbet Blended, custard styled or whipped yogurt (plain or vanilla only) Vanilla and butterscotch pudding (no chocolate or coconut) Nutritional drinks including Ensure, Boost, [place] Instant Breakfast (no chocolate-flavored) Note: Dairy products, such as milk, ice cream and pudding, may cause diarrhea in some people just after surgery. You may need to avoid milk products. If so, substitute them with lactose-free beverages, such as soy, rice, Lactaid or almond milks. Discharge Disposition: HOME SELF-CARE
--- NOTE | 2020-11-11 12:31 | FL ---
Single contrast esophagram EXAMINATION TYPE: FL esophagus cervic/pharynx DATE OF EXAM: 11/11/2020 11:07 AM COMPARISON: NONE CLINICAL HISTORY: Status post Shakir fundoplication The patient ingested contrast without difficulty or delay there is delayed esophagogastric transit wi th stasis of contrast within the distal esophagus. This may be in part secondary to the patient's par tial upright positioning. No evidence for leak. Mild obstruction suggested. IMPRESSION: Post-surgical change of Shakir fundoplication as noted there is delayed esophagogastric t ransit which may in part be related to the patient's partial upright positioning. Mild obstruction di fficult to exclude.
[2020-11-11 13:49] VITALS: BMI 32.6
== END 2020-11-11 15:26 | disposition home or self-care (01) ==
LOC: OR 11:02 → 4SSUR 17:17 → OR 17:37 → 4SSUR 11-11 12:04
PROVIDERS: ADMIT Family Medicine; ATTEND Surgery Plastic and Reconstructive Surgery
DX: K44.0 Diaphragmatic hernia with obstruction, without gangrene (principal); K21.00 Gastro-esophageal reflux disease with esophagitis, without bleeding; E78.5 Hyperlipidemia, unspecified; I69.354 Hemiplegia and hemiparesis following cerebral infarction affecting left non-dominant side; K66.0 Peritoneal adhesions (postprocedural) (postinfection); E11.40 Type 2 diabetes mellitus with diabetic neuropathy, unspecified; I11.9 Hypertensive heart disease without heart failure; K29.50 Unspecified chronic gastritis without bleeding; K29.80 Duodenitis without bleeding; K43.0 Incisional hernia with obstruction, without gangrene; E66.09 Other obesity due to excess calories; Z68.32 Body mass index [BMI] 32.0-32.9, adult; G40.909 Epilepsy, unspecified, not intractable, without status epilepticus; G89.4 Chronic pain syndrome; G43.909 Migraine, unspecified, not intractable, without status migrainosus; R25.1 Tremor, unspecified; F32.9 Major depressive disorder, single episode, unspecified; F41.9 Anxiety disorder, unspecified; Z90.49 Acquired absence of other specified parts of digestive tract; Z79.82 Long term (current) use of aspirin; Z79.899 Other long term (current) drug therapy; Z79.4 Long term (current) use of insulin; Z88.5 Allergy status to narcotic agent; Z88.8 Allergy status to other drugs, medicaments and biological substances; Z91.018 Allergy to other foods; Z83.3 Family history of diabetes mellitus; Z82.49 Family history of ischemic heart disease and other diseases of the circulatory system
CPT/HCPCS: 43282; 49329; 97161; 97165; 80051; 82310; 82565; 83735; 84100; 84520; 85025; 74210; G0378 ×2; C1781; J2250; J1100; J2710; J2765 ×2; J0690 ×2; J2405 ×2; J2001; J3010; J1650; J1170 ×2; J0131 ×2; J2370; J0330; J2704; C9113 ×2; Q9967; 86850; 86900; 86901

== ENCOUNTER 2021-01-24 01:28 | Emergency (ER) | payer MEDICARE, OTHER ==
--- NOTE | 2021-01-24 01:47 | ED ---
Fever HPI - General Chief Complaint: Fever Stated Complaint: Fever, ENT Time Seen by Provider: 01/24/21 01:46 Source: patient, RN notes reviewed, old records reviewed Mode of arrival: wheelchair Limitations: no limitations - History of Present Illness Initial Comments: This is a 35-year-old male presents today for evaluation of fever chills cough congestion fatigue., Acute medical history including chronic pain diabetes asthma. Patient associated with shortness of breath is persisting cough. Patient is fully vaccinated for coronavirus. Denies chest pain. No significant travel history. Patient is concern for positive coronavirus test MD Complaint: fever, malaise, weakness -: days(s) (5) Temperature Source: subjective, oral Context: sick contacts Associated Symptoms: chills, myalgias, cough, night sweats Treatments Prior to Arrival: none - Related Data Home Medications Medication Instructions Recorded Confirmed Loratadine 10 mg PO QAM 03/29/16 11/04/20 lisinopriL [Zestril] 2.5 mg PO QAM 01/24/17 11/04/20 HYDROcodone/APAP 10-325MG [[place] 1 tab PO QID PRN 07/11/18 11/04/20 10-325] Aspirin 81 mg PO DAILY 02/22/19 11/04/20 Insulin Glargine,Hum.rec.anlog 35 unit SQ HS 02/22/19 11/04/20 [Basaglar Kwikpen U-100] tiZANidine [Zanaflex] 4 mg PO BID 02/22/19 11/04/20 INSULIN LISPRO (humaLOG) [humaLOG] See Protocol SQ AC-TID 03/15/19 11/04/20 Pioglitazone [Actos] 30 mg PO QAM 04/09/19 11/04/20 Topiramate [Topamax] 100 mg PO QAM 05/17/19 11/04/20 Atorvastatin [Lipitor] 20 mg PO HS 08/15/20 11/04/20 INSULIN LISPRO (humaLOG) [humaLOG] 10 units SQ AC-TID 08/15/20 11/04/20 Gabapentin [Neurontin] 300 mg PO TID 11/04/20 11/04/20 Previous Rx's Medication Instructions Recorded Simethicone 40 mg/0.6 ml Drops 40 mg PO PCHS PRN #30 ml 11/11/20 [Mylicon Drops] bisacodyL [Dulcolax] 5 mg PO DAILY PRN #10 tablet. 11/11/20 Allergies Allergy/AdvReac Type Severity Reaction Status Date / Time etodolac [From Lodine] Allergy Rash/Hives Verified 01/24/21 01:38 ketorolac [From Toradol] Allergy Rash/Hives Verified 01/24/21 01:38 Mushroom Allergy Unknown Verified 01/24/21 01:38 tramadol Allergy Rash/Hives Verified 01/24/21 01:38 canagliflozin [From Invokana] AdvReac Vomiting Verified 01/24/21 01:38 Review of Systems ROS Statement: Those systems with pertinent positive or pertinent negative responses have been documented in the HPI. ROS Other: All systems not noted in ROS Statement are negative. Past Medical History Past Medical History: Asthma, CVA/TIA, Diabetes Mellitus, GERD/Reflux, Hyperlipidemia, Hypertension, Pneumonia Additional Past Medical History / Comment(s): ABD PAIN. 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 HX OF diverticultitis. Hx of migraines History of Any Multi-Drug Resistant Organisms: None Reported Past Surgical History: Appendectomy, Back Surgery, Bowel Resection, Cholecystectomy, Orthopedic Surgery, Tonsillectomy Additional Past Surgical History / Comment(s): rt shoulder sx, ARTHROSCOPY Knee x 3, hiatal hernia Past Anesthesia/Blood Transfusion Reactions: Postoperative Nausea & Vomiting (PONV) Additional Past Anesthesia/Blood Transfusion Reaction / Comment(s): no hx blood transfusion Past Psychological History: Anxiety, Depression Smoking Status: Never smoker Past Alcohol Use History: None Reported Past Drug Use History: None Reported - Past Family History Mother Family Medical History: No Reported History Father Family Medical History: Diabetes Mellitus Additional Family Medical History / Comment(s): heart problems General Exam General appearance: alert, in no apparent distress Head exam: Present: atraumatic, normocephalic, normal inspection Eye exam: Present: normal appearance, PERRL, EOMI. Absent: scleral icterus, conjunctival injection, periorbital swelling ENT exam: Present: normal exam, mucous membranes moist Neck exam: Present: normal inspection. Absent: tenderness, meningismus, lymphadenopathy Respiratory exam: Present: normal lung sounds bilaterally. Absent: respiratory distress, wheezes, rales, rhonchi, stridor Cardiovascular Exam: Present: regular rate, normal rhythm, normal heart sounds. Absent: systolic murmur, diastolic murmur, rubs, gallop, clicks GI/Abdominal exam: Present: soft, normal bowel sounds. Absent: distended, tenderness, guarding, rebound, rigid Extremities exam: Present: normal inspection, full ROM, normal capillary refill. Absent: tenderness, pedal edema, joint swelling, calf tenderness Back exam: Present: normal inspection Neurological exam: Present: alert, oriented X3, CN II-XII intact Psychiatric exam: Present: normal affect, normal mood Skin exam: Present: warm, dry, intact, normal color. Absent: rash Course Vital Signs 01/24/21 01:32 Temperature 98.3 F Pulse Rate 95 Respiratory 18 Rate Blood Pressure 128/77 O2 Sat by Pulse 100 Oximetry - Reevaluation(s) Reevaluation #1: 01/24/21 02:16 Medical record is reviewed Reevaluation #2: 01/24/21 03:01 Patient denying any treatment for fever Reevaluation #3: 01/24/21 03:01 Patient informed results and questions answered Medical Decision Making - Medical Decision Making 35 male with febrile illness of breast for infection, x-ray coronavirus testing are negative. Patient can be discharged home - Lab Data Lab Results 01/24/21 Range/Units 01:52 Coronavirus (PCR) Not Detected (Not Detectd) - Radiology Data Radiology results: report reviewed (Chest x-rays negative for acute disease), image reviewed Interpreted by me: chest Disposition Clinical Impression: Fever, Upper respiratory infection Disposition: HOME SELF-CARE Condition: Good Instructions (If sedation given, give patient instructions): Fever in Adults (ED) Is patient prescribed a controlled substance at d/c from ED?: No Referrals: Tremaine Casey Jr, [Primary Care Provider] - 1-2 days
--- NOTE | 2021-01-24 02:19 | XR ---
EXAMINATION TYPE: XR chest 1V portable DATE OF EXAM: 01/24/2021 COMPARISON: 03/15/2019 HISTORY: Cough TECHNIQUE: Single view FINDINGS: Heart and mediastinum are normal. Lungs are clear. Diaphragm is normal. Bony thorax is inta ct. IMPRESSION: Normal chest. No adverse change.
[2021-01-24 03:17] VITALS: BP 108/73; PULSE 85; RESP 17; TEMP 98
== END 2021-01-24 03:16 | disposition home or self-care (01) ==
LOC: EC 01:28
DX: J06.9 Acute upper respiratory infection, unspecified (principal); E11.9 Type 2 diabetes mellitus without complications; I10 Essential (primary) hypertension; E78.5 Hyperlipidemia, unspecified; J45.909 Unspecified asthma, uncomplicated; K21.9 Gastro-esophageal reflux disease without esophagitis; F32.9 Major depressive disorder, single episode, unspecified; F41.9 Anxiety disorder, unspecified; Z79.4 Long term (current) use of insulin; Z79.82 Long term (current) use of aspirin; Z79.891 Long term (current) use of opiate analgesic; Z79.899 Other long term (current) drug therapy; Z86.73 Personal history of transient ischemic attack (TIA), and cerebral infarction without residual deficits; Z88.5 Allergy status to narcotic agent; Z88.8 Allergy status to other drugs, medicaments and biological substances; Z83.3 Family history of diabetes mellitus; Z90.49 Acquired absence of other specified parts of digestive tract
CPT/HCPCS: 71045; 87635; 99284

== ENCOUNTER → 2021-05-04 | Outpatient (CLI) | payer MEDICARE, OTHER ==
--- NOTE | 2021-05-04 11:49 | FL ---
ESOPHOGRAM. HISTORY: Dysphagia Single contrast esophagram was performed. There are prior changes of Shakir fundoplication. There is delayed transit of contrast at the gastroesophageal junction with the luminal narrowing noted. Most o f the contrast did flow through into the stomach. No evidence for leak. No evidence for recurrent hia shin hernia. IMPRESSION: Luminal narrowing at the GE junction results in mild delay in esophagogastric transit.
== END | disposition home or self-care (01) ==
LOC: RADUSWWP 09:50
PROVIDERS: ATTEND Surgery Plastic and Reconstructive Surgery
DX: K22.4 Dyskinesia of esophagus (principal)
CPT/HCPCS: 74220

== ENCOUNTER 2021-06-07 07:37 | Day surgery (SDC) | payer MEDICARE, OTHER ==
[2021-06-06 09:22] VITALS: BMI 31.6
[2021-06-07] MEDS ORDERED: LIDOCAINE 1% (10MG/ML) FOR IV START INTRADERMA ONE (08:20)
[2021-06-07] MEDS: LACTATED RINGERS 1,000 ML IV SCH ×2 (08:20→08:42)
[2021-06-07 08:21] VITALS: RESP 16; TEMP 98.7
[2021-06-07 08:22] LABS: Glucose,Whole Blood 70 mg/dL (75-99)
[2021-06-07] MEDS ORDERED: ONDANSETRON 4 MG/2 ML VIAL ONE (08:24)
--- NOTE | 2021-06-07 08:37 | P.GSHP ---
History of Present Illness H&P Date: 06/07/21 CHIEF COMPLAINT: GERD HISTORY OF PRESENT ILLNESS: The patient is a 36-year-old male who presents reports gastroesophageal reflux disease. Upper endoscopy was offered for further evaluation and management. PAST MEDICAL HISTORY: Please see list. PAST SURGICAL HISTORY: Please see list. MEDICATIONS: Please see list. ALLERGIES: Please see list. SOCIAL HISTORY: No illicit drug use FAMILY HISTORY: No reports of Crohn disease or ulcerative colitis. REVIEW OF ORGAN SYSTEMS: CONSTITUTIONAL: No reports of fevers or chills. GI: Denies any blood in stools or constipation. PHYSICAL EXAM: VITAL SIGNS: Stable GENERAL: Well-developed and pleasant in no acute distress. HEENT: No scleral icterus. Extraocular movements grossly intact. Moist buccal mucosa. NECK: Supple without lymphadenopathy. CHEST: Unlabored respirations. Equal bilateral excursions. CARDIOVASCULAR: Regular rate and rhythm. Distal 2+ pulses. ABDOMEN: Soft, nondistended. MUSCULOSKELETAL: No clubbing, cyanosis, or edema. ASSESSMENT: 1. Gastroesophageal reflux disease PLAN: 1. Recommend proceeding with an upper endoscopy Past Medical History Past Medical History: Asthma, CVA/TIA, Diabetes Mellitus, GERD/Reflux, Hyperlipidemia, Hypertension, Pneumonia Additional Past Medical History / Comment(s): CVA 08/2017-left sided weakness, tremors left leg and hand. Asthma (child)., Hx diverticultitis with bowel resection, migraines., back pain, Hx of hiatal hernia with surgery, having nausea & reflux. History of Any Multi-Drug Resistant Organisms: None Reported Past Surgical History: Appendectomy, Back Surgery, Bowel Resection, Cholecystectomy, Orthopedic Surgery, Tonsillectomy Additional Past Surgical History / Comment(s): rt shoulder sx, ARTHROSCOPY Knee x 3, hiatal hernia, lumbar fusion Past Anesthesia/Blood Transfusion Reactions: Postoperative Nausea & Vomiting (PONV) Additional Past Anesthesia/Blood Transfusion Reaction / Comment(s): no hx blood transfusion Past Psychological History: Depression Additional Psychological History / Comment(s): sees psychiatrist Smoking Status: Never smoker Past Alcohol Use History: None Reported Past Drug Use History: None Reported - Past Family History Mother Family Medical History: No Reported History Father Family Medical History: Diabetes Mellitus Additional Family Medical History / Comment(s): heart problems Medications and Allergies Home Medications Medication Instructions Recorded Confirmed Type Loratadine 10 mg PO QAM 03/29/16 06/07/21 History lisinopriL [Zestril] 2.5 mg PO QAM 01/24/17 06/07/21 History HYDROcodone/APAP 10-325MG [[place] 1 tab PO QID PRN 07/11/18 06/07/21 History 10-325] Aspirin 81 mg PO DAILY 02/22/19 06/07/21 History tiZANidine [Zanaflex] 4 mg PO BID 02/22/19 06/07/21 History INSULIN LISPRO (humaLOG) [humaLOG] See Protocol SQ AC-TID PRN 03/15/19 06/07/21 History Pioglitazone [Actos] 30 mg PO QAM 04/09/19 06/07/21 History Topiramate [Topamax] 100 mg PO QAM 05/17/19 06/07/21 History Atorvastatin [Lipitor] 20 mg PO HS 08/15/20 06/07/21 History Gabapentin [Neurontin] 300 mg PO TID 11/04/20 06/07/21 History Insulin Glargine,Hum.rec.anlog 35 unit SQ HS 06/06/21 06/07/21 History [Lantus Solostar Pen] ondansetron HCL [Zofran] 8 mg PO Q8HR PRN 06/06/21 06/07/21 History Allergies Allergy/AdvReac Type Severity Reaction Status Date / Time etodolac [From Lodine] Allergy Rash/Hives Verified 06/07/21 08:06 ketorolac [From Toradol] Allergy Rash/Hives Verified 06/07/21 08:06 Mushroom Allergy Unknown Verified 06/07/21 08:06 tramadol Allergy Rash/Hives Verified 06/07/21 08:06 canagliflozin [From Invokana] AdvReac Vomiting Verified 06/07/21 08:06 Surgical - Exam Vital Signs Temp Pulse Resp BP Pulse Ox 98.7 F 92 16 123/76 99 06/07/21 08:07 06/07/21 08:07 06/07/21 08:07 06/07/21 08:07 06/07/21 08:07 Results - Labs Abnormal Lab Results - Last 24 Hours (Table) 06/07/21 Range/Units 08:19 POC Glucose (mg/dL) 70 L (75-99) mg/dL
[2021-06-07] MEDS ORDERED: LIDOCAINE 1% INJ 10MG/ML (20 ML MDV) ONE (08:43)
[2021-06-07] MEDS ORDERED: PROPOFOL 10 MG/ML 20 ML VIAL IV ONE (08:43)
--- NOTE | 2021-06-07 09:10 | P.PCN ---
Date of Procedure: 06/07/21 Description of Procedure: PREOPERATIVE DIAGNOSIS: Dysphagia. Gastroesophageal reflux disease Esophageal stricture POSTOPERATIVE DIAGNOSIS: Dysphagia. Gastroesophageal reflux disease Esophageal stricture OPERATION: Esophagogastroduodenoscopy with rigid dilator over the guidewire 57 Fr. SURGEON: Brandie Mccoy MD ANESTHESIA: MAC. INDICATIONS: The patient is a 52-year-old male who presents with a history of dysphagia. Benefits and risks of the procedure were described. Informed consent was obta ined. DESCRIPTION: The patient was brought into the endoscopy suite and laid in the left lateral decubitus position. After a timeout was confirmed, the procedure was initiated. An Olympus gastroscope was passed and the stomach was entered. Mild gastritis was identified. The scope was advanced to the duodenum which was unremarkable. Retroflexion the scope confirmed a Hill grade 1 lower esophageal valve. Next using an Cymro rigid dilator, a guidewire was placed through the pediatric gastroscope. Next the scope was withdrawn. A 57-Georgian rigid Cymro dilator was passed carefully along the posterior oropharynx to 50 cm and left in place for 2-3 minutes stretch. The dilator was withdrawn including the guidewire. The scope was reentered along the posterior oropharynx with no findings of full-thickness tear of the upper esophageal sphincter. No full-thickness injury was encountered. The GI tract was desufflated. The patient tolerated the procedure well. FINDINGS: Squamocolumnar junction at 40 cm. Distal esophageal stricture without ulceration Cymro rigid dilator 57-Georgian completed. No hiatus hernia Retained gastric food Hill grade 1 lower esophageal valve. LA grade B esophagitis. RECOMMENDATIONS: Upper endoscopy as needed Plan - Discharge Summary New Discharge Prescriptions: Continue Loratadine 10 mg PO QAM lisinopriL [Zestril] 2.5 mg PO QAM HYDROcodone/APAP 10-325MG [[place] 10-325] 1 tab PO QID PRN PRN Reason: Pain tiZANidine [Zanaflex] 4 mg PO BID Aspirin 81 mg PO DAILY INSULIN LISPRO (humaLOG) [humaLOG] See Protocol SQ AC-TID PRN PRN Reason: cbg above 150 Pioglitazone [Actos] 30 mg PO QAM Topiramate [Topamax] 100 mg PO QAM Atorvastatin [Lipitor] 20 mg PO HS Insulin Glargine,Hum.rec.anlog [Lantus Solostar Pen] 35 unit SQ HS Gabapentin [Neurontin] 300 mg PO TID ondansetron HCL [Zofran] 8 mg PO Q8HR PRN PRN Reason: Nausea Discharge Medication List Loratadine 10 mg PO QAM 03/29/16 [History] lisinopriL [Zestril] 2.5 mg PO QAM 01/24/17 [History] HYDROcodone/APAP 10-325MG [[place] 10-325] 1 tab PO QID PRN 07/11/18 [History] Aspirin 81 mg PO DAILY 02/22/19 [History] tiZANidine [Zanaflex] 4 mg PO BID 02/22/19 [History] INSULIN LISPRO (humaLOG) [humaLOG] See Protocol SQ AC-TID PRN 03/15/19 [History] Pioglitazone [Actos] 30 mg PO QAM 04/09/19 [History] Topiramate [Topamax] 100 mg PO QAM 05/17/19 [History] Atorvastatin [Lipitor] 20 mg PO HS 08/15/20 [History] Gabapentin [Neurontin] 300 mg PO TID 11/04/20 [History] Insulin Glargine,Hum.rec.anlog [Lantus Solostar Pen] 35 unit SQ HS 06/06/21 [History] ondansetron HCL [Zofran] 8 mg PO Q8HR PRN 06/06/21 [History] Follow up Appointment(s)/Referral(s): Brandie Mccoy MD [STAFF PHYSICIAN] - As Needed Patient Instructions/Handouts: Esophageal Dilation (DC) Activity/Diet/Wound Care/Special Instructions: Diet as tolerated. Discharge Disposition: HOME SELF-CARE
[2021-06-07 09:45] VITALS: BP 99/68; PULSE 68
== END 2021-06-07 09:54 | disposition home or self-care (01) ==
LOC: ORWHC2ENDO 07:37
PROVIDERS: ATTEND Surgery Plastic and Reconstructive Surgery
DX: K22.2 Esophageal obstruction (principal); K21.9 Gastro-esophageal reflux disease without esophagitis; K44.1 Diaphragmatic hernia with gangrene; E78.5 Hyperlipidemia, unspecified; I10 Essential (primary) hypertension; J45.909 Unspecified asthma, uncomplicated; F41.9 Anxiety disorder, unspecified; G43.909 Migraine, unspecified, not intractable, without status migrainosus; M54.9 Dorsalgia, unspecified; Z86.73 Personal history of transient ischemic attack (TIA), and cerebral infarction without residual deficits; Z79.82 Long term (current) use of aspirin; Z79.4 Long term (current) use of insulin; Z79.899 Other long term (current) drug therapy; Z88.5 Allergy status to narcotic agent; Z88.8 Allergy status to other drugs, medicaments and biological substances; Z91.018 Allergy to other foods
CPT/HCPCS: 43248; J2001; J2704; 43249

== ENCOUNTER → 2021-08-22 | Outpatient (CLI) | payer MEDICARE, OTHER ==
--- NOTE | 2021-08-22 20:15 | EEG ---
ELECTROENCEPHALOGRAM REPORT DATE OF SERVICE: 08/22/2021 PREAMBLE: This is a 36-year-old male with migraines, dizzy spells and some tremors. He has a history of diabetes, CVA, hypertension, chronic back pain and neuropathy. Current medications are Topamax, Joseph, gabapentin, loratadine, Actos, insulin, lisinopril, atorvastatin and Zofran. EEG FINDINGS: This is a 21-channel digital EEG recorded with video component, utilizing 10/20 international system with referential and bipolar montages. Background consists of moderately well-developed and regulated mixed frequencies of low-voltage fast frequency beta, mixed with some alpha range activity in bihemispheric region. Background is posterior-dominant and reactive to eye opening and closing. Photic driving response was not clearly seen. There is numerous documentation of left arm tremoring during the photic stimulation and shortly after, and no electrographic correlate was observed during this tremoring. Drowsiness was seen with appearance of bilaterally symmetric theta frequency rhythm. Deeper stages of sleep were not seen. Some temporal sharp transients were seen during drowsiness but were not epileptiform in nature. EKG channel showed no arrhythmia. No focal or generalized epileptiform activity was seen. IMPRESSION: This is a normal awake and drowsy EEG. No focal, lateralized or epileptiform activity was seen. There was frequent documentation of left arm tremoring noted during the recording, during which no electrographic correlate was noted; therefore probably non- epileptic in origin. Clinical correlation also recommended. MMMAVIS / ANETAN: [id number] /
== END ==
LOC: NEUROMAIN 08:04
PROVIDERS: ATTEND Psychiatry & Neurology Neurology
DX: R42 Dizziness and giddiness (principal); Z91.018 Allergy to other foods; Z88.6 Allergy status to analgesic agent; Z88.5 Allergy status to narcotic agent; Z88.1 Allergy status to other antibiotic agents
CPT/HCPCS: 95816

== ENCOUNTER → 2021-12-05 | Outpatient (CLI) | payer MEDICARE, OTHER ==
[2021-12-05 17:34] LABS: Basophils # (A) 0.09 X 10*3/uL (0.00-0.10); Basophils % (A) 1.4 %; Eosinophils % (A) 7.9 %; HGB 14.6 g/dL (13.0-17.0); Immature Grans, Automated 0.2 %; Lymphocytes % (A) 39.7 %; MCH 30.7 pg (27.0-32.0); MCHC 32.4 g/dL (32.0-37.0); MCV 94.7 fL (80.0-97.0); Mean Platelet Volume 10.5 fL (9.5-12.2); Monocytes # (A) 0.32 X 10*3/uL (0.20-1.00); Monocytes % (A) 5.1 %; NRBC Per 100 WBC 0 /100 WBCS (0.0-0.0); Neutrophils # (A) 2.88 X 10*3/uL (1.80-7.70); Neutrophils % (A) 45.7 %; Platelet Count 224 X 10*3/uL (140-440); RBC 4.75 X 10*6/uL (4.40-5.60); RDW 12.3 % (11.5-14.5)
[2021-12-05 17:44] LABS: ALT 63 U/L (10-49); AST 32 U/L (14-35); BUN/Creat Ratio 12.19 Ratio (12.00-20.00); Blood Urea Nitrogen 13.9 mg/dL (9.0-27.0); Calcium 8.8 mg/dL (8.7-10.3); Chloride 105 mmol/L (96-109); Chol/HDL Ratio 2.58 Ratio; Glucose 74 mg/dL (70-110); LDL Cholesterol,Calculated 60.3 mg/dL (0.0-131.0); Non-African American GFR(CKD) 81.1 (60.0-200.0); Potassium 3.7 mmol/L (3.5-5.5); Sodium 137 mmol/L (135-145); VLDL Calculation 14.46 mg/dL (5.00-40.00)
== END | disposition home or self-care (01) ==
LOC: LABWHC1 14:11
PROVIDERS: ATTEND Family Medicine
DX: Z00.00 Encounter for general adult medical examination without abnormal findings (principal); E10.65 Type 1 diabetes mellitus with hyperglycemia; E78.5 Hyperlipidemia, unspecified; I10 Essential (primary) hypertension
CPT/HCPCS: 36415; 80048; 80061; 83036; 84450; 84460; 85025

== ENCOUNTER 2022-04-05 07:54 | Inpatient (IN) | payer MEDICARE, OTHER ==
[2022-04-05] MEDS ORDERED: ONDANSETRON 4 MG/2 ML VIAL IVP STA (08:38)
[2022-04-05] MEDS ORDERED: SODIUM CHLORIDE 0.9% 1,000 ML IV STA (08:38)
[2022-04-05] MEDS ORDERED: PANTOPRAZOLE 40 MG/10 ML VIAL IVP STA (08:38)
[2022-04-05] MEDS ORDERED: HYDROmorphone 0.5 MG/0.5 ML SYRINGE IVP STA (08:39)
--- NOTE | 2022-04-05 09:00 | ED ---
General Adult HPI - General Chief complaint: Nausea/Vomiting/Diarrhea Stated complaint: Vomiting Time Seen by Provider: 04/05/22 08:40 Source: patient, family, RN notes reviewed, old records reviewed Mode of arrival: ambulatory Limitations: no limitations - History of Present Illness Initial comments: This is a 37-year-old male presents emergency Department with a past medical history significant for diabetes, hiatal hernia surgery 2, colectomy, chol ecystectomy, and appendectomy. Patient comes in today stating he started vomiting yesterday and has been unable to stop vomiting. Patient states she has taken Zofran at home but it didn't help. Patient states she was unable to take his Renick which she takes on a daily basis for chronic back pain. Patient states he has some epigastric discomfort no significant abdominal pain just cannot stop vomiting. Patient states his last glucose level was 243. Patient denies any recent fever chills per patient denies any chest pain difficulty breathing or shortness of breath. - Related Data Home Medications Medication Instructions Recorded Confirmed Loratadine 10 mg PO QAM 03/29/16 04/05/22 lisinopriL [Zestril] 2.5 mg PO QAM 01/24/17 04/05/22 HYDROcodone/APAP 10-325MG [[place] 1 tab PO QID PRN 07/11/18 04/05/22 10-325] Aspirin 81 mg PO DAILY 02/22/19 04/05/22 tiZANidine [Zanaflex] 4 mg PO BID 02/22/19 04/05/22 INSULIN LISPRO (humaLOG) [humaLOG] See Protocol SQ AC-TID PRN 03/15/19 04/05/22 Pioglitazone [Actos] 30 mg PO QAM 04/09/19 04/05/22 Topiramate [Topamax] 100 mg PO QAM 05/17/19 04/05/22 Atorvastatin [Lipitor] 20 mg PO HS 08/15/20 04/05/22 Gabapentin [Neurontin] 300 mg PO TID 11/04/20 04/05/22 Insulin Glargine,Hum.rec.anlog 35 unit SQ HS 06/06/21 04/05/22 [Lantus Solostar Pen] ondansetron HCL [Zofran] 8 mg PO Q8HR PRN 06/06/21 04/05/22 Previous Rx's Medication Instructions Recorded Omeprazole [PriLOSEC] 40 mg PO DAILY #14 cap 06/07/21 Allergies Allergy/AdvReac Type Severity Reaction Status Date / Time etodolac [From Lodine] Allergy Rash/Hives Verified 04/05/22 11:23 ketorolac [From Toradol] Allergy Rash/Hives Verified 04/05/22 11:23 Mushroom Allergy Unknown Verified 04/05/22 11:23 tramadol Allergy Rash/Hives Verified 04/05/22 11:23 canagliflozin [From Invokana] AdvReac Vomiting Verified 04/05/22 11:23 Review of Systems ROS Statement: Those systems with pertinent positive or pertinent negative responses have been documented in the HPI. ROS Other: All systems not noted in ROS Statement are negative. Past Medical History Past Medical History: Asthma, CVA/TIA, Diabetes Mellitus, GERD/Reflux, Hyperlipidemia, Hypertension, Pneumonia Additional Past Medical History / Comment(s): ABD PAIN. 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 HX OF diverticultitis. Hx of migraines History of Any Multi-Drug Resistant Organisms: None Reported Past Surgical History: Appendectomy, Back Surgery, Bowel Resection, Cholecystectomy, Orthopedic Surgery, Tonsillectomy Additional Past Surgical History / Comment(s): rt shoulder sx, ARTHROSCOPY Knee x 3, hiatal hernia Past Anesthesia/Blood Transfusion Reactions: Postoperative Nausea & Vomiting (PONV) Additional Past Anesthesia/Blood Transfusion Reaction / Comment(s): no hx blood transfusion Past Psychological History: Anxiety, Depression Smoking Status: Never smoker Past Alcohol Use History: None Reported Past Drug Use History: None Reported - Past Family History Mother Family Medical History: No Reported History Father Family Medical History: Diabetes Mellitus Additional Family Medical History / Comment(s): heart problems General Exam - General Exam Comments Initial Comments: GENERAL: Patient is well-developed and well-nourished. Patient is nontoxic and well- hydrated and is in mild distress. ENT: Neck is soft and supple. No significant lymphadenopathy is noted. Oropharynx is clear. Moist mucous membranes. Neck has full range of motion without eliciting any pain. EYES: The sclera were anicteric and conjunctiva were pink and moist. Extraocular movements were intact and pupils were equal round and reactive to light. Eyelids were unremarkable. PULMONARY: Unlabored respirations. Good breath sounds bilaterally. No audible rales rhonchi or wheezing was noted. CARDIOVASCULAR: There is a regular rate and rhythm without any murmurs gallops or rubs. ABDOMEN: Soft and nontender with normal bowel sounds. SKIN: Skin is clear with no lesions or rashes and otherwise unremarkable. NEUROLOGIC: Patient is alert and oriented x3. Cranial nerves II through XII are grossly intact. Motor and sensory are also intact. Normal speech, volume and content. Symmetrical smile. MUSCULOSKELETAL: Normal extremities with adequate strength and full range of motion. No lower extremity swelling or edema. No calf tenderness. LYMPHATICS: No significant lymphadenopathy is noted PSYCHIATRIC: Normal psychiatric evaluation. Limitations: no limitations Course Vital Signs 04/05/22 04/05/22 04/05/22 08:22 10:09 11:50 Temperature 97.7 F Pulse Rate 100 100 100 Respiratory 20 18 15 Rate Blood Pressure 138/84 123/72 130/71 O2 Sat by Pulse 100 99 98 Oximetry Medical Decision Making - Medical Decision Making Patient's lactic acid is elevated because of excessive vomiting and dehydration. I spoke with Dr. ibarra she agreed to admit the patient admitted the patient wrote admitting orders. - Lab Data Result diagrams: 04/05/22 12:01 04/05/22 08:52 Lab Results 04/05/22 04/05/22 04/05/22 Range/Units 08:52 08:52 08:52 WBC 10.9 H (3.8-10.6) k/uL RBC 4.73 (4.30-5.90) m/uL Hgb 15.7 (13.0-17.5) gm/dL Hct 43.6 (39.0-53.0) % MCV 92.2 (80.0-100.0) fL MCH 33.2 (25.0-35.0) pg MCHC 36.0 (31.0-37.0) g/dL RDW 12.3 (11.5-15.5) % Plt Count 223 (150-450) k/uL MPV 8.3 Neutrophils % 88 % Lymphocytes % 9 % Monocytes % 2 % Eosinophils % 1 % Basophils % 0 % Neutrophils # 9.6 H (1.3-7.7) k/uL Lymphocytes # 1.0 (1.0-4.8) k/uL Monocytes # 0.3 (0-1.0) k/uL Eosinophils # 0.1 (0-0.7) k/uL Basophils # 0.0 (0-0.2) k/uL Sodium 137 (137-145) mmol/L Potassium 4.4 (3.5-5.1) mmol/L Chloride 101 (98-107) mmol/L Carbon Dioxide 13 L (22-30) mmol/L Anion Gap 23 mmol/L BUN 27 H (9-20) mg/dL Creatinine 1.19 (0.66-1.25) mg/dL Est GFR (CKD-EPI)AfAm 89 (>60 ml/min/1.73 sqM) Est GFR (CKD-EPI)NonAf 77 (>60 ml/min/1.73 sqM) Glucose 278 H (74-99) mg/dL Lactic Ac Sepsis Rflx Plasma Lactic Acid Ja 5.2 H* (0.7-2.0) mmol/L Calcium 9.4 (8.4-10.2) mg/dL Total Bilirubin 1.9 H (0.2-1.3) mg/dL AST 34 (17-59) U/L ALT 68 H (4-49) U/L Alkaline Phosphatase 144 H (38-126) U/L Total Protein 8.7 H (6.3-8.2) g/dL Albumin 5.2 H (3.5-5.0) g/dL Amylase 39 (30-110) U/L Lipase 39 (23-300) U/L Gastric Occult Blood (Negative) Acetone, Qual (Negative) 04/05/22 04/05/22 04/05/22 Range/Units 08:52 08:52 09:23 WBC (3.8-10.6) k/uL RBC (4.30-5.90) m/uL Hgb (13.0-17.5) gm/dL Hct (39.0-53.0) % MCV (80.0-100.0) fL MCH (25.0-35.0) pg MCHC (31.0-37.0) g/dL RDW (11.5-15.5) % Plt Count (150-450) k/uL MPV Neutrophils % % Lymphocytes % % Monocytes % % Eosinophils % % Basophils % % Neutrophils # (1.3-7.7) k/uL Lymphocytes # (1.0-4.8) k/uL Monocytes # (0-1.0) k/uL Eosinophils # (0-0.7) k/uL Basophils # (0-0.2) k/uL Sodium (137-145) mmol/L Potassium (3.5-5.1) mmol/L Chloride (98-107) mmol/L Carbon Dioxide (22-30) mmol/L Anion Gap mmol/L BUN (9-20) mg/dL Creatinine (0.66-1.25) mg/dL Est GFR (CKD-EPI)AfAm (>60 ml/min/1.73 sqM) Est GFR (CKD-EPI)NonAf (>60 ml/min/1.73 sqM) Glucose (74-99) mg/dL Lactic Ac Sepsis Rflx Y Plasma Lactic Acid Ja (0.7-2.0) mmol/L Calcium (8.4-10.2) mg/dL Total Bilirubin (0.2-1.3) mg/dL AST (17-59) U/L ALT (4-49) U/L Alkaline Phosphatase (38-126) U/L Total Protein (6.3-8.2) g/dL Albumin (3.5-5.0) g/dL Amylase (30-110) U/L Lipase (23-300) U/L Gastric Occult Blood Positive (Negative) Acetone, Qual Negative (Negative) Disposition Clinical Impression: Upper GI bleed, Acute vomiting Disposition: ADMITTED IP TO THIS [facility] Time of Disposition: 11:00
[2022-04-05 09:01] LABS: Basophils % (A) 0 %; Eosinophils # (A) 0.1 k/uL (0-0.7); Eosinophils % (A) 1 %; HCT 43.6 % (39.0-53.0); HGB 15.7 gm/dL (13.0-17.5); Lymphocytes % (A) 9 %; MCH 33.2 pg (25.0-35.0); MCV 92.2 fL (80.0-100.0); Mean Platelet Volume 8.3; Monocytes # (A) 0.3 k/uL (0-1.0); Monocytes % (A) 2 %; Neutrophils # (A) 9.6 k/uL (1.3-7.7); Neutrophils % (A) 88 %; Platelet Count 223 k/uL (150-450); RBC 4.73 m/uL (4.30-5.90); RDW 12.3 % (11.5-15.5); WBC 10.9 k/uL (3.8-10.6)
[2022-04-05 09:09] LABS: Albumin 5.2 g/dL (3.5-5.0); Calcium 9.4 mg/dL (8.4-10.2); Potassium 4.4 mmol/L (3.5-5.1); Total Bilirubin 1.9 mg/dL (0.2-1.3); Total Protein 8.7 g/dL (6.3-8.2)
[2022-04-05] MEDS ORDERED: SODIUM CHLORIDE 0.9% 1,000 ML IV ONE ×2 (10:00→11:00)
[2022-04-05] MEDS ORDERED: METOCLOPRAMIDE 5 MG/ML 2 ML VIAL IVP STA (10:00)
[2022-04-05] MEDS: ONDANSETRON 4 MG/2 ML VIAL IVP PRN ×3 (11:47→23:08)
[2022-04-05] MEDS: HYDROmorphone 0.5 MG/0.5 ML SYRINGE IVP PRN ×5 (11:48→23:41)
[2022-04-05] MEDS ORDERED: ACETAMINOPHEN IV (For NPO) 1,000 MG in EMPTY BAG 1 BAG IVPB SCH (12:00)
[2022-04-05 12:04] LABS: HCT 38.7 % (39.0-53.0); HGB 13.7 gm/dL (13.0-17.5); MCHC 35.4 g/dL (31.0-37.0); MCV 93.3 fL (80.0-100.0); Mean Platelet Volume 8.1; Platelet Count 175 k/uL (150-450); RBC 4.15 m/uL (4.30-5.90); RDW 12.2 % (11.5-15.5); WBC 12.2 k/uL (3.8-10.6)
[2022-04-05] MEDS ORDERED: DEXTROSE 50% SYRINGE 50 ML IVP PRN ×2 (12:13)
[2022-04-05] MEDS: METOCLOPRAMIDE 5 MG/ML 2 ML VIAL IVP SCH ×3 (12:15→23:08)
--- NOTE | 2022-04-05 13:17 | P.GSHP ---
History of Present Illness H&P Date: 04/05/22 CHIEF COMPLAINT: Abdominal pain with nausea and vomiting HISTORY OF PRESENT ILLNESS: This is a 37-year-old male with a known surgical history of hiatal hernia surgical repair 2, colectomy, cholecystectomy and appendectomy. He also has a history of esophageal strictures and has required EGD with dilation in May 2021. Patient states that he came into the ER complaining of epigastric abdominal pain with nausea and vomiting that started 2 days ago. Patient reports his emesis was dark and coffee-ground like. Gastric occult blood was positive. Hemoglobin was 15.7 on admission did come down to 13.7. Patient is still having emesis which is mobile in color. He is complaining of epigastric pain. And requesting pain medication. Patient reports that he does have a pain contract for his chronic neck and back pain with the neurologist. Patient denies any history of peptic ulcer disease. Denies any NSAID use. PAST MEDICAL HISTORY: See list. PAST SURGICAL HISTORY: See list. MEDICATIONS: See list. ALLERGIES: See list. SOCIAL HISTORY: No illicit drug use. REVIEW OF SYSTEMS: CONSTITUTIONAL: Denies fever or chills. HEENT: Denies blurred vision, vision changes, or eye pain. Denies hemoptysis ENDOCRINE: Denies heat or cold intolerance. CARDIOVASCULAR: Denies chest pain or pressure. RESPIRATORY: No shortness of breath. GASTROINTESTINAL: Please refer to HPI otherwise unremarkable HEMATOLOGIC: Denies bleeding disorders. LYMPHATIC: The patient denies any lumps and bumps around the neck. GENITOURINARY: Denies any blood in urine or increased urinary frequency. MUSCULOSKELETAL: Denies myalgias. Denies joint swelling. Denies decreased range of motion beyond patients baseline. SKIN: Denies pruitis. Denies rash. PHYSICAL EXAM: VITAL SIGNS: Reviewed GENERAL: Well-developed in no acute distress. HEENT: No sclera icterus. Extraocular movements grossly intact. Moist buccal mucosa. Head is atraumatic, normocephalic. Hears conversational speech. No nasal dr ainage. NECK: Supple without lymphadenopathy. CHEST: Non-labored respirations and equal bilateral excursions. CARDIOVASCULAR: Palpable 2+ radial pulses. ABDOMEN: Soft. Nondistended. Epigastric tenderness MUSCULOSKELETAL: No clubbing or cyanosis. NEUROLOGIC: No focal or lateralizing signs. Cranial nerves II through XII grossly intact. PSYCH: Appropriate affect. Alert and oriented to person, place and time. SKIN: Well perfused. Good skin turgor. LABORATORY DATA: WBC is 12.2 hemoglobin 15.7 down to 13.7 platelets 175 sodium is 137 potassium is 4.4 creatinine 1.19 BUN 27 Glucose 278 Lactic acid 2.8 down from 5.2 Total bilirubin 1.9 AST 34 ALT 68 alk phos 144 Lipase 39 Gastric occult blood positive Acetone negative IMAGING: ASSESSMENT: 1. Epigastric abdominal pain with nausea and vomiting 2. History of esophageal stricture requiring EGD with dilation 3. Mildly elevated LFTs and total bilirubin 4. History of cholecystectomy 5. History of colectomy and appendectomy 6. Diabetes mellitus 7. Leukocytosis 8. Elevated lactic acid level 7. Chronic neck and back pain PLAN: -Patient scheduled for EGD during this admission with Dr. 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 Signing provider agrees with the documented findings, assessment, and plan of care. Past Medical History Past Medical History: Asthma, CVA/TIA, Diabetes Mellitus, GERD/Reflux, Hyperlipidemia, Hypertension, Pneumonia Additional Past Medical History / Comment(s): ABD PAIN. 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 HX OF diverticultitis. Hx of migraines History of Any Multi-Drug Resistant Organisms: None Reported Past Surgical History: Appendectomy, Back Surgery, Bowel Resection, Cholecystectomy, Orthopedic Surgery, Tonsillectomy Additional Past Surgical History / Comment(s): rt shoulder sx, ARTHROSCOPY Knee x 3, hiatal hernia Past Anesthesia/Blood Transfusion Reactions: Postoperative Nausea & Vomiting (PONV) Additional Past Anesthesia/Blood Transfusion Reaction / Comment(s): no hx blood transfusion Past Psychological History: Anxiety, Depression Smoking Status: Never smoker Past Alcohol Use History: None Reported Past Drug Use History: None Reported - Past Family History Mother Family Medical History: No Reported History Father Family Medical History: Diabetes Mellitus Additional Family Medical History / Comment(s): heart problems Medications and Allergies Home Medications Medication Instructions Recorded Confirmed Type Loratadine 10 mg PO QAM 03/29/16 04/05/22 History lisinopriL [Zestril] 2.5 mg PO QAM 01/24/17 04/05/22 History HYDROcodone/APAP 10-325MG [[place] 1 tab PO QID PRN 07/11/18 04/05/22 History 10-325] Aspirin 81 mg PO DAILY 02/22/19 04/05/22 History tiZANidine [Zanaflex] 4 mg PO BID 02/22/19 04/05/22 History INSULIN LISPRO (humaLOG) [humaLOG] See Protocol SQ AC-TID PRN 03/15/19 04/05/22 History Pioglitazone [Actos] 30 mg PO QAM 04/09/19 04/05/22 History Topiramate [Topamax] 100 mg PO QAM 05/17/19 04/05/22 History Atorvastatin [Lipitor] 20 mg PO HS 08/15/20 04/05/22 History Gabapentin [Neurontin] 300 mg PO TID 11/04/20 04/05/22 History Insulin Glargine,Hum.rec.anlog 35 unit SQ HS 06/06/21 04/05/22 History [Lantus Solostar Pen] ondansetron HCL [Zofran] 8 mg PO Q8HR PRN 06/06/21 04/05/22 History Omeprazole [PriLOSEC] 40 mg PO DAILY #14 cap 06/07/21 04/05/22 Rx Allergies Allergy/AdvReac Type Severity Reaction Status Date / Time etodolac [From Lodine] Allergy Rash/Hives Verified 04/05/22 11:23 ketorolac [From Toradol] Allergy Rash/Hives Verified 04/05/22 11:23 Mushroom Allergy Unknown Verified 04/05/22 11:23 tramadol Allergy Rash/Hives Verified 04/05/22 11:23 canagliflozin [From Invokana] AdvReac Vomiting Verified 04/05/22 11:23 Surgical - Exam Vital Signs Temp Pulse Resp BP Pulse Ox 97.7 F 100 20 138/84 100 04/05/22 08:22 04/05/22 08:22 04/05/22 08:22 04/05/22 08:22 04/05/22 08:22 Results - Labs 04/05/22 12:01 04/05/22 08:52 Abnormal Lab Results - Last 24 Hours (Table) 04/05/22 04/05/22 04/05/22 Range/Units 08:52 08:52 08:52 WBC 10.9 H (3.8-10.6) k/uL RBC (4.30-5.90) m/uL Hct (39.0-53.0) % Neutrophils # 9.6 H (1.3-7.7) k/uL Carbon Dioxide 13 L (22-30) mmol/L BUN 27 H (9-20) mg/dL Glucose 278 H (74-99) mg/dL Plasma Lactic Acid Ja 5.2 H* (0.7-2.0) mmol/L Total Bilirubin 1.9 H (0.2-1.3) mg/dL ALT 68 H (4-49) U/L Alkaline Phosphatase 144 H (38-126) U/L Total Protein 8.7 H (6.3-8.2) g/dL Albumin 5.2 H (3.5-5.0) g/dL 04/05/22 04/05/22 Range/Units 11:41 12:01 WBC 12.2 H (3.8-10.6) k/uL RBC 4.15 L (4.30-5.90) m/uL Hct 38.7 L (39.0-53.0) % Neutrophils # (1.3-7.7) k/uL Carbon Dioxide (22-30) mmol/L BUN (9-20) mg/dL Glucose (74-99) mg/dL Plasma Lactic Acid Ja 2.8 H* (0.7-2.0) mmol/L Total Bilirubin (0.2-1.3) mg/dL ALT (4-49) U/L Alkaline Phosphatase (38-126) U/L Total Protein (6.3-8.2) g/dL Albumin (3.5-5.0) g/dL Diabetes panel 04/05/22 Range/Units 08:52 Sodium 137 (137-145) mmol/L Potassium 4.4 (3.5-5.1) mmol/L Chloride 101 (98-107) mmol/L Carbon Dioxide 13 L (22-30) mmol/L BUN 27 H (9-20) mg/dL Creatinine 1.19 (0.66-1.25) mg/dL Glucose 278 H (74-99) mg/dL Calcium 9.4 (8.4-10.2) mg/dL AST 34 (17-59) U/L ALT 68 H (4-49) U/L Alkaline Phosphatase 144 H (38-126) U/L Total Protein 8.7 H (6.3-8.2) g/dL Albumin 5.2 H (3.5-5.0) g/dL Calcium panel 04/05/22 Range/Units 08:52 Calcium 9.4 (8.4-10.2) mg/dL Albumin 5.2 H (3.5-5.0) g/dL Pituitary panel 04/05/22 Range/Units 08:52 Sodium 137 (137-145) mmol/L Potassium 4.4 (3.5-5.1) mmol/L Chloride 101 (98-107) mmol/L Carbon Dioxide 13 L (22-30) mmol/L BUN 27 H (9-20) mg/dL Creatinine 1.19 (0.66-1.25) mg/dL Glucose 278 H (74-99) mg/dL Calcium 9.4 (8.4-10.2) mg/dL Adrenal panel 04/05/22 Range/Units 08:52 Sodium 137 (137-145) mmol/L Potassium 4.4 (3.5-5.1) mmol/L Chloride 101 (98-107) mmol/L Carbon Dioxide 13 L (22-30) mmol/L BUN 27 H (9-20) mg/dL Creatinine 1.19 (0.66-1.25) mg/dL Glucose 278 H (74-99) mg/dL Calcium 9.4 (8.4-10.2) mg/dL Total Bilirubin 1.9 H (0.2-1.3) mg/dL AST 34 (17-59) U/L ALT 68 H (4-49) U/L Alkaline Phosphatase 144 H (38-126) U/L Total Protein 8.7 H (6.3-8.2) g/dL Albumin 5.2 H (3.5-5.0) g/dL
[2022-04-05 13:46] LABS: Glucose,Whole Blood 234 mg/dL (70-110)
[2022-04-05] MEDS: INSULIN ASPART (NovoLOG) 100 UNIT/ML VIAL SQ SCH ×3 (14:01→20:45)
[2022-04-05 16:58] LABS: Glucose,Whole Blood 211 mg/dL (70-110)
[2022-04-05 17:49] LABS: HCT 37.9 % (39.0-53.0); HGB 13.1 gm/dL (13.0-17.5); MCH 32.5 pg (25.0-35.0); MCHC 34.5 g/dL (31.0-37.0); MCV 94.2 fL (80.0-100.0); Mean Platelet Volume 8.1; Platelet Count 186 k/uL (150-450); RBC 4.03 m/uL (4.30-5.90); WBC 9.9 k/uL (3.8-10.6)
[2022-04-05] MEDS ORDERED: SODIUM CHLORIDE 0.9% 500 ML 500 ML IV ONE (18:32)
--- NOTE | 2022-04-05 18:49 | P.CONS ---
History of Present Illness - Reason for Consult Consult date: 04/05/22 management diabetes - Chief Complaint Abdominal pain with nausea vomiting - History of Present Illness This gentleman is a 37-year-old male well-known to my practice. Past history of hiatal hernia repair 2 colectomy and cholecystectomy and appendectomy, had a recent history of esophageal stricture requiring EGD with dilation in May 2021 patient came in the emergency room complaining of epigastric abdominal pain with nausea and vomiting 2 days. Reports emesis is been dark coffee-ground like witnessed vomiting demonstrated bilious vomiting with little or no blood. Gastric occult blood was positive according to surgery hemoglobin was 15.7 on admission patient received 2 L of IV fluids in the emergency room his hemoglobin came down to 13.7 suspect hemodilution still compl aining of epigastric and epigastric tenderness requesting pain medication. Patient does have a narcotic pain contract with his neurologist. 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 HX OF diverticultitis. Hx of migraines History of Any Multi-Drug Resistant Organisms: None Reported Past Surgical History: Appendectomy, Back Surgery, Bowel Resection, Cholecystectomy, Orthopedic Surgery, Tonsillectomy Additional Past Surgical History / Comment(s): rt shoulder sx, ARTHROSCOPY Knee x 3, hiatal hernia Past Anesthesia/Blood Transfusion Reactions: Postoperative Nausea & Vomiting (PONV) Additional Past Anesthesia/Blood Transfusion Reaction / Comm: no hx blood transfusion Past Psychological History: Anxiety, Depression Smoking Status: Never smoker Past Alcohol Use History: None Reported Past Drug Use History: None Reported - Past Family History Mother Family Medical History: No Reported History Father Family Medical History: Diabetes Mellitus Additional Family Medical History / Comment(s): heart problems Medications and Allergies Home Medications Medication Instructions Recorded Confirmed Type Loratadine 10 mg PO QAM 03/29/16 04/05/22 History lisinopriL [Zestril] 2.5 mg PO QAM 01/24/17 04/05/22 History HYDROcodone/APAP 10-325MG [[place] 1 tab PO QID PRN 07/11/18 04/05/22 History 10-325] Aspirin 81 mg PO DAILY 02/22/19 04/05/22 History tiZANidine [Zanaflex] 4 mg PO BID 02/22/19 04/05/22 History INSULIN LISPRO (humaLOG) [humaLOG] See Protocol SQ AC-TID PRN 03/15/19 04/05/22 History Pioglitazone [Actos] 30 mg PO QAM 04/09/19 04/05/22 History Topiramate [Topamax] 100 mg PO QAM 05/17/19 04/05/22 History Atorvastatin [Lipitor] 20 mg PO HS 08/15/20 04/05/22 History Gabapentin [Neurontin] 300 mg PO TID 11/04/20 04/05/22 History Insulin Glargine,Hum.rec.anlog 35 unit SQ HS 06/06/21 04/05/22 History [Lantus Solostar Pen] ondansetron HCL [Zofran] 8 mg PO Q8HR PRN 06/06/21 04/05/22 History Omeprazole [PriLOSEC] 40 mg PO DAILY #14 cap 06/07/21 04/05/22 Rx Allergies Allergy/AdvReac Type Severity Reaction Status Date / Time etodolac [From Lodine] Allergy Rash/Hives Verified 04/05/22 11:23 ketorolac [From Toradol] Allergy Rash/Hives Verified 04/05/22 11:23 Mushroom Allergy Unknown Verified 04/05/22 11:23 tramadol Allergy Rash/Hives Verified 04/05/22 11:23 canagliflozin [From Invokana] AdvReac Vomiting Verified 04/05/22 11:23 Physical Exam Osteopathic Statement: *. No significant issues noted on an osteopathic structural exam other than those noted in the History and Physical/Consult. Vitals: Vital Signs Temp Pulse Pulse Resp BP BP Pulse Ox 04/05/22 14:53 99.4 F 104 H 20 123/78 100 04/05/22 14:20 100 18 130/72 100 04/05/22 11:50 100 15 130/71 98 04/05/22 10:09 100 18 123/72 99 04/05/22 08:22 97.7 F 100 20 138/84 100 Intake and Output 04/05/22 04/05/22 04/05/22 06:59 14:59 22:59 Other: # Voids 1 Weight 86.183 kg General: [Patient awake, alert and oriented times 3. Patient in no acute distress.] HEENT: [PERRL. EOMI. No pharyngeal erythema or exudate.] Neck: [No adenopathy.] Cardiac: [Heart regular in rate and rhythm. No S3. No S4. No clicks, rubs. No murmur.] Lungs: [Clear to auscultation bilaterally.] Abdomen: Diffuse tenderness throughout, multiple abdominal scars secondary to laparoscopic surgical procedures, bowel sounds absent Extremes: [No edema no cyanosis no claudication normal pulses] : Normal male genitalia Musculoskeletal: [No joint erythema, edema or tenderness. Lower extreme weakness patient currently wheelchair-bound Skin: [No rash.] Neurologic: [No lateralizing deficits. CN II - XII grossly intact.] Lymphatic: [No adenopathy.] Results CBC & Chem 7: 04/05/22 17:36 04/05/22 08:52 Labs: Abnormal Lab Results - Last 24 Hours (Table) 04/05/22 04/05/22 04/05/22 Range/Units 08:52 08:52 08:52 WBC 10.9 H (3.8-10.6) k/uL RBC (4.30-5.90) m/uL Hct (39.0-53.0) % Neutrophils # 9.6 H (1.3-7.7) k/uL Carbon Dioxide 13 L (22-30) mmol/L BUN 27 H (9-20) mg/dL Glucose 278 H (74-99) mg/dL POC Glucose (mg/dL) (70-110) mg/dL Plasma Lactic Acid Ja 5.2 H* (0.7-2.0) mmol/L Total Bilirubin 1.9 H (0.2-1.3) mg/dL ALT 68 H (4-49) U/L Alkaline Phosphatase 144 H (38-126) U/L Total Protein 8.7 H (6.3-8.2) g/dL Albumin 5.2 H (3.5-5.0) g/dL 04/05/22 04/05/22 04/05/22 Range/Units 11:41 12:01 13:43 WBC 12.2 H (3.8-10.6) k/uL RBC 4.15 L (4.30-5.90) m/uL Hct 38.7 L (39.0-53.0) % Neutrophils # (1.3-7.7) k/uL Carbon Dioxide (22-30) mmol/L BUN (9-20) mg/dL Glucose (74-99) mg/dL POC Glucose (mg/dL) 234 H (70-110) mg/dL Plasma Lactic Acid Ja 2.8 H* (0.7-2.0) mmol/L Total Bilirubin (0.2-1.3) mg/dL ALT (4-49) U/L Alkaline Phosphatase (38-126) U/L Total Protein (6.3-8.2) g/dL Albumin (3.5-5.0) g/dL 04/05/22 04/05/22 04/05/22 Range/Units 15:02 16:57 17:36 WBC (3.8-10.6) k/uL RBC 4.03 L (4.30-5.90) m/uL Hct 37.9 L (39.0-53.0) % Neutrophils # (1.3-7.7) k/uL Carbon Dioxide (22-30) mmol/L BUN (9-20) mg/dL Glucose (74-99) mg/dL POC Glucose (mg/dL) 211 H (70-110) mg/dL Plasma Lactic Acid Ja 2.8 H* (0.7-2.0) mmol/L Total Bilirubin (0.2-1.3) mg/dL ALT (4-49) U/L Alkaline Phosphatase (38-126) U/L Total Protein (6.3-8.2) g/dL Albumin (3.5-5.0) g/dL 04/05/22 Range/Units 17:36 WBC (3.8-10.6) k/uL RBC (4.30-5.90) m/uL Hct (39.0-53.0) % Neutrophils # (1.3-7.7) k/uL Carbon Dioxide (22-30) mmol/L BUN (9-20) mg/dL Glucose (74-99) mg/dL POC Glucose (mg/dL) (70-110) mg/dL Plasma Lactic Acid Ja 3.2 H* (0.7-2.0) mmol/L Total Bilirubin (0.2-1.3) mg/dL ALT (4-49) U/L Alkaline Phosphatase (38-126) U/L Total Protein (6.3-8.2) g/dL Albumin (3.5-5.0) g/dL Assessment and Plan (1) Acute vomiting Current Visit: Yes Status: Acute Code(s): R11.10 - VOMITING, UNSPECIFIED SNOMED Code(s): 75193529 (2) Upper GI bleed Current Visit: Yes Status: Acute Code(s): K92.2 - GASTROINTESTINAL HEMORRHAGE, UNSPECIFIED SNOMED Code(s): 70509316 (3) Abdominal pain Current Visit: No Status: Acute Code(s): R10.9 - UNSPECIFIED ABDOMINAL PAIN SNOMED Code(s): 83433546 (4) CVA (cerebrovascular accident) Current Visit: No Status: Acute Code(s): I63.9 - CEREBRAL INFARCTION, UNSPECIFIED SNOMED Code(s): 605201386 (5) CVA, old, hemiparesis Current Visit: No Status: Acute Code(s): I69.359 - HEMIPLGA FOLLOWING CEREBRAL INFARCTION AFFECTING UNSP SIDE SNOMED Code(s): 752126484 (6) Chronic pain syndrome Current Visit: No Status: Acute Code(s): G89.4 - CHRONIC PAIN SYNDROME SNOMED Code(s): 009237736 (7) Degenerative disc disease, lumbar Current Visit: No Status: Acute Code(s): M51.36 - OTHER INTERVERTEBRAL DISC DEGENERATION, LUMBAR REGION SNOMED Code(s): 03562516 (8) Dehydration Current Visit: No Status: Acute Code(s): E86.0 - DEHYDRATION SNOMED Code(s): 93787906 (9) Diabetes type 2, controlled Current Visit: No Status: Acute Code(s): E11.9 - TYPE 2 DIABETES MELLITUS WITHOUT COMPLICATIONS SNOMED Code(s): 98357063 (10) Diabetic neuropathy associated with type 2 diabetes mellitus Current Visit: No Status: Acute Code(s): E11.40 - TYPE 2 DIABETES MELLITUS WITH DIABETIC NEUROPATHY, UNSP SNOMED Code(s): 937151913133637 (11) Essential (primary) hypertension Current Visit: No Status: Acute Code(s): I10 - ESSENTIAL (PRIMARY) HYPERTENSION SNOMED Code(s): 73293849 Plan: Moderate to severe abdominal pain With nausea vomiting Suspect Sheri-Mccain tear versus GI bleed Known history type 2 diabetes well controlled Known history of hypertension well controlled Patient unable to keep any oral intake down holding all meds Judicious rehydration Start insulin sliding scale weight-based Would hold insulin pump for now Reintroduce oral meds as patient tolerates We'll continue to follow closely Thank you Dr. Robertson for this most interesting consultation Time with Patient: Greater than 30
[2022-04-05 20:13] LABS: Glucose,Whole Blood 215 mg/dL (70-110)
[2022-04-05] MEDS: PANTOPRAZOLE 40 MG/10 ML VIAL IVP SCH (20:45)
[2022-04-06 01:31] LABS: HCT 36.4 % (39.0-53.0); HGB 12.9 gm/dL (13.0-17.5); MCH 33.1 pg (25.0-35.0); MCHC 35.3 g/dL (31.0-37.0); MCV 93.7 fL (80.0-100.0); Mean Platelet Volume 7.9; Platelet Count 168 k/uL (150-450); RBC 3.89 m/uL (4.30-5.90); RDW 12.1 % (11.5-15.5); WBC 9.7 k/uL (3.8-10.6)
[2022-04-06] MEDS: HYDROmorphone 0.5 MG/0.5 ML SYRINGE IVP PRN ×2 (02:48→05:40)
[2022-04-06] MEDS: ONDANSETRON 4 MG/2 ML VIAL IVP PRN ×4 (04:59→22:05)
[2022-04-06] MEDS: METOCLOPRAMIDE 5 MG/ML 2 ML VIAL IVP SCH ×3 (05:40→17:52)
[2022-04-06 07:19] LABS: Glucose,Whole Blood 219 mg/dL (70-110)
[2022-04-06] MEDS: PANTOPRAZOLE 40 MG/10 ML VIAL IVP SCH ×2 (08:12→20:50)
[2022-04-06] MEDS: INSULIN ASPART (NovoLOG) 100 UNIT/ML VIAL SQ SCH ×4 (08:13→20:38)
[2022-04-06] MEDS ORDERED: SCOPOLAMINE 1 MG/72 HR PATCH TRANSDERM STA (08:57)
--- NOTE | 2022-04-06 08:57 | P.PN ---
Subjective Progress Note Date: 04/06/22 CHIEF COMPLAINT: Intractable nausea and vomiting GI bleed HISTORY OF PRESENT ILLNESS: The patient is a 37 year-old male who presented with acute intractable nausea and vomiting including GI bleed. Reports moderate epigastric pain. He takes [place] opiates for chronic pain. Patient was having emesis at the time of my assessment. ROS: No fevers or chills. No new chest pain. Has emesis and nausea PHYSICAL EXAM: VITAL SIGNS: Reviewed CONSTITUTIONAL: Well developed and in no acute distress. EYES: Conjuctivae without sclera icterus. Extraocular movements grossly intact. HEAD, EARS, NOSE, THROAT: Moist buccal mucosa. Head is atraumatic, normocephalic. Hears conversational speech. No nasal drainage. RESPIRATORY: Non-labored respirations and equal bilateral excursions. CARDIOVASCULAR: Palpable 2+ radial pulses. ABDOMEN: Tender epigastrium. MUSCULOSKELETAL: No gross deformity of the lower extremities noted. No clubbing. No cyanosis. SKIN: Good skin turgor. Well perfused. NEUROLOGIC: Cranial nerves II through XII grossly intact. No focal or lateralizing signs. PSYCH: Appropriate affect. Alert and oriented to person, place and time. CLINICAL LABS: Reviewed. Lactic acid elevated. Positive for bleeding ASSESSMENT: 1. Gastrointestinal bleeding 2. Intractable nausea and vomiting PLAN: 1. Will proceed with upper endoscopy for GI bleed 2. Scopolamine patch and antiemetics 3. IV fluid hydration 4. Medical consultation for multiple medical comorbidities Objective - Vital Signs Vital signs: Vital Signs Temp 98 F 04/06/22 05:13 Pulse 99 04/06/22 05:13 Resp 16 04/05/22 19:59 BP 156/85 04/06/22 05:13 Pulse Ox 98 04/06/22 05:13 FiO2 Intake & Output 04/05/22 04/06/22 04/06/22 18:59 06:59 18:59 Intake Total 590 Balance 590 Weight 86.183 kg Intake: Oral 590 Other: # Voids 1 - Labs CBC & Chem 7: 04/06/22 01:05 04/05/22 08:52 Labs: Abnormal Lab Results - Last 24 Hours (Table) 04/05/22 04/05/22 04/05/22 Range/Units 08:52 08:52 08:52 WBC 10.9 H (3.8-10.6) k/uL RBC (4.30-5.90) m/uL Hgb (13.0-17.5) gm/dL Hct (39.0-53.0) % Neutrophils # 9.6 H (1.3-7.7) k/uL Carbon Dioxide 13 L (22-30) mmol/L BUN 27 H (9-20) mg/dL Glucose 278 H (74-99) mg/dL POC Glucose (mg/dL) (70-110) mg/dL Hemoglobin A1c (0.0-6.0) % Plasma Lactic Acid Ja 5.2 H* (0.7-2.0) mmol/L Total Bilirubin 1.9 H (0.2-1.3) mg/dL ALT 68 H (4-49) U/L Alkaline Phosphatase 144 H (38-126) U/L Total Protein 8.7 H (6.3-8.2) g/dL Albumin 5.2 H (3.5-5.0) g/dL 04/05/22 04/05/22 04/05/22 Range/Units 11:41 12:01 13:43 WBC 12.2 H (3.8-10.6) k/uL RBC 4.15 L (4.30-5.90) m/uL Hgb (13.0-17.5) gm/dL Hct 38.7 L (39.0-53.0) % Neutrophils # (1.3-7.7) k/uL Carbon Dioxide (22-30) mmol/L BUN (9-20) mg/dL Glucose (74-99) mg/dL POC Glucose (mg/dL) 234 H (70-110) mg/dL Hemoglobin A1c (0.0-6.0) % Plasma Lactic Acid Ja 2.8 H* (0.7-2.0) mmol/L Total Bilirubin (0.2-1.3) mg/dL ALT (4-49) U/L Alkaline Phosphatase (38-126) U/L Total Protein (6.3-8.2) g/dL Albumin (3.5-5.0) g/dL 04/05/22 04/05/22 04/05/22 Range/Units 15:02 16:57 17:36 WBC (3.8-10.6) k/uL RBC 4.03 L (4.30-5.90) m/uL Hgb (13.0-17.5) gm/dL Hct 37.9 L (39.0-53.0) % Neutrophils # (1.3-7.7) k/uL Carbon Dioxide (22-30) mmol/L BUN (9-20) mg/dL Glucose (74-99) mg/dL POC Glucose (mg/dL) 211 H (70-110) mg/dL Hemoglobin A1c (0.0-6.0) % Plasma Lactic Acid Ja 2.8 H* (0.7-2.0) mmol/L Total Bilirubin (0.2-1.3) mg/dL ALT (4-49) U/L Alkaline Phosphatase (38-126) U/L Total Protein (6.3-8.2) g/dL Albumin (3.5-5.0) g/dL 04/05/22 04/05/22 04/05/22 Range/Units 17:36 17:36 20:12 WBC (3.8-10.6) k/uL RBC (4.30-5.90) m/uL Hgb (13.0-17.5) gm/dL Hct (39.0-53.0) % Neutrophils # (1.3-7.7) k/uL Carbon Dioxide (22-30) mmol/L BUN (9-20) mg/dL Glucose (74-99) mg/dL POC Glucose (mg/dL) 215 H (70-110) mg/dL Hemoglobin A1c 6.5 H (0.0-6.0) % Plasma Lactic Acid Ja 3.2 H* (0.7-2.0) mmol/L Total Bilirubin (0.2-1.3) mg/dL ALT (4-49) U/L Alkaline Phosphatase (38-126) U/L Total Protein (6.3-8.2) g/dL Albumin (3.5-5.0) g/dL 04/05/22 04/06/22 04/06/22 Range/Units 20:48 01:05 07:15 WBC (3.8-10.6) k/uL RBC 3.89 L (4.30-5.90) m/uL Hgb 12.9 L (13.0-17.5) gm/dL Hct 36.4 L (39.0-53.0) % Neutrophils # (1.3-7.7) k/uL Carbon Dioxide (22-30) mmol/L BUN (9-20) mg/dL Glucose (74-99) mg/dL POC Glucose (mg/dL) 219 H (70-110) mg/dL Hemoglobin A1c (0.0-6.0) % Plasma Lactic Acid Ja 2.2 H* (0.7-2.0) mmol/L Total Bilirubin (0.2-1.3) mg/dL ALT (4-49) U/L Alkaline Phosphatase (38-126) U/L Total Protein (6.3-8.2) g/dL Albumin (3.5-5.0) g/dL
[2022-04-06] MEDS ORDERED: NALOXONE 0.4 MG/ML 1 ML VIAL IV PRN (08:59)
[2022-04-06] MEDS: MORPHINE SULFATE 2 MG/ML SYRINGE IVP PRN ×6 (09:16→23:59)
[2022-04-06] MEDS: SCOPOLAMINE 1 MG/72 HR PATCH TRANSDERM SCH (09:17)
[2022-04-06 10:46] LABS: Basophils # (A) 0.01 X 10*3/uL (0.00-0.10); Basophils % (A) 0.1 %; Eosinophils # (A) 0 X 10*3/uL (0.04-0.35); Eosinophils % (A) 0 %; HCT 38.7 % (39.6-50.0); Immature Grans, Automated 1.1 %; Lymphocytes # (A) 0.64 X 10*3/uL (0.90-5.00); Lymphocytes % (A) 6.3 %; MCHC 33.6 g/dL (32.0-37.0); MCV 95.3 fL (80.0-97.0); Mean Platelet Volume 10.4 fL (9.5-12.2); Monocytes # (A) 0.38 X 10*3/uL (0.20-1.00); Monocytes % (A) 3.7 %; NRBC Per 100 WBC 0 /100 WBCS (0.0-0.0); Neutrophils % (A) 88.8 %; Platelet Count 181 X 10*3/uL (140-440); RBC 4.06 X 10*6/uL (4.40-5.60); RDW 12.3 % (11.5-14.5); WBC 10.14 X 10*3/uL (4.50-10.00)
[2022-04-06 11:05] LABS: African American GFR (CKD) 114.9 (60.0-200.0); Albumin 4.7 g/dL (3.8-4.9); Albumin/Globulin Ratio 1.73 (1.60-3.17); Anion Gap 16.6 mmol/L (10.00-18.00); BUN/Creat Ratio 23.75 Ratio (12.00-20.00); Blood Urea Nitrogen 22.8 mg/dL (9.0-27.0); Calcium 8.6 mg/dL (8.7-10.3); Carbon Dioxide 17.2 mmol/L (20.0-27.5); Globulin 2.7 g/dL (1.6-3.3); Non-African American GFR(CKD) 99.2 (60.0-200.0); Potassium 3.9 mmol/L (3.5-5.5); Total Bilirubin 1.1 mg/dL (0.30-1.20); Total Protein 7.4 g/dL (6.2-8.2)
[2022-04-06 12:13] LABS: Glucose,Whole Blood 172 mg/dL (70-110)
[2022-04-06] MEDS ORDERED: IV FLUID CONTINUATION 1,000 ML IV ONE (13:06)
[2022-04-06] MEDS ORDERED: diphenhydrAMINE 50 MG/ML 1 ML VIAL ONE (13:11)
[2022-04-06] MEDS ORDERED: PROPOFOL 10 MG/ML 20 ML VIAL IV ONE (13:11)
[2022-04-06] MEDS ORDERED: LIDOCAINE 2% INJ 20 MG/ML (2 ML VIAL) ONE (13:11)
[2022-04-06] MEDS ORDERED: ONDANSETRON 4 MG/2 ML VIAL ONE (13:11)
--- NOTE | 2022-04-06 14:33 | P.PCN ---
Date of Procedure: 04/06/22 Description of Procedure: PREOPERATIVE DIAGNOSIS: Gastrointestinal bleed Intractable nausea and vomiting Epigastric abdominal pain POSTOPERATIVE DIAGNOSIS: Gastrointestinal bleed Intractable nausea and vomiting Epigastric abdominal pain Gastritis with bleeding Gastroesophageal reflux disease with erosive esophagitis OPERATION: Esophagogastroduodenoscopy with biopsies along antrum. SURGEON: Brandie Mccoy MD ANESTHESIA: MAC. INDICATIONS: The patient is a 37-year-old male who presents with GI bleed, intractable nausea and vomiting, gastroesophageal reflux disease. Benefits and risks of the procedure were described. Informed consent was obtained. DESCRIPTION: The patient was brought into the endoscopy suite and laid in the left lateral decubitus position. An Olympus gastroscope was passed along the posterior oropharynx down to the distal esophagus where the squamocolumnar junction was en countered at 37 cm from the incisors. The stomach was entered and no bile reflux was found. Additional findings are listed below. Biopsies with cold forceps were obtained of the antrum. The first through third portion of the duodenum was examined. Retroflexion of the scope confirmed Hill grade 1 lower esophageal valve. The squamocolumnar junction demonstrated LA grade C erosive esophagitis. The stomach was desufflated. The patient tolerated the procedure well. FINDINGS: Squamocolumnar junction 37 cm from the incisors. Diaphragmatic hiatus at 37 cm. No recurrent hiatal hernia Hill grade 1+ lower esophageal valve. LA grade C erosive esophagitis, 4 cm No active duodenitis. Chronic gastritis with bleeding RECOMMENDATIONS: Await biopsies for H pylori Protonix 40 mg twice a day for 2 weeks Carafate 3 times daily for 2 weeks Multiple antiemetics May start liquids
[2022-04-06 15:28] LABS: Magnesium 2.1 mg/dL (1.6-2.3)
[2022-04-06] MEDS: TRIMETHOBENZAMIDE 100 MG/ML 2 ML VIAL IM PRN ×2 (16:19→22:17)
--- NOTE | 2022-04-06 17:36 | P.PN ---
Subjective Progress Note Date: 04/06/22 Principal diagnosis: Intractable nausea and vomiting, GI bleed PT is sleeping but arousable, vital signs are stable patient is afebrile patient status post EGD with biopsies, findings consistent with a separate erosive esophagitis chronic gastritis Objective - Vital Signs Vital signs: Vital Signs Temp 98 F 04/06/22 14:07 Pulse 96 04/06/22 14:07 Resp 18 04/06/22 14:07 BP 142/72 04/06/22 14:07 Pulse Ox 100 04/06/22 14:07 FiO2 Intake & Output 04/05/22 04/06/22 04/06/22 18:59 06:59 18:59 Intake Total 590 Balance 590 Weight 86.183 kg Intake: Oral 590 Other: Voiding Method Toilet Urinal # Voids 1 - Exam General: [Patient awake, alert and oriented times 3. Patient in no acute distress.] HEENT: [PERRL. EOMI. No pharyngeal erythema or exudate.] Neck: [No adenopathy.] Cardiac: [Heart regular in rate and rhythm. No S3. No S4. No clicks, rubs. No murmur.] Lungs: [Clear to auscultation bilaterally.] Abdomen: [No mass. No organomegaly. Bowel sounds diminished, diffuse epigastric tenderness noted Extremes: [No edema no cyanosis no claudication normal pulses] : Normal male genitalia Musculoskeletal: [No joint erythema, edema or tenderness.] Skin: [No rash.] Neurologic: [No lateralizing deficits. CN II - XII grossly intact.] Lymphatic: [No adenopathy.] - Labs CBC & Chem 7: 04/06/22 06:53 04/06/22 06:53 Labs: Abnormal Lab Results - Last 24 Hours (Table) 04/05/22 04/05/22 04/05/22 Range/Units 17:36 17:36 17:36 WBC (4.50-10.00) X 10*3/uL RBC 4.03 L (4.30-5.90) m/uL Hgb (13.0-17.5) gm/dL Hct 37.9 L (39.0-53.0) % Immature Gran # (0.00-0.04) X 10*3/uL Neutrophils # (1.80-7.70) X 10*3/uL Lymphocytes # (0.90-5.00) X 10*3/uL Eosinophils # (0.04-0.35) X 10*3/uL Carbon Dioxide (20.0-27.5) mmol/L BUN/Creatinine Ratio (12.00-20.00) Ratio Glucose (70-110) mg/dL POC Glucose (mg/dL) (70-110) mg/dL Hemoglobin A1c 6.5 H (0.0-6.0) % Plasma Lactic Acid Ja 3.2 H* (0.7-2.0) mmol/L Calcium (8.7-10.3) mg/dL Phosphorus (2.5-4.5) mg/dL 04/05/22 04/05/22 04/06/22 Range/Units 20:12 20:48 01:05 WBC (4.50-10.00) X 10*3/uL RBC 3.89 L (4.30-5.90) m/uL Hgb 12.9 L (13.0-17.5) gm/dL Hct 36.4 L (39.0-53.0) % Immature Gran # (0.00-0.04) X 10*3/uL Neutrophils # (1.80-7.70) X 10*3/uL Lymphocytes # (0.90-5.00) X 10*3/uL Eosinophils # (0.04-0.35) X 10*3/uL Carbon Dioxide (20.0-27.5) mmol/L BUN/Creatinine Ratio (12.00-20.00) Ratio Glucose (70-110) mg/dL POC Glucose (mg/dL) 215 H (70-110) mg/dL Hemoglobin A1c (0.0-6.0) % Plasma Lactic Acid Ja 2.2 H* (0.7-2.0) mmol/L Calcium (8.7-10.3) mg/dL Phosphorus (2.5-4.5) mg/dL 04/06/22 04/06/22 04/06/22 Range/Units 06:53 06:53 07:15 WBC 10.14 H (4.50-10.00) X 10*3/uL RBC 4.06 L (4.30-5.90) m/uL Hgb (13.0-17.5) gm/dL Hct 38.7 L (39.0-53.0) % Immature Gran # 0.11 H (0.00-0.04) X 10*3/uL Neutrophils # 9.00 H (1.80-7.70) X 10*3/uL Lymphocytes # 0.64 L (0.90-5.00) X 10*3/uL Eosinophils # 0 L (0.04-0.35) X 10*3/uL Carbon Dioxide 17.2 L (20.0-27.5) mmol/L BUN/Creatinine Ratio 23.75 H (12.00-20.00) Ratio Glucose 210 H (70-110) mg/dL POC Glucose (mg/dL) 219 H (70-110) mg/dL Hemoglobin A1c (0.0-6.0) % Plasma Lactic Acid Ja (0.7-2.0) mmol/L Calcium 8.6 L (8.7-10.3) mg/dL Phosphorus (2.5-4.5) mg/dL 04/06/22 04/06/22 Range/Units 12:06 15:01 WBC (4.50-10.00) X 10*3/uL RBC (4.30-5.90) m/uL Hgb (13.0-17.5) gm/dL Hct (39.0-53.0) % Immature Gran # (0.00-0.04) X 10*3/uL Neutrophils # (1.80-7.70) X 10*3/uL Lymphocytes # (0.90-5.00) X 10*3/uL Eosinophils # (0.04-0.35) X 10*3/uL Carbon Dioxide (20.0-27.5) mmol/L BUN/Creatinine Ratio (12.00-20.00) Ratio Glucose (70-110) mg/dL POC Glucose (mg/dL) 172 H (70-110) mg/dL Hemoglobin A1c (0.0-6.0) % Plasma Lactic Acid Ja (0.7-2.0) mmol/L Calcium (8.7-10.3) mg/dL Phosphorus 2.0 L (2.5-4.5) mg/dL Assessment and Plan (1) Acute vomiting Current Visit: Yes Status: Acute Code(s): R11.10 - VOMITING, UNSPECIFIED SNOMED Code(s): 41323532 (2) Upper GI bleed Current Visit: Yes Status: Acute Code(s): K92.2 - GASTROINTESTINAL HEMORRHAGE, UNSPECIFIED SNOMED Code(s): 73374687 (3) Abdominal pain Current Visit: No Status: Acute Code(s): R10.9 - UNSPECIFIED ABDOMINAL PAIN SNOMED Code(s): 40227221 (4) CVA (cerebrovascular accident) Current Visit: No Status: Acute Code(s): I63.9 - CEREBRAL INFARCTION, UNSPECIFIED SNOMED Code(s): 314591464 (5) CVA, old, hemiparesis Current Visit: No Status: Acute Code(s): I69.359 - HEMIPLGA FOLLOWING CEREBRAL INFARCTION AFFECTING UNSP SIDE SNOMED Code(s): 508566804 (6) Chronic pain syndrome Current Visit: No Status: Acute Code(s): G89.4 - CHRONIC PAIN SYNDROME SNOMED Code(s): 120665435 (7) Degenerative disc disease, lumbar Current Visit: No Status: Acute Code(s): M51.36 - OTHER INTERVERTEBRAL DISC DEGENERATION, LUMBAR REGION SNOMED Code(s): 89813739 (8) Dehydration Current Visit: No Status: Acute Code(s): E86.0 - DEHYDRATION SNOMED Code(s): 17941484 (9) Diabetes type 2, controlled Current Visit: No Status: Acute Code(s): E11.9 - TYPE 2 DIABETES MELLITUS WITHOUT COMPLICATIONS SNOMED Code(s): 32477996 (10) Diabetic neuropathy associated with type 2 diabetes mellitus Current Visit: No Status: Acute Code(s): E11.40 - TYPE 2 DIABETES MELLITUS WITH DIABETIC NEUROPATHY, UNSP SNOMED Code(s): 072018584204638 (11) Essential (primary) hypertension Current Visit: No Status: Acute Code(s): I10 - ESSENTIAL (PRIMARY) HYPERTENSION SNOMED Code(s): 83046077 Plan: Moderate to severe abdominal pain With nausea vomiting Erosive esophagitis, mild gastritis chronic Known history type 2 diabetes well controlled Known history of hypertension well controlled Patient unable to keep any oral intake down holding all meds Judicious rehydration Start insulin sliding scale weight-based Would hold insulin pump for now Reintroduce oral meds as patient tolerates We'll continue to follow closely Thank you Dr. Robertson for this most interesting consultation Time with Patient: Greater than 30
[2022-04-06 17:39] LABS: Glucose,Whole Blood 194 mg/dL (70-110)
--- NOTE | 2022-04-06 17:41 | CT ---
EXAMINATION TYPE: CT abdomen pelvis wo con DATE OF EXAM: 04/06/2022 COMPARISON: 06/13/2020 HISTORY: Epigastric abdominal pain CT DLP: 1071 mGycm Automated exposure control for dose reduction was used. Images obtained from the diaphragm to the floor the pelvis with no contrast. The lung bases are clear. No pleural effusion. Heart size is normal. No pericardial effusion. There are numerous surgical clips at the posterior gastric fundus. Liver and spleen are intact. There is no pancreatic mass. Bile duct are not dilated. Gallbladder appears absent. There is no adrenal mass. Kidneys of normal size. No hydronephrosis. Ureters are not dilated. There i s no retroperitoneal adenopathy. The bladder distends smoothly. No inguinal hernia. There is no evidence of pelvic mass. No free fluid in the pelvis. There is no mesenteric edema. No as cites or free air. There are surgical clips apparently from appendectomy. No evidence of a bowel obst ruction. There are large bowel diverticula. No diverticulitis. There is posterior fusion surgery at L4-5. No lumbar compression fracture. The bony pelvis appears in tact. Hip joints are intact. IMPRESSION: Previous gastric surgery. No acute abnormality in the abdomen and pelvis. No significant change wilner red to the old exam. Mild colonic diverticulosis.
[2022-04-06] MEDS: SODIUM PHOSPHATE 10 MMOL in SODIUM CHLORIDE 0.9% 250 ML IVPB SCH ×2 (17:53→20:49)
[2022-04-06 20:11] LABS: Glucose,Whole Blood 145 mg/dL (70-110)
[2022-04-07] MEDS: MORPHINE SULFATE 2 MG/ML SYRINGE IVP PRN ×4 (03:02→13:36)
[2022-04-07] MEDS: TRIMETHOBENZAMIDE 100 MG/ML 2 ML VIAL IM PRN ×3 (03:59→20:18)
[2022-04-07] MEDS: ONDANSETRON 4 MG/2 ML VIAL IVP PRN ×3 (03:59→20:14)
[2022-04-07] MEDS: METOCLOPRAMIDE 5 MG/ML 2 ML VIAL IVP SCH ×5 (06:00→23:23)
[2022-04-07 07:02] LABS: Glucose,Whole Blood 160 mg/dL (70-110)
[2022-04-07] MEDS: INSULIN ASPART (NovoLOG) 100 UNIT/ML VIAL SQ SCH ×4 (08:24→20:36)
[2022-04-07] MEDS: PANTOPRAZOLE 40 MG/10 ML VIAL IVP SCH ×2 (08:24→20:14)
--- NOTE | 2022-04-07 09:20 | P.PN ---
Subjective Progress Note Date: 04/07/22 Principal diagnosis: Intractable nausea and vomiting, GI bleed PT is sleeping but arousable, vital signs are stable patient is afebrile patient status post EGD with biopsies, findings consistent with erosive esophagitis, chronic gastritis Objective - Vital Signs Vital signs: Vital Signs Temp 99.5 F 04/07/22 04:06 Pulse 98 04/07/22 04:06 Resp 16 04/07/22 04:06 BP 168/87 04/07/22 04:06 Pulse Ox 99 04/07/22 04:06 FiO2 Intake & Output 04/06/22 04/07/22 04/07/22 18:59 06:59 18:59 Intake Total 650 Output Total 500 1100 500 Balance -500 -450 -500 Intake: Intake, IV Titration 250 Amount Sodium Phosphate 10 mmol 250 In Sodium Chloride 0.9% 250 ml @ 125 mls/hr IVPB Q2H [facility] Rx#:[id number] Oral 400 Output: Urine 500 1100 100 Emesis 400 Other: Voiding Method Toilet Toilet Urinal Urinal # Voids 1 - Exam General: [Patient awake, alert and oriented times 3. Patient in no acute distress.] HEENT: [PERRL. EOMI. No pharyngeal erythema or exudate.] Neck: [No adenopathy.] Cardiac: [Heart regular in rate and rhythm. No S3. No S4. No clicks, rubs. No murmur.] Lungs: [Clear to auscultation bilaterally.] Abdomen: [No mass. No organomegaly. Bowel sounds diminished, diffuse epigastric tenderness noted Extremes: [No edema no cyanosis no claudication normal pulses] : Normal male genitalia Musculoskeletal: [No joint erythema, edema or tenderness.] Skin: [No rash.] Neurologic: [No lateralizing deficits. CN II - XII grossly intact.] Lymphatic: [No adenopathy.] - Labs CBC & Chem 7: 04/06/22 06:53 04/06/22 06:53 Labs: Abnormal Lab Results - Last 24 Hours (Table) 04/06/22 04/06/22 04/06/22 Range/Units 06:53 06:53 12:06 WBC 10.14 H (4.50-10.00) X 10*3/uL RBC 4.06 L (4.40-5.60) X 10*6/uL Hct 38.7 L (39.6-50.0) % Immature Gran # 0.11 H (0.00-0.04) X 10*3/uL Neutrophils # 9.00 H (1.80-7.70) X 10*3/uL Lymphocytes # 0.64 L (0.90-5.00) X 10*3/uL Eosinophils # 0 L (0.04-0.35) X 10*3/uL Carbon Dioxide 17.2 L (20.0-27.5) mmol/L BUN/Creatinine Ratio 23.75 H (12.00-20.00) Ratio Glucose 210 H (70-110) mg/dL POC Glucose (mg/dL) 172 H (70-110) mg/dL Calcium 8.6 L (8.7-10.3) mg/dL Phosphorus (2.5-4.5) mg/dL 04/06/22 04/06/22 04/06/22 Range/Units 15:01 17:36 20:06 WBC (4.50-10.00) X 10*3/uL RBC (4.40-5.60) X 10*6/uL Hct (39.6-50.0) % Immature Gran # (0.00-0.04) X 10*3/uL Neutrophils # (1.80-7.70) X 10*3/uL Lymphocytes # (0.90-5.00) X 10*3/uL Eosinophils # (0.04-0.35) X 10*3/uL Carbon Dioxide (20.0-27.5) mmol/L BUN/Creatinine Ratio (12.00-20.00) Ratio Glucose (70-110) mg/dL POC Glucose (mg/dL) 194 H 145 H (70-110) mg/dL Calcium (8.7-10.3) mg/dL Phosphorus 2.0 L (2.5-4.5) mg/dL 04/07/22 Range/Units 07:01 WBC (4.50-10.00) X 10*3/uL RBC (4.40-5.60) X 10*6/uL Hct (39.6-50.0) % Immature Gran # (0.00-0.04) X 10*3/uL Neutrophils # (1.80-7.70) X 10*3/uL Lymphocytes # (0.90-5.00) X 10*3/uL Eosinophils # (0.04-0.35) X 10*3/uL Carbon Dioxide (20.0-27.5) mmol/L BUN/Creatinine Ratio (12.00-20.00) Ratio Glucose (70-110) mg/dL POC Glucose (mg/dL) 160 H (70-110) mg/dL Calcium (8.7-10.3) mg/dL Phosphorus (2.5-4.5) mg/dL Assessment and Plan (1) Acute vomiting Current Visit: Yes Status: Acute Code(s): R11.10 - VOMITING, UNSPECIFIED SNOMED Code(s): 22690346 (2) Upper GI bleed Current Visit: Yes Status: Acute Code(s): K92.2 - GASTROINTESTINAL HEMORRHAGE, UNSPECIFIED SNOMED Code(s): 01259786 (3) Abdominal pain Current Visit: No Status: Acute Code(s): R10.9 - UNSPECIFIED ABDOMINAL PAIN SNOMED Code(s): 07079601 (4) CVA (cerebrovascular accident) Current Visit: No Status: Acute Code(s): I63.9 - CEREBRAL INFARCTION, UNSP ECIFIED SNOMED Code(s): 323309373 (5) CVA, old, hemiparesis Current Visit: No Status: Acute Code(s): I69.359 - HEMIPLGA FOLLOWING CEREBRAL INFARCTION AFFECTING UNSP SIDE SNOMED Code(s): 241246123 (6) Chronic pain syndrome Current Visit: No Status: Acute Code(s): G89.4 - CHRONIC PAIN SYNDROME SNOMED Code(s): 998408217 (7) Degenerative disc disease, lumbar Current Visit: No Status: Acute Code(s): M51.36 - OTHER INTERVERTEBRAL DISC DEGENERATION, LUMBAR REGION SNOMED Code(s): 68616369 (8) Dehydration Current Visit: No Status: Acute Code(s): E86.0 - DEHYDRATION SNOMED Code(s): 40201875 (9) Diabetes type 2, controlled Current Visit: No Status: Acute Code(s): E11.9 - TYPE 2 DIABETES MELLITUS WITHOUT COMPLICATIONS SNOMED Code(s): 80617055 (10) Diabetic neuropathy associated with type 2 diabetes mellitus Current Visit: No Status: Acute Code(s): E11.40 - TYPE 2 DIABETES MELLITUS WITH DIABETIC NEUROPATHY, UNSP SNOMED Code(s): 625859832454030 (11) Essential (primary) hypertension Current Visit: No Status: Acute Code(s): I10 - ESSENTIAL (PRIMARY) HYPERTENSION SNOMED Code(s): 48376462 Plan: Moderate to severe abdominal pain With nausea vomiting Erosive esophagitis, mild gastritis chronic Known history type 2 diabetes well controlled Known history of hypertension well controlled Patient unable to keep any oral intake down holding all meds Judicious rehydration Start insulin sliding scale weight-based Would hold insulin pump for now Reintroduce oral meds as patient tolerates We'll continue to follow closely Thank you Dr. Robertson for this most interesting consultation
[2022-04-07 11:06] LABS: Glucose,Whole Blood 151 mg/dL (70-110)
[2022-04-07] MEDS ORDERED: Phosphorus Replacement Protoco 1 EACH MISC MISCELLANE PRN (13:02)
--- NOTE | 2022-04-07 14:22 | P.PN ---
Subjective Progress Note Date: 04/07/22 CHIEF COMPLAINT: Intractable nausea and vomiting GI bleed HISTORY OF PRESENT ILLNESS: The patient is a 37 year-old male who presented with acute intractable nausea and vomiting including GI bleed and severe epigastric abdominal pain. Upper endoscopy has been completed. Computed tomography scan has been completed. He had trials of clears and emesis over 1 L. Patient's to reports unable to tolerate liquids. "I cannot sleep because acute vomiting." He is a diabetic. Mother is at bedside. ROS: No fevers or chills. No new chest pain. Has emesis and nausea PHYSICAL EXAM: VITAL SIGNS: Reviewed CONSTITUTIONAL: Well developed and in no acute distress. EYES: Conjuctivae without sclera icterus. Extraocular movements grossly intact. HEAD, EARS, NOSE, THROAT: Moist buccal mucosa. Head is atraumatic, normocephalic. Hears conversational speech. No nasal drainage. RESPIRATORY: Non-labored respirations and equal bilateral excursions. CARDIOVASCULAR: Palpable 2+ radial pulses. ABDOMEN: Tender epigastrium. No peritonitis. MUSCULOSKELETAL: No gross deformity of the lower extremities noted. No clubbing. No cyanosis. SKIN: Good skin turgor. Well perfused. NEUROLOGIC: Cranial nerves II through XII grossly intact. No focal or lateralizing signs. PSYCH: Appropriate affect. Alert and oriented to person, place and time. CLINICAL LABS: Reviewed. Phosphorus low 2.0. WBC elevated STUDIES: CT of the abdomen and pelvis reviewed demonstrates no pancreatitis, no bowel obstruction, no intra-abdominal masses, no hernias. This is my independent interpretation. EGD: Demonstrates gastritis with bleeding and severe erosive esophagitis PATHOLOGY: Pending ASSESSMENT: 1. Gastrointestinal bleeding 2. Intractable nausea and vomiting 3. Diabetes type 2, insulin-dependent 4. Gastroparesis 5. Severe erosive esophagitis PLAN: 1. Will keep nothing by mouth except ice chips and medications 2. May benefit from PICC line and TPN due to intractable nausea and vomiting 3. Will add Benadryl for sleep and antiemetic effect 4. Repeat CBC and CMP with correction of magnesium, phosphorus, potassium 5. We'll check for gastrointestinal viruses including Covid and influenza 6. IV fluid hydration Objective - Vital Signs Vital signs: Vital Signs Temp 97.8 F 04/07/22 11:25 Pulse 89 04/07/22 11:25 Resp 20 04/07/22 11:25 BP 146/83 04/07/22 11:25 Pulse Ox 97 04/07/22 11:25 FiO2 Intake & Output 04/06/22 04/07/22 04/07/22 18:59 06:59 18:59 Intake Total 650 1080 Output Total 500 1100 1900 Balance -111 -507 -300 Intake: Intake, IV Titration 250 Amount Sodium Phosphate 10 mmol 250 In Sodium Chloride 0.9% 250 ml @ 125 mls/hr IVPB Q2H ON LICENSE OF [facility] Rx#:[id number] Oral 400 1080 Output: Urine 500 1100 800 Emesis 1100 Other: Voiding Method Toilet Toilet Urinal Urinal # Voids 1 - Labs CBC & Chem 7: 04/06/22 06:53 04/06/22 06:53 Labs: Abnormal Lab Results - Last 24 Hours (Table) 04/06/22 04/06/22 04/06/22 Range/Units 15:01 17:36 20:06 POC Glucose (mg/dL) 194 H 145 H (70-110) mg/dL Phosphorus 2.0 L (2.5-4.5) mg/dL 04/07/22 04/07/22 Range/Units 07:01 11:05 POC Glucose (mg/dL) 160 H 151 H (70-110) mg/dL Phosphorus (2.5-4.5) mg/dL
[2022-04-07] MEDS ORDERED: MORPHINE SULFATE 4 MG/ML SYRINGE IVP PRN (14:25)
[2022-04-07] MEDS: DEXAMETHASONE SOD PHOSPHATE 4 MG/ML 1 ML VIAL IVP SCH ×2 (15:17→20:14)
[2022-04-07] MEDS: SODIUM PHOSPHATE 10 MMOL in SODIUM CHLORIDE 0.9% 250 ML IVPB SCH ×5 (15:19→21:06)
[2022-04-07] MEDS: diphenhydrAMINE 50 MG/ML 1 ML VIAL IVP PRN ×2 (15:20→21:27)
[2022-04-07] MEDS: ACETAMINOPHEN IV (For NPO) 1,000 MG in EMPTY BAG 1 BAG IVPB SCH ×2 (15:21→20:19)
[2022-04-07] MEDS: 0.9% NACL WITH KCL 20 MEQ/L 1,000 ML IV SCH ×2 (16:01→23:26)
[2022-04-07 16:22] LABS: INR 1.1 (<1.2); Prothrombin Time 11.6 sec (9.0-12.0)
[2022-04-07 17:21] LABS: Glucose,Whole Blood 145 mg/dL (70-110)
[2022-04-07] MEDS ORDERED: SODIUM CHLORIDE 0.9% 2,000 ML IV ONE (18:40)
[2022-04-07 20:31] LABS: Glucose,Whole Blood 153 mg/dL (70-110)
[2022-04-07] MEDS: fentaNYL PCA 500 MCG/50 ML BAG IV PRN (21:26)
[2022-04-08] MEDS: ACETAMINOPHEN IV (For NPO) 1,000 MG in EMPTY BAG 1 BAG IVPB SCH ×2 (02:35→09:25)
[2022-04-08] MEDS: ONDANSETRON 4 MG/2 ML VIAL IVP PRN ×3 (02:35→18:15)
[2022-04-08] MEDS: DEXAMETHASONE SOD PHOSPHATE 4 MG/ML 1 ML VIAL IVP SCH ×4 (02:35→20:33)
[2022-04-08] MEDS: TRIMETHOBENZAMIDE 100 MG/ML 2 ML VIAL IM PRN ×2 (02:35→10:23)
[2022-04-08] MEDS: diphenhydrAMINE 50 MG/ML 1 ML VIAL IVP PRN ×3 (04:54→20:34)
[2022-04-08] MEDS: 0.9% NACL WITH KCL 20 MEQ/L 1,000 ML IV SCH ×3 (05:30→20:48)
[2022-04-08] MEDS: METOCLOPRAMIDE 5 MG/ML 2 ML VIAL IVP SCH ×4 (05:30→23:41)
[2022-04-08 07:07] LABS: Glucose,Whole Blood 158 mg/dL (70-110)
[2022-04-08] MEDS: INSULIN ASPART (NovoLOG) 100 UNIT/ML VIAL SQ SCH ×4 (09:10→20:36)
[2022-04-08] MEDS: PANTOPRAZOLE 40 MG/10 ML VIAL IVP SCH ×2 (09:25→20:34)
[2022-04-08 11:15] LABS: Glucose,Whole Blood 157 mg/dL (70-110)
--- NOTE | 2022-04-08 11:26 | P.PN ---
Subjective Progress Note Date: 04/08/22 Principal diagnosis: Intractable nausea and vomiting, GI bleed Patient is awake alert and oriented 3, vital signs are stable patient is afebrile patient status post EGD with biopsies, findings consistent with erosive esophagitis, chronic gastritis. Patient has persistent intractable nausea with retching, would consider a trial of Marinol to assist in antiemetic effects as well as improving patient's appetite. Objective - Vital Signs Vital signs: Vital Signs Temp 98.7 F 04/08/22 04:16 Pulse 82 04/08/22 04:16 Resp 16 04/08/22 04:16 BP 152/79 04/08/22 04:16 Pulse Ox 97 04/08/22 04:16 FiO2 Intake & Output 04/07/22 04/08/22 04/08/22 18:59 06:59 18:59 Intake Total 1080 1750 Output Total 2200 400 Balance -1120 1750 -400 Intake: Intake, IV Titration 1750 Amount 0.9% NaCl with KCl 20 Meq 1300 /l 1,000 ml @ 130 mls/hr IV .Q7H42M [facility] Rx#: [id number] ACETAMINOPHEN IV (For NPO 200 ) 1,000 mg In Empty Bag 1 bag @ 400 mls/hr IVPB Q6H [facility] Rx#:[id number] Sodium Phosphate 10 mmol 250 In Sodium Chloride 0.9% 250 ml @ 125 mls/hr IVPB Q2H [facility] Rx#:[id number] Oral 1080 Output: Urine 1100 400 Emesis 1100 Other: Voiding Method Toilet Urinal # Voids 1 4 - Exam General: [Patient awake, alert and oriented times 3. Patient in no acute distress.] HEENT: [PERRL. EOMI. No pharyngeal erythema or exudate.] Neck: [No adenopathy.] Cardiac: [Heart regular in rate and rhythm. No S3. No S4. No clicks, rubs. No murmur.] Lungs: [Clear to auscultation bilaterally.] Abdomen: [No mass. No organomegaly. Bowel sounds diminished, diffuse epigastric tenderness noted Extremes: [No edema no cyanosis no claudication normal pulses] : Normal male genitalia Musculoskeletal: [No joint erythema, edema or tenderness.] Skin: [No rash.] Neurologic: [No lateralizing deficits. CN II - XII grossly intact.] Lymphatic: [No adenopathy.] - Labs CBC & Chem 7: 04/06/22 06:53 04/06/22 06:53 Labs: Abnormal Lab Results - Last 24 Hours (Table) 04/07/22 04/07/22 04/08/22 Range/Units 17:19 20:29 07:06 POC Glucose (mg/dL) 145 H 153 H 158 H (70-110) mg/dL 04/08/22 Range/Units 11:14 POC Glucose (mg/dL) 157 H (70-110) mg/dL Assessment and Plan (1) Acute vomiting Current Visit: Yes Status: Acute Code(s): R11.10 - VOMITING, UNSPECIFIED SNOMED Code(s): 01427015 (2) Upper GI bleed Current Visit: Yes Status: Acute Code(s): K92.2 - GASTROINTESTINAL HEMORRHAGE, UNSPECIFIED SNOMED Code(s): 23032278 (3) Abdominal pain Current Visit: No Status: Acute Code(s): R10.9 - UNSPECIFIED ABDOMINAL PAIN SNOMED Code(s): 75042701 (4) CVA (cerebrovascular accident) Current Visit: No Status: Acute Code(s): I63.9 - CEREBRAL INFARCTION, UNSPE CIFIED SNOMED Code(s): 949453536 (5) CVA, old, hemiparesis Current Visit: No Status: Acute Code(s): I69.359 - HEMIPLGA FOLLOWING CEREBRAL INFARCTION AFFECTING UNSP SIDE SNOMED Code(s): 513701074 (6) Chronic pain syndrome Current Visit: No Status: Acute Code(s): G89.4 - CHRONIC PAIN SYNDROME SNOMED Code(s): 008048547 (7) Degenerative disc disease, lumbar Current Visit: No Status: Acute Code(s): M51.36 - OTHER INTERVERTEBRAL DISC DEGENERATION, LUMBAR REGION SNOMED Code(s): 13389659 (8) Dehydration Current Visit: No Status: Acute Code(s): E86.0 - DEHYDRATION SNOMED Code(s): 63284338 (9) Diabetes type 2, controlled Current Visit: No Status: Acute Code(s): E11.9 - TYPE 2 DIABETES MELLITUS WITHOUT COMPLICATIONS SNOMED Code(s): 27259971 (10) Diabetic neuropathy associated with type 2 diabetes mellitus Current Visit: No Status: Acute Code(s): E11.40 - TYPE 2 DIABETES MELLITUS WITH DIABETIC NEUROPATHY, UNSP SNOMED Code(s): 831564011117881 (11) Essential (primary) hypertension Current Visit: No Status: Acute Code(s): I10 - ESSENTIAL (PRIMARY) HYPERTENSION SNOMED Code(s): 82742387 Plan: Moderate to severe abdominal pain With nausea vomiting Erosive esophagitis, mild gastritis chronic Known history type 2 diabetes well controlled Known history of hypertension well controlled Patient unable to keep any oral intake down holding all meds Judicious rehydration Start insulin sliding scale weight-based Would hold insulin pump for now We'll initiate a trial of Marinol for antiemetic effects Reintroduce oral meds as patient tolerates We'll continue to follow closely Thank you Dr. Robertson for this most interesting consultation Time with Patient: Greater than 30
[2022-04-08 11:44] LABS: Basophils # (A) 0.01 X 10*3/uL (0.00-0.10); Basophils % (A) 0.2 %; Eosinophils # (A) 0.01 X 10*3/uL (0.04-0.35); Eosinophils % (A) 0.2 %; HCT 34.6 % (39.6-50.0); HGB 12.5 g/dL (13.0-17.0); Immature Grans, Automated 0.6 %; Lymphocytes # (A) 0.53 X 10*3/uL (0.90-5.00); Lymphocytes % (A) 10.6 %; MCH 32.1 pg (27.0-32.0); MCHC 36.1 g/dL (32.0-37.0); MCV 88.9 fL (80.0-97.0); Mean Platelet Volume 9.7 fL (9.5-12.2); Monocytes # (A) 0.24 X 10*3/uL (0.20-1.00); Monocytes % (A) 4.8 %; NRBC Per 100 WBC 0 /100 WBCS (0.0-0.0); Neutrophils # (A) 4.16 X 10*3/uL (1.80-7.70); Neutrophils % (A) 83.6 %; Platelet Count 151 X 10*3/uL (140-440); RBC 3.89 X 10*6/uL (4.40-5.60); RDW 11.5 % (11.5-14.5); WBC 4.98 X 10*3/uL (4.50-10.00)
[2022-04-08 11:50] LABS: Magnesium 2.3 mg/dL (1.5-2.4); Phosphorus 3.2 mg/dL (2.4-5.1)
[2022-04-08 12:55] LABS: African American GFR (CKD) 137.8 (60.0-200.0); Albumin 3.9 g/dL (3.8-4.9); Albumin/Globulin Ratio 1.77 (1.60-3.17); Anion Gap 14.4 mmol/L (10.00-18.00); BUN/Creat Ratio 23.71 Ratio (12.00-20.00); Blood Urea Nitrogen 16.6 mg/dL (9.0-27.0); Calcium 7.5 mg/dL (8.7-10.3); Carbon Dioxide 20.6 mmol/L (20.0-27.5); Globulin 2.2 g/dL (1.6-3.3); Non-African American GFR(CKD) 118.9 (60.0-200.0); Potassium 3.7 mmol/L (3.5-5.5); Total Bilirubin 1.3 mg/dL (0.30-1.20); Total Protein 6.1 g/dL (6.2-8.2)
--- NOTE | 2022-04-08 15:06 | P.PN ---
Subjective Progress Note Date: 04/08/22 CHIEF COMPLAINT: Intractable nausea and vomiting GI bleed HISTORY OF PRESENT ILLNESS: The patient is a 37 year-old male who presented with acute intractable nausea and vomiting including GI bleed and severe epigastric abdominal pain. Mother is at bedside. Patient reports clinically doing much better today than yesterday. Nausea has improved although he had dry heaves last night. He reports postnasal drip. Pain is well controlled with fentanyl BUILDING SERVICES ENGINEER. ROS: No fevers or chills. No new chest pain. PHYSICAL EXAM: VITAL SIGNS: Reviewed CONSTITUTIONAL: Well developed and in no acute distress. EYES: Conjuctivae without sclera icterus. Extraocular movements grossly intact. HEAD, EARS, NOSE, THROAT: Moist buccal mucosa. Head is atraumatic, normocephalic. Hears conversational speech. No nasal drainage. RESPIRATORY: Non-labored respirations and equal bilateral excursions. CARDIOVASCULAR: Palpable 2+ radial pulses. ABDOMEN: No peritonitis. MUSCULOSKELETAL: No gross deformity of the lower extremities noted. No clubbing. No cyanosis. SKIN: Good skin turgor. Well perfused. NEUROLOGIC: Cranial nerves II through XII grossly intact. No focal or lateralizing signs. PSYCH: Appropriate affect. Alert and oriented to person, place and time. CLINICAL LABS: Reviewed. Phosphorus normal. Potassium normal. Magnesium normal. Sodium low 132. ASSESSMENT: 1. Gastrointestinal bleeding 2. Intractable nausea and vomiting 3. Diabetes type 2, insulin-dependent 4. Gastroparesis 5. Severe erosive esophagitis PLAN: 1. His intractable nausea and vomiting has moderately subsided after IV fluid hydration. Continue IV fluid hydration. 2. Continue BUILDING SERVICES ENGINEER 3. Per discussion with patient and family, we'll like to hold on PICC line and TPN pending trial of diet 4. Additionally, THC derivative ordered per medicine team for appetite stimulant Objective - Vital Signs Vital signs: Vital Signs Temp 98.5 F 04/08/22 11:12 Pulse 78 04/08/22 11:12 Resp 18 04/08/22 11:12 BP 147/73 04/08/22 11:12 Pulse Ox 97 04/08/22 11:12 FiO2 Intake & Output 04/07/22 04/08/22 04/08/22 18:59 06:59 18:59 Intake Total 1080 1750 Output Total 2200 400 Balance -1120 1750 -400 Intake: Intake, IV Titration 1750 Amount 0.9% NaCl with KCl 20 Meq 1300 /l 1,000 ml @ 130 mls/hr IV .Q7H42M COUNTS INCLUDE 234 BEDS AT THE [facility] Rx#: [id number] ACETAMINOPHEN IV (For NPO 200 ) 1,000 mg In Empty Bag 1 bag @ 400 mls/hr IVPB Q6H [facility] Rx#:[id number] Sodium Phosphate 10 mmol 250 In Sodium Chloride 0.9% 250 ml @ 125 mls/hr IVPB Q2H [facility] Rx#:[id number] Oral 1080 Output: Urine 1100 400 Emesis 1100 Other: Voiding Method Toilet Urinal # Voids 1 4 - Labs CBC & Chem 7: 04/08/22 07:13 04/08/22 07:13 Labs: Abnormal Lab Results - Last 24 Hours (Table) 04/07/22 04/07/22 04/08/22 Range/Units 17:19 20:29 07:06 RBC (4.40-5.60) X 10*6/uL Hgb (13.0-17.0) g/dL Hct (39.6-50.0) % MCH (27.0-32.0) pg Lymphocytes # (0.90-5.00) X 10*3/uL Eosinophils # (0.04-0.35) X 10*3/uL Sodium (135-145) mmol/L BUN/Creatinine Ratio (12.00-20.00) Ratio Glucose (70-110) mg/dL POC Glucose (mg/dL) 145 H 153 H 158 H (70-110) mg/dL Calcium (8.7-10.3) mg/dL Total Bilirubin (0.30-1.20) mg/dL Total Protein (6.2-8.2) g/dL 04/08/22 04/08/22 04/08/22 Range/Units 07:13 07:13 11:14 RBC 3.89 L (4.40-5.60) X 10*6/uL Hgb 12.5 L (13.0-17.0) g/dL Hct 34.6 L (39.6-50.0) % MCH 32.1 H (27.0-32.0) pg Lymphocytes # 0.53 L (0.90-5.00) X 10*3/uL Eosinophils # 0.01 L (0.04-0.35) X 10*3/uL Sodium 132 L (135-145) mmol/L BUN/Creatinine Ratio 23.71 H (12.00-20.00) Ratio Glucose 158 H (70-110) mg/dL POC Glucose (mg/dL) 157 H (70-110) mg/dL Calcium 7.5 L (8.7-10.3) mg/dL Total Bilirubin 1.30 H (0.30-1.20) mg/dL Total Protein 6.1 L (6.2-8.2) g/dL
[2022-04-08 16:57] LABS: Glucose,Whole Blood 162 mg/dL (70-110)
[2022-04-08 20:20] LABS: Glucose,Whole Blood 270 mg/dL (70-110)
[2022-04-08] MEDS: fentaNYL PCA 500 MCG/50 ML BAG IV PRN (20:54)
[2022-04-09] MEDS: TRIMETHOBENZAMIDE 100 MG/ML 2 ML VIAL IM PRN (02:08)
[2022-04-09] MEDS: ONDANSETRON 4 MG/2 ML VIAL IVP PRN ×2 (02:08→08:20)
[2022-04-09] MEDS: DEXAMETHASONE SOD PHOSPHATE 4 MG/ML 1 ML VIAL IVP SCH ×4 (02:08→20:45)
[2022-04-09] MEDS: diphenhydrAMINE 50 MG/ML 1 ML VIAL IVP PRN ×3 (03:54→20:49)
[2022-04-09] MEDS: 0.9% NACL WITH KCL 20 MEQ/L 1,000 ML IV SCH ×3 (03:54→18:39)
[2022-04-09] MEDS: METOCLOPRAMIDE 5 MG/ML 2 ML VIAL IVP SCH ×4 (05:24→23:57)
[2022-04-09 07:11] LABS: Glucose,Whole Blood 195 mg/dL (70-110)
[2022-04-09] MEDS: LORATADINE 10 MG TAB PO SCH (08:19)
[2022-04-09] MEDS: INSULIN ASPART (NovoLOG) 100 UNIT/ML VIAL SQ SCH ×4 (08:20→20:47)
[2022-04-09] MEDS: SCOPOLAMINE 1 MG/72 HR PATCH TRANSDERM SCH (08:20)
[2022-04-09] MEDS: PANTOPRAZOLE 40 MG/10 ML VIAL IVP SCH ×2 (08:20→20:46)
[2022-04-09 09:23] LABS: African American GFR (CKD) 130.4 (60.0-200.0); Anion Gap 10.1 mmol/L (10.00-18.00); BUN/Creat Ratio 15.25 Ratio (12.00-20.00); Blood Urea Nitrogen 12.2 mg/dL (9.0-27.0); Calcium 7.7 mg/dL (8.7-10.3); Carbon Dioxide 22.9 mmol/L (20.0-27.5); Non-African American GFR(CKD) 112.5 (60.0-200.0); Potassium 4.1 mmol/L (3.5-5.5)
[2022-04-09 11:27] LABS: Glucose,Whole Blood 197 mg/dL (70-110)
--- NOTE | 2022-04-09 13:57 | P.PN ---
Subjective Progress Note Date: 04/09/22 CHIEF COMPLAINT: Intractable nausea and vomiting GI bleed HISTORY OF PRESENT ILLNESS: The patient is a 37 year-old male who presented with acute intractable nausea and vomiting including GI bleed and severe epigastric abdominal pain. Patient was able to tolerate a clear liquid diet without vomiting. He is still some having some nausea. His abdominal pain is still present but improved since admission. He is using the SUPERVISOR PROPERTIES pump. Afebrile. Sodium 133 potassium is 4.1 creatinine 0.8 glucose 228 PHYSICAL EXAM: VITAL SIGNS: Reviewed GENERAL: Well-developed in no acute distress. HEENT: No sclera icterus. Extraocular movements grossly intact. Moist buccal mucosa. Head is atraumatic, normocephalic. Hears conversational speech. No nasal drainage. NECK: Supple without lymphadenopathy. CHEST: Non-labored respirations and equal bilateral excursions. CARDIOVASCULAR: Palpable 2+ radial pulses. ABDOMEN: Soft. Nondistended. Epigastric tenderness MUSCULOSKELETAL: No clubbing or cyanosis. NEUROLOGIC: No focal or lateralizing signs. Cranial nerves II through XII grossly intact. PSYCH: Appropriate affect. Alert and oriented to person, place and time. SKIN: Well perfused. Good skin turgor. ASSESSMENT: 1. Gastrointestinal bleeding 2. Intractable nausea and vomiting 3. Diabetes type 2, insulin-dependent 4. Gastroparesis 5. Severe erosive esophagitis PLAN: -Advance diet to full liquids -Continue IV fluids -Continue SUPERVISOR PROPERTIES pain pump -Continue supportive care -Possible discharge later today if tolerating full liquids -No need for TPN at this time patient is tolerating clear liquid diet Physician Corn Crop Supervisor note has been reviewed by physician. Signing provider agrees with the documented findings, assessment, and plan of care. Objective - Vital Signs Vital signs: Vital Signs Temp 98.5 F 04/09/22 11:25 Pulse 70 04/09/22 11:25 Resp 18 04/09/22 11:25 BP 156/86 04/09/22 11:25 Pulse Ox 94 L 04/09/22 11:25 FiO2 Intake & Output 04/08/22 04/09/22 04/09/22 18:59 06:59 18:59 Intake Total 2080 Output Total 7700 102 6062 Balance -1100 1180 -1550 Intake: Intake, IV Titration 1400 Amount 0.9% NaCl with KCl 20 Meq 1400 /l 1,000 ml @ 130 mls/hr IV .Q7H42M [facility] Rx#: [id number] Oral 680 Output: Urine 1537 597 0005 Other: Voiding Method Toilet Toilet Urinal Urinal - Labs CBC & Chem 7: 04/08/22 07:13 04/09/22 05:16 Labs: Abnormal Lab Results - Last 24 Hours (Table) 04/08/22 04/08/22 04/09/22 Range/Units 16:54 20:14 05:16 Sodium 133 L (135-145) mmol/L Glucose 228 H (70-110) mg/dL POC Glucose (mg/dL) 162 H 270 H (70-110) mg/dL Calcium 7.7 L (8.7-10.3) mg/dL 04/09/22 04/09/22 Range/Units 07:10 11:26 Sodium (135-145) mmol/L Glucose (70-110) mg/dL POC Glucose (mg/dL) 195 H 197 H (70-110) mg/dL Calcium (8.7-10.3) mg/dL
--- NOTE | 2022-04-09 16:03 | P.PN ---
Subjective Progress Note Date: 04/09/22 Marinol initiated yesterday with significant clinical improvement; reports minimal nausea, no vomiting. Continues on IV fluid hydration. Diet has been advanced full liquids for lunch. Abdominal pain controlled on BOAT FINISHER as per general surgery. Sodium 133, creatinine stable, blood sugars 150s to 200s. Objective - Vital Signs Vital signs: Vital Signs Temp 98.5 F 04/09/22 11:25 Pulse 70 04/09/22 11:25 Resp 18 04/09/22 11:25 BP 156/86 04/09/22 11:25 Pulse Ox 94 L 04/09/22 11:25 FiO2 Intake & Output 04/08/22 04/09/22 04/09/22 18:59 06:59 18:59 Intake Total 2080 Output Total 3706 145 1070 Balance -1100 1180 -1000 Intake: Intake, IV Titration 1400 Amount 0.9% NaCl with KCl 20 Meq 1400 /l 1,000 ml @ 130 mls/hr IV .Q7H42M [facility] Rx#: [id number] Oral 680 Output: Urine 9382 156 8780 Other: Voiding Method Toilet Toilet Urinal Urinal - Exam - Exam General: Sitting up in bed, no acute distress Neck: Supple, no JVD Cardiac: [Heart regular in rate and rhythm. No S3. No S4. No clicks, rubs. No murmur.] Lungs: [Unlabored, Clear to auscultation bilaterally.] Abdomen: [Soft, nondistended, no guarding, no rigidity, Bowel sounds diminished, diffuse epigastric tenderness noted Extremes: [No edema no cyanosis no claudication normal pulses Skin: [Warm and dry, No rash.] - Labs CBC & Chem 7: 04/08/22 07:13 04/09/22 05:16 Labs: Abnormal Lab Results - Last 24 Hours (Table) 04/08/22 04/08/22 04/08/22 Range/Units 07:13 16:54 20:14 Sodium 132 L (135-145) mmol/L BUN/Creatinine Ratio 23.71 H (12.00-20.00) Ratio Glucose 158 H (70-110) mg/dL POC Glucose (mg/dL) 162 H 270 H (70-110) mg/dL Calcium 7.5 L (8.7-10.3) mg/dL Total Bilirubin 1.30 H (0.30-1.20) mg/dL Total Protein 6.1 L (6.2-8.2) g/dL 04/09/22 04/09/22 04/09/22 Range/Units 05:16 07:10 11:26 Sodium 133 L (135-145) mmol/L BUN/Creatinine Ratio (12.00-20.00) Ratio Glucose 228 H (70-110) mg/dL POC Glucose (mg/dL) 195 H 197 H (70-110) mg/dL Calcium 7.7 L (8.7-10.3) mg/dL Total Bilirubin (0.30-1.20) mg/dL Total Protein (6.2-8.2) g/dL Assessment and Plan Assessment: (1) Acute vomiting, severe erosive esophagitis, gastroparesis Current Visit: Yes Status: Acute Code(s): R11.10 - VOMITING, UNSPECIFIED SNOMED Code(s): 48363214 (2) Upper GI bleed Current Visit: Yes Status: Acute Code(s): K92.2 - GASTROINTESTINAL HEMORRHAGE, UNSPECIFIED SNOMED Code(s): 36427054 (3) Abdominal pain Current Visit: No Status: Acute Code(s): R10.9 - UNSPECIFIED ABDOMINAL PAIN SNOMED Code(s): 84819090 (4) CVA (cerebrovascular accident) Current Visit: No Status: Acute Code(s): I63.9 - CEREBRAL INFARCTION, UNSPECIFIED SNOMED Code(s): 439164938 (5) CVA, old, hemiparesis Current Visit: No Status: Acute Code(s): I69.359 - HEMIPLGA FOLLOWING CEREBRAL INFARCTION AFFECTING UNSP SIDE SNOMED Code(s): 418421626 (6) Chronic pain syndrome Current Visit: No Status: Acute Code(s): G89.4 - CHRONIC PAIN SYNDROME SNOMED Code(s): 220479732 (7) Degenerative disc disease, lumbar Current Visit: No Status: Acute Code(s): M51.36 - OTHER INTERVERTEBRAL DISC DEGENERATION, LUMBAR REGION SNOMED Code(s): 54639885 (8) Dehydration Current Visit: No Status: Acute Code(s): E86.0 - DEHYDRATION SNOMED Code(s): 24305591 (9) Diabetes type 2 Current Visit: No Status: Acute Code(s): E11.9 - TYPE 2 DIABETES MELLITUS WITHOUT COMPLICATIONS SNOMED Code(s): 43590054 (10) Diabetic neuropathy associated with type 2 diabetes mellitus Current Visit: No Status: Acute Code(s): E11.40 - TYPE 2 DIABETES MELLITUS WITH DIABETIC NEUROPATHY, UNSP SNOMED Code(s): 375242901473520 (11) Essential (primary) hypertension Current Visit: No Status: Acute Code(s): I10 - ESSENTIAL (PRIMARY) HYPERTENSION SNOMED Code(s): 41248241 Plan: Continue on current medication regime ,monitoring and symptomatic treatment. TPN on hold pending patient tolerates full liquids at lunch .Diet advancement, pain management as per general surgery. Insulin pump on hold, until tolerating diet. Continue with Sliding scale. Discharge planning in progress as per surgery pending patient tolerating diet. Resume insulin pump once patient tolerating diet and Follow up in clinic in 3 days. The impression and plan of care has been dictated as directed. : I performed a history and examination of this patient, discussed the same with the dictator. I agree with the dictator's note ,documented as a scribe. Any additional findings or plans will be noted.
[2022-04-09 17:12] LABS: Glucose,Whole Blood 210 mg/dL (70-110)
[2022-04-09 20:43] LABS: Glucose,Whole Blood 212 mg/dL (70-110)
[2022-04-09] MEDS: fentaNYL PCA 500 MCG/50 ML BAG IV PRN (20:55)
[2022-04-09 21:03] VITALS: RESP 16
[2022-04-10] MEDS: DEXAMETHASONE SOD PHOSPHATE 4 MG/ML 1 ML VIAL IVP SCH ×2 (02:21→08:10)
[2022-04-10] MEDS: ONDANSETRON 4 MG/2 ML VIAL IVP PRN (02:21)
[2022-04-10] MEDS: 0.9% NACL WITH KCL 20 MEQ/L 1,000 ML IV SCH ×2 (02:21→10:15)
[2022-04-10] MEDS: diphenhydrAMINE 50 MG/ML 1 ML VIAL IVP PRN (05:38)
[2022-04-10] MEDS: METOCLOPRAMIDE 5 MG/ML 2 ML VIAL IVP SCH ×2 (05:38→13:04)
[2022-04-10 07:04] LABS: Glucose,Whole Blood 185 mg/dL (70-110)
[2022-04-10] MEDS: PANTOPRAZOLE 40 MG/10 ML VIAL IVP SCH (08:08)
[2022-04-10] MEDS: LORATADINE 10 MG TAB PO SCH (08:08)
[2022-04-10] MEDS: INSULIN ASPART (NovoLOG) 100 UNIT/ML VIAL SQ SCH ×2 (08:09→13:04)
[2022-04-10 11:07] LABS: Glucose,Whole Blood 256 mg/dL (70-110)
[2022-04-10 11:37] VITALS: BP 153/84; PULSE 61; TEMP 98.7
--- NOTE | 2022-04-10 13:24 | P.DS ---
Providers Date of admission: 04/09/22 08:34 Expected date of discharge: 04/10/22 Attending physician: Brandie Mccoy Consults: 04/05/22 12:02 Consult Physician Routine Consulting Provider: Tremaine Casey Jr Consult Reason/Comments: medical management, diabetes Do you want consulting provider notified?: Yes Primary care physician: Tremaine Casey [facility] Course: Discharge diagnosis 1. Gastrointestinal bleeding 2. Intractable nausea and vomiting 3. Diabetes type 2, insulin-dependent 4. Gastroparesis 5. Severe erosive esophagitis Hospital course The patient is a 37-year-old male who presents with GI bleed, intractable nausea and vomiting, gastroesophageal reflux disease. Patient is status post EGD the did reveal erosive esophagitis and chronic gastritis with bleeding. Biopsies were taken. Patient has tolerated advancement of diet. His pain is controlled. He is afebrile. Prescriptions given for Protonix and Carafate at discharge. He is stable for discharge. Physician Business Attorney note has been reviewed by physician. Signing provider agrees with the documented findings, assessment, and plan of care. Patient Condition at Discharge: Stable Plan - Discharge Summary Discharge Rx Participant: Yes New Discharge Prescriptions: New dronabinoL [Marinol] 5 mg PO AC-BID #7 cap Sucralfate [Carafate] 1 gm PO TID #42 tablet Pantoprazole Sodium [Protonix] 40 mg PO BID #28 tab Continue Loratadine 10 mg PO QAM lisinopriL [Zestril] 2.5 mg PO QAM HYDROcodone/APAP 10-325MG [[place] 10-325] 1 tab PO QID PRN PRN Reason: Pain tiZANidine [Zanaflex] 4 mg PO BID Aspirin 81 mg PO DAILY INSULIN LISPRO (humaLOG) [humaLOG] See Protocol SQ AC-TID PRN PRN Reason: cbg above 150 Pioglitazone [Actos] 30 mg PO QAM Topiramate [Topamax] 100 mg PO QAM Atorvastatin [Lipitor] 20 mg PO HS Insulin Glargine,Hum.rec.anlog [Lantus Solostar Pen] 35 unit SQ HS Gabapentin [Neurontin] 300 mg PO TID ondansetron HCL [Zofran] 8 mg PO Q8HR PRN PRN Reason: Nausea Discontinued Omeprazole [PriLOSEC] 40 mg PO DAILY #14 cap Discharge Medication List Loratadine 10 mg PO QAM 03/29/16 [History] lisinopriL [Zestril] 2.5 mg PO QAM 01/24/17 [History] HYDROcodone/APAP 10-325MG [[place] 10-325] 1 tab PO QID PRN 07/11/18 [History] Aspirin 81 mg PO DAILY 02/22/19 [History] tiZANidine [Zanaflex] 4 mg PO BID 02/22/19 [History] INSULIN LISPRO (humaLOG) [humaLOG] See Protocol SQ AC-TID PRN 03/15/19 [History] Pioglitazone [Actos] 30 mg PO QAM 04/09/19 [History] Topiramate [Topamax] 100 mg PO QAM 05/17/19 [History] Atorvastatin [Lipitor] 20 mg PO HS 08/15/20 [History] Gabapentin [Neurontin] 300 mg PO TID 11/04/20 [History] Insulin Glargine,Hum.rec.anlog [Lantus Solostar Pen] 35 unit SQ HS 06/06/21 [History] ondansetron HCL [Zofran] 8 mg PO Q8HR PRN 06/06/21 [History] Pantoprazole Sodium [Protonix] 40 mg PO BID #28 tab 04/10/22 [Rx] Sucralfate [Carafate] 1 gm PO TID #42 tablet 04/10/22 [Rx] dronabinoL [Marinol] 5 mg PO AC-BID #7 cap 04/10/22 [Rx] Follow up Appointment(s)/Referral(s): Tremaine Casey Jr, DO [Primary Care Provider] - 04/13/22 11:30 am Brandie Mccoy MD [STAFF PHYSICIAN] - 04/24/22 1:00 pm Activity/Diet/Wound Care/Special Instructions: Re: Marinol, #7 RX'd;follow-up with PCP this week in office to discuss further recommendations outpatient. Discharge Disposition: HOME SELF-CARE
== END 2022-04-10 16:48 | disposition home or self-care (01) | DRG 381 ==
LOC: EC 07:54 → 5NMEDONC 11:10 → OBSVTOIN 04-09 08:34
PROVIDERS: ADMIT Surgery Plastic and Reconstructive Surgery; ATTEND Surgery Plastic and Reconstructive Surgery
PROC: 0DB78ZX Excision of Stomach, Pylorus, Via Natural or Artificial Opening Endoscopic, Diagnostic (ICD-10-PCS; principal; 2022-04-06 07:30)
DX: K22.10 Ulcer of esophagus without bleeding (principal); E87.20 Acidosis, unspecified; I69.359 Hemiplegia and hemiparesis following cerebral infarction affecting unspecified side; K29.51 Unspecified chronic gastritis with bleeding; E11.43 Type 2 diabetes mellitus with diabetic autonomic (poly)neuropathy; E78.5 Hyperlipidemia, unspecified; E86.0 Dehydration; F32.A Depression, unspecified; F41.9 Anxiety disorder, unspecified; G89.4 Chronic pain syndrome; I10 Essential (primary) hypertension; J45.909 Unspecified asthma, uncomplicated; K21.01 Gastro-esophageal reflux disease with esophagitis, with bleeding; M54.2 Cervicalgia; K31.84 Gastroparesis; D72.829 Elevated white blood cell count, unspecified; M51.36 Other intervertebral disc degeneration, lumbar region; R94.5 Abnormal results of liver function studies; G43.909 Migraine, unspecified, not intractable, without status migrainosus; Z87.01 Personal history of pneumonia (recurrent); Z79.4 Long term (current) use of insulin; Z79.82 Long term (current) use of aspirin; Z79.84 Long term (current) use of oral hypoglycemic drugs; Z79.899 Other long term (current) drug therapy; Z83.3 Family history of diabetes mellitus; Z87.19 Personal history of other diseases of the digestive system; Z88.5 Allergy status to narcotic agent; Z91.018 Allergy to other foods; Z82.49 Family history of ischemic heart disease and other diseases of the circulatory system
CPT/HCPCS: 36415; 43239; 74176; 80048; 80053; 82009; 82150; 82271; 83036; 83605; 83690; 83735; 84100; 85025; 85027; 85610; 87502; 87635; 88305; 93005; 96361; 96365; 96375; 96376; 99284

== ENCOUNTER → 2022-04-26 | Outpatient (CLI) | payer MEDICARE, OTHER ==
[~2022-04-26] MED LIST changes: -ACETAMINOPHEN TAB 500 MG TAB PO PRN; -CHLORHEXIDINE GLUCONATE 15 ML CUP MUCOUS MEM PRN; -DEXAMETHASONE SOD PHOSPHATE 4 MG/ML 1 ML VIAL IV ONE; -HEPARIN SODIUM,PORCINE/PF 5,000 UNIT/0.5 ML SYRINGE SQ PRN; -HYDROmorphone 0.5 MG/0.5 ML SYRINGE IVP PRN; -LACTATED RINGERS 1,000 ML IV SCH; -MIDAZOLAM 2 MG/2 ML VIAL IV PRN; -ONDANSETRON 4 MG/2 ML VIAL IVP ONE; -PANTOPRAZOLE 40 MG/10 ML VIAL IVP PRN; +SODIUM CHLORIDE 0.9% 500 ML 500 ML in EMPTY BAG 1 BAG IV PRN; -TAMSULOSIN 0.4 MG CAP.ER.24H PO PRN
[2022-04-26 10:27] VITALS: BP 98/64; PULSE 81; RESP 15; TEMP 98.3
[2022-04-26] MEDS: SODIUM CHLORIDE 0.9% 1,000 ML IV NR ×2 (10:33→11:34)
[2022-04-26 10:39] LABS: Basophils % (A) 1 %; Eosinophils # (A) 0.2 k/uL (0-0.7); Eosinophils % (A) 6 %; HCT 41.2 % (39.0-53.0); Lymphocytes # (A) 0.9 k/uL (1.0-4.8); Lymphocytes % (A) 26 %; MCH 32.9 pg (25.0-35.0); MCHC 34.1 g/dL (31.0-37.0); MCV 96.6 fL (80.0-100.0); Monocytes # (A) 0.2 k/uL (0-1.0); Monocytes % (A) 4 %; Neutrophils # (A) 2.3 k/uL (1.3-7.7); Neutrophils % (A) 62 %; Platelet Count 214 k/uL (150-450); RBC 4.27 m/uL (4.30-5.90); RDW 12.2 % (11.5-15.5); WBC 3.6 k/uL (3.8-10.6)
[2022-04-26 10:57] LABS: ALT 55 U/L (4-49); AST 29 U/L (17-59); African American GFR (CKD) >90 (>60 ml/min/1.73 sqM); Albumin 4.2 g/dL (3.5-5.0); Alkaline Phosphatase 99 U/L (38-126); Anion Gap 7 mmol/L; Blood Urea Nitrogen 14 mg/dL (9-20); Calcium 8.7 mg/dL (8.4-10.2); Carbon Dioxide 22 mmol/L (22-30); Chloride 108 mmol/L (98-107); Glucose 200 mg/dL (74-99); Non-African American GFR(CKD) >90 (>60 ml/min/1.73 sqM); Potassium 4.3 mmol/L (3.5-5.1); Sodium 137 mmol/L (137-145); Total Bilirubin 0.7 mg/dL (0.2-1.3); Total Protein 6.7 g/dL (6.3-8.2)
== END ==
LOC: PROCWHC3 10:07
PROVIDERS: ATTEND Surgery Plastic and Reconstructive Surgery
DX: E86.0 Dehydration (principal); Z88.6 Allergy status to analgesic agent; Z88.5 Allergy status to narcotic agent; Z88.8 Allergy status to other drugs, medicaments and biological substances; Z91.018 Allergy to other foods
CPT/HCPCS: 36415; 80053; 85025

== ENCOUNTER → 2022-06-14 | Outpatient (CLI) | payer MEDICARE, OTHER ==
[2022-06-14 15:04] LABS: HCT 41.7 % (39.6-50.0); HGB 13.8 g/dL (13.0-17.0); MCH 31.8 pg (27.0-32.0); MCHC 33.1 g/dL (32.0-37.0); MCV 96.1 fL (80.0-97.0); Mean Platelet Volume 9.8 fL (9.5-12.2); NRBC Per 100 WBC 0 /100 WBCS (0.0-0.0); Platelet Count 255 X 10*3/uL (140-440); RBC 4.34 X 10*6/uL (4.40-5.60); RDW 12.9 % (11.5-14.5); WBC 4.42 X 10*3/uL (4.50-10.00)
[2022-06-14 18:55] LABS: Blood Urea Nitrogen 16.4 mg/dL (9.0-27.0); Non-African American GFR(CKD) 100.9 (60.0-200.0); Potassium 4.1 mmol/L (3.5-5.5)
== END | disposition home or self-care (01) ==
LOC: LABPAT 09:21
PROVIDERS: ATTEND Surgery Plastic and Reconstructive Surgery
DX: Z01.812 Encounter for preprocedural laboratory examination (principal)
CPT/HCPCS: 82565; 84132; 84520; 85027

== ENCOUNTER 2022-06-15 05:42 | Day surgery (SDC) | payer MEDICARE, OTHER ==
[2022-06-13 09:35] VITALS: BMI 46.4
[~2022-06-15 05:42] MED LIST changes: +DEXAMETHASONE SOD PHOSPHATE 4 MG/ML 1 ML VIAL IV ONE; +HEPARIN SODIUM,PORCINE/PF 5,000 UNIT/0.5 ML SYRINGE SQ PRN; +LACTATED RINGERS 1,000 ML IV SCH; +MIDAZOLAM 2 MG/2 ML VIAL IV PRN; +ONDANSETRON 4 MG/2 ML VIAL IVP ONE; +SCOPOLAMINE 1 MG/72 HR PATCH TRANSDERM ONE; -SODIUM CHLORIDE 0.9% 500 ML 500 ML in EMPTY BAG 1 BAG IV PRN; +ceFAZolin 3 GM in SODIUM CHLORIDE 0.9% 100 ML IVPB PRN
[2022-06-15] MEDS ORDERED: LACTATED RINGERS 1,000 ML IV ONE ×4 (06:17→10:00)
[2022-06-15 06:31] LABS: Glucose,Whole Blood 104 mg/dL (70-110)
--- NOTE | 2022-06-15 06:33 | P.GSHP ---
History of Present Illness H&P Date: 06/15/22 CHIEF COMPLAINT: History of intra-abdominal adhesions HISTORY OF PRESENT ILLNESS: The patient is a 37-year-old male who presents with history of intra-abdominal adhesions from multiple prior surgeries including increasing abdominal pain. The patient now presents for diagnostic laparoscopy including lysis of adhesions. PAST MEDICAL HISTORY: Please see list. PAST SURGICAL HISTORY: Please see list. MEDICATIONS: Please see list. ALLERGIES: Please see list. SOCIAL HISTORY: No illicit drug use FAMILY HISTORY: No reports of Crohn disease or ulcerative colitis. REVIEW OF ORGAN SYSTEMS: CONSTITUTIONAL: No reports of fevers or chills. GI: Denies any blood in stools or constipation. PHYSICAL EXAM: VITAL SIGNS: Stable GENERAL: Well-developed pleasant and in no acute distress. HEENT: No scleral icterus. Extraocular movements grossly intact. Moist buccal mucosa. NECK: Supple without lymphadenopathy. CHEST: Unlabored respirations. Equal bilateral excursions. CARDIOVASCULAR: Regular rate and rhythm. Distal 2+ pulses. ABDOMEN: Soft, diffuse abdominal tenderness. No peritonitis. MUSCULOSKELETAL: No clubbing, cyanosis, or edema. ASSESSMENT: 1. Diffuse abdominal pain. 2. History of multiple abdominal surgeries. 3. Intra-abdominal adhesions. PLAN: 1. Robotic lysis of adhesions were described in detail including risk of injury to the intestine, need for further surgery, and open technique. 2. DVT prophylaxis. 3. Antibiotic prophylaxis. Past Medical History Past Medical History: Asthma, CVA/TIA, Diabetes Mellitus, GERD/Reflux, Hyperlipidemia, Hypertension, Pneumonia Additional Past Medical History / Comment(s): ABD PAIN. 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 HX OF diverticultitis. Hx of migraines History of Any Multi-Drug Resistant Organisms: None Reported Past Surgical History: Appendectomy, Back Surgery, Bowel Resection, Cholecystectomy, Orthopedic Surgery, Tonsillectomy Additional Past Surgical History / Comment(s): rt shoulder sx, ARTHROSCOPY Knee x 3, hiatal hernia Past Anesthesia/Blood Transfusion Reactions: Postoperative Nausea & Vomiting (PONV) Additional Past Anesthesia/Blood Transfusion Reaction / Comment(s): no hx blood transfusion Additional Psychological History / Comment(s): sees psychiatrist - Past Family History Mother Family Medical History: No Reported History Father Family Medical History: Diabetes Mellitus Additional Family Medical History / Comment(s): heart problems Medications and Allergies Home Medications Medication Instructions Recorded Confirmed Type Loratadine 10 mg PO QAM 03/29/16 06/13/22 History lisinopriL [Zestril] 2.5 mg PO QAM 01/24/17 06/13/22 History HYDROcodone/APAP 10-325MG [[place] 1 tab PO QID PRN 07/11/18 06/13/22 History 10-325] Aspirin 81 mg PO DAILY 02/22/19 06/13/22 History tiZANidine [Zanaflex] 4 mg PO BID 02/22/19 06/13/22 History INSULIN LISPRO (humaLOG) [humaLOG] See Protocol SQ AC-TID PRN 03/15/19 06/13/22 History Pioglitazone [Actos] 30 mg PO QAM 04/09/19 06/13/22 History Topiramate [Topamax] 100 mg PO QAM 05/17/19 06/13/22 History Atorvastatin [Lipitor] 20 mg PO HS 08/15/20 06/13/22 History Gabapentin [Neurontin] 300 mg PO TID 11/04/20 06/13/22 History Insulin Glargine,Hum.rec.anlog 35 unit SQ HS 06/06/21 06/13/22 History [Lantus Solostar Pen] ondansetron HCL [Zofran] 8 mg PO Q8HR PRN 06/06/21 06/13/22 History dronabinoL [Marinol] 2.5 mg PO BID PRN 06/13/22 06/13/22 History Allergies Allergy/AdvReac Type Severity Reaction Status Date / Time etodolac [From Lodine] Allergy Rash/Hives Verified 06/13/22 08:43 ketorolac [From Toradol] Allergy Rash/Hives Verified 06/13/22 08:43 Mushroom Allergy Rash/Hives Verified 06/13/22 08:43 tramadol Allergy Rash/Hives Verified 06/13/22 08:43 canagliflozin [From Invokana] AdvReac Vomiting Verified 06/13/22 08:43
[2022-06-15] MEDS ORDERED: ACETAMINOPHEN TAB 500 MG TAB PO STA (06:35)
[2022-06-15] MEDS ORDERED: METOCLOPRAMIDE 5 MG/ML 2 ML VIAL ONE (06:58)
[2022-06-15] MEDS ORDERED: fentaNYL (PF) 50 MCG/ML 2 ML AMP IV PRN (07:00)
[2022-06-15] MEDS ORDERED: MIDAZOLAM 2 MG/2 ML VIAL IVP ONE (07:10)
[2022-06-15] MEDS ORDERED: fentaNYL (PF) 50 MCG/ML 2 ML AMP ONE (07:24)
[2022-06-15] MEDS ORDERED: ROPIVACAINE 5 MG/ML 30 ML VIAL ONE (07:24)
[2022-06-15] MEDS ORDERED: LIDOCAINE 2% INJ 20 MG/ML (2 ML VIAL) ONE (07:24)
[2022-06-15] MEDS ORDERED: MIDAZOLAM 2 MG/2 ML VIAL ONE (07:24)
[2022-06-15] MEDS ORDERED: HYDROmorphone (PF) 1 MG/ML ONE (07:24)
[2022-06-15] MEDS ORDERED: PROPOFOL 10 MG/ML 20 ML VIAL IV ONE (07:24)
[2022-06-15] MEDS ORDERED: ROCURONIUM 10 MG/ML (5 ML VIAL) IV ONE (07:24)
[2022-06-15] MEDS ORDERED: SUCCINYLCHOLINE CHLORIDE 200 MG/10 ML VIAL IV ONE (07:24)
[2022-06-15] MEDS ORDERED: SUGAMMADEX SODIUM 200 MG/2 ML SDV IV ONE (07:24)
[2022-06-15] MEDS ORDERED: SODIUM CHLORIDE 0.9% (PF) 10 ML VIAL ONE (07:24)
[2022-06-15] MEDS ORDERED: BUPIVACAIN-EPI 0.25%-1:200,000 30 ML VIAL SQ ONE (07:56)
--- NOTE | 2022-06-15 09:06 | P.ANPRN ---
Procedure Note - Anesthesia - Nerve Block Performed Bilateral Transversus Abdominis Single Time Out Performed: Yes Date of Procedure: 06/15/22 Location of Patient: PreOp Indication: Acute Post-Operative Pain, Dx/Pain Location (abdominal pain), Requested by Surgeon Specifically requested for management of pain by DrCornell: Brandie Mccoy Sedation Type: Sedate with meaningful contact maintained Preparation: Sterile Dressing Position: Supine Catheter: None Needle Types: Pajunk Needle Gauge: 21 (100 mm) Ultrasound used to visualize needle placement: Yes Ultrasound used to observe medication spread: Yes Injectate: 0.5% Ropivacaine (see comment for volume) (20 cc + 10 cc of saline on each side) Blood Aspirated: No Pain Paresthesia on Injection Noted: No Resistance on Injection: Normal Image Stored and Saved: Yes Events: Uneventful and Well Tolerated
[2022-06-15 09:31] VITALS: TEMP 97.6
[2022-06-15 09:55] LABS: Glucose,Whole Blood 148 mg/dL (70-110)
[2022-06-15] MEDS ORDERED: SIMETHICONE 80 MG CHEWABLE PO SCH (10:00)
--- NOTE | 2022-06-15 10:11 | P.OP ---
Date of Procedure: 06/15/22 Description of Procedure: SURGEON: BRANDIE MCCOY MD PREOPERATIVE DIAGNOSES: 1. Chronic abdominal pain due to adhesions 2. Diabetes type 2 with diabetic nephropathy 3. Obesity due to excess calories, BMI 31.1 4. Diabetic neuropathy 5. Diabetic retinopathy 6. Wheelchair-bound 7. Gastroesophageal reflux disease 8. History of diverticulitis and multiple abdominal surgeries 9. Chronic nausea 10. Hyperlipidemia 11. Hypertensive heart disease 12. History of transient ischemic attack 13. Chronic migraines POSTOPERATIVE DIAGNOSES: 1. Chronic abdominal pain due to adhesions 2. Diabetes type 2 with diabetic nephropathy 3. Obesity due to excess calories, BMI 31.1 4. Diabetic neuropathy 5. Diabetic retinopathy 6. Wheelchair-bound 7. Gastroesophageal reflux disease 8. History of diverticulitis and multiple abdominal surgeries 9. Chronic nausea 10. Hyperlipidemia 11. Hypertensive heart disease 12. History of transient ischemic attack 13. Chronic migraines 14. Left inguinal hernia with incarceration 15. Diffuse pelvic adhesions 16. Incarcerated incisional hernia, epigastrium OPERATION: 1. Robotic-assisted da Malia Xi laparoscopic extensive lysis of adhesions over 1 hr 2. Robotic-assisted da Malia Xi laparoscopic repair of incarcerated incisional hernia, 1 cm without mesh 3. Robotic-assisted da Malia Xi laparoscopic repair of incarcerated left inguinal hernia, indirect, 2 cm COMPLICATIONS: None. Anesthesia: GETA, local Estimated Blood Loss (ml): 5 Pathology: none sent Condition: stable Disposition: same day OPERATIVE FINDINGS: 1. Severe peritoneal adhesions involving pelvis, epigastrium and midline from prior multiple surgeries 2. Severe interloop adhesions right upper quadrant mid abdomen and pelvis lysed 3. Sigmoid diverticulosis 4. Incarcerated incisional hernia epigastrium, 1 cm reduced and repaired without mesh 5. Indirect left inguinal hernia, 2 cm with incarceration reduced and repair without mesh INDICATIONS: The patient is a 37-year-old male who presents with chronic abdominal pain including personal history of multiple abdominal surgeries and pre-existing history of significant intra-abdominal adhesions. Due to severity of his pain he sought surgical intervention. Informed consent was obtained. Robotic assisted laparoscopic approach was described. Benefits and risks of the procedure including but not limited to bleeding, infection, injury to the small bowel was described. Informed consent was obtained. DESCRIPTION OF PROCEDURE: Patient was brought to the operating room, placed in supine position. After general induction, the abdomen had been prepped and draped in standard sterile fashion. The robotic da Malia XI system was primed. After a timeout protocol was performed, the patient had been prepped and draped in standard sterile fashion. The robot was docked along the right lateral abdomen. A 5 mm 0 degrees laparoscopic trocar entry was performed along the left upper quadrant. The abdomen was insufflated to 15 mmHg pressure which he tolerated well. Diagnostic laparoscopy demonstrated severe intra-abdominal adhesions involving the midline, pelvis, upper abdomen. No injury to the bowel, viscera or mesentery was identified. Next, three 8 mm robotic ports were placed along the upper abdomen. The camera 8-mm port was initially docked along the epigastrium. Please note that the ports were placed at least 8 cm away from the target anatomy. Instruments were interchanged using only 3 ports for a grasper, vessel sealer, needle hyster driver with cautery. Instruments were interchanged by the assistant project manager. I had sat at the console. Extensive lysis of adhesions over 1 hour was performed. Carefully the adhesions were taken down without injury to the small bowel using vessel sealer and cautery on scissors. Interloop adhesions were identified of the right upper quadrant, pelvis and right lower quadrant prior appendectomy site. Severe adhesions along the umbilicus was also confirmed as the patient's location of pain with an incarcerated incisional hernia 1 cm. After extensive lysis of adhesions, hernia of the left groin was also identified with sigmoid diverticulosis without diverticulitis. Small bowel adherent to the right pelvis and abdominal wall was gently and bluntly dissected free without enterotomy. Attention was brought to repair his hernias. An accessory 12 mm trochars placed at the right upper quadrant along previous cicatrix. Next, #1 VLOC nonabsorbable was used to oversew his incarcerated incisional hernia of 1 cm after reducing contents. Fascial imbrication 2 was performed complete closure of the hernia. Next, attention was brought to the left groin. Defect measured 2 cm. Pursestring suture using 2-0 V LOC absorbable was used to close the defect. Mesh repair was avoided due to implant and severity of adhesions. Review of his previous hiatal hernia repair was performed without any recurrence identified. The robot was undocked. All pneumoperitoneum and instruments were evacuated from the abdominal cavity. The incisions were reapproximated using 4-0 Monocryl in an interrupted subcuticular fashion. Please note along the trocar sites, local anesthetic was placed as a field block prior to insertion of all instruments. Liquid glue was applied to the skin. At the end of the procedure needle, sponge, and instrument count had been verified correct by the rn neurosurgical. The patient was transferred to postanesthesia care unit in stable condition. Intraoperative images including findings were described to the patients family. Plan - Discharge Summary Discharge Rx Participant: No New Discharge Prescriptions: New Cyclobenzaprine [Flexeril] 10 mg PO TID #30 tab Simethicone [Gas-X] 125 mg PO AC-TID PRN #20 capsule PRN Reason: Pain Acetaminophen Tab [Tylenol Tab] 1,000 mg PO Q6HR PRN #30 tablet PRN Reason: Pain Continue Loratadine 10 mg PO QAM lisinopriL [Zestril] 2.5 mg PO QAM HYDROcodone/APAP 10-325MG [[place] 10-325] 1 tab PO QID PRN PRN Reason: Pain tiZANidine [Zanaflex] 4 mg PO BID Aspirin 81 mg PO DAILY INSULIN LISPRO (humaLOG) [humaLOG] See Protocol SQ AC-TID PRN PRN Reason: cbg above 150 Pioglitazone [Actos] 30 mg PO QAM Topiramate [Topamax] 100 mg PO QAM Atorvastatin [Lipitor] 20 mg PO HS Insulin Glargine,Hum.rec.anlog [Lantus Solostar Pen] 35 unit SQ HS dronabinoL [Marinol] 2.5 mg PO BID PRN PRN Reason: Nausea And Vomiting Gabapentin [Neurontin] 300 mg PO TID ondansetron HCL [Zofran] 8 mg PO Q8HR PRN PRN Reason: Nausea Discharge Medication List Loratadine 10 mg PO QAM 03/29/16 [History] lisinopriL [Zestril] 2.5 mg PO QAM 01/24/17 [History] HYDROcodone/APAP 10-325MG [[place] 10-325] 1 tab PO QID PRN 07/11/18 [History] Aspirin 81 mg PO DAILY 02/22/19 [History] tiZANidine [Zanaflex] 4 mg PO BID 02/22/19 [History] INSULIN LISPRO (humaLOG) [humaLOG] See Protocol SQ AC-TID PRN 03/15/19 [History] Pioglitazone [Actos] 30 mg PO QAM 04/09/19 [History] Topiramate [Topamax] 100 mg PO QAM 05/17/19 [History] Atorvastatin [Lipitor] 20 mg PO HS 08/15/20 [History] Gabapentin [Neurontin] 300 mg PO TID 11/04/20 [History] Insulin Glargine,Hum.rec.anlog [Lantus Solostar Pen] 35 unit SQ HS 06/06/21 [History] ondansetron HCL [Zofran] 8 mg PO Q8HR PRN 06/06/21 [History] dronabinoL [Marinol] 2.5 mg PO BID PRN 06/13/22 [History] Acetaminophen Tab [Tylenol Tab] 1,000 mg PO Q6HR PRN #30 tablet 06/15/22 [Rx] Cyclobenzaprine [Flexeril] 10 mg PO TID #30 tab 06/15/22 [Rx] Simethicone [Gas-X] 125 mg PO AC-TID PRN #20 capsule 06/15/22 [Rx] Follow up Appointment(s)/Referral(s): Brandie Mccoy MD [STAFF PHYSICIAN] - 06/19/22 (TELEHEALTH) Patient Instructions/Handouts: *[facility] - Managing Your Pain After Surgery Without Opioids, *[facility] - Scopalamine Patch Instructions, Laparoscopic Herniorrhaphy (IP), Abdominal Binder (DC), Ventral Hernia Repair (GEN), Inguinal Hernia Repair (DC), Lysis of Abdominal Adhesions (DC) Activity/Diet/Wound Care/Special Instructions: No lifting for 4 pounds in 4 weeks, Jul 16 Using antibacterial soap. May shower. No bathtub soaks for 2 weeks, Jun 29 Wear abdominal binder daily for comfort except for showering. Use ice along incisions for today to prevent swelling. Discharge Disposition: HOME SELF-CARE
[2022-06-15] MEDS ORDERED: CYCLOBENZAPRINE 10 MG TAB PO STA (10:51)
[2022-06-15 13:12] VITALS: BP 115/66; PULSE 86; RESP 17
== END 2022-06-15 13:10 | disposition home or self-care (01) ==
LOC: OR 05:42
PROVIDERS: ATTEND Surgery Plastic and Reconstructive Surgery
DX: K40.30 Unilateral inguinal hernia, with obstruction, without gangrene, not specified as recurrent (principal); K43.0 Incisional hernia with obstruction, without gangrene; K66.0 Peritoneal adhesions (postprocedural) (postinfection); K57.30 Diverticulosis of large intestine without perforation or abscess without bleeding; G89.29 Other chronic pain; Z98.890 Other specified postprocedural states; I11.9 Hypertensive heart disease without heart failure; Z90.49 Acquired absence of other specified parts of digestive tract; K21.9 Gastro-esophageal reflux disease without esophagitis; Z79.84 Long term (current) use of oral hypoglycemic drugs; Z86.73 Personal history of transient ischemic attack (TIA), and cerebral infarction without residual deficits; J45.909 Unspecified asthma, uncomplicated; Z99.3 Dependence on wheelchair; E78.5 Hyperlipidemia, unspecified; Z87.19 Personal history of other diseases of the digestive system; Z83.3 Family history of diabetes mellitus; Z82.49 Family history of ischemic heart disease and other diseases of the circulatory system; Z79.82 Long term (current) use of aspirin; Z79.2 Long term (current) use of antibiotics; Z79.891 Long term (current) use of opiate analgesic; Z79.899 Other long term (current) drug therapy; Z79.01 Long term (current) use of anticoagulants; Z79.02 Long term (current) use of antithrombotics/antiplatelets; Z79.1 Long term (current) use of non-steroidal anti-inflammatories (NSAID); Z88.5 Allergy status to narcotic agent; Z88.6 Allergy status to analgesic agent; Z88.8 Allergy status to other drugs, medicaments and biological substances; Z91.018 Allergy to other foods; Z79.4 Long term (current) use of insulin; E11.21 Type 2 diabetes mellitus with diabetic nephropathy; E66.9 Obesity, unspecified; Z68.31 Body mass index [BMI] 31.0-31.9, adult; E11.40 Type 2 diabetes mellitus with diabetic neuropathy, unspecified; E11.319 Type 2 diabetes mellitus with unspecified diabetic retinopathy without macular edema; G43.909 Migraine, unspecified, not intractable, without status migrainosus
CPT/HCPCS: 64488; 49650; 49655; J2250; J0330; J1100; J2765; J0690; J2405; J3010; J1170; J2795; J2704; J1644; J2001

== ENCOUNTER → 2023-04-03 | Outpatient (CLI) | payer MEDICARE, OTHER ==
--- NOTE | 2023-04-03 19:12 | MR ---
EXAMINATION TYPE: MR lumbar spine wo/w con DATE OF EXAM: 04/03/2023 4:59 PM CLINICAL INDICATION:Male, 38 years old with history of M54.50 low back pain; PHH, Low back pain that radiates down legs. History of surgery 2019. COMPARISON: 02/12/2020 TECHNIQUE: Multi planar, multi sequence imaging was performed utilizing: T1-weighted, T2-weighted, a nd turbo inversion recovery imaging of the lumbar spine. IV Contrast: 7.5 cc Gadavist. (None if empty) FINDINGS: Alignment: The lumbar vertebral bodies have preserved heights and alignment. Cord: The conus medullaris and the distal spinal cord appear unremarkable with regards to their signa l intensity and morphology. No abnormal postcontrast enhancement. Bones/Discs: Postsurgical changes at L4 and L5 limiting evaluation. No abnormal bony edema. Mild oste ophyte formation throughout the spine. No abnormal postcontrast enhancement. T12-L1: No evidence of significant spinal canal stenosis or neural foraminal stenosis. L1-L2: No evidence of significant spinal canal stenosis or neural foraminal stenosis. L2-L3: No evidence of significant spinal canal stenosis or neural foraminal stenosis. L3-L4: Disc bulge with superimposed protrusion which moderately narrows the spinal canal a The neural foramen are patent. L4-L5: No evidence of significant spinal canal stenosis or neural foraminal stenosis. L5-S1: The disc is rounded posterior morphology without significant spinal canal stenosis. Facet join t arthropathy with mild bilateral neural foraminal stenosis. No significant spinal canal or neural foraminal stenosis in the remainder of the visualized levels. Other findings: None. IMPRESSION: 1. L3-L4 disc bulge superimposed protrusion which moderately narrows the spinal canal. 2. The remainder of the exam demonstrates evidence for spinal canal or neural foraminal stenosis. 3. No evidence for abnormal postcontrast enhancement.
== END | disposition home or self-care (01) ==
LOC: RADMRIMAIN 15:24
PROVIDERS: ATTEND Psychiatry & Neurology Neurology
DX: M51.26 Other intervertebral disc displacement, lumbar region (principal)
CPT/HCPCS: 72158; A9585

== ENCOUNTER → 2023-10-16 | Outpatient (CLI) | payer MEDICARE, OTHER ==
[2023-10-16 18:57] LABS: Basophils # (A) 0.04 X 10*3/uL (0.00-0.10); Basophils % (A) 0.8 %; Eosinophils # (A) 0.24 X 10*3/uL (0.04-0.35); Eosinophils % (A) 4.8 %; HCT 44.7 % (39.6-50.0); HGB 15.1 g/dL (13.0-17.0); Lymphocytes # (A) 1.45 X 10*3/uL (0.90-5.00); Lymphocytes % (A) 28.9 %; MCH 31.6 pg (27.0-32.0); MCHC 33.8 g/dL (32.0-37.0); MCV 93.5 FL (80.0-97.0); Mean Platelet Volume 9.7 FL (9.5-12.2); Monocytes # (A) 0.24 X 10*3/uL (0.20-1.00); Monocytes % (A) 4.8 %; NRBC Per 100 WBC 0 X 10*3/uL (0.00-0.01); Neutrophils # (A) 3.03 X 10*3/uL (1.80-7.70); Neutrophils % (A) 60.5 %; Platelet Count 226 X 10*3/uL (140-440); RBC 4.78 X 10*6/uL (4.40-5.60); RDW 12.7 % (11.5-14.5); WBC 5.01 X 10*3/uL (4.50-10.00)
[2023-10-16 19:36] LABS: ALT 36 U/L (10-49); AST 19 U/L (14-35); Albumin 4.6 g/dL (3.8-4.9); Albumin/Globulin Ratio 1.84 Ratio (1.60-3.17); Alkaline Phosphatase 107 U/L (41-126); Blood Urea Nitrogen 12.4 mg/dL (9.0-27.0); Calcium 9.3 mg/dL (8.7-10.3); Carbon Dioxide 24.3 mmol/L (21.6-31.8); Chloride 105 mmol/L (96-109); Globulin 2.5 g/dL (1.6-3.3); Glucose 87 mg/dL (70-110); LDL Cholesterol,Calculated 73.7 mg/dL (0.0-131.0); Potassium 3.8 mmol/L (3.5-5.5); Sodium 138 mmol/L (135-145); Total Bilirubin 0.7 mg/dL (0.3-1.2); Total Protein 7.1 g/dL (6.2-8.2); VLDL Calculation 12.74 mg/dL (5.00-40.00)
== END | disposition home or self-care (01) ==
LOC: LABWHC1 15:24
PROVIDERS: ATTEND Family Medicine
DX: Z00.00 Encounter for general adult medical examination without abnormal findings (principal); I10 Essential (primary) hypertension; F32.5 Major depressive disorder, single episode, in full remission; E11.59 Type 2 diabetes mellitus with other circulatory complications; K57.90 Diverticulosis of intestine, part unspecified, without perforation or abscess without bleeding; E78.5 Hyperlipidemia, unspecified
CPT/HCPCS: 36415; 80053; 80061; 83036; 85025

== ENCOUNTER 2024-08-26 06:30 | Day surgery (SDC) | payer MEDICARE, OTHER ==
[2024-08-26] MEDS: IV FLUID CONTINUATION 1,000 ML IV ONE ×2 (06:56→09:26)
[2024-08-26 07:08] VITALS: TEMP 98.8
[2024-08-26] MEDS: ONDANSETRON 4 MG/2 ML VIAL IVP STA (07:19)
[2024-08-26] MEDS: LACTATED RINGERS 1,000 ML IV SCH (07:20)
[2024-08-26 07:23] LABS: Glucose,Whole Blood 148 mg/dL (70-110)
[2024-08-26] MEDS ORDERED: LIDOCAINE 1% INJ 10MG/ML (20 ML MDV) ONE (07:34)
[2024-08-26] MEDS ORDERED: PROPOFOL 10 MG/ML 20 ML VIAL IV ONE (07:34)
[2024-08-26] MEDS ORDERED: PHENYLEPHRINE 10 MG/ML VIAL ONE (07:34)
--- NOTE | 2024-08-26 07:39 | P.GSHP ---
History of Present Illness H&P Date: 08/26/24 CHIEF COMPLAINT: GI bleed HISTORY OF PRESENT ILLNESS: The patient is a 39-year-old male who presents with GI bleed and dysphagia. Upper and lower endoscopy were offered for further evaluation and management. PAST MEDICAL HISTORY: Please see list. PAST SURGICAL HISTORY: Please see list. MEDICATIONS: Please see list. ALLERGIES: Please see list. SOCIAL HISTORY: No illicit drug use FAMILY HISTORY: No reports of Crohn disease or ulcerative colitis. REVIEW OF ORGAN SYSTEMS: CONSTITUTIONAL: No reports of fevers or chills. GI: Denies any blood in stools or constipation. PHYSICAL EXAM: VITAL SIGNS: Stable GENERAL: Well-developed pleasant in no acute distress. HEENT: No scleral icterus. Extraocular movements grossly intact. Moist buccal mucosa. NECK: Supple without lymphadenopathy. CHEST: Unlabored respirations. Equal bilateral excursions. CARDIOVASCULAR: Regular rate and rhythm. Distal 2+ pulses. ABDOMEN: Soft, nondistended. MUSCULOSKELETAL: No clubbing, cyanosis, or edema. ASSESSMENT: 1. GI bleed 2. Dysphagia PLAN: 1. Recommend proceeding with an upper and lower endoscopy Past Medical History Past Medical History: Asthma, CVA/TIA, Diabetes Mellitus, GERD/Reflux, Hyperlipidemia, Hypertension, Pneumonia Additional Past Medical History / Comment(s): ABD PAIN. CVA 08/2017, left sided weakness-USES WHEELCHAIR, tremors left leg and hand. HX OF diverticultitis. Hx of migraines, ADHESIONS History of Any Multi-Drug Resistant Organisms: None Reported Past Surgical History: Appendectomy, Back Surgery, Bowel Resection, Cholecystectomy, Hernia Repair, Orthopedic Surgery, Tonsillectomy Additional Past Surgical History / Comment(s): rt shoulder sx, ARTHROSCOPY Knee x 3, hiatal hernia, LYSIS OF ADHESIONS 06/15/22 WITH INCISIONAL AND LT INGUINAL HERNIA REPAIR, COLONOSCOPY Past Anesthesia/Blood Transfusion Reactions: Postoperative Nausea & Vomiting (PONV) Additional Past Anesthesia/Blood Transfusion Reaction / Comment(s): no hx blood transfusion Smoking Status: Never smoker - Past Family History Mother Family Medical History: No Reported History Father Family Medical History: Diabetes Mellitus Additional Family Medical History / Comment(s): heart problems Medications and Allergies Home Medications Medication Instructions Recorded Confirmed Type Loratadine 10 mg PO QAM 03/29/16 08/26/24 History lisinopriL [Zestril] 2.5 mg PO QAM 01/24/17 08/26/24 History HYDROcodone/APAP 10-325MG [[place] 1 tab PO QID PRN 07/11/18 08/26/24 History 10-325] Aspirin 81 mg PO DAILY 02/22/19 08/26/24 History tiZANidine [Zanaflex] 4 mg PO DAILY 02/22/19 08/26/24 History INSULIN LISPRO (humaLOG) [humaLOG] See Protocol SQ AC-TID PRN 03/15/19 08/26/24 History Pioglitazone [Actos] 30 mg PO QAM 04/09/19 08/26/24 History Topiramate [Topamax] 100 mg PO QAM 05/17/19 08/26/24 History Atorvastatin [Lipitor] 20 mg PO HS 08/15/20 08/26/24 History Gabapentin [Neurontin] 300 mg PO TID 11/04/20 08/26/24 History Insulin Glargine,Hum.rec.anlog 60 unit SQ HS 06/06/21 08/26/24 History [Lantus Solostar Pen] ondansetron HCL [Zofran] 8 mg PO Q8HR PRN 06/06/21 08/26/24 History Allergies Allergy/AdvReac Type Severity Reaction Status Date / Time etodolac [From Lodine] Allergy Rash/Hives Verified 08/26/24 07:00 ketorolac [From Toradol] Allergy Rash/Hives Verified 08/26/24 07:00 Mushroom Allergy Rash/Hives Verified 08/26/24 07:00 tramadol Allergy Rash/Hives Verified 08/26/24 07:00 canagliflozin [From Invokana] AdvReac Vomiting Verified 08/26/24 07:00 Surgical - Exam Vital Signs Temp Pulse Resp BP Pulse Ox 98.8 F 90 16 123/75 99 08/26/24 07:06 08/26/24 07:06 08/26/24 07:06 08/26/24 07:06 08/26/24 07:06 Results - Labs Abnormal Lab Results - Last 24 Hours (Table) 08/26/24 Range/Units 07:14 POC Glucose (mg/dL) 148 H (70-110) mg/dL
--- NOTE | 2024-08-26 08:01 | P.PCN ---
Date of Procedure: 08/26/24 Description of Procedure: PREOPERATIVE DIAGNOSIS: Dysphagia GI bleed POSTOPERATIVE DIAGNOSIS: Erosive esophagitis Gastroesophageal reflux disease Duodenitis Acute gastritis with recent bleeding Hypertensive pylorus OPERATION: Esophagogastroduodenoscopy with pyloric balloon dilation, 18 mm Esophagogastroduodenoscopy with rigid dilator over the guidewire 57 Fr with dilation Esophagogastroduodenoscopy with cold forceps biopsies esophagus, duodenum and stomach/antrum SURGEON: Brandie Mccoy MD ANESTHESIA: MAC. INDICATIONS: The patient is a 39-year-old male who presents with epigastric abdominal pain, dysphagia and reflux disease. Benefits and risks of the procedure were described. Informed consent was obtained. DESCRIPTION: The patient was brought into the endoscopy suite and laid in the left lateral decubitus position. After a timeout was confirmed, the procedure was initiated. An Olympus gastroscope was passed into the posterior oropharynx where an upper esophageal stenosis was identified. The scope was passed down to the distal esophagus. Acute distal esophageal ulcerations were identified including duodenitis and gastritis with recent bleeding. To address pyloric hypertension, pyloric [employer] balloon 18 Scottish was insufflated for 2 minutes. Balloon was removed with patency of the pyloric channel. Next using an [place] rigid dilator, a guidewire was placed through the gastroscope. Next the scope was withdrawn. A 57-Scottish rigid [place] dilator was passed carefully along the posterior oropharynx to 45 cm and left in place for 2-3 minutes stretch. The dilator was withdrawn including the guidewire. The scope was reentered along the posterior oropharynx with no findings of full-thickness tear of the esophageal sphincter. Additional findings below. Within the stomach, acute gastritis with bleeding were identified along the body of the stomach with cold forceps biopsies obtained. Duodenitis was identified with biopsies obtained. The lower esophageal valve was evaluated with Hill grade 2 lower esophageal valve. LA grade C erosive esophagitis and ulceration was identified. Biopsies obtained. No full-thickness injury was encountered. The GI tract was desufflated. The patient tolerated the procedure well. FINDINGS: Distal esophageal dilated 57-Scottish rigid dilator Hypertensive pyloric channel dilated 18 mm Diaphragmatic hiatus at 39 cm from the incisors Squamocolumnar junction 39 cm from the incisors. Acute gastritis with bleeding along gastric cardia with cold forceps biopsies obtained of the antrum Acute esophageal with erosive ulcerations identified. Cold forcep biopsies obtained No recurrent hiatal hernia Duodenum with mild duodenitis, biopsies obtained LA grade C erosive esophagitis with ulcerations, biopsies obtained Hill grade 2 lower esophageal valve. RECOMMENDATIONS: Omeprazole 40 mg daily and Carafate daily Repeat upper endoscopy 4 weeks
--- NOTE | 2024-08-26 08:20 | P.PCN ---
Date of Procedure: 08/26/24 Description of Procedure: PREOPERATIVE DIAGNOSIS: GI bleed POSTOPERATIVE DIAGNOSIS: Tubular adenoma hepatic flexure Pandiverticulosis OPERATION: Colonoscopy to the ileocecal valve and appendiceal orifice, cecum Colonoscopy with cold forceps biopsy SURGEON: Brandie Mccoy MD. ANESTHESIA: MAC. INDICATIONS: The patient is an 63-year-old male who presents family history of malignant colon polyps and personal history of colon polyps. Last colonoscopy 5 years. Benefits and risks were described and informed consent was obtained. DESCRIPTION OF PROCEDURE: The patient had undergone GoLytely prep. The patient had been brought into the operating room and laid in the left lateral decubitus position. After adequate intravenous sedation, the rectum was examined with 2% lidocaine jelly. The prostate was unremarkable. No external hemorrhoids were encountered. The rectal tone was within normal limits. No lesions were palpated in the rectal vault. An Olympus colonoscope was advanced until the cecum, ileocecal valve and appendiceal orifice were clearly viewed. The prep was fair. Diffuse di verticulosis was encountered without active diverticulitis. Colonic mucosa easily friable. Colonic polyps were found and removed. No evidence of focal colitis was found. Retroflexion of the scope demonstrated grade 1 internal hemorrhoids without active bleeding or inflammation. The colon was desufflated. The patient had tolerated the procedure well. Withdrawal time was over 6 minutes. FINDINGS: Aronchick preparation quality scale 2+ (1-5) Internal hemorrhoids, grade 1 No external hemorrhoids No arteriovenous malformations. Pandiverticulosis without diverticulitis Abdominal pressure required to advance the scope. Removal of 1 polyps: - Cold forceps biopsy at hepatic flexure, 4 mm adenoma No focal colitis. RECOMMENDATIONS: Repeat colonoscopy in 3 years, 2027 Plan - Discharge Summary Discharge Rx Participant: No New Discharge Prescriptions: Continue Loratadine 10 mg PO QAM lisinopriL [Zestril] 2.5 mg PO QAM HYDROcodone/APAP 10-325MG [[place] 10-325] 1 tab PO QID PRN PRN Reason: Pain tiZANidine [Zanaflex] 4 mg PO DAILY Aspirin 81 mg PO DAILY INSULIN LISPRO (humaLOG) [humaLOG] See Protocol SQ AC-TID PRN PRN Reason: cbg above 150 Pioglitazone [Actos] 30 mg PO QAM Topiramate [Topamax] 100 mg PO QAM Atorvastatin [Lipitor] 20 mg PO HS Insulin Glargine,Hum.rec.anlog [Lantus Solostar Pen] 60 unit SQ HS Gabapentin [Neurontin] 300 mg PO TID ondansetron HCL [Zofran] 8 mg PO Q8HR PRN PRN Reason: Nausea Discharge Medication List Loratadine 10 mg PO QAM 03/29/16 [History] lisinopriL [Zestril] 2.5 mg PO QAM 01/24/17 [History] HYDROcodone/APAP 10-325MG [[place] 10-325] 1 tab PO QID PRN 07/11/18 [History] Aspirin 81 mg PO DAILY 02/22/19 [History] tiZANidine [Zanaflex] 4 mg PO DAILY 02/22/19 [History] INSULIN LISPRO (humaLOG) [humaLOG] See Protocol SQ AC-TID PRN 03/15/19 [History] Pioglitazone [Actos] 30 mg PO QAM 04/09/19 [History] Topiramate [Topamax] 100 mg PO QAM 05/17/19 [History] Atorvastatin [Lipitor] 20 mg PO HS 08/15/20 [History] Gabapentin [Neurontin] 300 mg PO TID 11/04/20 [History] Insulin Glargine,Hum.rec.anlog [Lantus Solostar Pen] 60 unit SQ HS 06/06/21 [History] ondansetron HCL [Zofran] 8 mg PO Q8HR PRN 06/06/21 [History] Follow up Appointment(s)/Referral(s): Brandie Mccoy MD [STAFF PHYSICIAN] - 09/15/24 2:00 pm Patient Instructions/Handouts: Esophageal Dilation (DC), Colorectal Polyps (GEN), Diverticulosis Diet (GEN) Activity/Diet/Wound Care/Special Instructions: Repeat colonoscopy in 3 years, 2027 Discharge Disposition: HOME SELF-CARE
[2024-08-26 08:27] LABS: Glucose,Whole Blood 154 mg/dL (70-110)
[2024-08-26 09:37] VITALS: RESP 14
[2024-08-26 09:44] VITALS: BP 106/64; PULSE 75
== END 2024-08-26 09:56 | disposition home or self-care (01) ==
LOC: ORWHC2ENDO 06:30
PROVIDERS: ATTEND Surgery Plastic and Reconstructive Surgery
DX: K29.01 Acute gastritis with bleeding (principal); K29.51 Unspecified chronic gastritis with bleeding; K29.81 Duodenitis with bleeding; K22.11 Ulcer of esophagus with bleeding; K22.2 Esophageal obstruction; K21.00 Gastro-esophageal reflux disease with esophagitis, without bleeding; D12.3 Benign neoplasm of transverse colon; K57.30 Diverticulosis of large intestine without perforation or abscess without bleeding; K64.0 First degree hemorrhoids; I10 Essential (primary) hypertension; E11.9 Type 2 diabetes mellitus without complications; E78.5 Hyperlipidemia, unspecified; J45.909 Unspecified asthma, uncomplicated; Z91.89 Other specified personal risk factors, not elsewhere classified; Z79.82 Long term (current) use of aspirin; Z79.4 Long term (current) use of insulin; Z79.84 Long term (current) use of oral hypoglycemic drugs; Z79.899 Other long term (current) drug therapy; Z86.0100 Personal history of colon polyps, unspecified; Z86.73 Personal history of transient ischemic attack (TIA), and cerebral infarction without residual deficits; Z80.0 Family history of malignant neoplasm of digestive organs; Z83.718 Family history of other colon polyps; Z88.6 Allergy status to analgesic agent; Z88.5 Allergy status to narcotic agent; Z88.8 Allergy status to other drugs, medicaments and biological substances; Z91.018 Allergy to other foods
CPT/HCPCS: 88305; 45380; 43239; 43245; 43248; J2405; J2003; J2704; J2371; C1726

== ENCOUNTER → 2024-10-12 | Outpatient (CLI) | payer MEDICARE, OTHER ==
[2024-10-12 18:49] LABS: ALT 36 U/L (10-49); AST 26 U/L (14-35); Albumin 4.8 g/dL (3.8-4.9); Alkaline Phosphatase 139 U/L (41-126); Calcium 9.5 mg/dL (8.7-10.3); Carbon Dioxide 20.8 mmol/L (21.6-31.8); Chloride 101 mmol/L (96-109); Glucose 157 mg/dL (70-110); LDL Cholesterol,Calculated 90.4 mg/dL (0.0-131.0); Potassium 4.8 mmol/L (3.5-5.5); Sodium 135 mmol/L (135-145); Total Bilirubin 1.3 mg/dL (0.3-1.2); Total Protein 7.8 g/dL (6.2-8.2); VLDL Calculation 14.34 mg/dL (5.00-40.00)
== END | disposition home or self-care (01) ==
LOC: LABWHC1 15:10
PROVIDERS: ATTEND Internal Medicine
DX: E11.65 Type 2 diabetes mellitus with hyperglycemia (principal)
CPT/HCPCS: 36415; 80053; 80061; 82043; 82570; 83036